=== PATIENT | male | born 1955 | race Caucasian/White ===

== ENCOUNTER 2024-02-28 15:53 | Emergency (ER) | payer MEDICARE, MEDICAID, SELFPAY ==
[2024-02-28] VITALS (10 sets, daily range): BP systolic 156–199; BP diastolic 96–123; PULSE 77–82; RESP 15–24; TEMP 36.6; O2SAT 98–100
--- NOTE | ~2024-02-28 | XR_ITS ---
XR chest 2V DATE: 02/28/2024 17:12 INDICATION: Chest pain, shortness of breath TECHNIQUE: AP and lateral views COMPARISON: 02/28/2024 CTA chest abdomen pelvis FINDINGS: Normal heart size. There is thoracic aortic aneurysm and tortuosity. No hilar or mediasti nal enlargement. There is moderate bilateral pulmonary hyperinflation suggesting COPD. No pulmonary infiltrate or consolidation, pulmonary vascular congestion or pleural effusion or pneumo thorax. There is probable bilateral rotator cuff atrophy. Degenerative spurring of the thoracic spine. IMPRESSION: Moderate bilateral hyperinflation; no active pulmonary disease Thoracic aortic aneurysm and tortuosity Reviewed, dictated and finalized at location B.
--- NOTE | ~2024-02-28 | CT_ITS ---
EXAMINATION: CT brain wo con DATE: 02/28/2024 17:03 INDICATION: Syncope with head injury TECHNIQUE: Computed tomography (CT) of the head was performed without intravenous contrast. Sagittal and coronal reconstructions were performed. The mA was adjusted according to patient size. Iterative reconstruction technique was employed. The dose-length product was 605.33 mGy-cm. COMPARISON: None FINDINGS: No fracture. Small old lacunar infarct at the head of the left caudate nucleus. No acute intracranial hemorrhage, acute infarction or abnormal extra axial fluid collection. There is mild scattered white matter hypoattenuation consistent with chronic small vessel ischemic disease. Symmetric prominence o f the sulci consistent with mild age-appropriate diffuse cerebral volume loss. Ventricles are normal and symmetric. No mass/mass effect. The orbits, paranasal sinuses and mastoid air cells are normal. IMPRESSION: 1. No fracture or acute intracranial process. 2. Small old lacunar infarct at the head of the left caudate nucleus. 3. Age-related changes including mild diffuse volume loss and mild scattered white matter hypoattenua tion consistent with chronic small vessel ischemic disease. Reviewed, dictated and finalized at location A. IMPRESSION: 1. No fracture or acute intracranial process. 2. Small old lacunar infarct at the head of the left caudate nucleus. 3. Age-related changes including mild diffuse volume loss and mild scattered wh ite matter hypoattenuation consistent with chronic small vessel ischemic diseas e.
--- NOTE | ~2024-02-28 | CT_ITS ---
EXAMINATION: CTA chest abdomen pelvis DATE: 02/28/2024 17:03 INDICATION: Thoracic aortic aneurysm. Chest pain, shortness of breath, syncope and dizziness. TECHNIQUE: Computed tomographic angiography (CTA) of the chest, abdomen, and pelvis was performed wit hout and with 100 mL Omnipaque-350 intravenous contrast. Volume-rendered 3D-reconstructions of the ao rta and large arteries were constructed by the technologist on a separate workstation. Automated expo sure control and iterative reconstruction technique were employed. The dose-length product was mGy-cm . COMPARISON: None FINDINGS: Chest: Mild emphysema. There is mosaic attenuation in the dependent lower lobes consistent with mild atelect asis and some subsegmental air trapping related to small airway disease. Additional mild discoid atel ectasis at the right middle lobe. No pneumonia, pulmonary edema, pleural effusion or pneumothorax. He art size is normal. Small amount of atherosclerotic coronary artery calcification. There is a fusifor m aneurysm of the descending thoracic aorta which measures up to 6.0 x 6.0 cm in maximal transaxial d iameter at the distal aspect of the arch measured orthogonal to the axis of flow. The aorta tapers to 4.9 x 5.0 cm at the level of the alex and further to 3.7 x 3.6 cm just above the level of the thor acic hiatus. No aortic dissection. No pathologically enlarged thoracic lymphadenopathy. Mild to moder ate thoracic spondylosis with chronic appearing mild anterior wedging at T7. Abdomen and pelvis: Liver, gallbladder, spleen, and bilateral adrenal glands are normal. Scattered dystrophic calcificati on is at the pancreas, likely sequela of chronic pancreatitis. Mild diffuse likely age-related renal cortical atrophy with more focal cortical scarring and suture line at the lower pole the right kidney likely sequela prior partial nephrectomy. Bilateral renal cysts the largest on the right measuring 2 .3 cm. Moderate amount of distal colonic stool. No dilated bowel to suggest obstruction. Normal appen heath. Bladder is normal. Prostatomegaly. Small fat-containing left inguinal hernia. No free intraperit kasper gas or fluid. No pathologically enlarged abdominal or pelvic lymphadenopathy. Fusiform infraren al abdominal aortic aneurysm measuring up to 4.0 cm in maximal diameter. Aortobiiliac endoluminal pato nting. Distal to the stents is aneurysmal dilation of the bilateral common iliac arteries which measu res up to 3.0 cm in maximal diameter on the left and 3.3 cm in maximal diameter on the right. There i s also dilation of the proximal most right internal iliac artery which measures up to 2.2 cm in maxim al diameter. There is complete occlusion of the proximal right superficial femoral artery. Mild to mo derate lumbar spondylosis. IMPRESSION: 1. Aneurysmal dilation of multiple vessels in the chest, abdomen and pelvis without dissection. This includes of the thoracic aorta measuring up to 6.0 cm, the infrarenal abdominal aorta measuring up to 4.0 cm, the bilateral common iliac arteries measuring 3.0 cm on the left and 3.3 cm on the right and of the right internal iliac artery measuring up to 2.2 cm. 2. Aortobiiliac stent. 3. Complete occlusion of the right superficial femoral artery. 4. Mild emphysema. 5. Prostatomegaly. Reviewed, dictated and finalized at location A. IMPRESSION: 1. Aneurysmal dilation of multiple vessels in the chest, abdomen and pelvis wit hout dissection. This includes of the thoracic aorta measuring up to 6.0 cm, th e infrarenal abdominal aorta measuring up to 4.0 cm, the bilateral common iliac arteries measuring 3.0 cm on the left and 3.3 cm on the right and of the right internal iliac artery measuring up to 2.2 cm. 2. Aortobiiliac stent. 3. Complete occlusion of the right superficial femoral arter
--- NOTE | 2024-02-28 15:55 | ECG_ITS ---
SEE SCANNED COPY FOR CONFIRMED REPORT MTDD
--- NOTE | 2024-02-28 16:00 | ED.GENADULT ---
HPI - General Adult General Chief complaint: Chest Pain <JOLLY Kahn Last Filed: 02/28/24 16:53> Stated complaint: CP, SOB, dizzy, light headed, fall <JOLLY Kahn Last Filed: 02/28/24 16:53> Time Seen by Provider: 02/28/24 16:00 <JOLLY Kahn Last Filed: 02/28/24 16:53> Focused HPI: Patient is a 68 y/o male, with PMH of Q fever, lung/kidney CA, CKD, AAA rupture with revision, who presents to the ED with c/o CP/SOB/dizziness. Patient reports shortness of breath has been worsening over the past few months, more pronounced over the past few days. worse with exertion. Patient reports he develops dizziness and midsternal chest pain any time he attempts to exert himself or walk more than 10 ft at a time. He has fallen 5 times in the last few days, has had 2 separate syncopal episodes. These both occurred after exerting himself. Patient denies any recent illness. Denies cough or cold symptoms, fevers. at bedside reports patient has known thoracic AAA measuring last at 5.2cm, also has known iliac aneursyms - Follows with Dr. Martell Dasilva @ [facility]. she states they have not performed a CTA in a while due to his kidney function. Patient also sees Nephrology, Urology, Infectious Disease at [facility]. GENERAL: Chronically ill-appearing, well-nourished, and in no acute distress. HEAD: Normocephalic, atraumatic. CHEST: Clear to auscultation. ?No respiratory distress. HEART: Regular rate and rhythm.? NEURO: ?Alert and oriented x3. Patient screened in triage and initial orders placed.? ?Additional care and disposition to be based upon?diagnostic testing and treatment. <JOLLY Kahn Last Filed: 02/28/24 16:53> Source: patient and family <JOLLY Kahn Filed: 02/28/24 16:53> Mode of arrival: ambulatory <JOLLY Kahn Filed: 02/28/24 16:53> Limitations: no limitations <Haydee Lane PA-C - Last Filed: 02/28/24 16:53> Related Data Allergies/adverse reactions: Allergies Allergy/AdvReac Type Severity Reaction Status Date / Time Sulfa (Sulfonamide Allergy Mild Nausea and Verified 02/28/24 16:48 Antibiotics) Vomiting <Haydee Lane PA-C - Last Filed: 02/28/24 16:53> Review of Systems Review of Systems: CONSTITUTIONAL: Denies fever, chills, or sweats. EYES: Denies visual changes, redness, or discharge. ENT: Denies rhinorrhea, congestion, sore throat, or otalgia. CARDIOVASCULAR: Chest pain Denies palpitations, or edema. RESPIRATORY: Dyspnea on exertion Denies cough GASTROINTESTINAL: Denies abdominal pain, nausea, vomiting, or diarrhea. GENITOURINARY: Denies dysuria or hematuria. SKIN: Denies rash or itching. MUSCULOSKELETAL: Denies back pain, joint pain, or myalgia. NEUROLOGIC: CP with exertion Denies headache, numbness, dizziness, or weakness. PSYCHIATRIC: Denies anxiety or depression. <Mario Henao MD - Last Filed: 02/28/24 18:56> PMFSH Past Medical History Medical History: Medical History (Updated 02/28/24 @ 20:37 by Korin Sims MD) Abdominal aortic aneurysm Chronic kidney disease COPD (chronic obstructive pulmonary disease) Kidney malignancy Lung cancer Thoracic aortic aneurysm <Haydee Lane PA-C - Last Filed: 02/28/24 16:53> Surgical History Surgical History: Surgical History (Updated 02/28/24 @ 18:51 by Mario Henao MD) History of abdominal aortic aneurysm repair History of partial nephrectomy <Haydee Lane PA-C - Last Filed: 02/28/24 16:53> Exam Narrative: GENERAL: Well-developed, well-nourished, and in no acute distress. HEAD: Normocephalic, atraumatic. EYES: PERRLA and EOMI. ENT: Nares clear, no rhinorrhea or epistaxis. Mucous membranes moist. Oropharynx without tonsillar hypertrophy exudate or other lesions. Bilateral TMs pearly leger nonbulging NECK: Supple. No adenopathy or masses. No carotid
[2024-02-28 16:27] LABS: Hematocrit 36.6 % (42.0-52.0); Hemoglobin 11.7 g/dL (14.0-18.0); Mean Corpuscular Hemoglobin 31.5 pg (26-34); Mean Corpuscular Volume 98.7 fl (80-100); Mean Platelet Volume 10.3 fl (7.4-10.4); Platelet Count Result 199 k/mm3 (150-375); Red Blood Count 3.71 M/mm3 (4.6-6.20); Red Cell Distribution Width 14.1 % (11.5-14.5); White Blood Count 8.7 K/mm3 (4.5-10.0)
[2024-02-28 16:37] LABS: Alanine Aminotransferase 24 U/L (6-50); Albumin Level 4.4 g/dL (3.5-5.1); Alkaline Phosphatase 130 U/L (38-126); Anion Gap 9 mmol/L (4-12); Aspartate Amino Transferase 24 U/L (17-59); Bilirubin,Total 0.5 mg/dL (0.2-1.3); Blood Urea Nitrogen 37 mg/dL (9-20); Calcium 9.7 mg/dL (8.4-10.2); Carbon Dioxide 19 mmol/L (22-30); Chloride 113 mmol/L (98-107); Estimated CRCL calculation 23 ml/min; Estimated Glomerular Filt Rate 21; Glucose 139 mg/dL (65-110); Lipase 270 U/L (23-300); Potassium 4.1 mmol/L (3.4-5.0); Sodium 141 mmol/L (137-145)
[2024-02-28] MEDS: SODIUM CHLORIDE 0.9% IV 1,000 ML 999 ML IV CONT (16:48)
[2024-02-28 16:49] LABS: Troponin I < 0.012 ng/mL (0.000-0.034)
[2024-02-28 16:50] LABS: INR 1.1; Partial Thromboplastin Time 29.5 Seconds (22.3-36.8); Prothrombin Time 15.1 Seconds (11.1-14.7)
--- NOTE | 2024-02-28 17:19 | ED.GENADULT ---
HPI - General Adult General Chief complaint: Chest Pain Stated complaint: CP, SOB, dizzy, light headed, fall Time Seen by Provider: 02/28/24 16:00 Source: patient and family Mode of arrival: ambulatory Limitations: no limitations History of Present Illness HPI narrative: 2-3 weeks ago, syncope, posistional Related Data Allergies Allergy/AdvReac Type Severity Reaction Status Date / Time Sulfa (Sulfonamide Allergy Mild Nausea and Verified 02/28/24 16:48 Antibiotics) Vomiting Course Vital Signs Vital signs: Vital Signs Temperature 97.9 F 02/28/24 16:05 Pulse Rate 79 02/28/24 16:05 Respiratory Rate 18 02/28/24 16:05 Blood Pressure 156/96 H 02/28/24 16:05 Pulse Oximetry 100 02/28/24 16:05 Oxygen Delivery Room Air 02/28/24 16:05 Temperature 97.9 F 02/28/24 16:05 Pulse Rate 77 02/28/24 16:50 Respiratory Rate 24 H 02/28/24 16:50 Blood Pressure 180/123 H 02/28/24 16:50 Pulse Oximetry 100 02/28/24 16:50 Oxygen Delivery Room Air 02/28/24 16:05 Medical Decision Making Vital Signs Vital Signs: Vital Signs Temperature 97.9 F 02/28/24 16:05 Pulse Rate 79 02/28/24 16:05 Respiratory Rate 18 02/28/24 16:05 Blood Pressure 156/96 H 02/28/24 16:05 Pulse Oximetry 100 02/28/24 16:05 Oxygen Delivery Room Air 02/28/24 16:05 Temperature 97.9 F 02/28/24 16:05 Pulse Rate 77 02/28/24 16:50 Respiratory Rate 24 H 02/28/24 16:50 Blood Pressure 180/123 H 02/28/24 16:50 Pulse Oximetry 100 02/28/24 16:50 Oxygen Delivery Room Air 02/28/24 16:05 Lab Data 02/28/24 16:13 02/28/24 16:13 Labs: Lab Results 02/28/24 Range/Units 16:13 WBC 8.7 (4.5-10.0) K/mm3 RBC 3.71 L (4.6-6.20) M/mm3 Hgb 11.7 L (14.0-18.0) g/dL Hct 36.6 L (42.0-52.0) % MCV 98.7 (80-100) fl MCH 31.5 (26-34) pg MCHC 32.0 (32-36) g/dl RDW 14.1 (11.5-14.5) % Plt Count 199 (150-375) k/mm3 MPV 10.3 (7.4-10.4) fl Immature Gran % (Auto) Not Reportable Neut % (Auto) Not Reportable Lymph % (Auto) Not Reportable [place] % (Auto) Not Reportable Eos % (Auto) Not Reportable Baso % (Auto) Not Reportable Lymph # (Auto) Not Reportable [place] # (Auto) Not Reportable Eos # (Auto) Not Reportable Baso # (Auto) Not Reportable Abs Immat Gran (auto) Not Reportable Absolute Neuts (auto) Not Reportable Absolute Nucleated RBC Not Reportable Nucleated RBC % Not Reportable PT 15.1 H (11.1-14.7) Seconds INR 1.1 APTT 29.5 (22.3-36.8) Seconds Sodium 141 (137-145) mmol/L Potassium 4.1 (3.4-5.0) mmol/L Chloride 113 H (98-107) mmol/L Carbon Dioxide 19 L (22-30) mmol/L Anion Gap 9 (4-12) mmol/L BUN 37 H (9-20) mg/dL Creatinine 3.00 H (0.7-1.3) mg/dL Estim Creat Clear Calc 23 ml/min Estimated GFR 21 L (59 - ) Glucose 139 H (65-110) mg/dL Calcium 9.7 (8.4-10.2) mg/dL Total Bilirubin 0.5 (0.2-1.3) mg/dL AST 24 (17-59) U/L ALT 24 (6-50) U/L Alkaline Phosphatase 130 H (38-126) U/L Troponin I < 0.012 (0.000-0.034) ng/mL Total Protein 7.0 (6.3-8.2) g/dL Albumin 4.4 (3.5-5.1) g/dL Lipase 270 (23-300) U/L Discharge Plan Discharge Follow-up/Referrals: PHYSICIAN NOT ON STAFF,NONSTAFF [Primary Care Provider] -
[2024-02-28 18:31] LABS: Appearance Urine Clear (Clear); Bacteria Urine None Seen /hpf; Bilirubin Urine Negative (Negative); Blood Urine Negative (Negative); Color Urine Yellow (Yellow); Glucose Urine UA Negative (Negative); Ketones Urine Negative (Negative); Leukocyte Esterase Ur Negative LEU/UL (Negative); Nitrate Urine Negative (Negative); Non Pathogenic Casts 0-2; Protein Urine 1+ mg/dL (Negative); RBC Urine 0-2 /hpf (0-2); Specific Grav Ur 1.025 (1.001-1.035); Squamous Epithelial Cell Urine None Seen /hpf (Few); Urobilinogen Urine 0.2 mg/dL (<2.0); WBC Urine 0-5 /hpf (0-3); pH Urine 5.5 (5.0-9.0)
[2024-02-28 18:33] LABS: Add Urine Microscopic? YES
--- NOTE | 2024-02-28 20:52 | PC.NURSE ---
This RN assumed care of pt at 1900.
[2024-02-28 21:12] LABS: Troponin I < 0.012 ng/mL (0.000-0.034)
== END 2024-02-28 21:20 | disposition short-term general hospital (02) ==
PROVIDERS: Emergency Medicine; Physician Assistant; Emergency Provider Emergency Medicine
DX: I71.20 Thoracic aortic aneurysm, without rupture, unspecified (principal); R55 Syncope and collapse; R06.02 Shortness of breath; I72.3 Aneurysm of iliac artery; N18.4 Chronic kidney disease, stage 4 (severe); Z90.5 Acquired absence of kidney; J43.9 Emphysema, unspecified; N40.0 Benign prostatic hyperplasia without lower urinary tract symptoms; I70.92 Chronic total occlusion of artery of the extremities; I71.43 Infrarenal abdominal aortic aneurysm, without rupture; I45.2 Bifascicular block
CPT/HCPCS: 36415; 70450; 71046; 71275; 74174; 80053; 81001; 83690; 84484; 85025; 85610; 85730; 93005; 96360; 99285; J7030; Q9967

== ENCOUNTER 2025-02-24 08:42 | Emergency (ER) | payer MEDICARE, MEDICAID, SELFPAY ==
--- NOTE | 2025-02-24 08:46 | ECG_ITS ---
Test Date: 2025-02-24 08:51:56 Measurements Intervals [place] Rate: 92 P: -10 MT: 169 QRS: -58 QRSD: 121 T: 58 QT: 351 QTc: 435 Interpretive Statements SINUS RHYTHM MARKED LEFT AXIS DEVIATION [QRS AXIS < -30] MODERATE INTRAVENTRICULAR CONDUCTION DELAY [110+ ms QRS DURATION] No previous ECG available for comparison Electronically Signed On 02-25-2025 10:00:31 CDT by Minnie Corral M.D.
[2025-02-24 08:47] VITALS: BP 136/87; RESP 20; O2SAT 95
--- OUTSIDE RECORDS SUMMARY | 2025-02-24 08:50 | XMS_ITS ---
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 Mr. Israel Vick is a 64-year-old with lung cancer. Patient has a history of a ruptured abdominal aortic aneurysm status post endovascular aneurysm repair in 2010. In January 2018 the patient graft was noted to have migrated and he underwent a repair at this time. Unfortunately the patient developed an infection and in May 2018 the patient underwent a removal of the infected endograft and inline aortic reconstruction from the infrarenal aorta to the bilateral common iliac arteries. He is currently on IV antibiotics. Patient was being followed for a lung nodule. On 02/24/2019 the patient underwent a chest CT without contrast which noted an enlarging right middle lobe lung nodule, now measuring 1.5 cm. This nodule tethers to the minor fissure. There are no other suspicious pulmonary nodules or masses. On 03/19/2019 the patient underwent a bronchoscopy. The right middle lobe lung nodule was biopsied and final pathology was consistent with squamous cell carcinoma. On 01/27/2019 the patient underwent pulmonary function testing which demonstrated a post bronchodilator FEV1 of 89% of predicted and a DLCO of 36% of predicted. Patient is scheduled for a PET scan prior to his appointment today. Patient is a current smoker with a 60 pack year smoking history. Patient presents today for further surgical evaluation. Problem Noted Date Diagnosed Date Acute cystitis without hematuria 01/31/2025 Assessment & Plan (02/01/2025 12:05 PM CDT): - UA with UTI - started 3d CTX 01/31, however culture came back with yeast. - Nephrology recommended treatment as can contribute to OCTAVIANO, started fluconazole 02/01 OCTAVIANO (acute kidney injury) 01/27/2025 Assessment & Plan (02/01/2025 8:03 AM CDT): OCTAVIANO on CKD 4. Hx of RCC and Right partial nephrectomy. Follows w nephrology. Outpatient Cr 4.51 on 01/11. -01/20: s/p Left renal artery stent placement for GARLAND -Cr 4.25 following OR, now uptrending. -S/p IVF, Cr continued to uptrend -01/29: Consult nephrology -01/30: Renal US doppler: Markedly limited visualization of both kidneys and vasculature in this setting of thoracic aorta endovascular repair and left renal artery placement. There is flow within both kidneys. -Strict I&O, monitor renal panel -Avoid nephrotoxins -Renally dose meds - Creatinine currently stable around 5.2. Recent Labs Lab Units 01/31/25 2230 01/30/25 2030 01/29/25 2233 CREATININE mg/dL 5.22* 5.18* 5.18* - No acute indication for HD currently, nephrology continues to follow. Pill esophagitis due to potassium chloride 01/27 Hyperkalemia 01/27/2025 Assessment & Plan (02/01/2025 8:06 AM CDT): Likely 2/2 OCTAVIANO. - continue lokelma for now, K 5.0 this AM - monitor BMP Thoracoabdominal aortic aneu rysm (TAAA) without rupture, unspecified part 01/20/2025 Thoracoabdominal aortic aneurysm (TAAA) without rupture 12/31/2024 Assessment & Plan (01/30/2025 10:25 AM CDT): Complicated aortic hx including remote endovascular repair which required explant and rifampin soaked repair in 2018 due to Q fever infection. Now returning for 6cm aneurysm of the descending thoracic aorta. - s/p OR / for TBE (TBE incorporating left sublavian) with TEVAR extension via L radial and R RUBBER ROLLER GRINDER access; Left renal artery stent. Intraoperative course was uncomplicated. -Pt had been in PACU d/t bed availability. On 01/21 evening began having worsening motor function RLE with unable to raise R leg against gravity, distal pulses were stable. Given 1 unit PRBC. Underwent rescue lumbar drain placement. Had significant improvement in RLE strength after drain placement. Transerred to SICU for q1H NC/NVC. -Lumbar drained clamped on 01/25 and removed 01/26 -01/26:TTF -RLE weakness improved -Keep systolic >140 for now. Avoid hypotension -PT/OT/OOB. PT/OT rec inpatient rehab. Patient/daughter declined inpatient rehab. CM working on arranging PT/OT. Renal insufficiency 12/03/2024 Another Fall 05/10/2024 Assessment & Plan (05/14/2024 12:35 PM CDT): Mechanical fall overnight 05/09-05/10. CTH unremarkable. Continue fall precautions. Manage orthostasis as elsewhere and resolved. Perinephric hematoma 05/08/2024 Assessment & Plan (05/14/2024 12:30 PM CDT): Prior history of RCCA s/p partial R-nephrectomy, orthostatic hypotension, therapeutic anticoagulation presented to OSH 04/29 after a fall, found with RP hematoma, AC held, s/p IR embolization at OSH, and transferred to [facility] for further evaluation. He was initially admitted to vascular surgery due to history of AAA, subsequently transferred medicine. Urology was consulted during admission. He underwent repeat CT imaging has showed evolving right subscapular hematoma and slight decrease in additional hematoma in right perinephric space. Per Urology, suspected traumatic in setting of fall and anticoagulation given that the original partial nephrectomy was R0 resection, renorrhaphy likely also to have healed by now and was closed using overlying capsule, and given consistent alternative explanation of hematoma in setting of trauma Plan repeat CT abdomen and pelvis with contrast in 2months with Urology for further evaluation to rule out renal mass. Hematoma complicated by compressive acute on chronic renal failure requiring HD, now held, as elsewhere. Monitored serial blood counts, stable Hb around 8. Cont inue to hold anticoagulation Plan OP urology and PCP follow up. Assessment & Plan (05/08/2024 7:45 AM CDT): Patient presented to OSH with severe groin, flank, and back pain. Further workup identified a large right renal subcapsular hematoma, with extension into the retroperitoneum and pelvis. Now s/p embolization on 04/30. To note s/p R partial nephrectomy 2/2 RCC -cont to hold eliquis for now -daily CBC, keep active type and screen -consult Urology Recurrent falls 05/07/2024 Assessment & Plan (05/14/2024 12:35 PM CDT): Per history and prior workup, appears from orthostatic vs vasovagal presyncope/syncope. Lower concern for cardiogenic at this time. Prior event monitor unremarkable 02/2024 as well. Repeat orthostatics with orthostasis on 05/12, adjusted antihypertensives, as elsewhere. On MECHELLE hose, abdominal binders, appropriate sodium intake, slow positional changes. Continue fall precautions. Would benefit from rehab at [place], PT rec IPR/OT rec SNF, pt accepted to [facility] at [place]. Insurance approved and plan nticipate transfer 05/14. Assessment & Plan (05/08/2024 7:46 AM CDT): Patient has experienced recurrent falls both outside and in the hospital, now endorsing intermittent hallucinations. - Xrays of RUE and RLE negative - Fall precautions, OOB with assist - Tele monitor - PT/OT. Delirium 05/07/2024 Assessment & Plan (05/14/2024 12:36 PM CDT): PT initially slightly altered, AOx2-3 with not perfect memory of preceding events. Nonfocal exam, with baseline reportedly AOX4. History of hospital acquired delirium. Likely delirium from medical issues. CT head at OSH without abnormality prior to transfer. HIV, TSH, RPR, B12 negative. Unlikely to be withdrawal. Low suspicion of metabolic encephalopathy from uremia. Received IV thiamine x3 days, seen by nephrology eval regarding dialysis and no role to continue. On delirium precautions, clinically improved and discontinued elopement/sitter 05/09 AM, resolved. Assessment & Plan (05/08/2024 7:38 AM CDT): Pt presents with delirium. Oriented to person and place. Reports intermittent hallucinations. Unclear baseline -Afebrile, WBC WNL -UA negative -cXR c/w atelectasis, no consolidation -Hx of alcohol abuse. Per pt, he has stopped drinking. Uses marijuana. Add folic acid, MVI. Give thiamine 100 mg IV qs x3 -UDS+ fentanyl which he was given in the hospital -Delirium precautions -Zypexa prn for now -reversible causes workup sent and negative -OSH Head CT neg Acute kidney injury superimposed on chronic kidn ey disease 05/07/2024 Assessment & Plan (05/14/2024 12:31 PM CDT): Pt with hx of CKD4 and R partial nephrectomy, baseline Cr 2.3-2.7. OCTAVIANO with Cr peaked at 5.8 OSH requiring HD. Nephrology was consulted during admission. On review of prior records, Last normal Cr back in 2018 with steady rise since. Right sided Tunneled line placed at OSH and was initiated on HD, received 2nd session at 05/06. Nephrology consulted, held further dialysis and continuing to monitor. Dialysis catheter remains in place. Cr slope improved, now angel to 4.65, 4.52, but continuing to make urine. Renal following for need to resume: no acidosis (+NAGMA), or volume overload. Mild hyperkalemia (5.3), adding daily lokelma dosing. Encourage PO. Oxygenation and volume status OK. Monitored strict I/O's, avoid nephrotoxic medications, renally dose medications. Plan DC to SNF now that OCTAVIANO stabilized off dialysis and no further need for transfusions. Renal team recommended keeping dialysis line in place at DC. Plan OP renal clinic follow up for catheter management and ocean transportation intermediary care. Discharge Planning I have spent 30 minutes on discharge planning activities. Time spent was on Coordination of care, Follow up , Counselling with patient/family, discharge exam, parent/patient education, PCP communication, and Other provider communication. Assessment & Plan (05/08/2024 7:34 AM CDT): Per chart review, baseline cr 2-2.5. Pt developed OCTAVIANO with cr increase to ~5.8 at OSH. Dialysis catheter placed and HD initiated on 05/04. Continues to make urine - Cr 3.39 on admission, continues to make urine - Renal consulted today for management-> no urgent needs for HD currently. Cont to follow labs - Monitor BMP and phos, I&Os Thoracic aortic aneurysm without rupture 024 Assessment & Plan (05/14/2024 12:34 PM CDT): Pt with hx of AAA rupture and EVAR, however was explanted in 2017 due to Q fever. Follows OP with vascular surgery. No current interventions indicated per vascular. Held eliquis for RP bleed, no plans to resume. Assessment & Plan (05/08/2024 7:40 AM CDT): Israel Vick is a 69 year old male with a PMHX significant fo HTN, COPD (on oxygen as needed), CKD3B, and a complex vascular history. He had an EVAR explant due to Q fever infection on 06/09/2018, and has been on suppressive antibiotics since, an angiogram in 2020 that was aborted due to tortuous iliacs, and a L SFA and popliteal artery angioplasty and stenting. Patient has been followed by Dr. Lainez for continued management of his desending thoracic aorta. - No current interventions indicated. - Eliquis on hold for now - BP control. above goal at this time. Add low dose amlodipine, add additional agents as needed Anemia 03/02/2024 Assessment & Plan (03/02/2024 3:20 PM CDT): Normocytic anemia, MCV in high 90's Baseline Hb: 11-12 Check iron profile, ferritin, vitamin b12 level History of cancer 2024 Assessment & Plan (2024 1:22 PM CDT): Hx RML SCC s/p definitive RT. Also hx RCC s/p R nephrectomy. PAD (peripheral artery disease) 2024 Assessment & Plan (01/29/2025 7:28 AM CDT): Hx of claudication and 08/08/2021 for Left SFA and popliteal artery stent angioplasty. Previously on Eliquis for SFA stent, but states he is no longer taking. - angiogram with evidence of left renal artery stenosis. - s/p OR for left renal artery stenting as above per AAA. - Continue aspirin, statin. Reduce rosuvastatin to 10mg for CrCl Assessment & Plan (05/08/2024 7:43 AM CDT): Hx PAD s/p L SFA and L pop angioplasty + stent. -ASA, statin -holding eliquis for recent bleed Assessment & Plan (05/14/2024 12:34 PM CDT): Hx PAD s/p L SFA and L pop angioplasty + stent. Previously on asa/statin and eliquis. Plan to continue statin but Indefinitely hold eliquis given on AC for PAD/prophylactic only without intention for full AC per vascular surgery. Resumed ASA 81/d on 05/07 and tolerating with stable repeat Hb. Assessment & Plan (2024 1:23 PM CDT): Hx PAD s/p L SFA and L pop angioplasty + stent. -cont Eliquis, ASA, statin Syncope 2024 Assessment & Plan (03/02/2024 9:02 AM CDT): Multiple recent syncopal episodes w/ LOC, assoc w/ SOB/CP/dizziness. BP up to 190s/120s, other VSS. Labs w/ hgb 11.5, trop neg x3, TSH wnl, RVP neg, UA non-infectious. CTA CAP w/ 6 cm thoracic aortic aneurysm, a 4 mm infrarenal abdominal aortic aneurysm, and aneurysms of the bilateral iliac arteries measuring 3 cm in left and 3.3 cm on right. Prior TTE 07/2023 w/ normal systolic function, G1DD, trace pericardial effusion. Carotid dopplers 08/2023 w/ R ICA <50% stenosis. -CT Head OHS: no IC pathology -Orthostatic vitals positive, will re-check -monitor on tele, mostly mostly sinus rhythm with some SC prolongation but does not meet the criteria for 1st degree AV block (also noted in EKG 2022) -consider event monitor on discharge -repeat TTE given patient endorses, TOBIN for long time (TTE 07/30/23 Normal LV&RV size and function, concentric LV hypertrophy) -PT recommendation Headaches, cluster 2024 Assessment & Plan (2024 1:28 PM CDT): Hx cluster headaches. Less severe recently. - cont home verapamil, nortriptyline Abdominal aortic aneurysm (A AA) without rupture, unspecified part 02/29/2024 Assessment & Plan (2024 1:26 PM CDT): Thoracic AAA now 6cm (from 5.7cm 07/2023). Also noted to have a 4 mm infrarenal abdominal aortic aneurysm, and aneurysms of the bilateral iliac arteries measuring 3 cm in left and 3.3 cm on right. 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 -cont suppressive amoxicillin, doxy Chronic antibiotic suppression 08/14/2018 Assessment & Plan (05/14/2024 12:33 PM CDT): Hx of Q fever with EVAR removal in 2018. Continue chronic amoxocillin and doxycycline, afebrile, no leukocytosis. F/u with ID clinic provider as OP as previously directed. 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 Will plan to monitor his creatinine closely and make dosing adjustments to antibiotics as needed. Orders placed for repeat labs to be drawn in June when he is on [facility]. Order also placed to repeat Q fever serology. 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 - continue amoxicillin and doxycyline. Assessment & Plan (10/11/2020 1:59 PM FIRESTOPPER INSTALLER): - Patient doing well on suppressive amoxicillin and doxycycline with no concern for recurrent infection. Recent imaging shows stable aortic arch aneurysm - Continue amoxicillin and doxycycline suppression due to retained vascular graft in the setting of graft infection along with positive Q fever serologies. Plan to continue indefinitely due to risk of recurrent infection - Discussed with patient the rational for treatment, culture results, risk of recurrent infection, signs/symptoms of recurrent infection, and to contact ID clinic with any questions or concerns Lung nodule 07/09/2018 Overview (07/09/2018): Per CTA 05/2018 - In the right middle lobe there is a lobulated 1.2 x 1.3 cm nodule with surrounding minimal spiculations and central cavitation almost certainly representing a primary bronchogenic carcinoma. I would recommend further evaluation with either tissue sampling or a PET scan At high risk for neurological deficit 06/10/2018 Assessment & Plan (06/11/2018 2:30 AM CDT): Post-vascular surgery. Aortic bi illiac bypass. This diagnosis requires critical care monitoring post-operatively. -Q1 neuro motor/neuro vascular checks with concern of infection and longer cross clamp time per vascular. -If change in neuro exam call vascular surgery Assessment & Plan (06/10/2018 2:10 PM CDT): Post-vascular surgery. Aortic bi illiac bypass. This diagnosis requires critical care monitoring post-operatively. -Q1 neuro motor/neuro vascular checks -If change in neuro exam call vascular surgery Assessment & Plan (06/10/2018 1:18 AM CDT): Post-vascular surgery. Aortic bi illiac bypass. This diagnosis requires critical care monitoring post-operatively. -Q1 neuro motor/neuro vascular checks -If change in neuro exam call vascular surgery Acute kidney injury 06/10/2018 Assessment & Plan (06/12/2018 11:46 AM CDT): AM labs with Cr continuing to rise, now 3.63. BUN 42 and CO2 28. Likely ATN. Urine output remains low but improved overall, now 25-35. Not responsive to fluid bolus or diuretics. -LR bolus 500 ml now -renally dose meds -MAP goal > 65 -BMP this pm -Consult nephrology -keep RIJ cordis for possible rewire to trialysis Assessment & Plan (06/12/2018 6:55 AM CDT): AM labs with Cr continuing to rise, now 3.62. Urine output remains low but improved overall, now 25-35. -add LR at 75 ml/hr -renally dose meds -MAP goal > 65 -Q12hr BMP -If electrolyte abnormalities, anuric, or Bicarb < 18 c/s renal for assistance -keep RIJ cordis for possible rewire to trialysis Assessment & Plan (06/11/2018 5:57 PM CDT): Worsening OCTAVIANO. Oliguric despite volume overnight. Likely ATN 2/2 open AAA vascular surgery, supertheraputic vanc level, and hypovolemia -no diuresis -500 LR now for oliguria -renally dose all drugs -MAP goal > 65 -Q12hr BMP -If electrolyte abnormalities, anuric, or Bicarb < 18 c/s renal for assistance -keep RIJ cordis for possible rewire to trialysis Assessment & Plan (06/11/2018 2:28 AM CDT): Cr up to 2.0 from baseline 1.16. Expected post aorta cross clamp for infected graft explant and repair. Given Lasix in the afternoon for oliguria without urine response. Remains oliguric through the evening. - Avoid hypotension and nephrotoxins - Renally adjust meds as appropriate - BMP Q12 per icu attending - 250ml LR now, f/u urine output. Assessment & Plan (06/10/2018 4:34 PM CDT): Cr up to 2.0 from baseline 1.16. Expected post aorta cross clamp for infected graft explant and repair. UOP diminished to 10 ml/hr. - Avoid hypotension and nephrotoxins - Renally adjust meds as appropriate - Consider Lasix challenge to increase UOP - BMP in am Acute blood loss anemia 06/09/2018 Assessment & Plan (05/08/2024 7:33 AM CDT): Hgb baseline ~11-13. Hgb low on admission at 7.9->7.7. no overt signs of bleeding on exam -daily CBC -keep active type and screen Assessment & Plan (05/14/2024 12:32 PM CDT): Pt with mutliple falls at home, presented to OSH with weakness and flank pain. CT showed RP bleeding from a suspected new renal mass, and he underwent IR embolization on 04/30. He has a hx of R nephrectomy from RCC. Since that time hgb has stabilized, required transfusion on 05/02. Continued to hold eliquis, asa Monitored serial blood counts, roughly stable at 8, but mild orthostasis noted 05/12, resolved with antihypertensive adjustments. Tolerated DVT ppx SQH, Low threshold to hold if worsening anemia. Repeat CTAP wo contrast 05/09 showed evolving right subcapsular hematoma and slight decrease in additional hematoma in right perinephric space. OSH iron panel reviewed, c/w SHIRLEY+AOCD (likely related to CRF). Follow up counts with PCP, renal clinic, urology. Repeat imaging as elsewhere. Assessment & Plan (06/12/2018 11:43 AM CDT): Hb 9.8 this am. No signs of active bleeding -Keep Hg >8 per vascular surgery -No indication for transfusion at this time Assessment & Plan (06/10/2018 2:17 PM CDT): 1500ml blood loss intra-op with 8 units PRBC transfused. Post-op H/H 9.30. Hb 10.9 this am. No signs of active bleeding -Keep hbg >8 per vascular surgery -No indication for transfusion at this time Assessment & Plan (06/10/2018 1:11 AM CDT): 1500ml blood loss intra-op with 8 units PRBC transfused. Post-op H/H 9.930. No signs of active bleeding -Keep hbg >8 per vascular surgery -AM CBC -No indication for transfusion at this time Acute pulmonary insufficiency 06/09/2018 Assessment & Plan (06/12/2018 11:43 AM CDT): CXR unchanged with bibasilar atelectasis and LLL effusion. Likely related to pain preventing optimal pulmonary hygiene. NC 4 lpm. -wean FiO2 for SpO2 > 92% -continue EZ pep to maximize pulmonary hygiene -encourage use of IS Assessment & Plan (06/12/2018 1:55 AM CDT): CXR unchanged with increased atelectasis and LLL effusion. Likely related to pain preventing optimal pulmonary hygiene. NC 4 lpm. -wean FiO2 for SpO2 > 92% -continue EZ pep to maximize pulmonary hygiene -encourage use of IS Assessment & Plan (06/11/2018 5:50 PM CDT): Likely 2/2 post op pain and hx of COPD. CXR with increased atelectasis and LLL effusion. Currently on NC with SpO2 92% -spiriva QD -wean FiO2 for SpO2 > 92% -add EZ pep to pulmonary hygiene -OOB to chair/amublate Assessment & Plan (06/10/2018 1:11 PM CDT): Expected post-surgery. Arrived to the ICU intubated and sedated. Reported history of COPD not on any inhalers. Extubated to NC O2 at 0200 POD 1. - Wean supplemental O2 to keep sat >92% - Aggressive pulmonary toileting with incentive spirometry q1h - OOBTC and ambulate Assessment & Plan (06/10/2018 1:13 AM CDT): Expected post-surgery. Arrived to the ICU intubated and sedated. Reported history of COPD not on any inhalers -Check post-op labs, if stable will consider wake and wean to PSV -Keep sats >92% -Per ICU attending will obtain ABG while on PSV Acute pain 06/09/2018 Assessment & Plan (06/12/2018 11:44 AM CDT): Continues to endorse abdominal incision pain with dilaudid ENGINE BUILDER 0.4mg Q10min. However, pt states tolerable. Pain service following. - Scheduled Tylenol -continue catering cook; if becomes somnolent will decrease dose. Assessment & Plan (06/12/2018 1:52 AM CDT): Continues to endorse 6/10 abdominal incision pain with dilaudid ENGINE BUILDER 0.4mg Q10min. However, pt states tolerable. Pain service following. Pt refuses epidural. Lidocaine gtt discontinue this am with supertheraputic level. -continue catering cook; if becomes somnolent will decrease dose. Assessment & Plan (06/11/2018 5:53 PM CDT): Continues to be an issue. Endorsing 6/10 abdominal incision pain with lidocaine gtt at 1.5mcg/kg/min and dilaudid ENGINE BUILDER 0.4mg Q10min. Pain service following. Pt refuses epidural. Lido level supertheraputic this AM with rising creat and oliguria. NPO with NGT to LIS -decrease lido gtt to 1mcg/kg/min -check lido level at 09:00 and if level increasing d/c lido gtt -f/u pain service reqs -if pt become somnolent, consider decreasing dilaudid dose to 0.25 Q10min lock out 2/2 age, increasing creat, and COPD hx Assessment & Plan (06/11/2018 2:29 AM CDT): Expected post-vascular surgery with open abdomen. On Dilaudid ENGINE BUILDER, dose increased prior day. Continued pain during the day, pain consulted and started on Lido gtt. -Lido level at 0000 -If lido level >7, hold infusion per pain -Continue ENGINE BUILDER Assessment & Plan (06/10/2018 1:12 PM CDT): Expected post-vascular surgery with open abdomen. On Dilaudid ENGINE BUILDER, Dose increased to 0.4mg q10 min last night. -Dilaudid ENGINE BUILDER - Consult pain service, regional block vs epidural vs lido infusion Assessment & Plan (06/10/2018 1:14 AM CDT): Expected post-vascular surgery with open abdomen. Currently sedated -Dilaudid PRN per vascular now -Once extubated will plan for dilaudid ENGINE BUILDER GERD (gastroesophageal reflux disease) 8 Assessment & Plan (06/10/2018 1:12 PM CDT): - Started on home PPI Hypertension 06/09/2018 Assessment & Plan (01/30/2025 10:31 AM CDT): Home meds: Amlodipine 5mg daily and Coreg 6.25mg BID -New RLE weakness post- op, c/f spinal cord ischemia. Underwent rescue lumbar drain placement -01/28: s/p IVF for episode of orthostasis w/ systolic to 90s upon standing. -Avoiding hypotension, keep systolic above 140 -Coreg resumed at 3.125mg BID with hold parameters -Continue Q4 VS Assessment & Plan (05/14/2024 12:33 PM CDT): No longer takes verapamil (was for headache he reports). Started and increased amlodipine 10mg daily, coreg 6.25mg BID with orthostasis. Dropped amlodipine to 5mg/d and repeat orthostatics 05/13 with resolution, discussed with IGNACIO Hartmann. F/u with PCP for OP management. Assessment & Plan (05/08/2024 7:39 AM CDT): No longer takes verapamil at home -Goal BP 110-150 -started amlodipine 5mg on 05/07, SBP remains elevated at 170s. Increase to 10mg. Assessment & Plan (2024 1:24 PM CDT): BPs up to 190s/120s. - cont losartan (formulary alternative for home telmisartan), nebivolol, verapamil - patient also prescribed lisinopril 5mg (unclear why on both RAQUEL and ARB), will hold for now Assessment & Plan (06/10/2018 1:38 PM CDT): Baseline HTN, becoming hypertensive late evening. -Nicardipine to for SBP goal 100-160 per surgery Assessment & Plan (06/10/2018 1:15 AM CDT): Baseline HTN, becoming hypertensive late evening. -Nicardipine to for SBP goal 100-160 per surgery -Pain control once extubated COPD (chronic obstructive pulmonary disease) Assessment & Plan (05/14/2024 12:35 PM CDT): Daily smoker, no O2 requirement. Cont home anoro ellipto Discussed cessation and agreeable. Added nicotine gum Assessment & Plan (05/08/2024 7:36 AM CDT): Hx COPD. Not in exacerbation. Resp status stable -Continue home anora and prn albuterol. Assessment & Plan (2024 1:25 PM CDT): Continues to smoke 1ppd. Satting well on RA. No wheezing on exam. -cont home anoro ellipta Assessment & Plan (06/10/2018 2:09 PM CDT): Reported history of COPD not on inhalers at home. No wheezes currently -Restarted on home inhalers Assessment & Plan (06/10/2018 1:16 AM CDT): Reported history of COPD not on inhalers at home. No wheezes currently -Consider inhalers once extubated if patient is wheezing or short of breath. 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 Last imaging shows enlargement of known thoracic aneurysm. He is following closely with vascular surgery and is being considered for surgical intervention. - He should continue on chronic amoxicillin 500 mg PO BID and doxycycline 100 mg PO BID for suppression due to vascular graft infection. Unclear what organism is causing his infection. He is being covered for Q fever (serologies weakly positive) along with other possible causative organisms with his current regimen of doxycycline and amoxicillin. Plan to continue indefinitely at this point. - Ok to proceed with vascular surgery from an ID perspective. We discussed the risk of another vascular graft infection but I believe the benefits of surgery outweigh the risks. Surgeon will use rifampin soaked graft and we will plan to keep him on suppressive antibiotics indefinitely at this point to help decrease risk of recurrent infection. He should continue both amoxicillin and doxycycline. Please consult ID inpatient if there is concern for acute vascular infection intraoperatively. If concern for infection please send both cultures and broad range PCR testing Assessment & Plan (06/01/2024 1:45 PM CDT): - Clinically doing well on exam today with no concerns for acute infection at this time. 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 He now has an enlarging thoracic aneurysm and is planning for vascular surgery in the near future. - Ok to proceed with vascular surgery. We discussed the risk of another vascular graft infection but I believe the benefits of surgery outweigh the risks. Surgeon will use rifampin soaked graft and we will plan to keep him on suppressive antibiotics indefinitely at this point to help decrease risk of recurrent infection. He should continue both amoxicillin and doxycycline. Please consult ID inpatient if there is concern for acute vascular infection intraoperatively - We will see him again after surgery Assessment & Plan (04/25/2021 3:22 PM CDT): - Doing well on oral antibiotic suppression with no concern for recurrent infection. - Continue amoxicillin and doxycycline for chronic suppression due to infected vascular graft in the setting of infection along with positive Q fever serology. Q fever serologies were borderline positive but given his significant exposures it was decided to treat ocean transportation intermediary. Plan to continue both amoxicillin and doxycycline indefinitely due to risk of recurrent infection - CBC, CMP, and Q fever labs ordered today - Discussed with patient the rational for treatment, culture results, risk of recurrent infection, signs/symptoms of recurrent infection, and to contact ID clinic with any questions or concerns Assessment & Plan (04/08/2020 1:53 PM CDT): - Patient doing well on suppressive antibiotics with no concern for recurrent infection. 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 He should continue Doxycycline and Augmentin for culture negative vascular graft infection. Doxycycline will also cover for Q fever given his positive serologies. He reports his primary care doctor is managing these prescriptions and sending refills. Will check CBC and CMP today due to fluctuating renal function and suggest dose adjustments based on creatinine clearance. Will also check Q fever serologies. He should remain on suppressive antibiotics lifelong given risk of recurrent infection if stopped due to presence of vascular graft. Discussed with patient and the rational for ocean transportation intermediary antibiotics, risk of recurrent infection, signs/symptoms of recurrent infection, and to contact ID clinic with any questions or concerns. Assessment & Plan (06/12/2018 11:41 AM CDT): S/P Open AAA graft repair with bld cx NGTD 06/06 and 06/10 tissue samples. Pt does have hx of animal exposure so histopathogens pending and ID following. -renally dose meds -consult nephrology -f/u cx -continue cefe, doxy,flagyl all IV (per vascular requesting continued IV dosing) -random vanco level this pm -D/c NGT -sips and chip OK -lead teacher to change wound vac this am Assessment & Plan (06/11/2018 5:54 PM CDT): S/P Open AAA graft repair with bld cx NGTD 06/06 and 06/10 tissue samples. Pt does have hx of animal exposure so histopathogens pending and ID following. NPO with NGT to LIS -adjust ABX for worsening OCTAVIANO -f/u renal reqs -f/u cx -continue cefe, doxy,flagyl all IV (per vascular requesting continued IV dosing) -Supertheraputic vanc level -> QAM vanc troughs and redose after < 20 -NPO with NGT to LIS ( do not clamp longer than 2hrs) -c/s lead teacher to change wound vac Assessment & Plan (06/10/2018 1:10 PM CDT): S/P Open AAA graft repair. Post-Op care to include: Stress ulcer prophylaxis: Home PPI started Nutrition plan: NPO Bowel regimen: colace, senna PT Prophylaxis: Vanc, cefe, flagyl, doxy per ID DVT prophylaxis: SCDs, hold SQH for now Physical therapy/Activity: OOBTC and ambulate with PT Assessment & Plan (06/10/2018 1:09 AM CDT): S/P Open AAA graft repair. Post-Op care to include: Stress ulcer prophylaxis: H2 priyanka while intubated Nutrition plan: NPO Bowel regimen: colace, senna Prophylaxis: Vanc, cefe, flagyl, doxy per ID DVT prophylaxis: SCDs, add SQH POD1 if no bleeding issues Physical therapy/Activity: OOBTC and ambulate with PT POD1 Assessment & Plan (06/14/2018 12:00 PM CDT): Appears to be subacute to chronic. 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 RPR was negative. Q fever serology was borderline positive (1:16). Brucella antibody was negative. Blood cultures are so far no growth to date. Tissue culture grew micrococcus (1 colony on 1 passive media), which likely represents colonization/contamination. 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 His course is complicated by OCTAVIANO while on vancomycin. -awaiting routine blood cultures, fungal blood cultures, and blood AFB cultures. -awaiting stool culture -continue daptomycin, ceftriaxone and Flagyl at current doses. Anticipated duration is 6 weeks. -obtain labs routinely; follow kidney function closely. Need to adjust daptomycin dose based on renal function. -obtain CPK weekly -sign-off note the follow AAA (abdominal aortic aneurysm) without rupture Acute postoperative pain S/P aortic aneurysm repair Generalized abdominal pain Preop pulmonary/respiratory exam Current Treatment and Therapy Plans No current plan information found. Other Current Plans Hydration Therapy Plan* Plan Start Date:04/01/2023 Plan Provider:Martell Dasilva MD Linked Problems Acute kidney injury Treatment Medications No medications scheduled. Hydration Therapy Plan* Plan Start Date:12/22/2024 Plan Provider:Rishi Lainez MD Linked Problems Renal insufficiency Treatment Medications No medications scheduled. Past Treatment and Therapy Plans No past plan information found. Radiation Treatments * Course C1_SBRT_R_[id number] 05/15/2019 - 05/20/2019 Treatment Period Energy Fraction Dose Fractions Total Dose Plans Planned RT LUNG 05/15/2019 - 05/20/2019 1,800 3 / 5,400 Reference Points Delivered PTV_RT_LUNG_DPV 05/15/2019 - 05/20/2019 5,400 Lifetime Dose Tracking * Chemical Lifetime Dose Automatic Entry Manual Entr y Fluoro Time 26.5 minutes 26.5 minutes 0 minutes Air kerma at the reference point (Ka,r) 348.06 mGy 2 04.06 mGy 144 mGy DLP 13,653 mGycm 13,653 mGycm 0 mGycm Treatment Summaries Malignant neoplasm of middle lobe of right lung (HCC)* Images from the original note were not included. [place] [id number] This Survivorship Care Plan is a cancer treatment summary and follow-up plan and is provided to youto keep with your health care records and to share with your primary care provider or any of your doctors and nurses. This summary is a brief record of major aspects of your cancer treatment not a detailed or comprehensive record of your care. You should review this with your cancer provider. Treatment Summary and Survivorship Care Plan for Non-Small Cell Lung Cancer General Information Patient name Israel Vick (home) Date of 1955 Health Care Providers (Including Names, Institutions) Provider Name: Contact Information: Primary Care Physician Avery Ramos MD [phone] Surgeon No care steam conditioner filling to display Radiation Oncologist Melia Amaya MD [phone] Medical Oncologist No care steam conditioner filling to display Other Providers Treatment Summary Cancer Diagnosis Information Diagnosis Malignant neoplasm of middle lobe of right lung (CMS/HCC) Diagnosis date 04/27/2019 Staging information Cancer Staging Malignant neoplasm of middle lobe of right lung (CMS/HCC) Staging form: Lung, AJCC 8th Edition - Clinical: Stage IA2 (cT1b, cN0, cM0) - Signed by Melia Amaya MD on 04/27/2019 Treatment Completed Surgery No Radiation Radiation Treatments Active Plans RT LUNG Most recent treatment: Dose planned: 1,800 cGy (fraction 3 on 05/20/2019) Total: Dose planned: 5,400 cGy Elapsed Course Treatment Days: 5 Reference Points PTV_RT_LUNG_DPV Most recent treatment: Dose given: 1,800 cGy (on 05/20/2019) Total: Dose given: 5,400 cGy Elapsed Course Treatment Days: 5 Historical No historical radiation treatments to show. Systemic Therapy (chemotherapy, hormonal therapy, other) [No treatment plan] Lifetime Dose Tracking Lifetime Dose Tracking No doses have been documented on this patient for the following tracked chemicals: doxorubicin, epirubicin, idarubicin, daunorubicin, mitoxantrone, bleomycin, mitomycin, cyclophosphamide, carmustine,ifosfamide, etoposide, doxorubicin HCl pegylated liposomal, etoposide phosphate, valrubicin, doxorub icin isotoxic equivalent Research Studies SATISFY-SOS Status On study Start Date 01/22/18 Persistent symptoms or side effects that have continued after finishing treatment: Other: : Treatment Ongoing: No, not at this time Follow-up Care Plan Your follow-up care plan is design to inform you and primary care providers regarding the recommended and required follow-up, cancer screening and routine health maintenance that is needed to maintain optimal health. Schedule of Clinical Visits Coordinating Provider When/How often Melia Amaya MD Every 3 months for first 2 years, then every 6 months for 3-5 years thenyearly. Cancer Surveillance or other Recommended Tests Coordinating Provider Test How Often Melia Amaya MD Chest Imaging Every 3 months for 2 years then every 6 months years 3-5, then yearly. All providers Monitor for half-way cardiac toxicity. Avery Ramos Monitor for ocean transportation intermediary toxicity Cardiac - congestive heart failure (CHF), coronary artery disease (CAD) Renal insufficiency- Creatinine Musculoskeletal - Chest wall pain Neurologic - neuropathy Hematologic - CBC Yearly Possible late- and long-term effects that someone with this type of cancer and treatment may experience: Constipation Hearing loss Kidney problems Peripheral neuropathy or numbness and tingling Pneumonitis or inflammation of the lung (6 weeks-6 months after treatment) * Pulmonary fibrosis or scarring (6 weeks-6 months after treatment) * Trouble with or painful swallowing * Chest wall toxicity between 9-12 months after radiation therapy * Please call your radiation oncologist if experiencing these late effects * Fatigue Many patients experience some level of fatigue. Some patients experience severe and ongoing fatigue. An active lifestyle with healthy sleep patterns can improve your energy levels. Talk to your provider about ongoing (more than 3 months) fatigue. Please continue to see your primary care provider for all general health care recommended for a person your age, including cancer screening tests. Any symptoms should be brought to the attention of your provider: Anything that represents a brand new symptom; Anything that represents a persistent symptom; Anything you are worried about that might be related to the cancer coming back. Cancer survivors may experience issues with the areas listed below. If you have any concerns in these or other areas, please speak with your doctors or nurses to find out how you can get help with them. Anxiety and depression Emotional and mental health Fatigue Fertility Financial advice or assistance Insurance Memory or concentration loss Parenting Physical functioning School/work Sexual functioning Stopping smoking Weight changes Other A number of lifestyle/behaviors can affect your ongoing health, including the risk for the cancer coming back or developing another cancer. Discuss these recommendations with your doctor or nurse: Eat a healthy diet: focus on more fruits, vegetables and whole grains. Maintain a healthy weight; avoid being overweight. Aim for a normal body mass index (BMI) of 18.5-24.9. Help learning to eat healthier, call the transition lead at: [facility] [facility] . Have an active lifestyle, strive for 30 minutes of moderate exercise 5 times a week and strength orresistance training at least twice a week. Use broad-spectrum (UVA+UVB) sunscreen with SPF 30 or greater, is water resistant, limit time spentin the sun (10 am-4pm), wear hat, wear UV protective clothing, wear sunglasses. Never use a tanningbed. Skin that was irradiated may be more sensitive over your lifetime. Do not smoke or chew tobacco; participate in a smoking cessation program. Limit alcohol intake, 1 drink per day for a woman and 2 drinks per day for a man. Resources you may be interested in: [facility] [place] [facility] [place] [facility] http://www.[facility]/ [facility] 1st floor of [facility] Advanced Medicine [phone]. Computer access, educational material, counseling services (FREE) Cancer Resources: www.cancer.net [place] Citizen Disabilities Act: The U.S. Department of Justice provides information about the Americans with Disabilities Act (ADA). Toll free number http://www.ada.gov/ Occupational Therapy at [facility]. Improve memory and thinking following chemotherapy. Improve your performance at home, work and in the community. or Toll free www.ot.[facility]/patients A service of [employer], a non-profit organization providing free, professional support - includingcounseling, support group, financial assistance, educational workshops and publications -to anyone coping with lung cancer. http://www.lungcancer.org/ We are a partnership of lung cancer survivors, advocates, researchers, healthcare professionals andspencer leaders. And we are united in the belief that every person with lung cancer deserves a cure. http://www.freetobreathe.org/ Lung Cancer Connection is committed to organizing and funding community outreach programs aimed at those affected by lung cancer in the [place] area. http://www.lungcancerconnectioninc.org Cancer and Careers empowers and educates people with cancer to thrive in their workplace by providing expert advice, interactive tools and educational events. http://www.cancerandcareers.org/en/jnpzlou-gsz-mbrm [employer] Cancer: https://survivorship.cancer.gov/ an online tool for cancer survivors andcaregivers created by the [place] [employer] and the National Cancer [place]. It provides: Information on dealing with side effects from cancer and treatment Caregivers with support and resources Practical advice about talking to friends and family about cancer Questions to ask their health care team Resolved Problems Problem Noted Date Diagnosed Date Resolved Date Stage 3b chronic kidney disease 2024 01/27/2025 Assessment & Plan (03/02/2024 9:00 AM CDT): Creatinine Trend Recent Labs Lab Units 03/02/24 0346 03/01/24 0538 02/28/24 2235 CREATININE mg/dL 2.61* 2.63* 2.75* Cr 2.75, around b/l. Has one kidney 2/2 prior R nephrectomy for RCC. -monitor I/Os, avoid nephrotoxins, trend BMP Preoperative cardiovascular examination 06/06/2018 06/09/2018 Assessment & Plan (06/06/2018 11:49 PM CDT): -This is a 63 year old gentleman with a history of EVAR and subsequent revision who is admitted with an infected graft, with plans for resection and replacement with a vascular allograft on Saturday -From a cardiovascular risk standpoint, the patient is able to achieve >4 METS and is most limited by his calf pain, not by angina, dyspnea, or other cardiac symptoms -His RCRI is 1 - with the point being for undergoing a high-risk surgery -Given his reasonable functional status, low RCRI score, and normal EKG, he is relatively low-risk for experiencing a major adverse cardiac event -An echocardiogram or ischemic evaluation is unnecessary from our perspective prior to proceeding to the OR -Would continue his metoprolol perioperatively for blood pressure control as well as aspirin and statin given his PAD
--- OUTSIDE RECORDS SUMMARY | 2025-02-24 08:50 | XMS_ITS | Encounter Summary ---
Author Organization [facility] Address [address] [place] [address] Phone Care Team Providers Care Powersaw Supervisor Name Role Phone Lance Govea MD Primary Care Provider [phone] Lita Pan NP Primary Care Provider [phone] Unknown, Notinfile Primary Care Provider Unavail able Avery Ramos MD Primary Care Provider [phone] Unknown, Notinfile Primary Care Provider Unavail able Unknown, Notinfile Primary Care Provider Unavail able Avery Ramos MD Primary Care Provider [phone] Lisandro Durham MD Unavailable [phone] Melia Amaya MD Unavailable [phone] Jigar Beasley MD Unavailable [phone] Mariama Freedman [facility] Unavailable [phone] Aileen Fisher MD Unavailable [phone] Miscellaneous, Not In File Unavailable [facility] Unavailable Encounter Details Date Type Department Care Team (Latest Contact Info) Description 01/13/2018 Orders Only [facility] CONVERSION Scanning, Provider Social History Tobacco Use Types Packs/Day Years Used Date Smoking Tobacco: Every Day Sex and Gender Information Value Date Recorded Sex Assigned at Not on file 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 Gender Identity Not on file Sexual Orientation Straight 12/29/2019 7: 32 PM CDT documented as of this encounter Plan of Treatment Scheduled Procedures Name Priority Associated Diagnoses Date/Ti me REPAIR THORACOABDOMINAL AORT IC ANEURYSM Thoracic aortic aneurysm without rupture, unspecified part BYPASS GRAFT - CAROTID SUBCLAVIAN Thoracic aortic aneurysm without rupture, unspecified part documented as of this encounter Procedures Procedure Name Priority Date/Time Associated Diagnosis Comments VASCULAR LABORATORY REPORT 01/13/2018 3:31 PM CDT documented in this encounter Results * VASCULAR LABORATORY REPORT (01/13/2018 3:31 PM CDT) Anatomical Region Laterality Modality Ultrasound us Provider Scanning CV VASCULAR PROCEDURES Final R esult documented in this encounter Visit Diagnoses Not on filedocumented in this encounter Care Teams Powersaw Supervisor Relationship Specialty Start Date End Date Lance Govea MD PCP - General 01/13/18 01/21/18 Lita Pan [employer] [address] [place] [id number] PCP - General 01/22/18 06/05/18 Unknown, Notinfile PCP - General 06/06/18 06/10/18 Avery Ramos MD [address] [place] [id number] PCP - General Family Practice 06/11/18 06/11/18 Unknown, Notinfile PCP - General 06/12/18 06/19/18 Unknown, Notinfile PCP - General 06/20/18 06/29/18 Avery Ramos MD [address] [place] [address] PCP - General Family Practice 06/30/18 Lisandro Durham MD [address] [place] [address] Referring Physician Pulmonary Disease 04/01/19 Melia Amaya MD [address] [place] [address] Radiation Oncologist Radiation Oncology 04/27/19 Jigar Beasley MD [address] [place] [address] Resident Anesthesiology 03/03/24 Mariama Freedman LCSW [address] [facility] Mailstop [phone] [place] [address] SHOP Outpatient Soaker Helper 03/05/24 04/01/24 Aileen Fisher MD [address] [facility] Mailstop [phone] [place] [address] Consulting Physician Nephrology 05/14/24 Miscellaneous, Not In File 05/14/24 Clinic, Urology [address] [place] [address] Urology 05/14/24 documented as of this encounter
--- OUTSIDE RECORDS SUMMARY | 2025-02-24 08:50 | XMS_ITS | Referral Summary ---
Author Organization [facility] Address [address] [place] [address] Care Team Providers Care Prize Coordinator Name Role Phone Avery Ramos MD Primary Care Provider [phone] Lisandro Durham MD Unavailable Melia Amaya MD Unavailable Jigar Beasley MD Unavailable [phone] Aileen Fisher MD Unavailable [phone] Miscellaneous, Not In File Unavailable [facility], Urology Unavailable Encounters Date Type Department Care Team Description 02/23/2025 Telephone [facility] Nephrology [address] [facility] 5th [place] [address] [place] [address] Teresa Flor 02/03/2025 Orders Only [facility] Surgery [address] [facility] Floor 1 [place] [address] Rishi Lainez MD Thoracoabdominal aortic aneurysm (TAAA) without rupture, unspecified part (Primary Dx); Aftercare following surgery of the circulatory system 02/03/2025 Orders Only [facility] Nephrology [address] [facility] 5th [place] [address] [place] [address] Pita Jackson MD Acute kidney injury (Primary Dx) 01/20/2025 6:39 AM CDT - 02/02/2025 5:50 PM CDT Hospital Encounter [address] [address] Rishi Lainez MD Thoracoabdominal aortic aneurysm (TAAA) without rupture, unspecified part (Primary Dx); Recurrent falls; Acute blood loss anemia; S/P aortic aneurysm repair; Q fever; Malignant neoplasm of middle lobe of right lung (HCC); Acute kidney injury superimposed on chronic kidney disease; Infection of aortic graft, subsequent encounter Discharge Disposition: Discharge to home, home health skilled care 01/29/2025 1:15 PM CDT Ancillary Procedure [facility] Vascular Lab IP [address] [facility] [address] [place] [address] 01/26/2025 Orders Only [facility] Vascular Surgery [address] [facility] [address] [place] [address] Rishi Lainez MD Aneurysm of descending thoracic aorta without rupture (Primary Dx); Aftercare following surgery of the circulatory system 01/22/2025 Orders Only [facility] 1 [place] [address] Evangelista Fajardo RT 01/21/2025 11:41 AM CDT Anesthesia Event [address] [address] Juana Jules MD 01/20/2025 8:30 AM CDT - 01/20/2025 1:55 PM CDT Surgery [facility] Operating Room 1 [place] [address] Rishi Lainez MD THORACIC ENDOVASCULAR REPAIR - TBE device incorporating the left subclavian artery 01/20/2025 8:36 AM CDT Anesthesia Event [facility] Operating Room 1 [place] [address] Ashleigh Beverly MD Deibel, Lori, NP 01/11/2025 8:30 AM CDT Pre-Admission Testing [facility] for Preoperative Assessment and Planning [facility] ([facility]) [address] [place] [address] Preoperative testing (Primary Dx); Bruising 12/30/2024 2:15 PM CDT Telemedicine [facility] Surgery [address] [facility] 2nd Floor [address] [place] [address] Rishi Lainez MD Aneurysm of descending thoracic aorta without rupture (Primary Dx) 12/22/2024 7:30 AM MISSILE INSPECTOR PREFLIGHT Infusion [facility] Special[facility]fusion [facility] [address] [place] [address] Advanced Medicine 7th [place] [address] Renal insufficiency (Primary Dx) 12/22/2024 9:50 AM MISSILE INSPECTOR PREFLIGHT - 12/22/2024 11:59 PM MISSILE INSPECTOR PREFLIGHT Hospital Encounter [facility] ([facility]) [address] [place] [address] Rishi Lainez MD Aneurysm of descending thoracic aorta without rupture; Encounter for pre-operative examination Discharge Disposition: Discharge to home or self care 12/18/2024 Telephone [facility] Surgery [address] [facility] Floor 1 [place] [address] Rishi Lainez MD 12/18/2024 Orders Only [facility] Outpatient Infusion Center [address] [place] [address] [address] [place] [address] Felipe Gray RN 12/07/2024 Telephone [facility] Surgery [address] [facility] Floor 1 [place] [address] Rishi Lainez MD 12/03/2024 Orders Only [facility] Vascular Surgery [address] [facility] Medical Office Building [address] [place] [address] Rishi Lainez MD Renal insufficiency (Primary Dx) 12/02/2024 Orders Only [facility] Surgery [address] [facility] Floor 1 [place] [address] Rishi Lainez MD Aneurysm of descending thoracic aorta without rupture (Primary Dx); Encounter for pre-operative examination 12/02/2024 10:30 AM MISSILE INSPECTOR PREFLIGHT Telemedicine [facility] Surgery [address] [place] [address] Rishi Lainez MD Aneurysm of descending thoracic aorta without rupture (Primary Dx) from Last 3 Months Allergies Active Allergy Reactions Criticality Noted Date Comments Sulfa (Sulfonamide Antibiotics) Nausea & Vomiting Low 06/06/2018 Reaction: Medications ANORO ELLIPTA 62.5-25 mcg/actuation blister with deviceIndications:B ronchospasm Prevention with COPD Inhale 1 puff daily after lunch 2018 Active aspirin 81 mg enteric coated tabletIndications:M yocardial Reinfarction Prevention,preventi on of thrombosis Take 1 tablet (81 mg total) by mouth every morning Active pantoprazole DR (PROTONIX) 40 mg EC tabletIndications:S tress Ulcer Prophylaxis,GERD Take 1 tablet (40 mg total) by mouth every morning 2020 Active amoxicillin (AMOXIL) 500 mg tablet/capsuleIndic ations:Chronic Suppression Take 1 tablet/capsule (500 mg total) by mouth 2 (two) times a day 1 tablet/capsul e 2020 Active Additional Information Patient taking differently:500 mg oral 2 times daily,Indications: Chronic Suppression, Chronic Q fever, Informant: Self, Reported on 01/20/2025 nortriptyline (PAMELOR) 50 mg capsuleIndications: Diabetic Peripheral Neuropathy Take 1 capsule (50 mg total) by mouth 2 (two) times a day 2022 Active rosuvastatin (CRESTOR) 20 mg tablet Take 1 tablet (20 mg total) by mouth daily 90 tablet 3 2022 Active Additional Information Patient taking differently:20 mg oralEvery morning, Indications: hyperlipidemia, Informant: Self, Reported on 01/20/2025 albuterol HFA (PROVENTIL HFA,VENTOLIN HFA,PROAIR HFA) 90 mcg/actuation inhaler INHALE 2 PUFFS EVERY 6 (SIX) HOURS NEEDED FOR WHEEZING 8.5 g 04/08 Active Additional Information Patient taking differently:2 puff inhalation Every 6 hours PRN, wheezing,Indications: Chronic Obstructive Pulmonary Disease, Informant: Self, Reported on 01/20/2025 ergocalciferol (VITAMIN D) 50,000 unit capsuleIndications: Vitamin D Deficiency Take 1 capsule (50,000 Units total) by mouth once a week for 8 doses 4 capsule 1 2023 Active Additional Information Patient taking differently:50,000 Units oral Weekly,Sundays, Indications: Vitamin D Deficiency, Informant: Self, Reported on 01/20/2025 doxycycline 100 mg tabletIndications:C hronic Suppression,Chronic Q fever Take 1 tablet/capsule (100 mg total) by mouth 2 (two) times a day 2023 Active vitamin E acetate (VITAMIN E ORAL)Indications:norris pplement Take 1 tablet by mouth daily as needed (supplement) Active acetaminophen (TYLENOL) 500 mg tabletIndications:H eadache Disorder,Pain Take 2 tablets (1,000 mg total) by mouth every 6 (six) hours as needed for pain or headaches Active oxygenIndications:c luster headaches Administer 2 L/min into each nostril as needed (cluster headaches) at 120,000 mL/hr Has not used for cluster headaches in over 1 year (2022) Active oxyCODONE (ROXICODONE) 15 mg immediate release tabletIndications:P ain Take 0.5 tablets (7.5 mg total) by mouth every 4 (four) hours as needed for pain for up to 16 doses 8 tablet 2024 Active carvediloL (COREG) 3.125 mg tablet Take 1 tablet (3.125 mg total) by mouth 2 (two) times a day with meals Please Hold this medication if your systolic blood pressure (the top number) is less than 160. 60 tablet 02/02 Active polyethylene glycol (MIRALAX) 17 gram packetIndications:c onstipation Take 1 packet (17 g total) by mouth daily 7 packet 2024 Active senna-docusate (PERICOLACE) 8.6-50 mg Take 2 tablets by mouth 2 (two) times a day 60 tablet 2024 Active sodium bicarbonate 650 mg tablet Take 2 tablets (1,300 mg total) by mouth 3 (three) times a day 180 tablet 02/02 Active tamsulosin (FLOMAX) 0.4 mg extended release capsule Take 1 capsule (0.4 mg total) by mouth daily with dinner 15 capsule 2024 Active bisacodyL (DULCOLAX) 10 mg suppositoryIndicati ons:constipation Insert 1 suppository (10 mg total) into the rectum daily as needed for constipation (first line) 7 suppository 2024 Active sevelamer (RENVELA) 800 mg tabletIndications:R enal Osteodystrophy with Hyperphosphatemia Take 1 tablet (800 mg total) by mouth 3 (three) times a day with meals for 15 days 45 tablet 2024 Active amLODIPine (NORVASC) 5 mg tabletIndications:h ypertension Take 1 tablet (5 mg total) by mouth daily 30 tablet 02/02 Discontinued( Stop Taking at Discharge) carvediloL (COREG) 6.25 mg tablet Take 1 tablet (6.25 mg total) by mouth 2 (two) times a day with meals 60 tablet 02/02 Discontinued( Stop Taking at Discharge) polyethylene glycol (MIRALAX) 17 gram/dose bulk powderIndications:c onstipation Take 17 g by mouth daily 510 g 02/02 Discontinued( Stop Taking at Discharge) senna-docusate (PERICOLACE) 8.6-50 mgIndications:const ipation Take 1 tablet by mouth 2 (two) times a day as needed for constipation (2nd line) 60 tablet 02/02 Discontinued( Stop Taking at Discharge) sodium bicarbonate 650 mg tablet Take 1 tablet (650 mg total) by mouth 2 (two) times a day 60 tablet 11 02/02 Discontinued( Stop Taking at Discharge) gabapentin (NEURONTIN) 100 mg capsuleIndications: Neuropathic Pain Take 1 capsule (100 mg total) by mouth 3 (three) times a day 02/02 Discontinued( Stop Taking at Discharge) oxyCODONE-acetamino phen (PERCOCET) 7.5-325 mg per tabletIndications:P ain Take 1 tablet by mouth every 4 (four) hours as needed for pain 02/02 Discontinued( Stop Taking at Discharge) diphenhydrAMINE 25 mg capsuleIndications: allergies Take 1 tablet/capsule (25 mg total) by mouth every 6 (six) hours as needed for itching or allergies 02/02 Discontinued( Stop Taking at Discharge) fluconazole (DIFLUCAN) 100 mg tabletIndications:U rinary Tract/Genitourinary Infection Take 1 tablet (100 mg total) by mouth daily for 12 doses 12 tablet 02/15 sevelamer (RENVELA) 800 mg tabletIndications:R enal Osteodystrophy with Hyperphosphatemia Take 1 tablet (800 mg total) by mouth 3 (three) times a day with meals 90 tablet 02/02 Discontinued Active Problems Patient Care Coordination No te Formatting of this note migh t be different from the original. Mr. Avery Vick is a 64-year-old with lung cancer. [...] the descending thoracic aorta. - s/p OR 01/20 for TBE (TBE incorporating left sublavian) with TEVAR extension via L radial and R POLICE [employer]ROL access; Left renal artery stent. Intraoperative course [...] IR embolization at [facility], and transferred to [facility] for further evaluation. He was initially admitted [...] 04/30. To note s/p R partial nephrectomy 2/ RCC -cont to hold eliquis for now [...] fall precautions. [place] benefit [place], PT rec IPR/OT rec SNF, pt accepted to [facility] [place]. Insurance approved and plan nticipate transfer 05/14. [...] clinic follow up for catheter management and manager intermediate care. Discharge Planning I have spent 30 [...] rupture and EVAR, however was explanted in 2018 due to Q fever. Follows OP with vascular surgery. No current interventions indicated per vascular. Held eliquis for RP bleed, no plans to resume. Assessment & Plan (05/08/2024 7:40 AM CDT): Avery Vick is a 69 year old male [...] tele, mostly mostly sinus rhythm with some MS prolongation but does not meet the criteria [...] in left and 3.3 cm on right. 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 Order also placed to repeat Q fever serology. 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 - continue amoxicillin and doxycyline. Assessment & Plan (10/11/2020 1:59 PM MISSILE INSPECTOR PREFLIGHT): - Patient doing well on suppressive amoxicillin [...] 8 units PRBC transfused. Post-op H/H 9.30. No signs of active bleeding -Keep hbg [...] to endorse abdominal incision pain with dilaudid MIDDLE CARD TENDER 0.4mg Q10min. However, pt states tolerable. Pain service following. - Scheduled Tylenol -continue straightedge man; if becomes somnolent will decrease dose. Assessment & Plan (06/12/2018 1:52 AM CDT): Continues to endorse 6/10 abdominal incision pain with dilaudid MIDDLE CARD TENDER 0.4mg Q10min. However, pt states tolerable. Pain service following. Pt refuses epidural. Lidocaine gtt discontinue this am with supertheraputic level. -continue straightedge man; if becomes somnolent will decrease dose. Assessment & Plan (06/11/2018 5:53 PM CDT): Continues to be an issue. Endorsing 6/10 abdominal incision pain with lidocaine gtt at 1.5mcg/kg/min and dilaudid MIDDLE CARD TENDER 0.4mg Q10min. Pain service following. Pt refuses [...] post-vascular surgery with open abdomen. On Dilaudid MIDDLE CARD TENDER, dose increased prior day. Continued pain during the day, pain consulted and started on Lido gtt. -Lido level at 0000 -If lido level >7, hold infusion per pain -Continue MIDDLE CARD TENDER Assessment & Plan (06/10/2018 1:12 PM CDT): Expected post-vascular surgery with open abdomen. On Dilaudid MIDDLE CARD TENDER, Dose increased to 0.4mg q10 min last night. -Dilaudid MIDDLE CARD TENDER - Consult pain service, regional block vs epidural vs lido infusion Assessment & Plan (06/10/2018 1:14 AM CDT): Expected post-vascular surgery with open abdomen. Currently sedated -Dilaudid PRN per vascular now -Once extubated will plan for dilaudid MIDDLE CARD TENDER GERD (gastroesophageal reflux disease) 8 Assessment & [...] (06/06/2018): Added automatically from request for surgery [id number] Assessment & Plan (10/05/2024 1:25 PM MISSILE INSPECTOR PREFLIGHT): - Clinically doing well on exam today [...] significant exposures it was decided to treat mcc. Plan to continue both amoxicillin and doxycycline [...] concerns Assessment & Plan (10/09/2019 3:05 PM MISSILE INSPECTOR PREFLIGHT): Doing well on exam today with no [...] Discussed with patient and the rational for mcc antibiotics, risk of recurrent infection, signs/symptoms of [...] pm -D/c NGT -sips and chip OK -clinical informatics educator to change wound vac this am Assessment [...] do not clamp longer than 2hrs) -c/s clinical informatics educator to change wound vac Assessment & Plan [...] repair Generalized abdominal pain Preop pulmonary/respiratory exam Resolved Problems Problem Noted Date Diagnosed Date [...] as aspirin and statin given his PAD Immunizations Immunization Administration Dates Next Due Moderna SARS-CoV-2 Monovalent Vaccination (12+ Y RS) 11/26/2020 Social History Tobacco Use Types Packs/Day Years Used Date Smoking Tobacco: Every Day Cigarettes 1 59.3 Started: 1967 Passive Smoke Exposure: Current Smokeless Tobacco: Never Tobacco Cessation:Ready to Q uit: Yes; Counseling Given: Yes Comments:Working on quitting before surgery (has quit on and off a few times) Alcohol Use Standard Drinks/Week Comments Not Currently 0 (1 standard drink = 0.6 oz pur e alcohol) 1-2 beers a month [facility] [employer] Answer Date Recorded In the past 12 months has [employer], gas, oil, or water mNectar threatened to shut off services in your home? No 01/22/2025 Social Connection and Isolat ion Panel [NHANES] Answer Date Recorded In a typical week, how many times do you talk on the phone with family, friends, or neighbors? More than three times a week 01/22/2025 How often do you get togethe r with friends or relatives? More than three times a week 01/22/2025 How often do you attend chur ch or yarsani services? 1 to 4 times per year 01/22/2025 Do you belong to any clubs o r organizations such as restorationist groups, unions, fraternal or athletic groups, or school groups? No 01/22/2025 How often do you attend meet ings of the clubs or organizations you belong to? Never 01/22/2025 Are you , , di vorced, , never , or living with a partner? Living with partner 01/22/2025 AUDIT-C Answer Date Recorded Q1: How often do you have a drink containing alc ohol? Monthly or less 01/20/2025 Q2: How many drinks containi ng alcohol do you have on a typical day when you are drinking? 1 or 2 01/20/2025 Q3: How often do you have si x or more drinks on one occasion? Never 01/20/2025 Overall Financial Resource Strain (CARDIA) Answe r Date Recorded How hard is it for you to pa y for the very basics like food, housing, medical care, and heating? Not hard at all 01/22/2025 PHQ-2 Answer Date Recorded PHQ-2 Total Score 0 01/22/2025 Hunger Vital Sign Answer Date Recorded Within the past 12 months, y ou worried that your food would run out before you got the money to buy more. Never true 01/23/20 25 Within the past 12 months, t he food you bought just didn't last and you didn't have money to get more. Never true 01/22/2025 PRAPARE - Transportation Answer Date Re corded In the past 12 months, has l ack of transportation kept you from medical appointments or from getting medications? No 01/2025 In the past 12 months, has l ack of transportation kept you from meetings, work, or from getting things needed for daily living? No 01/22/2025 Housing Stability Vital Sign Answer Jem e Recorded In the last 12 months, was t here a time when you were not able to pay the mortgage or rent on time? No 03/06/2024 In the last 12 months, how many places have you lived? 1 03/06/2024 In the last 12 months, was t here a time when you did not have a steady place to sleep or slept in a fdc (including now)? No 03/06/2024 Housing Stability Vital Sign Answer Jem e Recorded In the last 12 months, was t here a time when you were not able to pay the mortgage or rent on time? No 01/22/2025 In the past 12 months, how m any times have you moved where you were living? 0 01/22/2025 At any time in the past 12 m [facility], were you homeless or living in a fdc (including now)? No 01/22/2025 Personal Safety Answer Date Recorded Have you ever been in or are you currently in a harmful physical or emotional relationship or is someone making you feel afraid or unsafe? Denies 01/20/2025 Sex and Gender Information Value Date Recorded Sex Assigned at Not on file Legal Sex Male 8:41 AM MISSILE INSPECTOR PREFLIGHT Gender Identity Not on file Sexual Orientation Straight 12/29/2019 7: 32 PM CDT Last Filed Vital Signs Vital Sign Reading Time Taken Comments Blood Pressure 168/95 02/02/2025 2:41 PM CDT Pulse 77 02/02/2025 2:41 PM CDT Temperature 37.3 C (99.1 F) 02/02/2025 2:41 PM CDT Respiratory Rate 18 02/02/2025 2:41 PM CDT Oxygen Saturation 94% 02/02/2025 2:41 PM CDT Inhaled Oxygen Concentration - - Weight 82.2 kg (181 lb 3.5 oz) 01/20/2025 7:16 A M CDT Height 185.4 cm (6' 1 ) 01/22/2025 7:00 PM CDT Body Mass Index 23.91 01/20/2025 7:16 AM CDT Plan of Treatment Scheduled Procedures Name Priority Associated Diagnoses Date/Ti me REPAIR THORACOABDOMINAL AORT IC ANEURYSM Thoracic aortic aneurysm without rupture, unspecified part BYPASS GRAFT - CAROTID SUBCLAVIAN Thoracic aortic aneurysm without rupture, unspecified part Medical Devices Implanted Type Area Oven Heater Helper Device Identifier Shelf Expiration Date Model / Serial / Lot [employer] Stent Graft Aortic Covered Tag [id number] Eptfe Nitinol [id number] - [id number] - [id number] Implanted:Qty: 1 on 01/20/2025 by Rishi Lainez MD at [facility] Endoprosthesi s N/A: Descending Thoracic Aorta Wl [employer] [id number] 07/06/2027 [id number] / [id number] / Wl [employer] Stent Graft Thoracic Side Branch Tag [id number] Eptfe Nitinol [id number] - [id number] - [id number] Implanted:Qty: 1 on 01/20/2025 by Rishi Lainez MD at [facility] Endoprosthesi s N/A: Subclavian Artery Wl [employer] [id number] 07/23/2025 [id number] / [id number] / Vascutek Terumo [id number] Gelsoft Plus 22mm 11mm 45cm Bifurcated Main Leg Bore Graft - [id number] - [id number] Implanted:Qty: 1 on 06/09/2018 by Lance Govea MD at [facility] Graft N/A: Abdomen Vasc[employer]k [employer] [id number] 04/19/2022 [id number] / [id number] / [id number] [id number] Stent System Biomimics 3d Vascular [id number] - [id number] - [id number] Implanted:Qty: 1 on 08/08/2021 by Billy Elkins MD at [facility] Stent Left: Femoral dax [employer] 12/30/2022 [id number] / 00 / [id number] Description:SFA Non-clinical testing has demonstrated that the BioMimics 3D stent is MR Conditional in single and overlapped configurations. A patient with the BioMimics 3D stent can be scanned safely under the following conditions: Static magnetic field of 1.5 or 3 Brigette Spatial gradient field of 4,000 Gauss/cm (40 T/m) or less Maximum whole body averaged specific absorption rate (JESUS) of 2 W/kg (Normal Operating Mode) Optimus3 [id number] Stent System Biomimics 3d Vascular [id number] - [id number] Implanted:Qty: 1 on 08/08/2021 by Billy Elkins MD at [facility] Stent Left: Femoral [employer] 11/23/2022 [id number] / / [id number] Description:Non-clinical clint ting has demonstrated that the BioMimics 3D stent is MR Conditional in single and overlapped configurations. A patient with the BioMimics 3D stent can be scanned safely under the following conditions: Static magnetic field of 1.5 or 3 Brigette Spatial gradient field of 4,000 Gauss/cm (40 T/m) or less Maximum whole body averaged specific absorption rate (JESUS) of 2 W/kg (Normal Operating Mode) Wl [employer] Stent Graft Thoracic Conformable Tag [id number] - [id number] - [id number] Implanted:Qty: 1 on 01/20/2025 by Rishi Lainez MD at [facility] Stent N/A: Aorta Wl [employer] [id number] 02/14/2027 [id number] / [id number] / Wl [employer] Stent Graft Endoprosthesis Reduced Profile Straight Heparin Coated Viabahn [id number] - [id number] - [id number] Implanted:Qty: 1 on 01/20/2025 by Rishi Lainez MD at [facility] Stent Left: Renal Wl [employer] [id number] 06/15/2027 [id number] / [id number] / Marr Vascular System Closure Repair Femoral Artery Suture Mediated Perclose Prostyle 62404-78 - [id number] Implanted:Qty: 2 on 01/20/2025 by Rishi Lainez MD at [facility] Vascular Closure Device Right: Femoral [employer] [id number] 10/20/2026 [id number] / / [id number] Description:X2 used same lot number Aaa Graft Aorta Procedures Procedure Name Priority Date/Time Associated Diagnosis Comments EGFR Routine 02/01/2025 8:50 PM CDT DIFFERENTIAL AUTO Routine 02/01/2025 8:5 0 PM CDT PHOSPHORUS Routine 02/01/2025 8:50 PM CDT MAGNESIUM Routine 02/01/2025 8:50 PM CDT BASIC METABOLIC PANEL Routine 02/01/2025 8:50 PM CDT CBC WITH AUTO DIFFERENTIAL Routine 02/01/2025 8:50 PM CDT POTASSIUM, WHOLE BLOOD Routine 02/01/2025 8:50 PM CDT EGFR Routine 01/31/2025 10:30 PM CDT DIFFERENTIAL AUTO Routine 01/31/2025 10: 30 PM CDT PHOSPHORUS Routine 01/31/2025 10:30 PM CDT MAGNESIUM Routine 01/31/2025 10:30 PM CDT BASIC METABOLIC PANEL Routine 01/31/2025 10:30 PM CDT CBC WITH AUTO DIFFERENTIAL Routine 01/31/2025 10:30 PM CDT POTASSIUM, WHOLE BLOOD Routine 01/31/2025 10:30 PM CDT EGFR Routine 01/30/2025 8:30 PM CDT DIFFERENTIAL AUTO Routine 01/30/2025 8:3 0 PM CDT PHOSPHORUS Routine 01/30/2025 8:30 PM CDT MAGNESIUM Routine 01/30/2025 8:30 PM CDT BASIC METABOLIC PANEL Routine 01/30/2025 8:30 PM CDT CBC WITH AUTO DIFFERENTIAL Routine 01/30/2025 8:30 PM CDT POTASSIUM, WHOLE BLOOD Routine 01/30/2025 8:30 PM CDT URINALYSIS, MICROSCOPIC ONLY Routine 01/30/2025 12:11 PM CDT URINE CULTURE Routine 01/30/2025 12:11 PM CDT URINALYSIS AND REFLEX TO MICROSCOPIC AND CULTURE Routine 01/30/2025 12:11 PM CDT US RENAL LIMITED W COMPLETE RENAL DOPPLER (C) Today 01/30/2025 9:03 AM CDT EGFR Routine 01/29/2025 10:33 PM CDT DIFFERENTIAL AUTO Routine 01/29/2025 10: 33 PM CDT C4 COMPLEMENT Routine 01/29/2025 10:33 PM CDT C3 COMPLEMENT Routine 01/29/2025 10:33 PM CDT POTASSIUM, WHOLE BLOOD Routine 01/29/2025 10:33 PM CDT PHOSPHORUS Routine 01/29/2025 10:33 PM CDT MAGNESIUM Routine 01/29/2025 10:33 PM CDT BASIC METABOLIC PANEL Routine 01/29/2025 10:33 PM CDT CBC WITH AUTO DIFFERENTIAL Routine 01/29/2025 10:33 PM CDT US VEIN MAPPING FISTULA ACCESS, BILATERAL IP Routine 01/29/2025 3:07 PM CDT UREA NITROGEN, URINE, RANDOM Routine 01/29/2025 11:07 AM CDT CREATININE, URINE, RANDOM Routine 01/29/2025 11:07 AM CDT PROTEIN / CREATININE RATIO, URINE, RANDOM Routine 01/29/2025 11:07 AM CDT SODIUM, URINE, RANDOM Routine 01/29/2025 11:07 AM CDT POTASSIUM, WHOLE BLOOD Timed 01/29/2025 10:12 AM CDT US KIDNEY COMPLETE IP Routine 01/29/2025 9 :20 AM CDT EGFR Routine 01/28/2025 8:49 PM CDT DIFFERENTIAL AUTO Routine 01/28/2025 8:4 9 PM CDT POTASSIUM, WHOLE BLOOD Timed 01/28/2025 8:49 PM CDT PHOSPHORUS Routine 01/28/2025 8:49 PM CDT MAGNESIUM Routine 01/28/2025 8:49 PM CDT BASIC METABOLIC PANEL Routine 01/28/2025 8:49 PM CDT CBC WITH AUTO DIFFERENTIAL Routine 01/28/2025 8:49 PM CDT EGFR Timed 01/28/2025 2:54 PM CDT BASIC METABOLIC PANEL Timed 01/28/2025 2:54 PM CDT POTASSIUM, WHOLE BLOOD Timed 01/28/2025 5:09 AM CDT ECG 12-LEAD STAT 01/28/2025 12:21 AM CDT POTASSIUM, WHOLE BLOOD Timed 01/28/2025 12:08 AM CDT EGFR Routine 01/27/2025 10:32 PM CDT DIFFERENTIAL AUTO Routine 01/27/2025 10: 32 PM CDT PHOSPHORUS Routine 01/27/2025 10:32 PM CDT MAGNESIUM Routine 01/27/2025 10:32 PM CDT BASIC METABOLIC PANEL Routine 01/27/2025 10:32 PM CDT CBC WITH AUTO DIFFERENTIAL Routine 01/27/2025 10:32 PM CDT POTASSIUM, WHOLE BLOOD STAT 01/27/2025 5:35 AM CDT EGFR Routine 01/27/2025 3:57 AM CDT DIFFERENTIAL AUTO Routine 01/27/2025 3:5 7 AM CDT PHOSPHORUS Routine 01/27/2025 3:57 AM CDT MAGNESIUM Routine 01/27/2025 3:57 AM CDT BASIC METABOLIC PANEL Routine 01/27/2025 3:57 AM CDT CBC WITH AUTO DIFFERENTIAL Routine 01/27/2025 3:57 AM CDT CRITICAL CARE Routine 01/26/2025 8:20 AM CDT Thoracoabdominal aortic aneurysm (TAAA) without rupture, unspecified part Recurrent falls Acute blood loss anemia S/P aortic aneurysm repair Q fever Malignant neoplasm of middle lobe of right lung (HCC) Acute kidney injury superimposed on chronic kidney disease Infection of aortic graft, subsequent encounter CRITICAL CARE Routine 01/25/2025 11:22 PM CDT S/P aortic aneurysm repair Q fever Infection of aortic graft, subsequent encounter EGFR Routine 01/25/2025 8:49 PM CDT DIFFERENTIAL AUTO Routine 01/25/2025 8:4 9 PM CDT PHOSPHORUS Routine 01/25/2025 8:49 PM CDT MAGNESIUM Routine 01/25/2025 8:49 PM CDT BASIC METABOLIC PANEL Routine 01/25/2025 8:49 PM CDT CBC WITH AUTO DIFFERENTIAL Routine 01/25/2025 8:49 PM CDT CRITICAL CARE Routine 01/25/2025 11:10 AM CDT Thoracoabdominal aortic aneurysm (TAAA) without rupture, unspecified part Acute blood loss anemia S/P aortic aneurysm repair Q fever Malignant neoplasm of middle lobe of right lung (HCC) Infection of aortic graft, subsequent encounter CRITICAL CARE Routine 01/24/2025 11:04 PM CDT Thoracoabdominal aortic aneurysm (TAAA) without rupture, unspecified part S/P aortic aneurysm repair EGFR Routine 01/24/2025 8:44 PM CDT DIFFERENTIAL AUTO Routine 01/24/2025 8:4 4 PM CDT PHOSPHORUS Routine 01/24/2025 8:44 PM CDT MAGNESIUM Routine 01/24/2025 8:44 PM CDT BASIC METABOLIC PANEL Routine 01/24/2025 8:44 PM CDT CBC WITH AUTO DIFFERENTIAL Routine 01/24/2025 8:44 PM CDT CRITICAL CARE Routine 01/24/2025 12:35 PM CDT Thoracoabdominal aortic aneurysm (TAAA) without rupture, unspecified part Acute blood loss anemia S/P aortic aneurysm repair Q fever Malignant neoplasm of middle lobe of right lung (HCC) Acute kidney injury superimposed on chronic kidney disease EGFR Routine 01/23/2025 8:19 PM CDT DIFFERENTIAL AUTO Routine 01/23/2025 8:1 9 PM CDT PHOSPHORUS Routine 01/23/2025 8:19 PM CDT MAGNESIUM Routine 01/23/2025 8:19 PM CDT BASIC METABOLIC PANEL Routine 01/23/2025 8:19 PM CDT CBC WITH AUTO DIFFERENTIAL Routine 01/23/2025 8:19 PM CDT CRITICAL CARE Routine 01/23/2025 10:52 AM CDT Thoracoabdominal aortic aneurysm (TAAA) without rupture, unspecified part Acute blood loss anemia S/P aortic aneurysm repair Q fever Malignant neoplasm of middle lobe of right lung (HCC) Acute kidney injury superimposed on chronic kidney disease TRANSFUSE PLATELETS Timed 01/23/2025 5 :00 AM CDT PREPARE PLATELETS Timed 01/23/2025 3:5 6 AM CDT CBC WITHOUT DIFFERENTIAL Routine 01/23/2025 3:21 AM CDT TRANSFUSE RED BLOOD CELLS Timed 01/22/2025 11:40 PM CDT PREPARE RBC Timed 01/22/2025 11:20 PM CDT EGFR Routine 01/22/2025 8:17 PM CDT DIFFERENTIAL AUTO Routine 01/22/2025 8:1 7 PM CDT PHOSPHORUS Routine 01/22/2025 8:17 PM CDT MAGNESIUM Routine 01/22/2025 8:17 PM CDT BASIC METABOLIC PANEL Routine 01/22/2025 8:17 PM CDT CBC WITH AUTO DIFFERENTIAL Routine 01/22/2025 8:17 PM CDT CRITICAL CARE Routine 01/22/2025 11:41 AM CDT Thoracoabdominal aortic aneurysm (TAAA) without rupture, unspecified part POCT GLUCOSE DEVICE Routine 01/22/2025 1 1:21 AM CDT POCT GLUCOSE DEVICE Routine 01/22/2025 7 :12 AM CDT POCT GLUCOSE DEVICE Routine 01/22/2025 3 :33 AM CDT IR LUMBAR PUNCTURE, DIAGNOSTIC INCL FLUORO GUIDANCE ED Urgent/IP Urgent 01/22/2025 2:[address] LUMBAR SPINE WO CONTRAST ED Urgent/IP Urgent 01/22/2025 12:29 AM CDT POCT GLUCOSE DEVICE Routine 01/21/2025 1 1:24 PM CDT EGFR Routine 01/21/2025 9:51 PM CDT DIFFERENTIAL AUTO Routine 01/21/2025 9:5 1 PM CDT BASIC METABOLIC PANEL Routine 01/21/2025 9:51 PM CDT CBC WITH AUTO DIFFERENTIAL Routine 01/21/2025 9:51 PM CDT MAGNESIUM Routine 01/21/2025 9:51 PM CDT PHOSPHORUS Routine 01/21/2025 9:51 PM CDT CRITICAL CARE Routine 01/21/2025 9:15 PM CDT Thoracoabdominal aortic aneurysm (TAAA) without rupture, unspecified part POCT GLUCOSE DEVICE Routine 01/21/2025 7 :[address] HEAD WO CONTRAST ED Urgent/IP Urgent 01/21/2025 5:46 PM CDT CRITICAL CARE Routine 01/21/2025 5:41 PM CDT Thoracoabdominal aortic aneurysm (TAAA) without rupture, unspecified part POCT GLUCOSE DEVICE Routine 01/21/2025 3 :20 PM CDT MS ARTL CATHJ/CANNULJ MNTR/TRANSFUSION SPX PRQ Routine 01/21/2025 1:10 PM CDT Thoracoabdominal aortic aneurysm (TAAA) without rupture, unspecified part POCT GLUCOSE DEVICE Routine 01/21/2025 1 2:49 PM CDT MS AN PROCEDURE PLACEHOLDER Routine 01/21/2025 11:42 AM CDT TRANSFUSE RED BLOOD CELLS Timed 01/21/2025 10:24 AM CDT APTT STAT 01/21/2025 8:42 AM CDT PROTIME-INR STAT 01/21/2025 8:42 AM CDT PREPARE RBC STAT 01/21/2025 7:43 AM CDT EGFR Routine 01/21/2025 4:59 AM CDT BASIC METABOLIC PANEL Routine 01/21/2025 4:59 AM CDT CBC WITHOUT DIFFERENTIAL Routine 01/21/2025 4:59 AM CDT CV HYBRID ROOM (DEFAULT ORDERABLE) Routine 01/20/2025 12:56 PM CDT Thoracoabdominal aortic aneurysm (TAAA) without rupture, unspecified part POC BLOOD GAS AND CHEMISTRIES, ARTERIAL Routine 01/20/2025 12:36 PM CDT POCT ACTIVATED CLOTTING TIME, LOW RANGE Routine 01/20/2025 12:25 PM CDT POCT ACTIVATED CLOTTING TIME, LOW RANGE Routine 01/20/2025 12:09 PM CDT POCT ACTIVATED CLOTTING TIME, LOW RANGE Routine 01/20/2025 11:42 AM CDT POCT ACTIVATED CLOTTING TIME, LOW RANGE Routine 01/20/2025 11:19 AM CDT POCT ACTIVATED CLOTTING TIME, LOW RANGE Routine 01/20/2025 10:55 AM CDT POCT ACTIVATED CLOTTING TIME, LOW RANGE Routine 01/20/2025 10:32 AM CDT MS AN PROCEDURE PLACEHOLDER Routine 01/20/2025 10:05 AM CDT MS AN PROCEDURE PLACEHOLDER Routine 01/20/2025 10:04 AM CDT MS AN PROCEDURE PLACEHOLDER Routine 01/20/2025 10:03 AM CDT MS AN PROCEDURE PLACEHOLDER Routine 01/20/2025 10:02 AM CDT MS AN ELECTIVE ENDOTRACHEAL AIRWAY Routine 01/20/2025 10:02 AM CDT POCT ACTIVATED CLOTTING TIME, LOW RANGE Routine 01/20/2025 9:43 AM CDT PLACEMENT STENT - RENAL ARTERY - HYBRID ROOM 01/20/2025 8:40 AM CDT Thoracoabdominal aortic aneurysm (TAAA) without rupture, unspecified part Case Notes [id number]-time length changed per fabrizio -jw3/- Emily called placed case in the depot for edits via phone call (EF) PREPARE RBC Timed 01/20/2025 6:59 AM CDT EGFR Routine 01/11/2025 10:04 AM CDT Preoperative testing DIFFERENTIAL AUTO Routine 01/11/2025 10: 04 AM CDT Preoperative testing URINALYSIS, MICROSCOPIC ONLY Routine 01/11/2025 10:04 AM CDT Preoperative testing CPAP APTT ALGORITHM Routine 01/11/2025 1 0:04 AM CDT Preoperative testing PROTIME-INR Routine 01/11/2025 10:04 AM CDT Preoperative testing Bruising TYPE AND SCREEN 14 DAY Routine 01/11/2025 10:04 AM CDT Preoperative testing CBC WITH AUTO DIFFERENTIAL Routine 01/11/2025 10:04 AM CDT Preoperative testing BASIC METABOLIC PANEL Routine 01/11/2025 10:04 AM CDT Preoperative testing URINALYSIS AND REFLEX TO MICROSCOPIC AND CULTURE Routine 01/11/2025 10:04 AM CDT Preoperative testing CTA CHEST ABDOMEN PELVIS Schedule Routine, Read Routine (OP Routine) 12/22/2024 10:37 AM MISSILE INSPECTOR PREFLIGHT Aneurysm of descending thoracic aorta without rupture Encounter for pre-operative examination POCT CREATININE - DEVICE Routine 12/22/2024 10:07 AM MISSILE INSPECTOR PREFLIGHT from Last 3 Months Results * Potassium, whole blood (02/01/2025 8:50 PM CDT) Potassium, bld 4.6 3.3 - 4.9 mmol/L Blood 02/01/2025 8:50 PM CDT 02/01/2025 9:00 PM CDT Chevy Bell NP LAB BLOOD ORDERABLES Final Result [facility] Department [place] [address] * (ABNORMAL) eGFR (02/01/2025 8:50 PM CDT) eGFR 11(L) >=60 mL/min/1. 73 m2 Comment: Interpretive Data Reference Interval Normal >/= 90 mL/min/1.73m2 Mildly decreased* 60 - 89 mL/min/1.73m2 Mildly to moderately decreased 45 - 59 mL/min/1.73m2 Moderately to severely decreased 30 - 44 mL/min/1.73m2 Severely decreased 15 - 29 mL/min/1.73m2 Kidney Failure < 15 mL/min/1.73m2 *Relative to young adult level Estimated glomerular filtration rate is determined by the 2020 CKD-EPI equation recommended by the National Kid[employer] (A Unifying Approach to GFR Estimation: Recommendations of the NKF-ASK Task Force on Reassessing the Inclusion of Race in Diagnosing Kidney Disease, JASN 2020). The CKD-EPI equation should not be used for patients with unstable renal function and has not been validated in children and those over 70. Current interpretive data was last reviewed 2021. Blood 02/01/2025 8:50 PM CDT 02/01/2025 9:07 PM CDT us Rishi Lainez MD LAB BLOOD ORDERABLES Fin al Result [facility] Department [place] [address] * (ABNORMAL) Differential, auto (02/01/2025 8:50 PM CDT) Neutrophil abs 7.56(H) 1.50 - 6.50 K/cumm Imm gran abs 0.12(H) 0.00 - 0.10 K/cumm [facility] Lymphocyte abs 0.91 0.80 - 3.30 K/cumm [facility] Monocyte abs 0.86(H) 0.20 - 0.80 K/cumm [facility] Eosinophil abs 0.54(H) 0.00 - 0.50 K/cumm [facility] Basophil abs 0.10 0.00 - 0.10 K/cumm [facility] Neutrophil pct 74.9 % [facility] Comment: Interpretive Data Percent cell count reference ranges are not reported, since discordance with absolute values may lead to misinterpretation of CBC data. Current Interpretive Data was last revised on 2018. Imm gran pct 1.2 % [facility] Comment: Interpretive Data Percent cell count reference ranges are not reported, since discordance with absolute values may lead to misinterpretation of CBC data. Current Interpretive Data was last revised on 2018. Lymphocyte pct 9.0 % [facility] Comment: Interpretive Data Percent cell count reference ranges are not reported, since discordance with absolute values may lead to misinterpretation of CBC data. Current Interpretive Data was last revised on 2018. Monocyte pct 8.5 % [facility] Comment: Interpretive Data Percent cell count reference ranges are not reported, since discordance with absolute values may lead to misinterpretation of CBC data. Current Interpretive Data was last revised on 2018. Eosinophil pct 5.4 % [facility] Comment: Interpretive Data Percent cell count reference ranges are not reported, since discordance with absolute values may lead to misinterpretation of CBC data. Current Interpretive Data was last revised on 2018. Basophil pct 1.0 % [facility] Comment: Interpretive Data Percent cell count reference ranges are not reported, since discordance with absolute values may lead to misinterpretation of CBC data. Current Interpretive Data was last revised on 2018. Blood 02/01/2025 8:50 PM CDT 02/01/2025 9:07 PM CDT us Rishi Lainez MD LAB BLOOD ORDERABLES Fin al Result [facility] Department [place] [address] * (ABNORMAL) CBC with auto differential (02/01/2025 8:50 PM CDT) WBC 10.09(H) 3.80 - 9.90 K/cumm Hgb 9.2(L) 13.0 - 17.5 g/dL [facility] Hct 28.4(L) 38.9 - 50.3 % [facility] Plt 281 150 - 400 K/cumm [facility] MPV 9.6 9.1 - 12.3 fL [facility] RBC 2.93(L) 4.30 - 5.80 M/cumm [facility] MCV 96.9(H) 81.3 - 96.4 fL [facility] MCH 31.4 27.1 - 33.3 pg [facility] MCHC 32.4 32.3 - 35.7 g/dL [facility] RDW CV 15.1(H) 11.1 - 14.9 % [facility] RDW SD 54.0(H) 35.7 - 48.1 fL [facility] NRBC abs 0.00 0.00 - 0.01 K/cumm [facility] Blood 02/01/2025 8:50 PM CDT 02/01/2025 9:07 PM CDT Rishi Lainez MD LAB BLOOD ORDERABLES Fin al Result Performing Organization Address [facility] Co de Phone Number [facility] [place] [address] * (ABNORMAL) Phosphorus (02/01/2025 8:50 PM CDT) [facility] Phosphorus, pl 5.4(H) 2.3 - 4.5 mg/dL Blood 02/01/2025 8:50 PM CDT 02/01/2025 9:07 PM CDT Rishi Lainez MD LAB BLOOD ORDERABLES Fin al Result Performing Organization Address [facility] de Phone Number [facility] [place] [address] * Magnesium (02/01/2025 8:50 PM CDT) [facility] Magnesium 2.4 1.4 - 2.5 mg/dL Blood 02/01/2025 8:50 PM CDT 02/01/2025 9:07 PM CDT Rishi Lainez MD LAB BLOOD ORDERABLES Fin al Result Performing Organization Address [facility] [place] [address] * (ABNORMAL) Basic metabolic panel (02/01/2025 8:50 PM CDT) [facility] Sodium 135 135 - 145 mmol/L Potassium, pl 4.6 3.3 - 4.9 mmol/L [facility] Chloride 102 97 - 110 mmol/L [facility] CO2 19(L) 22 - 32 mmol/L [facility] Anion gap 14 2 - 15 mmol/L [facility] BUN 57(H) 6 - 25 mg/dL [facility] Creatinine 5.27(H) 0.80 - 1.30 mg/dL [facility] Glucose 129 70 - 199 mg/dL [facility] Comment: Interpretive Data Fasting glucose >/= 126 mg/dl is diagnostic for diabetes. Fasting is defined as no caloric intake for at least 8 hours. Fasting glucose between 100 mg/dl to 125 mg/dl is diagnostic of prediabetes. In a patient with classic symptoms of hyperglycemia or hyperglycemic crisis, a random glucose >/= 200 mg/dl is diagnostic for diabetes. In the absence of unequivocal hyperglycemia, results should be confirmed by repeat testing. The classification and Diagnosis of Diabetes Diabetes Care 2021; 46: S19-S40. Current interpretive data was last revised 2022. Calcium 8.7 8.5 - 10.3 mg/dL [facility] Blood 02/01/2025 8:50 PM CDT 02/01/2025 9:07 PM CDT Rishi Lainez MD LAB BLOOD ORDERABLES Fin al Result [facility] Department [place] [address] * Potassium, whole blood (01/31/2025 10:30 PM CDT) Pathologist [facility] Potassium, bld 4.9 3.3 - 4.9 mmol/L Blood 01/31/2025 10:3 0 PM CDT 01/31/2025 10:46 PM CDT us Chevy Bell NP LAB BLOOD ORDERABLES Final Result [facility] Department [place] [address] * (ABNORMAL) eGFR (01/31/2025 10:30 PM CDT) Pathologist [facility] eGFR 11(L) >=60 mL/min/1. 73 m2 Comment: Interpretive Data Reference Interval Normal >/= 90 mL/min/1.73m2 Mildly decreased* 60 - 89 mL/min/1.73m2 Mildly to moderately decreased 45 - 59 mL/min/1.73m2 Moderately to severely decreased 30 - 44 mL/min/1.73m2 Severely decreased 15 - 29 mL/min/1.73m2 Kidney Failure < 15 mL/min/1.73m2 *Relative to young adult level Estimated glomerular filtration rate is determined by the 2020 CKD-EPI equation recommended by the National Kidney Foundation (A Unifying Approach to GFR Estimation: Recommendations of the NKF-ASK Task Force on Reassessing the Inclusion of Race in Diagnosing Kidney Disease, JASN 2020). The CKD-EPI equation should not be used for patients with unstable renal function and has not been validated in children and those over 70. Current interpretive data was last reviewed 2021. Blood 01/31/2025 10:3 0 PM CDT 01/31/2025 10:49 PM CDT Rishi Lainez MD LAB BLOOD ORDERABLES Fin al Result [facility] Department [place] [address] * (ABNORMAL) Differential, auto (01/31/2025 10:30 PM CDT) Neutrophil abs 6.10 1.50 - 6.50 K/cumm Imm gran abs 0.14(H) 0.00 - 0.10 K/cumm [facility] Lymphocyte abs 1.22 0.80 - 3.30 K/cumm [facility] Monocyte abs 0.83(H) 0.20 - 0.80 K/cumm [facility] Eosinophil abs 0.64(H) 0.00 - 0.50 K/cumm [facility] Basophil abs 0.11(H) 0.00 - 0.10 K/cumm [facility] Neutrophil pct 67.5 % [facility] Comment: Interpretive Data Percent cell count reference ranges are not reported, since discordance with absolute values may lead to misinterpretation of CBC data. Current Interpretive Data was last revised on 2018. Imm gran pct 1.5 % [facility] Comment: Interpretive Data Percent cell count reference ranges are not reported, since discordance with absolute values may lead to misinterpretation of CBC data. Current Interpretive Data was last revised on 2018. Lymphocyte pct 13.5 % [facility] Comment: Interpretive Data Percent cell count reference ranges are not reported, since discordance with absolute values may lead to misinterpretation of CBC data. Current Interpretive Data was last revised on 2018. Monocyte pct 9.2 % [facility] Comment: Interpretive Data Percent cell count reference ranges are not reported, since discordance with absolute values may lead to misinterpretation of CBC data. Current Interpretive Data was last revised on 2018. Eosinophil pct 7.1 % [facility] Comment: Interpretive Data Percent cell count reference ranges are not reported, since discordance with absolute values may lead to misinterpretation of CBC data. Current Interpretive Data was last revised on 2018. Basophil pct 1.2 % [facility] Comment: Interpretive Data Percent cell count reference ranges are not reported, since discordance with absolute values may lead to misinterpretation of CBC data. Current Interpretive Data was last revised on 2018. Blood 01/31/2025 10:3 0 PM CDT 01/31/2025 10:49 PM CDT us Rishi Lainez MD LAB BLOOD ORDERABLES Fin al Result [facility] Department [place] [address] * (ABNORMAL) CBC with auto differential (01/31/2025 10:30 PM CDT) WBC 9.04 3.80 - 9.90 K/cumm Hgb 9.4(L) 13.0 - 17.5 g/dL [facility] Hct 29.0(L) 38.9 - 50.3 % [facility] Plt 277 150 - 400 K/cumm [facility] MPV 9.9 9.1 - 12.3 fL [facility] RBC 2.98(L) 4.30 - 5.80 M/cumm [facility] MCV 97.3(H) 81.3 - 96.4 fL [facility] MCH 31.5 27.1 - 33.3 pg [facility] MCHC 32.4 32.3 - 35.7 g/dL [facility] RDW CV 15.1(H) 11.1 - 14.9 % [facility] RDW SD 55.0(H) 35.7 - 48.1 fL [facility] NRBC abs 0.00 0.00 - 0.01 K/cumm [facility] Blood 01/31/2025 10:3 0 PM CDT 01/31/2025 10:49 PM CDT Rishi Lainez MD LAB BLOOD ORDERABLES Fin al Result Performing Organization Address [facility] de Phone Number [facility] Department [place] [address] * (ABNORMAL) Phosphorus (01/31/2025 10:30 PM CDT) Phosphorus, pl 5.8(H) 2.3 - 4.5 mg/dL Blood 01/31/2025 10:3 0 PM CDT 01/31/2025 10:49 PM CDT Rishi Lainez MD LAB BLOOD ORDERABLES Fin al Result [facility] [place] [employer] [place] [address] * (ABNORMAL) Magnesium (01/31/2025 10:30 PM CDT) Magnesium 2.6(H) 1.4 - 2.5 mg/dL Blood 01/31/2025 10:3 0 PM CDT 01/31/2025 10:49 PM CDT Rishi Lainez MD LAB BLOOD ORDERABLES Fin al Result [facility] Department [place] [address] * (ABNORMAL) Basic metabolic panel (01/31/2025 10:30 PM CDT) Sodium 141 135 - 145 mmol/L Potassium, pl 5.0(H) 3.3 - 4.9 mmol/L [facility] Chloride 108 97 - 110 mmol/L [facility] CO2 18(L) 22 - 32 mmol/L [facility] Anion gap 15 2 - 15 mmol/L [facility] BUN 57(H) 6 - 25 mg/dL [facility] Creatinine 5.22(H) 0.80 - 1.30 mg/dL [facility] Glucose 114 70 - 199 mg/dL [facility] Comment: Interpretive Data Fasting glucose >/= 126 mg/dl is diagnostic for diabetes. Fasting is defined as no caloric intake for at least 8 hours. Fasting glucose between 100 mg/dl to 125 mg/dl is diagnostic of prediabetes. In a patient with classic symptoms of hyperglycemia or hyperglycemic crisis, a random glucose >/= 200 mg/dl is diagnostic for diabetes. In the absence of unequivocal hyperglycemia, results should be confirmed by repeat testing. The classification and Diagnosis of Diabetes Diabetes Care 202; 46: S19-S40. Current interpretive data was last revised 2022. Calcium 9.1 8.5 - 10.3 mg/dL [facility] Blood 01/31/2025 10:3 0 PM CDT 01/31/2025 10:49 PM CDT Rishi Lainez MD LAB BLOOD ORDERABLES Fin al Result Performing Organization Address [facility] Co de Phone Number [facility] Department [place] [address] * Potassium, whole blood (01/30/2025 8:30 PM CDT) Potassium, bld 4.6 3.3 - 4.9 mmol/L Blood 01/30/2025 8:30 PM CDT 01/30/2025 8:53 PM CDT us Chevy Bell NP LAB BLOOD ORDERABLES Final Result Performing Organization Address [facility] Co de Phone Number [facility] [place] [address] * (ABNORMAL) eGFR (01/30/2025 8:30 PM CDT) eGFR 11(L) >=60 mL/min/1. 73 m2 Comment: Interpretive Data Reference Interval Normal >/= 90 mL/min/1.73m2 Mildly decreased* 60 - 89 mL/min/1.73m2 Mildly to moderately decreased 45 - 59 mL/min/1.73m2 Moderately to severely decreased 30 - 44 mL/min/1.73m2 Severely decreased 15 - 29 mL/min/1.73m2 Kidney Failure < 15 mL/min/1.73m2 *Relative to young adult level Estimated glomerular filtration rate is determined by the 2020 CKD-EPI equation recommended by the National Kidney Foundation (A Unifying Approach to GFR Estimation: Recommendations of the NKF-ASK Task Force on Reassessing the Inclusion of Race in Diagnosing Kidney Disease, JASN 2020). The CKD-EPI equation should not be used for patients with unstable renal function and has not been validated in children and those over 70. Current interpretive data was last reviewed 2021. Blood 01/30/2025 8:30 PM CDT 01/30/2025 8:58 PM CDT us Rishi Lainez MD LAB BLOOD ORDERABLES Fin al Result Performing Organization Address City/[facility]/ZIP Co de Phone Number [facility] Department [place] [address] * (ABNORMAL) Differential, auto (01/30/2025 8:30 PM CDT) Neutrophil abs 5.94 1.50 - 6.50 K/cumm Imm gran abs 0.09 0.00 - 0.10 K/cumm [facility] Lymphocyte abs 0.85 0.80 - 3.30 K/cumm [facility] Monocyte abs 0.92(H) 0.20 - 0.80 K/cumm [facility] Eosinophil abs 0.59(H) 0.00 - 0.50 K/cumm [facility] Basophil abs 0.10 0.00 - 0.10 K/cumm [facility] Neutrophil pct 70.0 % [facility] Comment: Interpretive Data Percent cell count reference ranges are not reported, since discordance with absolute values may lead to misinterpretation of CBC data. Current Interpretive Data was last revised on 2018. Imm gran pct 1.1 % [facility] Comment: Interpretive Data Percent cell count reference ranges are not reported, since discordance with absolute values may lead to misinterpretation of CBC data. Current Interpretive Data was last revised on 2018. Lymphocyte pct 10.0 % [facility] Comment: Interpretive Data Percent cell count reference ranges are not reported, since discordance with absolute values may lead to misinterpretation of CBC data. Current Interpretive Data was last revised on 2018. Monocyte pct 10.8 % [facility] Comment: Interpretive Data Percent cell count reference ranges are not reported, since discordance with absolute values may lead to misinterpretation of CBC data. Current Interpretive Data was last revised on 2018. Eosinophil pct 6.9 % [facility] Comment: Interpretive Data Percent cell count reference ranges are not reported, since discordance with absolute values may lead to misinterpretation of CBC data. Current Interpretive Data was last revised on 2018. Basophil pct 1.2 % [facility] Comment: Interpretive Data Percent cell count reference ranges are not reported, since discordance with absolute values may lead to misinterpretation of CBC data. Current Interpretive Data was last revised on 2018. Blood 01/30/2025 8:30 PM CDT 01/30/2025 8:58 PM CDT Rishi Lainez MD LAB BLOOD ORDERABLES Fin al Result [facility] Department [place] [address] * (ABNORMAL) CBC with auto differential (01/30/2025 8:30 PM CDT) Pathologist [facility] WBC 8.49 3.80 - 9.90 K/cumm Hgb 9.2(L) 13.0 - 17.5 g/dL [facility] Hct 28.5(L) 38.9 - 50.3 % [facility] Plt 220 150 - 400 K/cumm [facility] MPV 9.8 9.1 - 12.3 fL [facility] RBC 2.89(L) 4.30 - 5.80 M/cumm [facility] MCV 98.6(H) 81.3 - 96.4 fL [facility] MCH 31.8 27.1 - 33.3 pg [facility] MCHC 32.3 32.3 - 35.7 g/dL [facility] RDW CV 14.9 11.1 - 14.9 % [facility] RDW SD 54.5(H) 35.7 - 48.1 fL [facility] NRBC abs 0.00 0.00 - 0.01 K/cumm [facility] Blood 01/30/2025 8:30 PM CDT 01/30/2025 8:58 PM CDT Rishi Lainez MD LAB BLOOD ORDERABLES Fin al Result Performing Organization Address [facility]/ZIP Co de Phone Number [facility] Department [place] [address] * (ABNORMAL) Phosphorus (01/30/2025 8:30 PM CDT) Pathologist [facility] Phosphorus, pl 5.6(H) 2.3 - 4.5 mg/dL Blood 01/30/2025 8:30 PM CDT 01/30/2025 8:58 PM CDT Rishi Lainez MD LAB BLOOD ORDERABLES Fin al Result Performing Organization Address City/[facility]/ZIP Co de Phone Number [facility] Department [place] [address] * Magnesium (01/30/2025 8:30 PM CDT) Pathologist [facility] Magnesium 2.5 1.4 - 2.5 mg/dL Blood 01/30/2025 8:30 PM CDT 01/30/2025 8:58 PM CDT Rishi Lainez MD LAB BLOOD ORDERABLES Fin al Result Performing Organization Address [facility] de Phone Number [facility] Department [place] [address] * (ABNORMAL) Basic metabolic panel (01/30/2025 8:30 PM CDT) [facility] Sodium 142 135 - 145 mmol/L Potassium, pl 4.9 3.3 - 4.9 mmol/L [facility] Chloride 111(H) 97 - 110 mmol/L [facility] CO2 19(L) 22 - 32 mmol/L [facility] Anion gap 12 2 - 15 mmol/L [facility] BUN 62(H) 6 - 25 mg/dL [facility] Creatinine 5.18(H) 0.80 - 1.30 mg/dL [facility] Glucose 132 70 - 199 mg/dL [facility] Comment: Interpretive Data Fasting glucose >/= 126 mg/dl is diagnostic for diabetes. Fasting is defined as no caloric intake for at least 8 hours. Fasting glucose between 100 mg/dl to 125 mg/dl is diagnostic of prediabetes. In a patient with classic symptoms of hyperglycemia or hyperglycemic crisis, a random glucose >/= 200 mg/dl is diagnostic for diabetes. In the absence of unequivocal hyperglycemia, results should be confirmed by repeat testing. The classification and Diagnosis of Diabetes Diabetes Care 2021; 46: S19-S40. Current interpretive data was last revised 2022. Calcium 8.6 8.5 - 10.3 mg/dL [facility] Blood 01/30/2025 8:30 PM CDT 01/30/2025 8:58 PM CDT Rishi Lainez MD LAB BLOOD ORDERABLES Fin al Result Performing Organization Address [facility] Co de Phone Number [facility] Department [place] [address] * (ABNORMAL) Urinalysis reflex to microscopic and culture Urine (01/30/2025 12:11 PM CDT) Color, ur Straw Yellow Clarity, ur Clear Clear [facility] Specific gravity, ur 1.015 1.003 - 1.030 [facility] pH, urine 6.5 [facility] Comment: Interpretive Data U rine pH is affected by diet, medications, systemic acid-base disturbances, and renal tubular function. pH may affect urinary stone formation. For example, urine pH below 6.0 may help reduce the tendency for calcium phosphate stones and pH greater than 6.0 may reduce the tendency for uric acid stone formation. Source: [facility] Current Interpretive Data was last revised on 2017 Protein, ur ql 2+(A) Negative [facility] Glucose, ur ql 1+(A) Negative [facility] Ketones, ur Negative Negative [facility] Bilirubin, ur Negative Negative [facility] Blood, ur 1+(A) Negative [facility] Urobilinogen, ur <2.0 <2.0 mg/dL [facility] Nitrite, ur Negative Negative [facility] Leukocyte esterase, ur 2+(A) Negative [facility] UA reflex comment Reflex to microscopic UA will be performed. [facility] Urine 01/30/2025 12:1 1 PM CDT 01/30/2025 1:18 PM CDT Rishi Lainez MD LAB MICROBIOLOGY - GENER AL ORDERABLES Final Result Performing Organization Address [facility] Co de Phone Number [facility] Department [place] [address] * (ABNORMAL) Urinalysis, microscopic only (01/30/2025 12:11 PM CDT) WBC, ur >50(A) 0 - 5 /HPF RBC, ur 0-2 0 - 2 /HPF [facility] Bacteria, ur Trace(A) [facility] Yeast, ur 4+(A) [facility] Mucous, ur Present(A) [facility] Hyaline casts, ur 1-5 0 - 10 /LPF [facility] Culture Reflex Comment Reflex to urine culture will be performed. [facility] Urine 01/30/2025 12:1 1 PM CDT 01/30/2025 1:18 PM CDT Rishi Lainez MD LAB URINE ORDERABLES Fin al Result Performing Organization Address [facility] Co de Phone Number [facility] Department [place] [address] * (ABNORMAL) Urine culture Urine (01/30/2025 12:11 PM CDT) Report Final Report: Greater than or equal to 100,000 colonies/mL of Vishal glabrata (.) Organism VISHAL GLABRATA [facility] Urine 01/30/2025 12:1 1 PM CDT 01/30/2025 2:37 PM CDT Narrative [facility] - 02/01/2025 6:15 AM CDT Urine culture reflexed based upon urinalysis results. Testing performed by [facility] Microbiology Laboratory ([phone]) Rishi Lainez MD LAB MICROBIOLOGY - GENER AL ORDERABLES Final Result Performing Organization Address [facility]/ZIP Co de Phone Number [facility] [place] [employer] [place] [address] * US Renal Limited W Complete Renal Doppler (C) (01/30/2025 9:03 AM CDT) Anatomical Region Laterality Modality Kidney N/A Ultrasound 01/30/2025 9:27 AM CDT Impressions 01/30/2025 12:45 PM CDT ic Markedly limited visualization of both kidneys and renal vasculature in setting of recent postoperative state from thoracic aorta endovascular repair and left renal artery stent placement. There is flow within both kidneys. Consider CT angiography for better evaluation of left renal artery stent patency. Dictated by: Emilie Kowalski M.D. The radiology attending physician has personally reviewed this study, and had reviewed and/or edited this written report and agrees with it. Electronically signed by: Bernice Garcia M.D. Narrative 01/30/2025 12:45 PM CDT EXAMINATION: 1. COMPLETE RENAL SONOGRAM 2. RENAL DOPPLER ([place]) HISTORY: History of renal artery stenosis and status post endovascular repair and stent placement. COMPARISON: CT 12/22/2024. FINDINGS: COMPLETE RENAL SONOGRAM: Kidneys: The left kidneys is normal in size and measures 11.0 cm in length. The right kidney is decreased in size and measures 8.2 cm in length. There is no hydronephrosis in either kidney. There is a small left renal cyst. Bladder: Not visualized. RENAL DOPPLER: Color Doppler and spectral analysis were used to evaluate the renal vasculature. Markedly limited exam with poor visualization of both kidneys and their vasculature in setting of postoperative state from thoracic aortic endovascular repair and left renal artery stent placement. There is flow within both kidneys but visualization of the renal artery origins and measurement of peak artery velocity of this region was severely limited. Procedure Note Bernice Garcia MD - 01/30/2025 EXAMINATION: 1. COMPLETE RENAL SONOGRAM 2. RENAL DOPPLER ([place]) HISTORY: History of renal artery stenosis and status post endovascular repair and stent placement. COMPARISON: CT 12/22/2024. FINDINGS: COMPLETE RENAL SONOGRAM: Kidneys: The left kidneys is normal in size and measures 11.0 cm in length. The right kidney is decreased in size and measures 8.2 cm in length. There is no hydronephrosis in either kidney. There is a small left renal cyst. Bladder: Not visualized. RENAL DOPPLER: Color Doppler and spectral analysis were used to evaluate the renal vasculature. Markedly limited exam with poor visualization of both kidneys and their vasculature in setting of postoperative state from thoracic aortic endovascular repair and left renal artery stent placement. There is flow within both kidneys but visualization of the renal artery origins and measurement of peak artery velocity of this region was severely limited. IMPRESSION: ic Markedly limited visualization of both kidneys and renal vasculature in setting of recent postoperative state from thoracic aorta endovascular repair and left renal artery stent placement. There is flow within both kidneys. Consider CT angiography for better evaluation of left renal artery stent patency. Dictated by: Emilie Kowalski M.D. The radiology attending physician has personally reviewed this study, and had reviewed and/or edited this written report and agrees with it. Electronically signed by: Bernice Garcia M.D. Rishi Lainez MD [facility] PROCEDURES Final Result * (ABNORMAL) Potassium, whole blood (01/29/2025 10:33 PM CDT) Pathologist [facility] Potassium, bld 5.0(H) 3.3 - 4.9 mmol/L Blood 01/29/2025 10:3 3 PM CDT 01/29/2025 10:46 PM CDT Chevy Bell NP LAB BLOOD ORDERABLES Final Result [facility] Department [place] [address] * (ABNORMAL) eGFR (01/29/2025 10:33 PM CDT) Pathologist [facility] eGFR 11(L) >=60 mL/min/1. 73 m2 Comment: Interpretive Data Reference Interval Normal >/= 90 mL/min/1.73m2 Mildly decreased* 60 - 89 mL/min/1.73m2 Mildly to moderately decreased 45 - 59 mL/min/1.73m2 Moderately to severely decreased 30 - 44 mL/min/1.73m2 Severely decreased 15 - 29 mL/min/1.73m2 Kidney Failure < 15 mL/min/1.73m2 *Relative to young adult level Estimated glomerular filtration rate is determined by the 2020 CKD-EPI equation recommended by the National Kid[employer] (A Unifying Approach to GFR Estimation: Recommendations of the NKF-ASK Task Force on Reassessing the Inclusion of Race in Diagnosing Kidney Disease, JASN 2020). The CKD-EPI equation should not be used for patients with unstable renal function and has not been validated in children and those over 70. Current interpretive data was last reviewed 2021. Blood 01/29/2025 10:3 3 PM CDT 01/29/2025 10:48 PM CDT us Rishi Lainez MD LAB BLOOD ORDERABLES Fin al Result [facility] Department [place] [address] * (ABNORMAL) Differential, auto (01/29/2025 10:33 PM CDT) Neutrophil abs 6.06 1.50 - 6.50 K/cumm Imm gran abs 0.12(H) 0.00 - 0.10 K/cumm [facility] Lymphocyte abs 1.15 0.80 - 3.30 K/cumm [facility] Monocyte abs 0.97(H) 0.20 - 0.80 K/cumm [facility] Eosinophil abs 0.67(H) 0.00 - 0.50 K/cumm [facility] Basophil abs 0.12(H) 0.00 - 0.10 K/cumm [facility] Neutrophil pct 66.6 % [facility] Comment: Interpretive Data Percent cell count reference ranges are not reported, since discordance with absolute values may lead to misinterpretation of CBC data. Current Interpretive Data was last revised on 2018. Imm gran pct 1.3 % [facility] Comment: Interpretive Data Percent cell count reference ranges are not reported, since discordance with absolute values may lead to misinterpretation of CBC data. Current Interpretive Data was last revised on 2018. Lymphocyte pct 12.7 % [facility] Comment: Interpretive Data Percent cell count reference ranges are not reported, since discordance with absolute values may lead to misinterpretation of CBC data. Current Interpretive Data was last revised on 2018. Monocyte pct 10.7 % [facility] Comment: Interpretive Data Percent cell count reference ranges are not reported, since discordance with absolute values may lead to misinterpretation of CBC data. Current Interpretive Data was last revised on 2018. Eosinophil pct 7.4 % [facility] Comment: Interpretive Data Percent cell count reference ranges are not reported, since discordance with absolute values may lead to misinterpretation of CBC data. Current Interpretive Data was last revised on 2018. Basophil pct 1.3 % [facility] Comment: Interpretive Data Percent cell count reference ranges are not reported, since discordance with absolute values may lead to misinterpretation of CBC data. Current Interpretive Data was last revised on 2018. Blood 01/29/2025 10:3 3 PM CDT 01/29/2025 10:48 PM CDT Rishi Lainez MD LAB BLOOD ORDERABLES Fin al Result [facility] Department [place] [address] * C4 complement (01/29/2025 10:33 PM CDT) [facility] Complement C4 29.7 10.0 - 40.0 mg/dL Blood 01/29/2025 10:3 3 PM CDT 01/29/2025 10:48 PM CDT Chevy Bell NP LAB BLOOD ORDERABLES Final Result [facility] Department [place] [address] * (ABNORMAL) CBC with auto differential (01/29/2025 10:33 PM CDT) Pathologist [facility] WBC 9.09 3.80 - 9.90 K/cumm Hgb 9.7(L) 13.0 - 17.5 g/dL [facility] Hct 29.9(L) 38.9 - 50.3 % [facility] Plt 229 150 - 400 K/cumm [facility] MPV 10.0 9.1 - 12.3 fL [facility] RBC 3.10(L) 4.30 - 5.80 M/cumm [facility] MCV 96.5(H) 81.3 - 96.4 fL [facility] MCH 31.3 27.1 - 33.3 pg [facility] MCHC 32.4 32.3 - 35.7 g/dL [facility] RDW CV 15.1(H) 11.1 - 14.9 % [facility] RDW SD 52.6(H) 35.7 - 48.1 fL [facility] NRBC abs 0.00 0.00 - 0.01 K/cumm [facility] Blood 01/29/2025 10:3 3 PM CDT 01/29/2025 10:48 PM CDT Rishi Lainez MD LAB BLOOD ORDERABLES Fin al Result Performing Organization Address City/[facility]/ZIP Co de Phone Number [facility] Department [place] [address] * C3 complement (01/29/2025 10:33 PM CDT) [facility] Complement C3 168.0 90.0 - 180.0 mg/dL Blood 01/29/2025 10:3 3 PM CDT 01/29/2025 10:48 PM CDT Chevy Bell NP LAB BLOOD ORDERABLES Final Result [facility] Department [place] [address] * (ABNORMAL) Phosphorus (01/29/2025 10:33 PM CDT) Phosphorus, pl 5.5(H) 2.3 - 4.5 mg/dL Blood 01/29/2025 10:3 3 PM CDT 01/29/2025 10:48 PM CDT Rishi Lainez MD LAB BLOOD ORDERABLES Fin al Result [facility] [place] [address] * (ABNORMAL) Magnesium (01/29/2025 10:33 PM CDT) Pathologist [facility] Magnesium 2.6(H) 1.4 - 2.5 mg/dL Blood 01/29/2025 10:3 3 PM CDT 01/29/2025 10:48 PM CDT Rishi Lainez MD LAB BLOOD ORDERABLES Fin al Result Performing Organization Address [facility] de Phone Number [facility] Department [place] [address] * (ABNORMAL) Basic metabolic panel (01/29/2025 10:33 PM CDT) Pathologist [facility] Sodium 138 135 - 145 mmol/L Potassium, pl 5.2(H) 3.3 - 4.9 mmol/L [facility] Chloride 106 97 - 110 mmol/L [facility] CO2 19(L) 22 - 32 mmol/L [facility] Anion gap 13 2 - 15 mmol/L [facility] BUN 68(H) 6 - 25 mg/dL [facility] Creatinine 5.18(H) 0.80 - 1.30 mg/dL [facility] Glucose 107 70 - 199 mg/dL [facility] Comment: Interpretive Data Fasting glucose >/= 126 mg/dl is diagnostic for diabetes. Fasting is defined as no caloric intake for at least 8 hours. Fasting glucose between 100 mg/dl to 125 mg/dl is diagnostic of prediabetes. In a patient with classic symptoms of hyperglycemia or hyperglycemic crisis, a random glucose >/= 200 mg/dl is diagnostic for diabetes. In the absence of unequivocal hyperglycemia, results should be confirmed by repeat testing. The classification and Diagnosis of Diabetes Diabetes Care 202; 46: S19-S40. Current interpretive data was last revised 2022. Calcium 8.8 8.5 - 10.3 mg/dL [facility] Blood 01/29/2025 10:3 3 PM CDT 01/29/2025 10:48 PM CDT us Rishi Lainez MD LAB BLOOD ORDERABLES Fin al Result [facility] [place] [address] * US Vein Mapping Fistula Access, Bilateral (01/29/2025 3:07 PM CDT) Anatomical Region Laterality Modality Vascular Bilateral Ultrasound 01/29/2025 2:17 PM CDT Narrative 01/30/2025 10:37 AM CDT [facility] - Department of Vascular Surgery, Vascular Laboratory [address] [place] [id number] Upper Extremity Vein Mapping Report Patient Name: AVERY VICK WILLIAM : 1955 (69y 10m) Study Date: 01/29/2025 2:17:51 PM Gender: M [employer] Steward: LORELEI Location: [id number] [facility] Provider: CHEVY BELL Quality: Adequate Order Provider: CHEVY BELL PROCEDURES: Mapping Report: Bilateral Upper Extremity Vein Mapping. INDICATIONS: OCTAVIANO. MEASUREMENTS: Right Value Units Left Value Units Rt Axillary Vein Diameter 0.66 cm Lt Axillary Vein Diameter 0.81 cm Rt Prox Brachial Vein D. 1 0.29 cm Lt Prox Brachial Vein D. 1 0.59 cm Rt Prox Brachial Vein D. 2 0.43 cm Lt Prox Brachial Vein D. 2 0.26 cm Rt Mid Brachial Vein D. 1 0.31 cm Lt Mid Brachial Vein D. 1 0.24 cm Rt Mid Brachial Vein D. 2 0.10 cm Lt Mid Brachial Vein D. 2 0.58 cm Rt Dist Brachial Vein D. 1 0.27 cm Lt Dist Brachial Vein D. 1 0.31 cm Rt Dist Brachial Vein D. 2 0.17 cm Lt Dist Brachial Vein D. 2 0.57 cm Rt Cephalic Vein Zone 1 0.27 cm Lt Cephalic Vein Zone 1 0.20 cm Rt Cephalic Vein Zone 2 0.36 cm Lt Cephalic Vein Zone 2 0.18 cm Rt Cephalic Vein Zone 3 0.28 cm Lt Cephalic Vein Zone 3 0.20 cm Rt Cephalic Vein Zone 4 0.35 cm Lt Cephalic Vein Zone 4 0.11 cm Rt Cephalic Vein Zone 5 0.20 cm Lt Cephalic Vein Zone 5 0.11 cm Rt Cephalic Vein Zone 6 0.15 cm Lt Cephalic Vein Zone 6 0.14 cm Rt Cephalic Vein Zone 7 0.15 cm Lt Cephalic Vein Zone 7 0.12 cm Rt Basilic Vein Zone 2 0.18 cm Lt Basilic Vein Zone 2 0.28 cm Rt Basilic Vein Zone 3 0.15 cm Lt Basilic Vein Zone 3 0.20 cm Rt Basilic Vein Zone 4 0.10 cm Lt Basilic Vein Zone 4 0.18 cm Rt Basilic Vein Zone 5 0.10 cm Lt Basilic Vein Zone 5 0.10 cm Rt Basilic Vein Zone 6 0.11 cm Lt Basilic Vein Zone 6 0.13 cm Rt Basilic Vein Zone 7 0.18 cm Lt Basilic Vein Zone 7 0.16 cm RT Brachial Artery Diameter 0.58 cm LT Brachial Artery Diameter 0.50 cm RT Brachial Artery PSV 98.00 CM/S LT Brachial Artery PSV 113.00 CM/S RT Ulnar Artery D. Prox 0.19 cm LT Ulnar Artery D. Prox 0.43 cm RT Ulnar Vein D. 1 Prox 0.17 cm LT Ulnar Vein D. 1 Prox 0.42 cm RT Ulnar Vein D. 2 Prox 0.21 cm LT Ulnar Vein D. 2 Prox 0.38 cm RT Ulnar Artery PSV 47.00 CM/S LT Ulnar Artery PSV 88.60 CM/S RT Ulnar Artery D. Dist 0.19 cm LT Ulnar Artery D. Dist 0.21 cm RT Ulnar Vein D. 1 Dist 0.15 cm LT Ulnar Vein D. 1 Dist 0.16 cm RT Ulnar Vein D. Dist 0.12 cm LT Ulnar Vein D. 2 Dist 0.11 cm RT Radial Artery D. Prox 0.28 cm LT Radial Artery D. Prox 0.31 cm RT Radial Vein D. 1 Prox 0.19 cm LT Radial Vein D. 1 Prox 0.33 cm RT Radial Vein D. 2 Prox 0.22 cm LT Radial Vein D. 2 Prox 0.20 cm RT Radial Artery PSV 42.30 CM/S LT Radial Artery PSV 74.50 CM/S RT Radial Artery D. Dist 0.17 cm LT Radial Artery D. Dist 0.32 cm RT Radial Vein D.1 Dist 0.16 cm LT Radial Vein D. 1 Dist 0.17 cm RT Radial Vein D. 2 Dist 0.15 cm LT Radial Vein D. 2 Dist 0.22 cm Right Value Units Left Value Units FINDINGS: Performing [employer] Steward: Agnieszka Rivera RVT. Bilateral: Venous Doppler signals in the bilateral upper extremities are within normal limits for spontaneity and phasicity; normal response to compression maneuvers. Duplex imaging of bilateral cephalic and basilic veins reveals the cross-sectional measurements noted above. No evidence of superficial vein thrombus. Bilateral brachial vessel bifurcation is JUST above an antecubital space- at the - arm. Provider Notification: Results called on the above date to Chevy Rodriguez NP at 3:07 pm. CONCLUSIONS: 1. 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 2. Venous Doppler signals in the bilateral upper extremities are within normal limits for spontaneity and phasicity; normal response to compression maneuvers. Duplex imaging of bilateral cephalic and basilic veins reveals the cross-sectional measurements noted above. No evidence of superficial vein thrombus. Bilateral brachial vessel bifurcation is JUST above an antecubital space- at the - arm. HISTORY: HTN, AAA, COPD, PAD. PREVIOUS STUDIES: No previous studies for comparison. DISCLAIMER: Zone 1 = proximal arm; Zone 2 = mid arm; Zone 3 = distal arm; Zone 4 = ante- cubital; Zone 5 = proximal forearm; Zone 6 = mid forearm; Zone 7 = distal forearm. All measurements are obtained with a tourniquet placed on the upper arm unless it is contraindicated and noted in the report. The study images and the final report will be retained in the patient chart by the Vascular Laboratory for the legally required time period. This chart constitutes the legal record of any testing performed. ATTESTATION: I have reviewed and interpreted the pertinent images and measurements of this study. I attest to the conclusions in the final report that is provided above. Electronically Signed By: Josias Salas MD FACS 01/30/2025 10:14:12 AM CDT Procedure Note Josias Salas MD - 01/30/2025 [facility] - Department of Vascular Surgery,Vascular Laboratory [address] [place] [address] Upper Extremity Vein Mapping Report Patient Name: AVERY VICK WILLIAM : 1955 (69y 10m) Study Date: 01/29/2025 2:17:51 PM Gender: M Racetrack Steward: LORELEI Location: [id number] Ref Provider: CHEVY BELL Quality: Adequate Order Provider: CHEVY BELL PROCEDURES: Mapping Report: Bilateral Upper Extremity Vein Mapping. INDICATIONS: OCTAVIANO. MEASUREMENTS: Right Value Units Left Value Units Rt Axillary Vein Diameter 0.66 cm Lt Axillary Vein Diameter 0.81 cm Rt Prox Brachial Vein D. 1 0.29 cm Lt Prox Brachial Vein D. 1 0.59 cm Rt Prox Brachial Vein D. 2 0.43 cm Lt Prox Brachial Vein D. 2 0.26 cm Rt Mid Brachial Vein D. 1 0.31 cm Lt Mid Brachial Vein D. 1 0.24 cm Rt Mid Brachial Vein D. 2 0.10 cm Lt Mid Brachial Vein D. 2 0.58 cm Rt Dist Brachial Vein D. 1 0.27 cm Lt Dist Brachial Vein D. 1 0.31 cm Rt Dist Brachial Vein D. 2 0.17 cm Lt Dist Brachial Vein D. 2 0.57 cm Rt Cephalic Vein Zone 1 0.27 cm Lt Cephalic Vein Zone 1 0.20 cm Rt Cephalic Vein Zone 2 0.36 cm Lt Cephalic Vein Zone 2 0.18 cm Rt Cephalic Vein Zone 3 0.28 cm Lt Cephalic Vein Zone 3 0.20 cm Rt Cephalic Vein Zone 4 0.35 cm Lt Cephalic Vein Zone 4 0.11 cm Rt Cephalic Vein Zone 5 0.20 cm Lt Cephalic Vein Zone 5 0.11 cm Rt Cephalic Vein Zone 6 0.15 cm Lt Cephalic Vein Zone 6 0.14 cm Rt Cephalic Vein Zone 7 0.15 cm Lt Cephalic Vein Zone 7 0.12 cm Rt Basilic Vein Zone 2 0.18 cm Lt Basilic Vein Zone 2 0.28 cm Rt Basilic Vein Zone 3 0.15 cm Lt Basilic Vein Zone 3 0.20 cm Rt Basilic Vein Zone 4 0.10 cm Lt Basilic Vein Zone 4 0.18 cm Rt Basilic Vein Zone 5 0.10 cm Lt Basilic Vein Zone 5 0.10 cm Rt Basilic Vein Zone 6 0.11 cm Lt Basilic Vein Zone 6 0.13 cm Rt Basilic Vein Zone 7 0.18 cm Lt Basilic Vein Zone 7 0.16 cm RT Brachial Artery Diameter 0.58 cm LT Brachial Artery Diameter 0.50 cm RT Brachial Artery PSV 98.00 CM/S LT Brachial Artery PSV 113.00 CM/S RT Ulnar Artery D. Prox 0.19 cm LT Ulnar Artery D. Prox 0.43 cm RT Ulnar Vein D. 1 Prox 0.17 cm LT Ulnar Vein D. 1 Prox 0.42 cm RT Ulnar Vein D. 2 Prox 0.21 cm LT Ulnar Vein D. 2 Prox 0.38 cm RT Ulnar Artery PSV 47.00 CM/S LT Ulnar Artery PSV 88.60 CM/S RT Ulnar Artery D. Dist 0.19 cm LT Ulnar Artery D. Dist 0.21 cm RT Ulnar Vein D. 1 Dist 0.15 cm LT Ulnar Vein D. 1 Dist 0.16 cm RT Ulnar Vein D. Dist 0.12 cm LT Ulnar Vein D. 2 Dist 0.11 cm RT Radial Artery D. Prox 0.28 cm LT Radial Artery D. Prox 0.31 cm RT Radial Vein D. 1 Prox 0.19 cm LT Radial Vein D. 1 Prox 0.33 cm RT Radial Vein D. 2 Prox 0.22 cm LT Radial Vein D. 2 Prox 0.20 cm RT Radial Artery PSV 42.30 CM/S LT Radial Artery PSV 74.50 CM/S RT Radial Artery D. Dist 0.17 cm LT Radial Artery D. Dist 0.32 cm RT Radial Vein D.1 Dist 0.16 cm LT Radial Vein D. 1 Dist 0.17 cm RT Radial Vein D. 2 Dist 0.15 cm LT Radial Vein D. 2 Dist 0.22 cm Right Value Units Left Value Units FINDINGS: Performing Racetrack Steward: Agnieszka Rivera RVT. Bilateral: Venous Doppler signals in the bilateral upper extremities arewithin normal limits for spontaneity and phasicity; normal response to compressionmaneuvers. Duplex imaging of bilateral cephalic and basilic veins reveals thecross-sectional measurements noted above. No evidence of superficial vein thrombus. Bilateral brachialvessel bifurcation is JUST above an antecubital space- at the - arm. Provider Notification: Results called on the above date to Chevy Rodriguez NPenio 3:07 pm. CONCLUSIONS: 1. incidentally noted: the right radial artery appears to be occluded fromthe mid-distal segment. 2. Venous Doppler signals in the bilateral upper extremities are withinnormal limits for spontaneity and phasicity; normal response to compression maneuvers.Duplex imaging of bilateral cephalic and basilic veins reveals the cross-sectionalmeasurements noted above. No evidence of superficial vein thrombus. Bilateral brachial vesselbifurcation is JUST above an antecubital space- at the - arm. HISTORY: HTN, AAA, COPD, PAD. PREVIOUS STUDIES: No previous studies for comparison. DISCLAIMER: Zone 1 = proximal arm; Zone 2 = mid arm; Zone 3 = distal arm; Zone 4 =ante- cubital; Zone 5 = proximal forearm; Zone 6 = mid forearm; Zone 7 = distal forearm. All measurements are obtained with a tourniquet placed on the upper armunless it is contraindicated and noted in the report. The study images and the final report will be retained in the patientchart by the Vascular Laboratory for the legally required time period. This chartconstitutes the legal record of any testing performed. ATTESTATION: I have reviewed and interpreted the pertinent images and measurements ofthis study. I attest to the conclusions in the final report that is provided above. Electronically Signed By: Josias Salas MD [facility] 01/30/2025 10:14:12 AM CDT Chevy Bell NP IMG US PROCEDURES Final Res ult * Urea nitrogen, urine, random (01/29/2025 11:07 AM CDT) Urea nitrogen, ur 369 mg/dL Comment: Interpretive Data No reference range established. Current interpretive data was last revised 2019. Urine 01/29/2025 11:0 7 AM CDT 01/29/2025 11:19 AM CDT Chevy Bell NP LAB URINE ORDERABLES Final Result [facility] Department of Laboratories [place], [place] [id number] * (ABNORMAL) Protein / creatinine ratio, urine, random (01/29/2025 11:07 AM CDT) Protein, ur, quant 57.4 mg/dL Comment: Interpretive Data No reference range established. Current interpretive data was last revised 2019. Creatinine Ur 44.2 mg/dL [facility] Comment: Interpretive Data No reference range established. Current interpretive data was last revised 2019. Protein/creatinin e ratio 1,298.6(H ) 0.0 - 180.0 mg/g CR [facility] Urine 01/29/2025 11:0 7 AM CDT 01/29/2025 11:19 AM CDT Chevy Bell NP LAB URINE ORDERABLES Final Result Performing Organization Address [facility] de Phone Number [facility] Department [place] [address] * Sodium, urine, random (01/29/2025 11:07 AM CDT) Sodium, ur 86 mmol/L Comment: Interpretive Data No reference range established. Current interpretive data was last revised 2019. Urine 01/29/2025 11:0 7 AM CDT 01/29/2025 11:19 AM CDT Chevy Bell NP LAB URINE ORDERABLES Final Result Performing Organization Address City/[facility] Co de Phone Number [facility] [place] [address] * Creatinine, urine, random (01/29/2025 11:07 AM CDT) Creatinine Ur 44.2 mg/dL Comment: Interpretive Data No reference range established. Current interpretive data was last revised 2019. Urine 01/29/2025 11:0 7 AM CDT 01/29/2025 11:19 AM CDT Chevy Bell NP LAB URINE ORDERABLES Final Result Performing Organization Address City/[facility]/ZIP Co de Phone Number [facility] Department [place] [address] * (ABNORMAL) Potassium, whole blood (01/29/2025 10:12 AM CDT) Potassium, bld 5.1(H) 3.3 - 4.9 mmol/L Blood 01/29/2025 10:1 2 AM CDT 01/29/2025 10:22 AM CDT Rishi Lainez MD LAB BLOOD ORDERABLES Fin al Result Performing Organization Address [facility] Co de Phone Number [facility] [place] [address] * US Kidney Complete (01/29/2025 9:20 AM CDT) Anatomical Region Laterality Modality Kidney N/A Ultrasound 01/29/2025 9:33 AM CDT Impressions 01/29/2025 12:26 PM CDT Stable changes of right partial nephrectomy. No hydronephrosis. Dictated by: Maximilian Santo MD The radiology attending physician has personally reviewed this study, and had reviewed and/or edited this written report and agrees with it. Electronically signed by: Gabrielle Milian M.D. Narrative 01/29/2025 12:26 PM CDT EXAMINATION: COMPLETE RENAL SONOGRAM HISTORY: 69-year-old with abdominal aortic stent graft extension, OCTAVIANO on CKD. Right partial nephrectomy for renal cell carcinoma in 2019. COMPARISON: CT from 12/22/2024 FINDINGS: Kidneys: The echogenicity of both kidneys is normal. There are changes of right partial nephrectomy. The remainder of the right kidney is decreased in size measuring 8.4 cm, unchanged. The left kidney is normal in size. The left kidney measures 10.6 cm. There is unchanged mild left pelvic caliectasis from prior CT. There is no hydronephrosis in either kidney. No renal calculi visualized. Multiple simple cysts are seen within both kidneys Bladder: The urinary bladder is normal. Prevoid Bladder volume is 271 mL. Post void volume is 113 mL. Both ureteral jets are visualized. Procedure Note Gabrielle Milian MD - 01/29/2025 EXAMINATION: COMPLETE RENAL SONOGRAM HISTORY: 69-year-old with abdominal aortic stent graft extension, OCTAVIANO on CKD. Right partial nephrectomy for renal cell carcinoma in 2019. COMPARISON: CT from 12/22/2024 FINDINGS: Kidneys: The echogenicity of both kidneys is normal. There are changes of right partial nephrectomy. The remainder of the right kidney is decreased in size measuring 8.4 cm, unchanged. The left kidney is normal in size. The left kidney measures 10.6 cm. There is unchanged mild left pelvic caliectasis from prior CT. There is no hydronephrosis in either kidney. No renal calculi visualized. Multiple simple cysts are seen within both kidneys Bladder: The urinary bladder is normal. Prevoid Bladder volume is 271 mL. Post void volume is 113 mL. Both ureteral jets are visualized. IMPRESSION: Stable changes of right partial nephrectomy. No hydronephrosis. Dictated by: Maximilian Santo MD The radiology attending physician has personally reviewed this study, and had reviewed and/or edited this written report and agrees with it. Electronically signed by: Gabrielle Milian M.D. us Chevy Bell VASCULAR ULTRASOUND TECHNICIAN IMG US PROCEDURES Final Res ult * (ABNORMAL) Potassium, whole blood (01/28/2025 8:49 PM CDT) Potassium, bld 5.1(H) 3.3 - 4.9 mmol/L Blood 01/28/2025 8:49 PM CDT 01/28/2025 8:59 PM CDT Rishi Lainez MD LAB BLOOD ORDERABLES Fin al Result [facility] Department [place] [address] * (ABNORMAL) eGFR (01/28/2025 8:49 PM CDT) Pathologist [facility] eGFR 12(L) >=60 mL/min/1. 73 m2 Comment: Interpretive Data Reference Interval Normal >/= 90 mL/min/1.73m2 Mildly decreased* 60 - 89 mL/min/1.73m2 Mildly to moderately decreased 45 - 59 mL/min/1.73m2 Moderately to severely decreased 30 - 44 mL/min/1.73m2 Severely decreased 15 - 29 mL/min/1.73m2 Kidney Failure < 15 mL/min/1.73m2 *Relative to young adult level Estimated glomerular filtration rate is determined by the 2020 CKD-EPI equation recommended by the National Kidney Foundation (A Unifying Approach to GFR Estimation: Recommendations of the NKF-ASK Task Force on Reassessing the Inclusion of Race in Diagnosing Kidney Disease, JASN 2020). The CKD-EPI equation should not be used for patients with unstable renal function and has not been validated in children and those over 70. Current interpretive data was last reviewed 2021. Blood 01/28/2025 8:49 PM CDT 01/28/2025 9:05 PM CDT us Rishi Lainez MD LAB BLOOD ORDERABLES Fin al Result Performing Organization Address [facility] Co de Phone Number [facility] Department [place] [address] * (ABNORMAL) Differential, auto (01/28/2025 8:49 PM CDT) Pathologist [facility] Neutrophil abs 6.76(H) 1.50 - 6.50 K/cumm Imm gran abs 0.10 0.00 - 0.10 K/cumm [facility] Lymphocyte abs 1.15 0.80 - 3.30 K/cumm [facility] Monocyte abs 1.02(H) 0.20 - 0.80 K/cumm [facility] Eosinophil abs 0.62(H) 0.00 - 0.50 K/cumm [facility] Basophil abs 0.09 0.00 - 0.10 K/cumm [facility] Neutrophil pct 69.4 % [facility] Comment: Interpretive Data Percent cell count reference ranges are not reported, since discordance with absolute values may lead to misinterpretation of CBC data. Current Interpretive Data was last revised on 2018. Imm gran pct 1.0 % [facility] Comment: Interpretive Data Percent cell count reference ranges are not reported, since discordance with absolute values may lead to misinterpretation of CBC data. Current Interpretive Data was last revised on 2018. Lymphocyte pct 11.8 % [facility] Comment: Interpretive Data Percent cell count reference ranges are not reported, since discordance with absolute values may lead to misinterpretation of CBC data. Current Interpretive Data was last revised on 2018. Monocyte pct 10.5 % [facility] Comment: Interpretive Data Percent cell count reference ranges are not reported, since discordance with absolute values may lead to misinterpretation of CBC data. Current Interpretive Data was last revised on 2018. Eosinophil pct 6.4 % [facility] Comment: Interpretive Data Percent cell count reference ranges are not reported, since discordance with absolute values may lead to misinterpretation of CBC data. Current Interpretive Data was last revised on 2018. Basophil pct 0.9 % [facility] Comment: Interpretive Data Percent cell count reference ranges are not reported, since discordance with absolute values may lead to misinterpretation of CBC data. Current Interpretive Data was last revised on 2018. Blood 01/28/2025 8:49 PM CDT 01/28/2025 9:05 PM CDT us Rishi Lainez MD LAB BLOOD ORDERABLES Fin al Result [facility] Department [place] [address] * (ABNORMAL) CBC with auto differential (01/28/2025 8:49 PM CDT) WBC 9.74 3.80 - 9.90 K/cumm Hgb 9.3(L) 13.0 - 17.5 g/dL [facility] Hct 28.4(L) 38.9 - 50.3 % [facility] Plt 181 150 - 400 K/cumm [facility] MPV 10.1 9.1 - 12.3 fL [facility] RBC 2.96(L) 4.30 - 5.80 M/cumm [facility] MCV 95.9 81.3 - 96.4 fL [facility] MCH 31.4 27.1 - 33.3 pg [facility] MCHC 32.7 32.3 - 35.7 g/dL [facility] RDW CV 15.2(H) 11.1 - 14.9 % [facility] RDW SD 53.8(H) 35.7 - 48.1 fL [facility] NRBC abs 0.00 0.00 - 0.01 K/cumm [facility] Blood 01/28/2025 8:49 PM CDT 01/28/2025 9:05 PM CDT Rishi Lainez MD LAB BLOOD ORDERABLES Fin al Result [facility] Department of [employer] [place] [address] * (ABNORMAL) Phosphorus (01/28/2025 8:49 PM CDT) [facility] Phosphorus, pl 5.2(H) 2.3 - 4.5 mg/dL Blood 01/28/2025 8:49 PM CDT 01/28/2025 9:05 PM CDT Rishi Lainez MD LAB BLOOD ORDERABLES Fin al Result [facility] [place] [address] * (ABNORMAL) Magnesium (01/28/2025 8:49 PM CDT) Magnesium 2.7(H) 1.4 - 2.5 mg/dL Blood 01/28/2025 8:49 PM CDT 01/28/2025 9:05 PM CDT Rishi Lainez MD LAB BLOOD ORDERABLES Fin al Result Performing Organization Address City/[facility]/ZIP Co de Phone Number [facility] Department [place] [address] * (ABNORMAL) Basic metabolic panel (01/28/2025 8:49 PM CDT) Pathologist [facility] Sodium 139 135 - 145 mmol/L Potassium, pl 5.4(H) 3.3 - 4.9 mmol/L [facility] Chloride 108 97 - 110 mmol/L [facility] CO2 18(L) 22 - 32 mmol/L [facility] Anion gap 13 2 - 15 mmol/L [facility] BUN 69(H) 6 - 25 mg/dL [facility] Creatinine 4.94(H) 0.80 - 1.30 mg/dL [facility] Glucose 103 70 - 199 mg/dL [facility] Comment: Interpretive Data Fasting glucose >/= 126 mg/dl is diagnostic for diabetes. Fasting is defined as no caloric intake for at least 8 hours. Fasting glucose between 100 mg/dl to 125 mg/dl is diagnostic of prediabetes. In a patient with classic symptoms of hyperglycemia or hyperglycemic crisis, a random glucose >/= 200 mg/dl is diagnostic for diabetes. In the absence of unequivocal hyperglycemia, results should be confirmed by repeat testing. The classification and Diagnosis of Diabetes Diabetes Care 202; 46: S19-S40. Current interpretive data was last revised 2022. Calcium 8.7 8.5 - 10.3 mg/dL [facility] Blood 01/28/2025 8:49 PM CDT 01/28/2025 9:05 PM CDT Rishi Lainez MD LAB BLOOD ORDERABLES Fin al Result Performing Organization Address [facility]/ZIP Co de Phone Number [facility] Department [place] [address] * (ABNORMAL) eGFR (01/28/2025 2:54 PM CDT) Pathologist [facility] eGFR 12(L) >=60 mL/min/1. 73 m2 Comment: Interpretive Data Reference Interval Normal >/= 90 mL/min/1.73m2 Mildly decreased* 60 - 89 mL/min/1.73m2 Mildly to moderately decreased 45 - 59 mL/min/1.73m2 Moderately to severely decreased 30 - 44 mL/min/1.73m2 Severely decreased 15 - 29 mL/min/1.73m2 Kidney Failure < 15 mL/min/1.73m2 *Relative to young adult level Estimated glomerular filtration rate is determined by the 2020 CKD-EPI equation recommended by the National Kidney Foundation (A Unifying Approach to GFR Estimation: Recommendations of the NKF-ASK Task Force on Reassessing the Inclusion of Race in Diagnosing Kidney Disease, JASN 2020). The CKD-EPI equation should not be used for patients with unstable renal function and has not been validated in children and those over 70. Current interpretive data was last reviewed 2021. Blood 01/28/2025 2:54 PM CDT 01/28/2025 3:13 PM CDT Chevy Bell NP LAB BLOOD ORDERABLES Final Result Performing Organization Address [facility] Co de Phone Number [facility] Department [place] [address] * (ABNORMAL) Basic metabolic panel (01/28/2025 2:54 PM CDT) Pathologist [facility] Sodium 138 135 - 145 mmol/L Potassium, pl 5.3(H) 3.3 - 4.9 mmol/L [facility] Chloride 105 97 - 110 mmol/L [facility] CO2 19(L) 22 - 32 mmol/L [facility] Anion gap 14 2 - 15 mmol/L [facility] BUN 67(H) 6 - 25 mg/dL [facility] Creatinine 4.91(H) 0.80 - 1.30 mg/dL [facility] Glucose 105 70 - 199 mg/dL [facility] Comment: Interpretive Data Fasting glucose >/= 126 mg/dl is diagnostic for diabetes. Fasting is defined as no caloric intake for at least 8 hours. Fasting glucose between 100 mg/dl to 125 mg/dl is diagnostic of prediabetes. In a patient with classic symptoms of hyperglycemia or hyperglycemic crisis, a random glucose >/= 200 mg/dl is diagnostic for diabetes. In the absence of unequivocal hyperglycemia, results should be confirmed by repeat testing. The classification and Diagnosis of Diabetes Diabetes Care 2021; 46: S19-S40. Current interpretive data was last revised 2022. Calcium 8.8 8.5 - 10.3 mg/dL [facility] Blood 01/28/2025 2:54 PM CDT 01/28/2025 3:13 PM CDT us Chevy Bell NP LAB BLOOD ORDERABLES Final Result Performing Organization Address City/[facility]/ZIP Co de Phone Number [facility] Department [place] [address] * (ABNORMAL) Potassium, whole blood (01/28/2025 5:09 AM CDT) [facility] Potassium, bld 5.1(H) 3.3 - 4.9 mmol/L Blood 01/28/2025 5:09 AM CDT 01/28/2025 5:19 AM CDT us Rishi Lainez MD LAB BLOOD ORDERABLES Fin al Result [facility] Department [place] [address] * ECG 12 lead (01/28/2025 12:21 AM CDT) Pathologist [facility] Ventricular Rate EKG/Min 74 BPM [facility] Atrial Rate 74 BPM [facility] MS-Interval (MSEC) 192 ms [facility] QRS-Interval (MSEC) 106 ms [facility] QT-Interval (MSEC) 378 ms [facility] QTc 419 ms [facility] P [place] 42 degrees [facility] R [place] -53 degrees [facility] T [place] 50 degrees [facility] Diagnosis Normal sinus rhythm Left anterior fascicular block Abnormal ECG When compared with ECG of 01-JUN-2024 10:25, No significant change was found Confirmed by Vinny Jolly MD ([id number]) on 01/29/2025 8:41:01 AM [facility] 01/28/2025 12:2 1 AM CDT 01/29/2025 8:41 AM CDT Rishi Lainez MD ECG ORDERABLES Final Re sult Performing Organization Address City/[facility]/ZIP Co de Phone Number [facility] * (ABNORMAL) Potassium, whole blood (01/28/2025 12:08 AM CDT) Pathologist [facility] Potassium, bld 5.2(H) 3.3 - 4.9 mmol/L Blood 01/28/2025 12:0 8 AM CDT 01/28/2025 12:22 AM CDT Rishi Lainez MD LAB BLOOD ORDERABLES Fin al Result [facility] Department [place] [address] * (ABNORMAL) eGFR (01/27/2025 10:32 PM CDT) eGFR 12(L) >=60 mL/min/1. 73 m2 Comment: Interpretive Data Reference Interval Normal >/= 90 mL/min/1.73m2 Mildly decreased* 60 - 89 mL/min/1.73m2 Mildly to moderately decreased 45 - 59 mL/min/1.73m2 Moderately to severely decreased 30 - 44 mL/min/1.73m2 Severely decreased 15 - 29 mL/min/1.73m2 Kidney Failure < 15 mL/min/1.73m2 *Relative to young adult level Estimated glomerular filtration rate is determined by the 2020 CKD-EPI equation recommended by the National Kidney Foundation (A Unifying Approach to GFR Estimation: Recommendations of the NKF-ASK Task Force on Reassessing the Inclusion of Race in Diagnosing Kidney Disease, JASN 2020). The CKD-EPI equation should not be used for patients with unstable renal function and has not been validated in children and those over 70. Current interpretive data was last reviewed 2021. Blood 01/27/2025 10:3 2 PM CDT 01/27/2025 10:53 PM CDT us Rishi Lainez MD LAB BLOOD ORDERABLES Fin al Result [facility] Department [place] [address] * (ABNORMAL) Differential, auto (01/27/2025 10:32 PM CDT) Neutrophil abs 6.24 1.50 - 6.50 K/cumm Imm gran abs 0.06 0.00 - 0.10 K/cumm [facility] Lymphocyte abs 1.13 0.80 - 3.30 K/cumm [facility] Monocyte abs 1.04(H) 0.20 - 0.80 K/cumm [facility] Eosinophil abs 0.52(H) 0.00 - 0.50 K/cumm [facility] Basophil abs 0.07 0.00 - 0.10 K/cumm [facility] Neutrophil pct 68.8 % [facility] Comment: Interpretive Data Percent cell count reference ranges are not reported, since discordance with absolute values may lead to misinterpretation of CBC data. Current Interpretive Data was last revised on 2018. Imm gran pct 0.7 % [facility] Comment: Interpretive Data Percent cell count reference ranges are not reported, since discordance with absolute values may lead to misinterpretation of CBC data. Current Interpretive Data was last revised on 2018. Lymphocyte pct 12.5 % [facility] Comment: Interpretive Data Percent cell count reference ranges are not reported, since discordance with absolute values may lead to misinterpretation of CBC data. Current Interpretive Data was last revised on 2018. Monocyte pct 11.5 % [facility] Comment: Interpretive Data Percent cell count reference ranges are not reported, since discordance with absolute values may lead to misinterpretation of CBC data. Current Interpretive Data was last revised on 2018. Eosinophil pct 5.7 % [facility] Comment: Interpretive Data Percent cell count reference ranges are not reported, since discordance with absolute values may lead to misinterpretation of CBC data. Current Interpretive Data was last revised on 2018. Basophil pct 0.8 % [facility] Comment: Interpretive Data Percent cell count reference ranges are not reported, since discordance with absolute values may lead to misinterpretation of CBC data. Current Interpretive Data was last revised on 2018. Blood 01/27/2025 10:3 2 PM CDT 01/27/2025 10:55 PM CDT Rishi Lainez MD LAB BLOOD ORDERABLES Fin al Result [facility] [facility] Department [place] [address] * (ABNORMAL) CBC with auto differential (01/27/2025 10:32 PM CDT) WBC 9.06 3.80 - 9.90 K/cumm Hgb 9.3(L) 13.0 - 17.5 g/dL [facility] Hct 29.5(L) 38.9 - 50.3 % [facility] Plt 165 150 - 400 K/cumm [facility] MPV 10.5 9.1 - 12.3 fL [facility] RBC 3.13(L) 4.30 - 5.80 M/cumm [facility] MCV 94.2 81.3 - 96.4 fL [facility] MCH 29.7 27.1 - 33.3 pg [facility] MCHC 31.5(L) 32.3 - 35.7 g/dL [facility] RDW CV 15.2(H) 11.1 - 14.9 % [facility] RDW SD 52.9(H) 35.7 - 48.1 fL [facility] NRBC abs 0.00 0.00 - 0.01 K/cumm [facility] Blood 01/27/2025 10:3 2 PM CDT 01/27/2025 10:55 PM CDT Rishi Lainez MD LAB BLOOD ORDERABLES Fin al Result Performing Organization Address City/[facility] Co de Phone Number [facility] [place] [address] * (ABNORMAL) Phosphorus (01/27/2025 10:32 PM CDT) Phosphorus, pl 5.6(H) 2.3 - 4.5 mg/dL Blood 01/27/2025 10:3 2 PM CDT 01/27/2025 10:53 PM CDT Rishi Lainez MD LAB BLOOD ORDERABLES Fin al Result Performing Organization Address [facility] de Phone Number [facility] Department [place] [address] * (ABNORMAL) Magnesium (01/27/2025 10:32 PM CDT) Magnesium 2.6(H) 1.4 - 2.5 mg/dL Blood 01/27/2025 10:3 2 PM CDT 01/27/2025 10:53 PM CDT Rishi Lainez MD LAB BLOOD ORDERABLES Fin al Result Performing Organization Address [facility] de Phone Number [facility] [place] [address] * (ABNORMAL) Basic metabolic panel (01/27/2025 10:32 PM CDT) Sodium 134(L) 135 - 145 mmol/L Potassium, pl 5.5(H) 3.3 - 4.9 mmol/L [facility] Chloride 105 97 - 110 mmol/L [facility] CO2 18(L) 22 - 32 mmol/L [facility] Anion gap 11 2 - 15 mmol/L [facility] BUN 65(H) 6 - 25 mg/dL [facility] Creatinine 4.85(H) 0.80 - 1.30 mg/dL [facility] Glucose 95 70 - 199 mg/dL [facility] Comment: Interpretive Data Fasting glucose >/= 126 mg/dl is diagnostic for diabetes. Fasting is defined as no caloric intake for at least 8 hours. Fasting glucose between 100 mg/dl to 125 mg/dl is diagnostic of prediabetes. In a patient with classic symptoms of hyperglycemia or hyperglycemic crisis, a random glucose >/= 200 mg/dl is diagnostic for diabetes. In the absence of unequivocal hyperglycemia, results should be confirmed by repeat testing. The classification and Diagnosis of Diabetes Diabetes Care 202; 46: S19-S40. Current interpretive data was last revised 2022. Calcium 8.9 8.5 - 10.3 mg/dL [facility] Blood 01/27/2025 10:3 2 PM CDT 01/27/2025 10:53 PM CDT us Rishi Lainez MD LAB BLOOD ORDERABLES Fin al Result Performing Organization Address City/[facility]/ZIP Co de Phone Number [facility] Department [place] [address] * (ABNORMAL) Potassium, whole blood (01/27/2025 5:35 AM CDT) Potassium, bld 5.2(H) 3.3 - 4.9 mmol/L Blood 01/27/2025 5:35 AM CDT 01/27/2025 5:44 AM CDT Rishi Lainez MD LAB BLOOD ORDERABLES Fin al Result [facility] [place] [address] * (ABNORMAL) eGFR (01/27/2025 3:57 AM CDT) Pathologist [facility] eGFR 13(L) >=60 mL/min/1. 73 m2 Comment: Interpretive Data Reference Interval Normal >/= 90 mL/min/1.73m2 Mildly decreased* 60 - 89 mL/min/1.73m2 Mildly to moderately decreased 45 - 59 mL/min/1.73m2 Moderately to severely decreased 30 - 44 mL/min/1.73m2 Severely decreased 15 - 29 mL/min/1.73m2 Kidney Failure < 15 mL/min/1.73m2 *Relative to young adult level Estimated glomerular filtration rate is determined by the 2020 CKD-EPI equation recommended by the National Kidney [employer] (A Unifying Approach to GFR Estimation: Recommendations of the NKF-ASK Task Force on Reassessing the Inclusion of Race in Diagnosing Kidney Disease, JASN 2020). The CKD-EPI equation should not be used for patients with unstable renal function and has not been validated in children and those over 70. Current interpretive data was last reviewed 2021. Blood 01/27/2025 3:57 AM CDT 01/27/2025 5:19 AM CDT us Rishi Lainez MD LAB BLOOD ORDERABLES Fin al Result Performing Organization Address [facility] Co de Phone Number [facility] Department [place] [address] * (ABNORMAL) Differential, auto (01/27/2025 3:57 AM CDT) Neutrophil abs 7.22(H) 1.50 - 6.50 K/cumm Imm gran abs 0.08 0.00 - 0.10 K/cumm [facility] Lymphocyte abs 0.91 0.80 - 3.30 K/cumm [facility] Monocyte abs 1.09(H) 0.20 - 0.80 K/cumm [facility] Eosinophil abs 0.63(H) 0.00 - 0.50 K/cumm [facility] Basophil abs 0.08 0.00 - 0.10 K/cumm [facility] Neutrophil pct 72.1 % [facility] Comment: Interpretive Data Percent cell count reference ranges are not reported, since discordance with absolute values may lead to misinterpretation of CBC data. Current Interpretive Data was last revised on 2018. Imm gran pct 0.8 % [facility] Comment: Interpretive Data Percent cell count reference ranges are not reported, since discordance with absolute values may lead to misinterpretation of CBC data. Current Interpretive Data was last revised on 2018. Lymphocyte pct 9.1 % [facility] Comment: Interpretive Data Percent cell count reference ranges are not reported, since discordance with absolute values may lead to misinterpretation of CBC data. Current Interpretive Data was last revised on 2018. Monocyte pct 10.9 % [facility] Comment: Interpretive Data Percent cell count reference ranges are not reported, since discordance with absolute values may lead to misinterpretation of CBC data. Current Interpretive Data was last revised on 2018. Eosinophil pct 6.3 % [facility] Comment: Interpretive Data Percent cell count reference ranges are not reported, since discordance with absolute values may lead to misinterpretation of CBC data. Current Interpretive Data was last revised on 2018. Basophil pct 0.8 % [facility] Comment: Interpretive Data Percent cell count reference ranges are not reported, since discordance with absolute values may lead to misinterpretation of CBC data. Current Interpretive Data was last revised on 2018. Blood 01/27/2025 3:57 AM CDT 01/27/2025 4:46 AM CDT us Rishi Lainez MD LAB BLOOD ORDERABLES Fin al Result [facility] [place] [address] * (ABNORMAL) CBC with auto differential (01/27/2025 3:57 AM CDT) WBC 10.01(H) 3.80 - 9.90 K/cumm Hgb 9.8(L) 13.0 - 17.5 g/dL [facility] Hct 29.3(L) 38.9 - 50.3 % [facility] Plt 144(L) 150 - 400 K/cumm [facility] MPV 10.8 9.1 - 12.3 fL [facility] RBC 3.09(L) 4.30 - 5.80 M/cumm [facility] MCV 94.8 81.3 - 96.4 fL [facility] MCH 31.7 27.1 - 33.3 pg [facility] MCHC 33.4 32.3 - 35.7 g/dL [facility] RDW CV 15.3(H) 11.1 - 14.9 % [facility] RDW SD 53.5(H) 35.7 - 48.1 fL [facility] NRBC abs 0.00 0.00 - 0.01 K/cumm [facility] Blood 01/27/2025 3:57 AM CDT 01/27/2025 4:46 AM CDT Rishi Lainez MD LAB BLOOD ORDERABLES Fin al Result [facility] Department of [employer] [place] [address] * (ABNORMAL) Phosphorus (01/27/2025 3:57 AM CDT) [facility] Phosphorus, pl 4.8(H) 2.3 - 4.5 mg/dL Blood 01/27/2025 3:57 AM CDT 01/27/2025 5:19 AM CDT Rishi Lainez MD LAB BLOOD ORDERABLES Fin al Result Performing Organization Address City/[facility]/ZIP Co de Phone Number [facility] [place] [address] * Magnesium (01/27/2025 3:57 AM CDT) Magnesium 2.5 1.4 - 2.5 mg/dL Blood 01/27/2025 3:57 AM CDT 01/27/2025 5:19 AM CDT Rishi Lainez MD LAB BLOOD ORDERABLES Fin al Result Performing Organization Address City/[facility]/ZIP Co de Phone Number [facility] Department [place] [address] * (ABNORMAL) Basic metabolic panel (01/27/2025 3:57 AM CDT) Pathologist [facility] Sodium 136 135 - 145 mmol/L Potassium, pl 5.4(H) 3.3 - 4.9 mmol/L [facility] Chloride 106 97 - 110 mmol/L [facility] CO2 18(L) 22 - 32 mmol/L [facility] Anion gap 12 2 - 15 mmol/L [facility] BUN 63(H) 6 - 25 mg/dL [facility] Creatinine 4.57(H) 0.80 - 1.30 mg/dL [facility] Glucose 102 70 - 199 mg/dL [facility] Comment: Interpretive Data Fasting glucose >/= 126 mg/dl is diagnostic for diabetes. Fasting is defined as no caloric intake for at least 8 hours. Fasting glucose between 100 mg/dl to 125 mg/dl is diagnostic of prediabetes. In a patient with classic symptoms of hyperglycemia or hyperglycemic crisis, a random glucose >/= 200 mg/dl is diagnostic for diabetes. In the absence of unequivocal hyperglycemia, results should be confirmed by repeat testing. The classification and Diagnosis of Diabetes Diabetes Care 202; 46: S19-S40. Current interpretive data was last revised 2022. Calcium 9.2 8.5 - 10.3 mg/dL [facility] Blood 01/27/2025 3:57 AM CDT 01/27/2025 5:19 AM CDT Rishi Lainez MD LAB BLOOD ORDERABLES Fin al Result Performing Organization Address [facility]/ZIP Co de Phone Number [facility] Department [place] [address] * Critical Care (01/26/2025 8:20 AM CDT) Narrative Chevy Blas MD - 01/26/2025 8:20 AM CDT Chevy Blas MD 01/26/2025 9:45 AM Critical Care Performed by: Chevy Blas MD Authorized by: Chevy Blas MD CRITICAL CARE: Team: SICU RED Shift: AM Level of Billing: Critical Care My time spent with this patient was 60 minutes: Critical Provider Statement: I have seen and examined the patient on this day of service. I have reviewed and confirmed the history, physical exam, laboratory and radiologic data as documented in the signed ICU note. I have reviewed and discussed my treatment plan with the ICU team and other medical/contaminated land consultant staff, making frequent assessments and decisions regarding this patient's complex medical care. Critical Care time was exclusive of time spent performing separately billed procedures, treating other patients, and teaching. This time was in addition to and separate from critical care provided by other practitioners in my group on this day of service. Critical Care was necessary to treat or prevent imminent or life-threatening deterioration of the following conditions: Acute pain/acute postoperative pain RLE exam improved Lumbar drain present - clamped Discuss with vascular. Acute blood loss anemia and Thrombocytopenia This time was spent by me doing the following: Serial laboratory checks, Serial bedside patient exams and Obtaining peripheral venous access or blood draws Acute pain control and Lumbar drain management Active and frequent reassessment of respiratory status and oxygen requirements and Incentive spirometry, pulmonary toilet Active and frequent monitoring of intake/output and volumen status and Glycemic control I spent time reviewing and interpreting data from bedside monitors, laboratory results, and imaging, I spent time discussing the management of this critically ill patient with consultants and the medical staff and I spent time documenting in the medical record us Chevy Blas MD IN CLINIC/BEDSIDE ORDERABLE S Final Result * Critical Care (01/25/2025 11:22 PM CDT) Narrative Shari Santiago MD - 01/25/2025 11:22 PM CDT Shari Santiago MD 01/25/2025 11:23 PM Critical Care Performed by: Shari Santiago MD Authorized by: Shari Santiago MD CRITICAL CARE: Team: SICU RED Shift: PM Level of Billing: Critical Care My time spent with this patient was 30 minutes: Critical Provider Statement: I have seen and examined the patient on this day of service. I have reviewed and confirmed the history, physical exam, laboratory and radiologic data as documented in the signed ICU note. I have reviewed and discussed my treatment plan with the ICU team and other medical/contaminated land consultant staff, making frequent assessments and decisions regarding this patient's complex medical care. Critical Care time was exclusive of time spent performing separately billed procedures, treating other patients, and teaching. This time was in addition to and separate from critical care provided by other practitioners in my group on this day of service. Critical Care was necessary to treat or prevent imminent or life-threatening deterioration of the following conditions: Acute pain/acute postoperative pain Aortic dissection/aneurysm This time was spent by me doing the following: Serial bedside patient exams Acute pain control, Frequent neurologic exams and Lumbar drain management Active and frequent reassessment of respiratory status and oxygen requirements I spent time reviewing and interpreting data from bedside monitors, laboratory results, and imaging, I spent time discussing the management of this critically ill patient with consultants and the medical staff and I spent time documenting in the medical record Shari Santiago MD IN CLINIC/BEDSIDE ORDER CHELSI Final Result * (ABNORMAL) eGFR (01/25/2025 8:49 PM CDT) eGFR 14(L) >=60 mL/min/1. 73 m2 Comment: Interpretive Data Reference Interval Normal >/= 90 mL/min/1.73m2 Mildly decreased* 60 - 89 mL/min/1.73m2 Mildly to moderately decreased 45 - 59 mL/min/1.73m2 Moderately to severely decreased 30 - 44 mL/min/1.73m2 Severely decreased 15 - 29 mL/min/1.73m2 Kidney Failure < 15 mL/min/1.73m2 *Relative to young adult level Estimated glomerular filtration rate is determined by the 2020 CKD-EPI equation recommended by the National Kidney Foundation (A Unifying Approach to GFR Estimation: Recommendations of the NKF-ASK Task Force on Reassessing the Inclusion of Race in Diagnosing Kidney Disease, JASN 2020). The CKD-EPI equation should not be used for patients with unstable renal function and has not been validated in children and those over 70. Current interpretive data was last reviewed 2021. Blood 01/25/2025 8:49 PM CDT 01/25/2025 9:05 PM CDT us Rishi Lainez MD LAB BLOOD ORDERABLES Fin al Result [facility] Department [place] [address] * (ABNORMAL) Differential, auto (01/25/2025 8:49 PM CDT) Neutrophil abs 6.62(H) 1.50 - 6.50 K/cumm Imm gran abs 0.06 0.00 - 0.10 K/cumm [facility] Lymphocyte abs 0.81 0.80 - 3.30 K/cumm [facility] Monocyte abs 0.99(H) 0.20 - 0.80 K/cumm [facility] Eosinophil abs 0.48 0.00 - 0.50 K/cumm [facility] Basophil abs 0.07 0.00 - 0.10 K/cumm [facility] Neutrophil pct 73.2 % [facility] Comment: Interpretive Data Percent cell count reference ranges are not reported, since discordance with absolute values may lead to misinterpretation of CBC data. Current Interpretive Data was last revised on 2018. Imm gran pct 0.7 % [facility] Comment: Interpretive Data Percent cell count reference ranges are not reported, since discordance with absolute values may lead to misinterpretation of CBC data. Current Interpretive Data was last revised on 2018. Lymphocyte pct 9.0 % [facility] Comment: Interpretive Data Percent cell count reference ranges are not reported, since discordance with absolute values may lead to misinterpretation of CBC data. Current Interpretive Data was last revised on 2018. Monocyte pct 11.0 % [facility] Comment: Interpretive Data Percent cell count reference ranges are not reported, since discordance with absolute values may lead to misinterpretation of CBC data. Current Interpretive Data was last revised on 2018. Eosinophil pct 5.3 % [facility] Comment: Interpretive Data Percent cell count reference ranges are not reported, since discordance with absolute values may lead to misinterpretation of CBC data. Current Interpretive Data was last revised on 2018. Basophil pct 0.8 % [facility] Comment: Interpretive Data Percent cell count reference ranges are not reported, since discordance with absolute values may lead to misinterpretation of CBC data. Current Interpretive Data was last revised on 2018. Blood 01/25/2025 8:49 PM CDT 01/25/2025 9:05 PM CDT us Rishi Lainez MD LAB BLOOD ORDERABLES Fin al Result [facility] Department [place] [address] * (ABNORMAL) CBC with auto differential (01/25/2025 8:49 PM CDT) WBC 9.03 3.80 - 9.90 K/cumm Hgb 9.4(L) 13.0 - 17.5 g/dL [facility] Hct 27.8(L) 38.9 - 50.3 % [facility] Plt 125(L) 150 - 400 K/cumm [facility] MPV 10.9 9.1 - 12.3 fL [facility] RBC 2.98(L) 4.30 - 5.80 M/cumm [facility] MCV 93.3 81.3 - 96.4 fL [facility] MCH 31.5 27.1 - 33.3 pg [facility] MCHC 33.8 32.3 - 35.7 g/dL [facility] RDW CV 15.6(H) 11.1 - 14.9 % [facility] RDW SD 54.1(H) 35.7 - 48.1 fL [facility] NRBC abs 0.00 0.00 - 0.01 K/cumm [facility] Blood 01/25/2025 8:49 PM CDT 01/25/2025 9:05 PM CDT Rishi Lainez MD LAB BLOOD ORDERABLES Fin al Result Performing Organization Address [facility] de Phone Number [facility] [place] [address] * Phosphorus (01/25/2025 8:49 PM CDT) [facility] Phosphorus, pl 4.5 2.3 - 4.5 mg/dL Blood 01/25/2025 8:49 PM CDT 01/25/2025 9:05 PM CDT Rishi Lainez MD LAB BLOOD ORDERABLES Fin al Result Performing Organization Address [facility] de Phone Number [facility] Department [place] [address] * (ABNORMAL) Magnesium (01/25/2025 8:49 PM CDT) [facility] Magnesium 2.6(H) 1.4 - 2.5 mg/dL Blood 01/25/2025 8:49 PM CDT 01/25/2025 9:05 PM CDT Rishi Lainez MD LAB BLOOD ORDERABLES Fin al Result Performing Organization Address [facility] de Phone Number [facility] [employer] [place] [address] * (ABNORMAL) Basic metabolic panel (01/25/2025 8:49 PM CDT) [facility] Sodium 135 135 - 145 mmol/L Potassium, pl 4.8 3.3 - 4.9 mmol/L [facility] Chloride 108 97 - 110 mmol/L [facility] CO2 16(L) 22 - 32 mmol/L [facility] Anion gap 11 2 - 15 mmol/L [facility] BUN 60(H) 6 - 25 mg/dL [facility] Creatinine 4.22(H) 0.80 - 1.30 mg/dL [facility] Glucose 130 70 - 199 mg/dL [facility] Comment: Interpretive Data Fasting glucose >/= 126 mg/dl is diagnostic for diabetes. Fasting is defined as no caloric intake for at least 8 hours. Fasting glucose between 100 mg/dl to 125 mg/dl is diagnostic of prediabetes. In a patient with classic symptoms of hyperglycemia or hyperglycemic crisis, a random glucose >/= 200 mg/dl is diagnostic for diabetes. In the absence of unequivocal hyperglycemia, results should be confirmed by repeat testing. The classification and Diagnosis of Diabetes Diabetes Care 202; 46: S19-S40. Current interpretive data was last revised 2022. Calcium 8.7 8.5 - 10.3 mg/dL [facility] Blood 01/25/2025 8:49 PM CDT 01/25/2025 9:05 PM CDT us Rishi Lainez MD LAB BLOOD ORDERABLES Fin al Result [facility] Department [place] [address] * Critical Care (01/25/2025 11:10 AM CDT) Narrative Chevy Blas MD - 01/25/2025 11:10 AM CDT Chevy Blas MD 01/25/2025 11:16 AM Critical Care Performed by: Chevy Blas MD Authorized by: Chevy Blas MD CRITICAL CARE: Team: SICU RED Shift: AM Level of Billing: Critical Care My time spent with this patient was 60 minutes: Critical Provider Statement: I have seen and examined the patient on this day of service. I have reviewed and confirmed the history, physical exam, laboratory and radiologic data as documented in the signed ICU note. I have reviewed and discussed my treatment plan with the ICU team and other medical/contaminated land consultant staff, making frequent assessments and decisions regarding this patient's complex medical care. Critical Care time was exclusive of time spent performing separately billed procedures, treating other patients, and teaching. This time was in addition to and separate from critical care provided by other practitioners in my group on this day of service. Critical Care was necessary to treat or prevent imminent or life-threatening deterioration of the following conditions: Acute pain/acute postoperative pain Infected aortic graft explanted / replaced Q Fever - on doxycycline Lumbar drain in place - clamp today per vascular Q 1 hour neuro checks CKD Acute electrolyte derangement and Hypo- or Hyperglycemia Acute blood loss anemia Leukocytosis This time was spent by me doing the following: Serial laboratory checks, Serial bedside patient exams and Obtaining peripheral venous access or blood draws Acute pain control Active and frequent reassessment of respiratory status and oxygen requirements and Frequent bronchodilator treatments Active and frequent monitoring of intake/output and volumen status and Glycemic control Empiric broad coverage antibiotics I spent time reviewing and interpreting data from bedside monitors, laboratory results, and imaging, I spent time discussing the management of this critically ill patient with consultants and the medical staff and I spent time documenting in the medical record us Chevy Blas MD IN CLINIC/BEDSIDE ORDERABLE S Final Result * Critical Care (01/24/2025 11:04 PM CDT) Narrative Shari Santiago MD - 01/24/2025 11:04 PM CDT Shari Santiago MD 01/25/2025 12:58 AM Critical Care Performed by: Shari Santiago MD Authorized by: Shari Santiago MD CRITICAL CARE: Team: SICU RED Shift: PM Level of Billing: Critical Care My time spent with this patient was 30 minutes: Critical Provider Statement: I have seen and examined the patient on this day of service. I have reviewed and confirmed the history, physical exam, laboratory and radiologic data as documented in the signed ICU note. I have reviewed and discussed my treatment plan with the ICU team and other medical/contaminated land consultant staff, making frequent assessments and decisions regarding this patient's complex medical care. Critical Care time was exclusive of time spent performing separately billed procedures, treating other patients, and teaching. This time was in addition to and separate from critical care provided by other practitioners in my group on this day of service. Critical Care was necessary to treat or prevent imminent or life-threatening deterioration of the following conditions: Acute pain/acute postoperative pain Acute respiratory insufficiency This time was spent by me doing the following: Serial bedside patient exams Acute pain control Serial neurovascular exams Lumbar drain I spent time reviewing and interpreting data from bedside monitors, laboratory results, and imaging, I spent time discussing the management of this critically ill patient with consultants and the medical staff and I spent time documenting in the medical record us Shari Santiago MD IN CLINIC/BEDSIDE ORDER CHELSI Final Result * (ABNORMAL) eGFR (01/24/2025 8:44 PM CDT) eGFR 14(L) >=60 mL/min/1. 73 m2 Comment: Interpretive Data Reference Interval Normal >/= 90 mL/min/1.73m2 Mildly decreased* 60 - 89 mL/min/1.73m2 Mildly to moderately decreased 45 - 59 mL/min/1.73m2 Moderately to severely decreased 30 - 44 mL/min/1.73m2 Severely decreased 15 - 29 mL/min/1.73m2 Kidney Failure < 15 mL/min/1.73m2 *Relative to young adult level Estimated glomerular filtration rate is determined by the 2020 CKD-EPI equation recommended by the National Kidney [employer] (A Unifying Approach to GFR Estimation: Recommendations of the NKF-ASK Task Force on Reassessing the Inclusion of Race in Diagnosing Kidney Disease, JASN 2020). The CKD-EPI equation should not be used for patients with unstable renal function and has not been validated in children and those over 70. Current interpretive data was last reviewed 2021. Blood 01/24/2025 8:44 PM CDT 01/24/2025 8:59 PM CDT us Rishi Lainez MD LAB BLOOD ORDERABLES Fin al Result [facility] Department of Laboratories [place], [place] [id number] * (ABNORMAL) Differential, auto (01/24/2025 8:44 PM CDT) Neutrophil abs 6.43 1.50 - 6.50 K/cumm Imm gran abs 0.03 0.00 - 0.10 K/cumm [facility] Lymphocyte abs 0.76(L) 0.80 - 3.30 K/cumm [facility] Monocyte abs 1.08(H) 0.20 - 0.80 K/cumm [facility] Eosinophil abs 0.43 0.00 - 0.50 K/cumm [facility] Basophil abs 0.07 0.00 - 0.10 K/cumm [facility] Neutrophil pct 73.1 % [facility] Comment: Interpretive Data Percent cell count reference ranges are not reported, since discordance with absolute values may lead to misinterpretation of CBC data. Current Interpretive Data was last revised on 2018. Imm gran pct 0.3 % [facility] Comment: Interpretive Data Percent cell count reference ranges are not reported, since discordance with absolute values may lead to misinterpretation of CBC data. Current Interpretive Data was last revised on 2018. Lymphocyte pct 8.6 % [facility] Comment: Interpretive Data Percent cell count reference ranges are not reported, since discordance with absolute values may lead to misinterpretation of CBC data. Current Interpretive Data was last revised on 2018. Monocyte pct 12.3 % [facility] Comment: Interpretive Data Percent cell count reference ranges are not reported, since discordance with absolute values may lead to misinterpretation of CBC data. Current Interpretive Data was last revised on 2018. Eosinophil pct 4.9 % [facility] Comment: Interpretive Data Percent cell count reference ranges are not reported, since discordance with absolute values may lead to misinterpretation of CBC data. Current Interpretive Data was last revised on 2018. Basophil pct 0.8 % [facility] Comment: Interpretive Data Percent cell count reference ranges are not reported, since discordance with absolute values may lead to misinterpretation of CBC data. Current Interpretive Data was last revised on 2018. Blood 01/24/2025 8:44 PM CDT 01/24/2025 8:59 PM CDT us Rishi Lainez MD LAB BLOOD ORDERABLES Fin al Result [facility] Department [place] [address] * (ABNORMAL) CBC with auto differential (01/24/2025 8:44 PM CDT) [facility] WBC 8.80 3.80 - 9.90 K/cumm Hgb 9.6(L) 13.0 - 17.5 g/dL [facility] Hct 28.9(L) 38.9 - 50.3 % [facility] Plt 102(L) 150 - 400 K/cumm [facility] MPV 10.7 9.1 - 12.3 fL [facility] RBC 3.06(L) 4.30 - 5.80 M/cumm [facility] MCV 94.4 81.3 - 96.4 fL [facility] MCH 31.4 27.1 - 33.3 pg [facility] MCHC 33.2 32.3 - 35.7 g/dL [facility] RDW CV 15.9(H) 11.1 - 14.9 % [facility] RDW SD 55.6(H) 35.7 - 48.1 fL [facility] NRBC abs 0.00 0.00 - 0.01 K/cumm [facility] Blood 01/24/2025 8:44 PM CDT 01/24/2025 8:59 PM CDT us Rishi Lainez MD LAB BLOOD ORDERABLES Fin al Result [facility] Department [place] [address] * Phosphorus (01/24/2025 8:44 PM CDT) [facility] Phosphorus, pl 3.8 2.3 - 4.5 mg/dL Blood 01/24/2025 8:44 PM CDT 01/24/2025 8:59 PM CDT Rishi Lainez MD LAB BLOOD ORDERABLES Fin al Result Performing Organization Address City/[facility]/ZIP Co de Phone Number [facility] Department [place] [address] * Magnesium (01/24/2025 8:44 PM CDT) Pathologist [facility] Magnesium 1.9 1.4 - 2.5 mg/dL Blood 01/24/2025 8:44 PM CDT 01/24/2025 8:59 PM CDT Rishi Lainez MD LAB BLOOD ORDERABLES Fin al Result Performing Organization Address [facility] Co de Phone Number [facility] Department [place] [address] * (ABNORMAL) Basic metabolic panel (01/24/2025 8:44 PM CDT) Pathologist [facility] Sodium 138 135 - 145 mmol/L Potassium, pl 4.9 3.3 - 4.9 mmol/L [facility] Chloride 109 97 - 110 mmol/L [facility] CO2 18(L) 22 - 32 mmol/L [facility] Anion gap 11 2 - 15 mmol/L [facility] BUN 47(H) 6 - 25 mg/dL [facility] Creatinine 4.38(H) 0.80 - 1.30 mg/dL [facility] Glucose 123 70 - 199 mg/dL [facility] Comment: Interpretive Data Fasting glucose >/= 126 mg/dl is diagnostic for diabetes. Fasting is defined as no caloric intake for at least 8 hours. Fasting glucose between 100 mg/dl to 125 mg/dl is diagnostic of prediabetes. In a patient with classic symptoms of hyperglycemia or hyperglycemic crisis, a random glucose >/= 200 mg/dl is diagnostic for diabetes. In the absence of unequivocal hyperglycemia, results should be confirmed by repeat testing. The classification and Diagnosis of Diabetes Diabetes Care 2021; 46: S19-S40. Current interpretive data was last revised 2022. Calcium 8.7 8.5 - 10.3 mg/dL [facility] Blood 01/24/2025 8:44 PM CDT 01/24/2025 8:59 PM CDT us Rishi Lainez MD LAB BLOOD ORDERABLES Fin al Result [facility] Department [place] [address] * Critical Care (01/24/2025 12:35 PM CDT) Narrative Chevy Blas MD - 01/24/2025 12:35 PM CDT Chevy Blas MD 01/24/2025 12:36 PM Critical Care Performed by: Chevy Blas MD Authorized by: Chevy Blas MD CRITICAL CARE: Team: SICU RED Shift: AM Level of Billing: Critical Care My time spent with this patient was 35 minutes: Critical Provider Statement: I have seen and examined the patient on this day of service. I have reviewed and confirmed the history, physical exam, laboratory and radiologic data as documented in the signed ICU note. I have reviewed and discussed my treatment plan with the ICU team and other medical/contaminated land consultant staff, making frequent assessments and decisions regarding this patient's complex medical care. Critical Care time was exclusive of time spent performing separately billed procedures, treating other patients, and teaching. This time was in addition to and separate from critical care provided by other practitioners in my group on this day of service. Critical Care was necessary to treat or prevent imminent or life-threatening deterioration of the following conditions: Acute pain/acute postoperative pain Aortic dissection/aneurysm Per vascular surgery requires Q 1 hour NV checks. This time was spent by me doing the following: Serial laboratory checks, Serial bedside patient exams and Obtaining peripheral venous access or blood draws Acute pain control Active and frequent reassessment of respiratory status and oxygen requirements and Incentive spirometry, pulmonary toilet Active and frequent monitoring of intake/output and volumen status and Glycemic control I spent time reviewing and interpreting data from bedside monitors, laboratory results, and imaging, I spent time discussing the management of this critically ill patient with consultants and the medical staff and I spent time documenting in the medical record us Chevy Blas MD IN CLINIC/BEDSIDE ORDERABLE S Final Result * (ABNORMAL) eGFR (01/23/2025 8:19 PM CDT) Pathologist [facility] eGFR 14(L) >=60 mL/min/1. 73 m2 Comment: Interpretive Data Reference Interval Normal >/= 90 mL/min/1.73m2 Mildly decreased* 60 - 89 mL/min/1.73m2 Mildly to moderately decreased 45 - 59 mL/min/1.73m2 Moderately to severely decreased 30 - 44 mL/min/1.73m2 Severely decreased 15 - 29 mL/min/1.73m2 Kidney Failure < 15 mL/min/1.73m2 *Relative to young adult level Estimated glomerular filtration rate is determined by the 2020 CKD-EPI equation recommended by the National Kidney Foundation (A Unifying Approach to GFR Estimation: Recommendations of the NKF-ASK Task Force on Reassessing the Inclusion of Race in Diagnosing Kidney Disease, JASN 2020). The CKD-EPI equation should not be used for patients with unstable renal function and has not been validated in children and those over 70. Current interpretive data was last reviewed 2021. Blood 01/23/2025 8:19 PM CDT 01/23/2025 8:32 PM CDT us Rishi Lainez MD LAB BLOOD ORDERABLES [facility] al Result [facility] Department [place] [address] * (ABNORMAL) Differential, auto (01/23/2025 8:19 PM CDT) Pathologist [facility] Neutrophil abs 7.12(H) 1.50 - 6.50 K/cumm Imm gran abs 0.06 0.00 - 0.10 K/cumm [facility] Lymphocyte abs 0.63(L) 0.80 - 3.30 K/cumm [facility] Monocyte abs 1.00(H) 0.20 - 0.80 K/cumm [facility] Eosinophil abs 0.38 0.00 - 0.50 K/cumm [facility] Basophil abs 0.07 0.00 - 0.10 K/cumm [facility] Neutrophil pct 76.9 % [facility] Comment: Interpretive Data Percent cell count reference ranges are not reported, since discordance with absolute values may lead to misinterpretation of CBC data. Current Interpretive Data was last revised on 2018. Imm gran pct 0.6 % [facility] Comment: Interpretive Data Percent cell count reference ranges are not reported, since discordance with absolute values may lead to misinterpretation of CBC data. Current Interpretive Data was last revised on 2018. Lymphocyte pct 6.8 % [facility] Comment: Interpretive Data Percent cell count reference ranges are not reported, since discordance with absolute values may lead to misinterpretation of CBC data. Current Interpretive Data was last revised on 2018. Monocyte pct 10.8 % [facility] Comment: Interpretive Data Percent cell count reference ranges are not reported, since discordance with absolute values may lead to misinterpretation of CBC data. Current Interpretive Data was last revised on 2018. Eosinophil pct 4.1 % [facility] Comment: Interpretive Data Percent cell count reference ranges are not reported, since discordance with absolute values may lead to misinterpretation of CBC data. Current Interpretive Data was last revised on 2018. Basophil pct 0.8 % [facility] Comment: Interpretive Data Percent cell count reference ranges are not reported, since discordance with absolute values may lead to misinterpretation of CBC data. Current Interpretive Data was last revised on 2018. Blood 01/23/2025 8:19 PM CDT 01/23/2025 8:31 PM CDT us Rishi Lainez MD LAB BLOOD ORDERABLES Fin al Result [facility] Department [place] [address] * (ABNORMAL) CBC with auto differential (01/23/2025 8:19 PM CDT) WBC 9.26 3.80 - 9.90 K/cumm Hgb 9.8(L) 13.0 - 17.5 g/dL [facility] Hct 29.2(L) 38.9 - 50.3 % [facility] Plt 85(L) 150 - 400 K/cumm [facility] MPV 10.6 9.1 - 12.3 fL [facility] RBC 3.12(L) 4.30 - 5.80 M/cumm [facility] MCV 93.6 81.3 - 96.4 fL [facility] MCH 31.4 27.1 - 33.3 pg [facility] MCHC 33.6 32.3 - 35.7 g/dL [facility] RDW CV 16.2(H) 11.1 - 14.9 % [facility] RDW SD 55.9(H) 35.7 - 48.1 fL [facility] NRBC abs 0.00 0.00 - 0.01 K/cumm [facility] Blood 01/23/2025 8:19 PM CDT 01/23/2025 8:31 PM CDT Rishi Lainez MD LAB BLOOD ORDERABLES Fin al Result [facility] Department of [employer] [place] [address] * Phosphorus (01/23/2025 8:19 PM CDT) Phosphorus, pl 4.0 2.3 - 4.5 mg/dL Blood 01/23/2025 8:19 PM CDT 01/23/2025 8:32 PM CDT Rishi Lainez MD LAB BLOOD ORDERABLES Fin al Result [facility] [place] [employer] [place] [address] * Magnesium (01/23/2025 8:19 PM CDT) Magnesium 2.0 1.4 - 2.5 mg/dL Blood 01/23/2025 8:19 PM CDT 01/23/2025 8:32 PM CDT Rishi Lainez MD LAB BLOOD ORDERABLES Fin al Result Performing Organization Address City/[facility]/ZIP Co de Phone Number [facility] Department [place] [address] * (ABNORMAL) Basic metabolic panel (01/23/2025 8:19 PM CDT) [facility] Sodium 141 135 - 145 mmol/L Potassium, pl 4.1 3.3 - 4.9 mmol/L [facility] Chloride 113(H) 97 - 110 mmol/L [facility] CO2 19(L) 22 - 32 mmol/L [facility] Anion gap 9 2 - 15 mmol/L [facility] BUN 49(H) 6 - 25 mg/dL [facility] Creatinine 4.26(H) 0.80 - 1.30 mg/dL [facility] Glucose 121 70 - 199 mg/dL [facility] Comment: Interpretive Data Fasting glucose >/= 126 mg/dl is diagnostic for diabetes. Fasting is defined as no caloric intake for at least 8 hours. Fasting glucose between 100 mg/dl to 125 mg/dl is diagnostic of prediabetes. In a patient with classic symptoms of hyperglycemia or hyperglycemic crisis, a random glucose >/= 200 mg/dl is diagnostic for diabetes. In the absence of unequivocal hyperglycemia, results should be confirmed by repeat testing. The classification and Diagnosis of Diabetes Diabetes Care 2021; 46: S19-S40. Current interpretive data was last revised 2022. Calcium 8.6 8.5 - 10.3 mg/dL [facility] Blood 01/23/2025 8:19 PM CDT 01/23/2025 8:32 PM CDT Rishi Lainez MD LAB BLOOD ORDERABLES Fin al Result Performing Organization Address [facility]/ZIP Co de Phone Number [facility] Department [place] [address] * Critical Care (01/23/2025 10:52 AM CDT) Narrative Chevy Blas MD - 01/23/2025 10:52 AM CDT Chevy Blas MD 01/23/2025 11:44 AM Critical Care Performed by: Chevy Blas MD Authorized by: Chevy Blas MD CRITICAL CARE: Team: SICU RED Shift: AM Level of Billing: Critical Care My time spent with this patient was 60 minutes: Critical Provider Statement: I have seen and examined the patient on this day of service. I have reviewed and confirmed the history, physical exam, laboratory and radiologic data as documented in the signed ICU note. I have reviewed and discussed my treatment plan with the ICU team and other medical/contaminated land consultant staff, making frequent assessments and decisions regarding this patient's complex medical care. Critical Care time was exclusive of time spent performing separately billed procedures, treating other patients, and teaching. This time was in addition to and separate from critical care provided by other practitioners in my group on this day of service. Critical Care was necessary to treat or prevent imminent or life-threatening deterioration of the following conditions: Decreased RLE strength - improved with lumbar drain. Increased drainage overnight, vascular requesting 6cc/hr Acute kidney injury, Acute electrolyte derangement and Hypo- or Hyperglycemia Acute blood loss anemia and Thrombocytopenia This time was spent by me doing the following: Serial laboratory checks, Serial bedside patient exams and Obtaining peripheral venous access or blood draws Acute pain control Active and frequent reassessment of respiratory status and oxygen requirements and Incentive spirometry, pulmonary toilet Active and frequent monitoring of intake/output and volumen status and Glycemic control I spent time reviewing and interpreting data from bedside monitors, laboratory results, and imaging, I spent time discussing the management of this critically ill patient with consultants and the medical staff and I spent time documenting in the medical record us Chevy Blas MD IN CLINIC/BEDSIDE ORDERABLE S Final Result * Transfuse platelets (01/23/2025 6:08 AM CDT) Blood us Rishi Lainez MD BLOOD TRANSFUSION ORDERA BLES Final Result [facility] Department [place] [address] * Prepare platelets: 1 Units (01/23/2025 3:56 AM CDT) [facility] Product code [id number] Unit Number [id number] [facility] Product Blood Type OPOS [facility] Dispense Status PRESUMED TRANSFUSED [facility] Blood Venous blood specimen / Unknown 01/23/2025 3:56 AM CDT 01/23/2025 3:59 AM CDT Narrative [facility] - 01/23/2025 8:00 PM CDT Other indication->post-epidural goal >100 Are special requirements needed? (all products are leukoreduced)->No Date required:-[id number] PLT # of Units:-1-Units Reasons:-Other (Specify)} Rishi Lainez MD BLOOD BANK PRODUCT ORDER CHELSI Final Result [facility] Department [place] [address] * (ABNORMAL) CBC without differential (01/23/2025 3:21 AM CDT) [facility] WBC 9.90 3.80 - 9.90 K/cumm Hgb 10.1(L) 13.0 - 17.5 g/dL [facility] Hct 29.8(L) 38.9 - 50.3 % [facility] Plt 78(L) 150 - 400 K/cumm [facility] MPV 10.9 9.1 - 12.3 fL [facility] RBC 3.17(L) 4.30 - 5.80 M/cumm [facility] MCV 94.0 81.3 - 96.4 fL [facility] MCH 31.9 27.1 - 33.3 pg [facility] MCHC 33.9 32.3 - 35.7 g/dL [facility] RDW CV 16.4(H) 11.1 - 14.9 % [facility] RDW SD 56.4(H) 35.7 - 48.1 fL [facility] NRBC abs 0.00 0.00 - 0.01 K/cumm [facility] Blood 01/23/2025 3:21 AM CDT 01/23/2025 3:38 AM CDT Rishi Lainez MD LAB BLOOD ORDERABLES Fin al Result Performing Organization Address [facility] Co de Phone Number [facility] [employer] [place] [address] * Transfuse RBC (01/23/2025 12:38 AM CDT) Blood Rishi Lainez MD BLOOD TRANSFUSION ORDERA BLES Final Result Performing Organization Address [facility] [place] [address] * Prepare RBC: 1 Units (01/22/2025 11:20 PM CDT) Product code [id number] Unit Number [id number] [facility] Product Blood Type OPOS [facility] Dispense Status PRESUMED TRANSFUSED [facility] Blood 01/22/2025 11:2 0 PM CDT 01/22/2025 11:20 PM CDT Narrative [facility] - 01/23/2025 4:01 PM CDT Other indication->Post-surgical Hgb Goal <10 Are special requirements needed? (All products are leukoreduced and CMV- safe)- >No Date required:-[id number] LRRBC # of [id number] Reasons:-Other (specify)} Rishi Lainez MD BLOOD BANK PRODUCT ORDER CHELSI Final Result Performing Organization Address [facility] Co de Phone Number [facility] [employer] [place] [address] * (ABNORMAL) eGFR (01/22/2025 8:17 PM CDT) [facility] eGFR 13(L) >=60 mL/min/1. 73 m2 Comment: Interpretive Data Reference Interval Normal >/= 90 mL/min/1.73m2 Mildly decreased* 60 - 89 mL/min/1.73m2 Mildly to moderately decreased 45 - 59 mL/min/1.73m2 Moderately to severely decreased 30 - 44 mL/min/1.73m2 Severely decreased 15 - 29 mL/min/1.73m2 Kidney Failure < 15 mL/min/1.73m2 *Relative to young adult level Estimated glomerular filtration rate is determined by the 2020 CKD-EPI equation recommended by the National Kidney Foundation (A Unifying Approach to GFR Estimation: Recommendations of the NKF-ASK Task Force on Reassessing the Inclusion of Race in Diagnosing Kidney Disease, JASN 2020). The CKD-EPI equation should not be used for patients with unstable renal function and has not been validated in children and those over 70. Current interpretive data was last reviewed 2021. Blood 01/22/2025 8:17 PM CDT 01/22/2025 8:40 PM CDT us Rishi Lainez MD LAB BLOOD ORDERABLES Fin al Result [facility] Department [place] [address] * (ABNORMAL) Differential, auto (01/22/2025 8:17 PM CDT) [facility] Neutrophil abs 8.92(H) 1.50 - 6.50 K/cumm Imm gran abs 0.05 0.00 - 0.10 K/cumm [facility] Lymphocyte abs 0.69(L) 0.80 - 3.30 K/cumm [facility] Monocyte abs 1.08(H) 0.20 - 0.80 K/cumm [facility] Eosinophil abs 0.30 0.00 - 0.50 K/cumm [facility] Basophil abs 0.08 0.00 - 0.10 K/cumm [facility] Neutrophil pct 80.3 % [facility] Comment: Interpretive Data Percent cell count reference ranges are not reported, since discordance with absolute values may lead to misinterpretation of CBC data. Current Interpretive Data was last revised on 2018. Imm gran pct 0.4 % [facility] Comment: Interpretive Data Percent cell count reference ranges are not reported, since discordance with absolute values may lead to misinterpretation of CBC data. Current Interpretive Data was last revised on 2018. Lymphocyte pct 6.2 % [facility] Comment: Interpretive Data Percent cell count reference ranges are not reported, since discordance with absolute values may lead to misinterpretation of CBC data. Current Interpretive Data was last revised on 2018. Monocyte pct 9.7 % [facility] Comment: Interpretive Data Percent cell count reference ranges are not reported, since discordance with absolute values may lead to misinterpretation of CBC data. Current Interpretive Data was last revised on 2018. Eosinophil pct 2.7 % [facility] Comment: Interpretive Data Percent cell count reference ranges are not reported, since discordance with absolute values may lead to misinterpretation of CBC data. Current Interpretive Data was last revised on 2018. Basophil pct 0.7 % [facility] Comment: Interpretive Data Percent cell count reference ranges are not reported, since discordance with absolute values may lead to misinterpretation of CBC data. Current Interpretive Data was last revised on 2018. Blood 01/22/2025 8:17 PM CDT 01/22/2025 8:40 PM CDT us Rishi Lainez MD LAB BLOOD ORDERABLES Fin al Result [facility] Department of Laboratories [place], [place] [id number] * (ABNORMAL) CBC with auto differential (01/22/2025 8:17 PM CDT) WBC 11.12(H) 3.80 - 9.90 K/cumm Hgb 9.4(L) 13.0 - 17.5 g/dL [facility] Hct 28.7(L) 38.9 - 50.3 % [facility] Plt 85(L) 150 - 400 K/cumm [facility] MPV 10.6 9.1 - 12.3 fL [facility] RBC 2.95(L) 4.30 - 5.80 M/cumm [facility] MCV 97.3(H) 81.3 - 96.4 fL [facility] MCH 31.9 27.1 - 33.3 pg [facility] MCHC 32.8 32.3 - 35.7 g/dL [facility] RDW CV 15.5(H) 11.1 - 14.9 % [facility] RDW SD 55.7(H) 35.7 - 48.1 fL [facility] NRBC abs 0.00 0.00 - 0.01 K/cumm [facility] Blood 01/22/2025 8:17 PM CDT 01/22/2025 8:40 PM CDT Rishi Lainez MD LAB BLOOD ORDERABLES Fin al Result [facility] Department of [place] [address] * Phosphorus (01/22/2025 8:17 PM CDT) [facility] Phosphorus, pl 3.2 2.3 - 4.5 mg/dL Blood 01/22/2025 8:17 PM CDT 01/22/2025 8:40 PM CDT Rishi Lainez MD LAB BLOOD ORDERABLES Fin al Result [facility] [place] [employer] [place] [address] * Magnesium (01/22/2025 8:17 PM CDT) [facility] Magnesium 2.1 1.4 - 2.5 mg/dL Blood 01/22/2025 8:17 PM CDT 01/22/2025 8:40 PM CDT Rishi Lainez MD LAB BLOOD ORDERABLES Fin al Result Performing Organization Address City/[facility]/ZIP Co de Phone Number [facility] Department [place] [address] * (ABNORMAL) Basic metabolic panel (01/22/2025 8:17 PM CDT) Sodium 140 135 - 145 mmol/L Potassium, pl 4.5 3.3 - 4.9 mmol/L [facility] Chloride 112(H) 97 - 110 mmol/L [facility] CO2 18(L) 22 - 32 mmol/L [facility] Anion gap 10 2 - 15 mmol/L [facility] BUN 49(H) 6 - 25 mg/dL [facility] Creatinine 4.45(H) 0.80 - 1.30 mg/dL [facility] Glucose 141 70 - 199 mg/dL [facility] Comment: Interpretive Data Fasting glucose >/= 126 mg/dl is diagnostic for diabetes. Fasting is defined as no caloric intake for at least 8 hours. Fasting glucose between 100 mg/dl to 125 mg/dl is diagnostic of prediabetes. In a patient with classic symptoms of hyperglycemia or hyperglycemic crisis, a random glucose >/= 200 mg/dl is diagnostic for diabetes. In the absence of unequivocal hyperglycemia, results should be confirmed by repeat testing. The classification and Diagnosis of Diabetes Diabetes Care 2021; 46: S19-S40. Current interpretive data was last revised 2022. Calcium 8.7 8.5 - 10.3 mg/dL [facility] Blood 01/22/2025 8:17 PM CDT 01/22/2025 8:40 PM CDT Rishi Lainez MD LAB BLOOD ORDERABLES Fin al Result Performing Organization Address [facility]/ZIP Co de Phone Number [facility] Department [place] [address] * Critical Care (01/22/2025 11:41 AM CDT) Narrative Aaron Lin MD - 01/22/2025 11:41 AM CDT Aaron Lin MD 01/22/2025 5:20 PM Critical Care Performed by: Aaron Lin MD Authorized by: Aaron Lin MD CRITICAL CARE: Team: SICU RED Shift: AM Level of Billing: Critical Care My time spent with this patient was 45 minutes: Critical Provider Statement: I have seen and examined the patient on this day of service. I have reviewed and confirmed the history, physical exam, laboratory and radiologic data as documented in the signed ICU note. I have reviewed and discussed my treatment plan with the ICU team and other medical/contaminated land consultant staff, making frequent assessments and decisions regarding this patient's complex medical care. Critical Care time was exclusive of time spent performing separately billed procedures, treating other patients, and teaching. This time was in addition to and separate from critical care provided by other practitioners in my group on this day of service. Critical Care was necessary to treat or prevent imminent or life-threatening deterioration of the following conditions: Acute pain/acute postoperative pain Aortic dissection/aneurysm Thrombocytopenia This time was spent by me doing the following: Acute pain control and Lumbar drain management Serial neurovascular exams Active and frequent reassessment of respiratory status and oxygen requirements and Incentive spirometry, pulmonary toilet Active and frequent monitoring of intake/output and volumen status I spent time reviewing and interpreting data from bedside monitors, laboratory results, and imaging, I spent time discussing the management of this critically ill patient with consultants and the medical staff and I spent time documenting in the medical record us Aaron Lin MD IN CLINIC/BEDSIDE ORDER CHELSI Final Result * POCT glucose (01/22/2025 11:21 AM CDT) Glucose, POC 180 70 - 199 mg/dL Blood 01/22/2025 11:2 1 AM CDT 01/22/2025 11:21 AM CDT us Rishi Lainez MD LAB POCT ORDERABLES - DE VICE Final Result [facility] [place] [address] * POCT glucose (01/22/2025 7:12 AM CDT) Glucose, POC 116 70 - 199 mg/dL Blood 01/22/2025 7:12 AM CDT 01/22/2025 7:12 AM CDT Rishi Lainez MD LAB POCT ORDERABLES - DE VICE Final Result Performing Organization Address [facility] [place] [address] * POCT glucose (01/22/2025 3:33 AM CDT) Glucose, POC 110 70 - 199 mg/dL Blood 01/22/2025 3:33 AM CDT 01/22/2025 3:33 AM CDT Rishi Lainez MD LAB POCT ORDERABLES - DE VICE Final Result Performing Organization Address [facility] [place] [address] * IR Lumbar Puncture, Diagnostic incl Fluoro Guidance (01/22/2025 2:40 AM CDT) Anatomical Region Laterality Modality Spine N/A Radio Fluoroscop y 01/22/2025 3:56 AM CDT Impressions 01/22/2025 8:54 AM CDT Successful diagnostic lumbar drain placement under fluoroscopic guidance. Dictated by: Frank Whyte M.D. The radiology attending physician has personally reviewed this study, and had reviewed and/or edited this written report and agrees with it. Electronically signed by: Riaz Fenton M.D. Narrative 01/22/2025 8:54 AM CDT EXAMINATION: Diagnostic fluoroscopically guided lumbar puncture HISTORY: 69 years-old Male with concern for spinal cord ischemia. Lumbar drain placed earlier same day without CSF return. TECHNIQUE: The risks and benefits of the lumbar puncture including, but not limited to infection, bleeding, spinal headache, cerebrospinal fluid (CSF) leak requiring blood patch procedure, and irritation or damage to nerves causing pain or permanent injury were discussed with the patient. The patient was given the opportunity to ask questions. The patient acknowledged understanding, gave verbal and written consent, and wished to proceed. A time-out was performed prior to the procedure. Attending physician: Dr. Riaz Fenton M.D. was present for the entire procedure. The L3-L4 level was localized with fluoroscopy. The ribs were counted and this level confirmed. The skin overlying this level was sterilely prepped, draped, and infiltrated with 1% lidocaine for local anesthesia. Under intermittent fluoroscopic guidance, a 14 gauge Touhy spinal needle was inserted into the thecal sac at unsuccessfully at L3-4 and then successfully at L4-5 level. At this point, neurosurgery took over the case and inserted a lumbar drain catheter into the thecal sac through the needle. The patient was then transferred to the ICU for further observation. Procedure Note Riaz Fenton III, MD PhD - 01/22/2025 EXAMINATION: Diagnostic fluoroscopically guided lumbar puncture HISTORY: 69 years-old Male with concern for spinal cord ischemia. Lumbar drain placed earlier same day without CSF return. TECHNIQUE: The risks and benefits of the lumbar puncture including, but not limited to infection, bleeding, spinal headache, cerebrospinal fluid (CSF) leak requiring blood patch procedure, and irritation or damage to nerves causing pain or permanent injury were discussed with the patient. The patient was given the opportunity to ask questions. The patient acknowledged understanding, gave verbal and written consent, and wished to proceed. A time-out was performed prior to the procedure. Attending physician: Dr. Riaz Fenton M.D. was present for the entire procedure. The L3-L4 level was localized with fluoroscopy. The ribs were counted and this level confirmed. The skin overlying this level was sterilely prepped, draped, and infiltrated with 1% lidocaine for local anesthesia. Under intermittent fluoroscopic guidance, a 14 gauge Touhy spinal needle was inserted into the thecal sac at unsuccessfully at L3-4 and then successfully at L4-5 level. At this point, neurosurgery took over the case and inserted a lumbar drain catheter into the thecal sac through the needle. The patient was then transferred to the ICU for further observation. IMPRESSION: Successful diagnostic lumbar drain placement under fluoroscopic guidance. Dictated by: Frank Whyte M.D. The radiology attending physician has personally reviewed this study, and had reviewed and/or edited this written report and agrees with it. Electronically signed by: Riaz Fenton M.D. Rishi Lainez MD IMG FLUOROSCOPY PROCEDUR ES Final Result * CT Lumbar Spine WO Contrast (01/22/2025 12:29 AM CDT) Anatomical Region Laterality Modality Spine N/A Computed Tomogra phy 01/22/2025 2:15 AM CDT Impressions 01/22/2025 4:51 PM CDT Interval placement of lumbar drain with tip terminating at the L2-L3 level. Dictated by: Iraj Jimenez MD The radiology attending physician has personally reviewed this study, and had reviewed and/or edited this written report and agrees with it. Electronically signed by: Avery Vick M.D. Narrative 01/22/2025 4:51 PM CDT EXAMINATION: CT of the lumbar spine without contrast HISTORY: Lumbar drain placement. TECHNIQUE: CT of the lumbar spine was performed according to the standard protocol without intravenous contrast. COMPARISON: CT chest abdomen pelvis dated 12/22/2024. FINDINGS: A lumbar drain is in place entering the spinal canal at the level of L3-L4 with tip terminating near the level of L2-L3. There is expected gas within the spinal canal. The alignment of the lumbar spine is normal. There is no acute fracture. The vertebral bodies are normal in height without compression fractures. There is multilevel lumbar spondylosis without high-grade spinal canal stenosis. Facet joint arthropathy. 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 There is also ectasia of the bilateral iliac arteries. Pancreatic calcifications. Embolization coils noted in the right kidney. Partial right nephrectomy. Stent in the left renal artery. Procedure Note Avery Vick MD - 01/22/2025 EXAMINATION: CT of the lumbar spine without contrast HISTORY: Lumbar drain placement. TECHNIQUE: CT of the lumbar spine was performed according to the standard protocol without intravenous contrast. COMPARISON: CT chest abdomen pelvis dated 12/22/2024. FINDINGS: A lumbar drain is in place entering the spinal canal at the level of L3-L4 with tip terminating near the level of L2-L3. There is expected gas within the spinal canal. The alignment of the lumbar spine is normal. There is no acute fracture. The vertebral bodies are normal in height without compression fractures. There is multilevel lumbar spondylosis without high-grade spinal canal stenosis. Facet joint arthropathy. 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 There is also ectasia of the bilateral iliac arteries. Pancreatic calcifications. Embolization coils noted in the right kidney. Partial right nephrectomy. Stent in the left renal artery. IMPRESSION: Interval placement of lumbar drain with tip terminating at the L2-L3 level. Dictated by: Iraj Jimenez MD The radiology attending physician has personally reviewed this study, and had reviewed and/or edited this written report and agrees with it. Electronically signed by: Avery Vick M.D. Rishi Lainez MD IMG CT PROCEDURES Final Result * POCT glucose (01/21/2025 11:24 PM CDT) [facility] Glucose, POC 139 70 - 199 mg/dL Blood 01/21/2025 11:2 4 PM CDT 01/21/2025 11:24 PM CDT Rishi Lainez MD LAB POCT ORDERABLES - DE VICE Final Result [facility] Department [place] [address] * (ABNORMAL) eGFR (01/21/2025 9:51 PM CDT) [facility] eGFR 14(L) >=60 mL/min/1. 73 m2 Comment: Interpretive Data Reference Interval Normal >/= 90 mL/min/1.73m2 Mildly decreased* 60 - 89 mL/min/1.73m2 Mildly to moderately decreased 45 - 59 mL/min/1.73m2 Moderately to severely decreased 30 - 44 mL/min/1.73m2 Severely decreased 15 - 29 mL/min/1.73m2 Kidney Failure < 15 mL/min/1.73m2 *Relative to young adult level Estimated glomerular filtration rate is determined by the 2020 CKD-EPI equation recommended by the National Kid[employer] (A Unifying Approach to GFR Estimation: Recommendations of the NKF-ASK Task Force on Reassessing the Inclusion of Race in Diagnosing Kidney Disease, JASN 2020). The CKD-EPI equation should not be used for patients with unstable renal function and has not been validated in children and those over 70. Current interpretive data was last reviewed 2021. Blood 01/21/2025 9:51 PM CDT 01/21/2025 10:08 PM CDT Rishi Lainez MD LAB BLOOD ORDERABLES Fin al Result [facility] Department [place] [address] * (ABNORMAL) Differential, auto (01/21/2025 9:51 PM CDT) Neutrophil abs 9.20(H) 1.50 - 6.50 K/cumm Imm gran abs 0.05 0.00 - 0.10 K/cumm [facility] Lymphocyte abs 0.89 0.80 - 3.30 K/cumm [facility] Monocyte abs 1.07(H) 0.20 - 0.80 K/cumm [facility] Eosinophil abs 0.04 0.00 - 0.50 K/cumm [facility] Basophil abs 0.05 0.00 - 0.10 K/cumm [facility] Neutrophil pct 81.4 % [facility] Comment: Interpretive Data Percent cell count reference ranges are not reported, since discordance with absolute values may lead to misinterpretation of CBC data. Current Interpretive Data was last revised on 2018. Imm gran pct 0.4 % [facility] Comment: Interpretive Data Percent cell count reference ranges are not reported, since discordance with absolute values may lead to misinterpretation of CBC data. Current Interpretive Data was last revised on 2018. Lymphocyte pct 7.9 % [facility] Comment: Interpretive Data Percent cell count reference ranges are not reported, since discordance with absolute values may lead to misinterpretation of CBC data. Current Interpretive Data was last revised on 2018. Monocyte pct 9.5 % [facility] Comment: Interpretive Data Percent cell count reference ranges are not reported, since discordance with absolute values may lead to misinterpretation of CBC data. Current Interpretive Data was last revised on 2018. Eosinophil pct 0.4 % [facility] Comment: Interpretive Data Percent cell count reference ranges are not reported, since discordance with absolute values may lead to misinterpretation of CBC data. Current Interpretive Data was last revised on 2018. Basophil pct 0.4 % [facility] Comment: Interpretive Data Percent cell count reference ranges are not reported, since discordance with absolute values may lead to misinterpretation of CBC data. Current Interpretive Data was last revised on 2018. Blood 01/21/2025 9:51 PM CDT 01/21/2025 10:09 PM CDT us Rishi Lainez MD LAB BLOOD ORDERABLES Fin al Result [facility] Department [place] [address] * (ABNORMAL) CBC with auto differential (01/21/2025 9:51 PM CDT) WBC 11.30(H) 3.80 - 9.90 K/cumm Hgb 9.7(L) 13.0 - 17.5 g/dL [facility] Hct 29.2(L) 38.9 - 50.3 % [facility] Plt 101(L) 150 - 400 K/cumm [facility] MPV 10.5 9.1 - 12.3 fL [facility] RBC 3.04(L) 4.30 - 5.80 M/cumm [facility] MCV 96.1 81.3 - 96.4 fL [facility] MCH 31.9 27.1 - 33.3 pg [facility] MCHC 33.2 32.3 - 35.7 g/dL [facility] RDW CV 15.3(H) 11.1 - 14.9 % [facility] RDW SD 54.1(H) 35.7 - 48.1 fL [facility] NRBC abs 0.00 0.00 - 0.01 K/cumm [facility] Blood 01/21/2025 9:51 PM CDT 01/21/2025 10:09 PM CDT Rishi Lainez MD LAB BLOOD ORDERABLES Fin al Result Performing Organization Address [facility] de Phone Number [facility] Department [place] [employer] [place] [address] * Phosphorus (01/21/2025 9:51 PM CDT) Phosphorus, pl 2.8 2.3 - 4.5 mg/dL Blood 01/21/2025 9:51 PM CDT 01/21/2025 10:08 PM CDT Rishi Lainez MD LAB BLOOD ORDERABLES Fin al Result Performing Organization Address [facility] de Phone Number [facility] Department [place] [address] * Magnesium (01/21/2025 9:51 PM CDT) Magnesium 2.1 1.4 - 2.5 mg/dL Blood 01/21/2025 9:51 PM CDT 01/21/2025 10:08 PM CDT Rishi Lainez MD LAB BLOOD ORDERABLES Fin al Result Performing Organization Address [facility] de Phone Number [facility] Department [place] [address] * (ABNORMAL) Basic metabolic panel (01/21/2025 9:51 PM CDT) Sodium 140 135 - 145 mmol/L Potassium, pl 4.4 3.3 - 4.9 mmol/L [facility] Chloride 113(H) 97 - 110 mmol/L [facility] CO2 17(L) 22 - 32 mmol/L [facility] Anion gap 10 2 - 15 mmol/L [facility] BUN 49(H) 6 - 25 mg/dL [facility] Creatinine 4.29(H) 0.80 - 1.30 mg/dL [facility] Glucose 112 70 - 199 mg/dL [facility] Comment: Interpretive Data Fasting glucose >/= 126 mg/dl is diagnostic for diabetes. Fasting is defined as no caloric intake for at least 8 hours. Fasting glucose between 100 mg/dl to 125 mg/dl is diagnostic of prediabetes. In a patient with classic symptoms of hyperglycemia or hyperglycemic crisis, a random glucose >/= 200 mg/dl is diagnostic for diabetes. In the absence of unequivocal hyperglycemia, results should be confirmed by repeat testing. The classification and Diagnosis of Diabetes Diabetes Care 2021; 46: S19-S40. Current interpretive data was last revised 2022. Calcium 8.8 8.5 - 10.3 mg/dL [facility] Blood 01/21/2025 9:51 PM CDT 01/21/2025 10:08 PM CDT us Rishi Lainez MD LAB BLOOD ORDERABLES Fin al Result [facility] Department [place] [address] * Critical Care (01/21/2025 9:15 PM CDT) Narrative Zander Morales MD - 01/21/2025 9:15 PM CDT Zander Morales MD 01/22/2025 5:28 AM Critical Care Performed by: Zander Morales MD Authorized by: Zander Morales MD CRITICAL CARE: Team: SICU RED Shift: PM Level of Billing: Critical Care My time spent with this patient was 30 minutes: Critical Provider Statement: I have seen and examined the patient on this day of service. I have reviewed and confirmed the history, physical exam, laboratory and radiologic data as documented in the signed ICU note. I have reviewed and discussed my treatment plan with the ICU team and other medical/contaminated land consultant staff, making frequent assessments and decisions regarding this patient's complex medical care. Critical Care time was exclusive of time spent performing separately billed procedures, treating other patients, and teaching. This time was in addition to and separate from critical care provided by other practitioners in my group on this day of service. Critical Care was necessary to treat or prevent imminent or life-threatening deterioration of the following conditions: us Zander Morales MD IN CLINIC/BEDSIDE ORDE RABKENAN Final Result * POCT glucose (01/21/2025 7:04 PM CDT) Glucose, POC 174 70 - 199 mg/dL Blood 01/21/2025 7:04 PM CDT 01/21/2025 7:04 PM CDT us Rishi Lainez MD LAB POCT ORDERABLES - DE VICE Final Result [facility] Department [place] [address] * CT Head WO Contrast (01/21/2025 5:46 PM CDT) Anatomical Region Laterality Modality Head and Neck N/A Computed Tomogra phy 01/21/2025 6:22 PM CDT Impressions 01/21/2025 7:12 PM CDT 1. No acute intracranial hemorrhage. 2. 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 The results were discussed with Rishi Lainez MD by Dr. Iraj Jimenez on 01/21/2025 at 6:20 PM. Dictated by: Iraj Jimenez MD The radiology attending physician has personally reviewed this study, and had reviewed and/or edited this written report and agrees with it. Electronically signed by: Johnny Hurley MD Narrative 01/21/2025 7:12 PM CDT EXAMINATION: CT head without contrast HISTORY: Lumbar drain with blood. TECHNIQUE: CT of the head was performed with images acquired from skull base to vertex without intravenous contrast. COMPARISON: CT dated 05/10/2024. FINDINGS: There is cerebral volume loss with associated ex vacuo dilatation of the ventricles. There are scattered areas of periventricular and deep white matter hypodensity, nonspecific but likely on the basis of microvascular ischemia. Intracranial atherosclerosis. 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 There is a new area of hypoattenuation in the left cerebellum (series 2, image 15). There is no acute intracranial hemorrhage. No mass effect or midline shift is present. The visualized portions of the orbits are normal. The visualized portions of the mastoids are normal. There are secretions noted in the right frontal sinus. Right maxillary mucus retention cyst. No fractures are identified. Procedure Note Johnny Hurley MD - 01/21/2025 EXAMINATION: CT head without contrast HISTORY: Lumbar drain with blood. TECHNIQUE: CT of the head was performed with images acquired from skull base to vertex without intravenous contrast. COMPARISON: CT dated 05/10/2024. FINDINGS: There is cerebral volume loss with associated ex vacuo dilatation of the ventricles. There are scattered areas of periventricular and deep white matter hypodensity, nonspecific but likely on the basis of microvascular ischemia. Intracranial atherosclerosis. 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 There is a new area of hypoattenuation in the left cerebellum (series 2, image 15). There is no acute intracranial hemorrhage. No mass effect or midline shift is present. The visualized portions of the orbits are normal. The visualized portions of the mastoids are normal. There are secretions noted in the right frontal sinus. Right maxillary mucus retention cyst. No fractures are identified. IMPRESSION: 1. No acute intracranial hemorrhage. 2. 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 The results were discussed with Rishi Lainez MD by Dr. Iraj Jimenez on 01/21/2025 at 6:20 PM. Dictated by: Iraj Jimenez MD The radiology attending physician has personally reviewed this study, and had reviewed and/or edited this written report and agrees with it. Electronically signed by: Johnny Hurley MD us Rishi Lainez MD IMG CT PROCEDURES Final Result * Critical Care (01/21/2025 5:41 PM CDT) Narrative Aaron Lin MD - 01/21/2025 5:41 PM CDT Aaron Lin MD 01/21/2025 5:43 PM Critical Care Performed by: Aaron Lin MD Authorized by: Aaron Lin MD CRITICAL CARE: Team: SICU RED Shift: AM Level of Billing: Critical Care My time spent with this patient was 70 minutes: Critical Provider Statement: I have seen and examined the patient on this day of service. I have reviewed and confirmed the history, physical exam, laboratory and radiologic data as documented in the signed ICU note. I have reviewed and discussed my treatment plan with the ICU team and other medical/contaminated land consultant staff, making frequent assessments and decisions regarding this patient's complex medical care. Critical Care time was exclusive of time spent performing separately billed procedures, treating other patients, and teaching. This time was in addition to and separate from critical care provided by other practitioners in my group on this day of service. Critical Care was necessary to treat or prevent imminent or life-threatening deterioration of the following conditions: Acute pain/acute postoperative pain Aortic dissection/aneurysm Acute blood loss anemia Spinal cord injury/spine fracture This time was spent by me doing the following: Acute pain control and Lumbar drain management Serial neurovascular exams Active and frequent reassessment of respiratory status and oxygen requirements and Incentive spirometry, pulmonary toilet Active and frequent monitoring of intake/output and volumen status I spent time reviewing and interpreting data from bedside monitors, laboratory results, and imaging, I spent time discussing the management of this critically ill patient with consultants and the medical staff and I spent time documenting in the medical record us Aaron Lin MD IN CLINIC/BEDSIDE ORDER CHELSI Final Result * POCT glucose (01/21/2025 3:20 PM CDT) Glucose, POC 127 70 - 199 mg/dL Blood 01/21/2025 3:20 PM CDT 01/21/2025 3:20 PM CDT Rishi Lainez MD LAB POCT ORDERABLES - DE VICE Final Result Performing Organization Address [facility] Phone Number [facility] Department [place] [address] * Transfuse RBC (01/21/2025 2:25 PM CDT) Blood Rishi Lainez MD BLOOD TRANSFUSION ORDERA BLES Final Result Performing Organization Address [facility] Co wa Phone Number [facility] Department [place] [address] * MS ARTL CATHJ/CANNULJ MNTR/TRANSFUSION SPX PRQ (01/21/2025 1:10 PM CDT) Narrative Aaron Lin MD - 01/21/2025 1:10 PM CDT Aaron Lin MD 01/21/2025 1:32 PM Arterial Line Insertion Date/Time: 01/21/2025 1:10 PM Performed by: Josias Baez MD Authorized by: Josias Baez MD [place] Protocol: RN Notified of Procedure: yes Informed consent: Risks, benefits, alternatives discussed Patient's stated name/ matches armband: Yes Allergies confirmed: yes Supplies, devices and special equipment are available: yes Indications: hemodynamic monitoring Location: Left radial Anesthesia: Local infiltration Local anesthetic: Lidocaine 1% Patient skin preparation: chlorhexidine Ultrasound guidance: Real-time needle guidance Patient preparation: Gloves, gown, handwashing, partial body drape and mask Catheter gauge: 20 Catheter length (cm): 10 Single percutaneous needle puncture: Yes Seldinger technique used: Yes Number of attempts: 1 Placement confirmed with arterial waveform: Yes Post-procedure: Line sutured and dressing applied Complications: no complications noted during insertion Post Procedure Debrief: All guidewires, needles, sponges or other items are accounted for: yes us Josias Baez MD IV THERAPY ORDERAB LES Final Result * POCT glucose (01/21/2025 12:49 PM CDT) Glucose, POC 112 70 - 199 mg/dL Blood 01/21/2025 12:4 9 PM CDT 01/21/2025 12:49 PM CDT us Rishi Lainez MD LAB POCT ORDERABLES - DE VICE Final Result [facility] Department [place] [address] * MS AN PROCEDURE PLACEHOLDER (01/21/2025 11:42 AM CDT) Narrative Juana Jules MD - 01/21/2025 11:42 AM CDT Juana Jules MD 01/21/2025 12:38 PM Spinal Drain Patient Location: PACU Reason for procedure: epidural CSF Staff: Supervising provider: Juana Jules MD Placed by: Fellow: Dar Castro MD Procedure prep: Preprocedure checklist: patient identified, procedure contraindications assessed, site marked, procedure consent, surgical consent, IV checked, risks, benefits and alternatives discussed, monitors and equipment checked and timeout performed Patient position: sitting Procedure performed while patient: awake Monitoring: ECG, oximetry and blood pressure Prep solution: chlorhexidine/alcohol PPE: provider hat/mask, sterile gloves and sterile drape Skin infiltrated with lidocaine 1%: yes Spinal drain: Approach: midline Introducer used: yes Location: L3-4 Procedure details: good CSF flow from introducer needle, catheter threaded easily and good CSF return from placed catheter Catheter length at skin: 20 cm Number of attempts: greater than 3 attempts Spinal drain equipment: Spinal drain catheter: 20 G fenestrated spinal drain catheter Other equipment used: catheter introducer wire Assessment: Events: patient tolerated procedure well with no complications Additional comments: Rescue lumbar drain requested by vascular surgery. After ascertaining that coagulation profile was fine and no recent anticoagulation or antiplatelet given lumbar drain was successfully placed at L3-L4 position after multiple attempts. At the start patient did not have antigravity movement in the hip flexors at the end was able to lift his right leg towards his torso with a power of 4-/5. Juana Jules MD ANESTHESIA ORDERABLES Ed ited Result - Final * aPTT (01/21/2025 8:42 AM CDT) aPTT 29 28 - 38 sec Comment: Interpretive Data Heparin therapeutic range: 66.0 - 100.0 seconds. Range based on correlation with therapeutic heparin activity range of 0.3 - 0.7 Units/mL. Current interpretive data was last revised on 2023. Blood 01/21/2025 8:42 AM CDT 01/21/2025 8:49 AM CDT Rishi Lainez MD LAB BLOOD ORDERABLES Fin al Result Performing Organization Address [facility] de Phone Number [facility] Department [place] [address] * Protime-INR (01/21/2025 8:42 AM CDT) PT 12.7 9.7 - 13.0 sec INR 1.17 0.90 - 1.20 [facility] Comment: Interpretive data Oral anticoagulant therapeutic ranges: Venous thromboembolism prophylaxis or treatment: 2.0-3.0 CARDIOLOGY Standard range: 2.0-3.0 High-intensity range: 2.5-3.5 Refer to indication-specific guidelines for appropriate target ranges for prosthetic heart valve replacement. Current interpretive data was last revised on 2019. Blood 01/21/2025 8:42 AM CDT 01/21/2025 8:49 AM CDT Rishi Lainez MD LAB BLOOD ORDERABLES Fin al Result Performing Organization Address City/[facility]/ZIP Co de Phone Number [facility] Department [place] [address] * Prepare RBC: 1 Units (01/21/2025 7:43 AM CDT) Product code [id number] Unit Number [id number] [facility] Product Blood Type OPOS [facility] Dispense Status PRESUMED TRANSFUSED [facility] Blood 01/21/2025 7:43 AM CDT 01/21/2025 7:43 AM CDT Narrative [facility] - 01/22/2025 12:55 AM CDT Other indication->spinal cord ischemia Are special requirements needed? (All products are leukoreduced and CMV- safe)- >No Date required:-[id number] LRRBC # of [id number] Reasons:-Other (specify)} Rishi Lainez MD BLOOD BANK PRODUCT ORDER CHELSI Final Result Performing Organization Address [facility] de Phone Number [facility] Department [place] [address] * (ABNORMAL) eGFR (01/21/2025 4:59 AM CDT) Pathologist [facility] eGFR 14(L) >=60 mL/min/1. 73 m2 Comment: Interpretive Data Reference Interval Normal >/= 90 mL/min/1.73m2 Mildly decreased* 60 - 89 mL/min/1.73m2 Mildly to moderately decreased 45 - 59 mL/min/1.73m2 Moderately to severely decreased 30 - 44 mL/min/1.73m2 Severely decreased 15 - 29 mL/min/1.73m2 Kidney Failure < 15 mL/min/1.73m2 *Relative to young adult level Estimated glomerular filtration rate is determined by the 2020 CKD-EPI equation recommended by the National Kidney Foundation (A Unifying Approach to GFR Estimation: Recommendations of the NKF-ASK Task Force on Reassessing the Inclusion of Race in Diagnosing Kidney Disease, JASN 2020). The CKD-EPI equation should not be used for patients with unstable renal function and has not been validated in children and those over 70. Current interpretive data was last reviewed 2021. Blood 01/21/2025 4:59 AM CDT 01/21/2025 5:25 AM CDT Rishi Lainez MD LAB BLOOD ORDERABLES Fin al Result Performing Organization Address [facility] Co de Phone Number [facility] Department of [employer] [place] [address] * (ABNORMAL) CBC without differential (01/21/2025 4:59 AM CDT) Pathologist [facility] WBC 13.69(H) 3.80 - 9.90 K/cumm Hgb 9.2(L) 13.0 - 17.5 g/dL [facility] Hct 28.5(L) 38.9 - 50.3 % [facility] Plt 127(L) 150 - 400 K/cumm [facility] MPV 10.1 9.1 - 12.3 fL [facility] RBC 2.86(L) 4.30 - 5.80 M/cumm [facility] MCV 99.7(H) 81.3 - 96.4 fL [facility] MCH 32.2 27.1 - 33.3 pg [facility] MCHC 32.3 32.3 - 35.7 g/dL [facility] RDW CV 13.9 11.1 - 14.9 % [facility] RDW SD 50.6(H) 35.7 - 48.1 fL [facility] NRBC abs 0.00 0.00 - 0.01 K/cumm [facility] Blood 01/21/2025 4:59 AM CDT 01/21/2025 5:24 AM CDT Rishi Lainez MD LAB BLOOD ORDERABLES Fin al Result Performing Organization Address [facility] Co de Phone Number [facility] [place] [employer] [place] [address] * (ABNORMAL) Basic metabolic panel (01/21/2025 4:59 AM CDT) Sodium 142 135 - 145 mmol/L Potassium, pl 4.9 3.3 - 4.9 mmol/L [facility] Chloride 112(H) 97 - 110 mmol/L [facility] CO2 17(L) 22 - 32 mmol/L [facility] Anion gap 13 2 - 15 mmol/L [facility] BUN 49(H) 6 - 25 mg/dL [facility] Creatinine 4.25(H) 0.80 - 1.30 mg/dL [facility] Glucose 116 70 - 199 mg/dL [facility] Comment: Interpretive Data Fasting glucose >/= 126 mg/dl is diagnostic for diabetes. Fasting is defined as no caloric intake for at least 8 hours. Fasting glucose between 100 mg/dl to 125 mg/dl is diagnostic of prediabetes. In a patient with classic symptoms of hyperglycemia or hyperglycemic crisis, a random glucose >/= 200 mg/dl is diagnostic for diabetes. In the absence of unequivocal hyperglycemia, results should be confirmed by repeat testing. The classification and Diagnosis of Diabetes Diabetes Care 2021; 46: S19-S40. Current interpretive data was last revised 2022. Calcium 8.7 8.5 - 10.3 mg/dL [facility] Blood 01/21/2025 4:59 AM CDT 01/21/2025 5:25 AM CDT Rishi Lainez MD LAB BLOOD ORDERABLES Fin al Result [facility] Department [place] [address] * THORACIC ENDOVASCULAR REPAIR - AORTIC (01/20/2025 12:56 PM CDT) Anatomical Region Laterality Modality X-Ray Angiograph y Narrative 01/21/2025 11:25 AM CDT Please see OpNote for result. Rishi Lainez MD SURGICAL CASE ORDERS Fin al Result * (ABNORMAL) POC Blood Gas and Chemistries, Arterial - (01/20/2025 12:36 PM CDT) pH, Art POC 7.14(C) 7.35 - 7.45 pCO2, Art POC 51(H) 35 - 45 mmHg [facility] pO2, Art POC 147(H) 83 - [address] [facility] Na, POC 139 135 - 145 mmol/L [facility] K POC 5.2(H) 3.3 - 4.9 mmol/L [facility] Comment: Interpretive Data Not all point of care methods assess for hemolysis. Confirm with instrument and retest K+ if not consistent with clinical signs and symptoms. Current Interpretive Data was last revised on 2024. Cl, POC 116(H) 97 - 110 mmol/L [facility] Ionized Ca, POC 5.20(H) 4.50 - 5.10 mg/dL [facility] Glucose, POC 104 70 - 199 mg/dL [facility] Lactate, POC 1.2 0.7 - 2.0 mmol/L [facility] SO2 (andrés) arterial 100(H) 90 - 95 % [facility] Base excess, POC -11.3 mmol/L [facility] HCO3, Art POC 16(L) 20 - 30 mmol/L [facility] Hct, POC 29.0(L) 41.4 - 51.6 % [facility] Total Hb, POC 9.8(L) 13.8 - 17.2 g/dL [facility] Blood 01/20/2025 12:3 6 PM CDT 01/20/2025 12:36 PM CDT us Rishi Lainez MD LAB POCT ORDERABLES - DE VICE Final Result [facility] Department [place] [address] * POCT Activated clotting time, low range (01/20/2025 12:25 PM CDT) ACT 141 123 - 168 sec POC Performer [id number] [facility] POC Device Number [id number] [facility] Blood 01/20/2025 12:2 5 PM CDT 01/20/2025 12:25 PM CDT us Rishi Lainez MD LAB POCT ORDERABLES - DE VICE Final Result Performing Organization Address [facility] Phone Number [facility] [place] [employer] [place] [address] * (ABNORMAL) POCT Activated clotting time, low range (01/20/2025 12:09 PM CDT) ACT 279(H) 123 - 168 sec POC Performer [id number] [facility] POC Device Number [id number] [facility] Blood 01/20/2025 12:0 9 PM CDT 01/20/2025 12:09 PM CDT us Rishi Lainez MD LAB POCT ORDERABLES - DE VICE Final Result Performing Organization Address [facility] Phone Number [facility] [place] [employer] [place] [address] * (ABNORMAL) POCT Activated clotting time, low range (01/20/2025 11:42 AM CDT) ACT 331(H) 123 - 168 sec POC Performer [id number] [facility] POC Device Number [id number] [facility] Blood 01/20/2025 11:4 2 AM CDT 01/20/2025 11:42 AM CDT us Rishi Lainez MD LAB POCT ORDERABLES - DE VICE Final Result Performing Organization Address [facility] [place] [address] * (ABNORMAL) POCT Activated clotting time, low range (01/20/2025 11:19 AM CDT) ACT 248(H) 123 - 168 sec POC Performer [id number] [facility] POC Device Number [id number] [facility] Blood 01/20/2025 11:1 9 AM CDT 01/20/2025 11:19 AM CDT us Rishi Lainez MD LAB POCT ORDERABLES - DE VICE Final Result Performing Organization Address City/[facility]/ZIP Co de Phone Number [facility] [place] [address] * (ABNORMAL) POCT Activated clotting time, low range (01/20/2025 10:55 AM CDT) ACT 292(H) 123 - 168 sec POC Performer [id number] [facility] POC Device Number [id number] [facility] Blood 01/20/2025 10:5 5 AM CDT 01/20/2025 10:55 AM CDT us Rishi Lainez MD LAB POCT ORDERABLES - DE VICE Final Result Performing Organization Address [facility]/[place] [address] * (ABNORMAL) POCT Activated clotting time, low range (01/20/2025 10:32 AM CDT) ACT 281(H) 123 - 168 sec POC Performer [id number] [facility] POC Device Number [id number] [facility] Blood 01/20/2025 10:3 2 AM CDT 01/20/2025 10:32 AM CDT us Rishi Lainez MD LAB POCT ORDERABLES - DE VICE Final Result Performing Organization Address City/[facility]/ZIP Co de Phone Number [facility] [place] [address] * MS AN PROCEDURE PLACEHOLDER (01/20/2025 10:05 AM CDT) Narrative Odalis Waterman - 01/20/2025 10:05 AM CDT Guevara Odalis 01/20/2025 10:05 AM Peripheral IV Catheter Patient location: OR Staff: Supervising provider: Ashleigh Beverly MD Placed by: Other staff: Odalis Waterman Preprocedure prep: Prep solution: chlorhexadine PPE: gloves and provider hat/mask PIV line: Laterality: right Site: forearm Catheter size: 16 g Technique: direct visualization and palpatation Procedure details: good blood return and occlusive dressing applied Number of attempts: 1 Assessment: Events: patient tolerated procedure well with no complications Ashleigh Beverly MD ANESTHESIA ORDERABLES Final Resu lt * MS AN PROCEDURE PLACEHOLDER (01/20/2025 10:04 AM CDT) Kennedy Salojohn Odalis - 01/20/2025 10:04 AM CDT Odalis Waterman 01/20/2025 10:05 AM Peripheral IV Catheter Patient location: OR Staff: Supervising provider: Ashleigh Beverly MD Placed by: SWITCHGEAR REPAIRER: Juan Shipman CRNA Preprocedure prep: Prep solution: chlorhexadine PPE: gloves and provider hat/mask PIV line: Laterality: right Site: forearm Catheter size: 16 g Technique: direct visualization and palpatation Procedure details: good blood return and occlusive dressing applied Number of attempts: 1 Assessment: Events: patient tolerated procedure well with no complications Ashleigh Beverly MD ANESTHESIA ORDERABLES Final Resu lt * MS AN PROCEDURE PLACEHOLDER (01/20/2025 10:03 AM CDT) Kennedy Guevara Odalis - 01/20/2025 10:03 AM CDT Odalis Waterman 01/20/2025 10:04 AM Arterial Line Patient location: OR Indication: continuous blood pressure monitoring and blood sampling needed Ultrasound assisted: yes Staff: Supervising provider: Ashleigh Beverly MD Placed by: SWITCHGEAR REPAIRER: Juan Shipman CRNA Procedure prep: Prep solution: chlorhexadine/alcohol Prep: provider hat/mask and sterile gloves Skin infiltrated with lidocaine 1%: yes Arterial line: Catheter size: 20 gauge Catheter length: 1 and 3/4 inch Catheter type: wire-guided catheter Seldinger technique: yes Laterality: right Site: radial artery Line secured: Tegaderm and tape Results: good waveform and good blood return Number of attempts: 2 Assessment: Events: patient tolerated procedure well with no complications Ashleigh Beverly MD ANESTHESIA ORDERABLES Final Resu lt * MS AN ELECTIVE ENDOTRACHEAL AIRWAY, MS AN PROCEDURE PLACEHOLDER (01/20/2025 10:02 AM CDT) Narrative Guevara Odalis - 01/20/2025 10:02 AM CDT SalojohnOdalis 01/20/2025 10:03 AM Airway Patient location: OR Urgency: elective Date/time: 01/20/2025 8:57 AM Indications for airway management: anesthesia Difficult airway: no Staff: Supervising provider: Ashleigh Beverly MD Placed by: Other staff: Odalis Waterman Emergent airway documentation: Risks and benefits discussed: yes Consent obtained: yes Consent given by: patient Airway prep: Preoxygenated: yes Patient position: sniffing Mask difficulty assessment: 3 - difficult mask (inadequate, unstable or two providers) Spontaneous ventilation during airway: absent Sedation level during airway: GA Final airway details: Final airway type: endotracheal airway Tube type: ETT ETT size: 8.0 mm Cuffed: yes Technique used for successful ETT placement: video laryngoscopy Devices/Methods used in placement: stylet Insertion site: oral Video blade type: Ruiz Blade size: 4 Cormack-Lehane (video): grade I - full view of glottis Cuff volume: 10 mL Cuff inflated with: air ETT to gums: 24 cm Placement verified by: auscultation and CO2 detection Airway secured with: silk tape Number of attempts: 1 Ashleigh Beverly MD ANESTHESIA ORDERABLES Final Resu lt * POCT Activated clotting time, low range (01/20/2025 9:43 AM CDT) ACT 137 123 - 168 sec POC Performer [id number] [facility] POC Device Number [id number] [facility] Blood 01/20/2025 9:43 AM CDT 01/20/2025 9:43 AM CDT Rishi Lainez MD LAB POCT ORDERABLES - DE VICE [facility] [place] [address] * Prepare RBC: 2 Units (01/20/2025 6:59 AM CDT) Product code [id number] [facility] Unit Number [id number] 0-I [facility] Product Blood Type OPOS [facility] Dispense Status RETURNED [facility] Product code [id number] Unit Number [id number] 2-D [facility] Product Blood Type OPOS [facility] Dispense Status RETURNED [facility] Blood 01/20/2025 6:59 AM CDT 01/20/2025 6:58 AM CDT Narrative [facility] - 01/20/2025 1:52 PM CDT Specify Procedure:->thoracic ensovascular repair Are special requirements needed? (All products are leukoreduced and CMV- safe)- >No Date required:-[id number] LRRBC # of [id number] Reasons:-Hold for procedure (specify procedure)} us Yolanda Hays NP BLOOD BANK PRODUCT ORDERABLES Fi nal Result Performing Organization Address [facility] Co de Phone Number [facility] Department [place] [address] * TYPE AND SCREEN 14 DAY (01/11/2025 10:04 AM CDT) ABO Rh O Positive Aminata, indirect Negative [facility] Blood 01/11/2025 10:0 4 AM CDT 01/11/2025 10:47 AM CDT Narrative [facility] - 01/11/2025 12:05 PM CDT Is this test being ordered in advance for a procedure?->Yes Expected date of procedure:->01/20/25 Has the patient been transfused in the past 3 months?->No Yoalnda Hays NP LAB BLOOD BANK TEST ORDERABLES F inal Result Performing Organization Address City/[facility]/ZIP Co de Phone Number [facility] Department [place] [address] * (ABNORMAL) eGFR (01/11/2025 10:04 AM CDT) Pathologist [facility] eGFR 13(L) >=60 mL/min/1. 73 m2 Comment: Interpretive Data Reference Interval Normal >/= 90 mL/min/1.73m2 Mildly decreased* 60 - 89 mL/min/1.73m2 Mildly to moderately decreased 45 - 59 mL/min/1.73m2 Moderately to severely decreased 30 - 44 mL/min/1.73m2 Severely decreased 15 - 29 mL/min/1.73m2 Kidney Failure < 15 mL/min/1.73m2 *Relative to young adult level Estimated glomerular filtration rate is determined by the 2020 CKD-EPI equation recommended by the National Kidney Foundation (A Unifying Approach to GFR Estimation: Recommendations of the NKF-ASK Task Force on Reassessing the Inclusion of Race in Diagnosing Kidney Disease, JASN 2020). The CKD-EPI equation should not be used for patients with unstable renal function and has not been validated in children and those over 70. Current interpretive data was last reviewed 2021. Blood 01/11/2025 10:0 4 AM CDT 01/11/2025 10:28 AM CDT us Yolanda Hays NP LAB BLOOD ORDERABLES Final Resul t [facility] Department [place] [address] * Differential, auto (01/11/2025 10:04 AM CDT) Pathologist [facility] Neutrophil abs 5.1 1.5 - 6.5 K/cumm Imm gran abs 0.0 0.0 - 0.1 K/cumm [facility] Lymphocyte abs 1.2 0.8 - 3.3 K/cumm [facility] Monocyte abs 0.6 0.2 - 0.8 K/cumm [facility] Eosinophil abs 0.4 0.0 - 0.5 K/cumm [facility] Basophil abs 0.1 0.0 - 0.1 K/cumm [facility] Neutrophil pct 68.7 % [facility] Comment: Interpretive Data Percent cell count reference ranges are not reported, since discordance with absolute values may lead to misinterpretation of CBC data. Current Interpretive Data was last revised on 2018. Imm gran pct 0.5 % [facility] Comment: Interpretive Data Percent cell count reference ranges are not reported, since discordance with absolute values may lead to misinterpretation of CBC data. Current Interpretive Data was last revised on 2018. Lymphocyte pct 16.0 % [facility] Comment: Interpretive Data Percent cell count reference ranges are not reported, since discordance with absolute values may lead to misinterpretation of CBC data. Current Interpretive Data was last revised on 2018. Monocyte pct 7.8 % [facility] Comment: Interpretive Data Percent cell count reference ranges are not reported, since discordance with absolute values may lead to misinterpretation of CBC data. Current Interpretive Data was last revised on 2018. Eosinophil pct 5.8 % [facility] Comment: Interpretive Data Percent cell count reference ranges are not reported, since discordance with absolute values may lead to misinterpretation of CBC data. Current Interpretive Data was last revised on 2018. Basophil pct 1.2 % [facility] Comment: Interpretive Data Percent cell count reference ranges are not reported, since discordance with absolute values may lead to misinterpretation of CBC data. Current Interpretive Data was last revised on 2018. Blood 01/11/2025 10:0 4 AM CDT 01/11/2025 10:28 AM CDT us Yolanda Hays NP LAB BLOOD ORDERABLES Final Resul t [facility] [place] [address] * CPAP aPTT algorithm (01/11/2025 10:04 AM CDT) aPTT 32 28 - 38 sec Comment: Interpretive Data Heparin therapeutic range: 66.0 - 100.0 seconds. Range based on correlation with therapeutic heparin activity range of 0.3 - 0.7 Units/mL. Current interpretive data was last revised on 2023. Blood 01/11/2025 10:0 4 AM CDT 01/11/2025 10:04 AM CDT us Yolanda Hays NP LAB BLOOD ORDERABLES Final Resul t Performing Organization Address City/[facility] Co de Phone Number [facility] Department [place] [address] * (ABNORMAL) Urinalysis reflex to microscopic and culture Urine, clean voided (01/11/2025 10:04 AM CDT) Color, ur Straw Yellow Clarity, ur Clear Clear [facility] Specific gravity, ur 1.013 1.003 - 1.030 [facility] pH, urine 6.5 [facility] Comment: Interpretive Data U rine pH is affected by diet, medications, systemic acid-base disturbances, and renal tubular function. pH may affect urinary stone formation. For example, urine pH below 6.0 may help reduce the tendency for calcium phosphate stones and pH greater than 6.0 may reduce the tendency for uric acid stone formation. Source: [facility] Current Interpretive Data was last revised on 2017 Protein, ur ql 1+(A) Negative [facility] Glucose, ur ql 3+(A) Negative [facility] Ketones, ur Negative Negative [facility] Bilirubin, ur Negative Negative [facility] Blood, ur 1+(A) Negative [facility] Urobilinogen, ur <2.0 <2.0 mg/dL [facility] Nitrite, ur Negative Negative [facility] Leukocyte esterase, ur Negative Negative [facility] UA reflex comment Reflex to microscopic UA will be performed. [facility] Urine, clean voided 01/11/2025 10:04 AM CDT 01/11/2025 10:20 AM CDT Yolanda Hays NP LAB MICROBIOLOGY - GENERAL ORDER CHELSI Final Result Performing Organization Address [facility] de Phone Number [facility] Department [place] [address] * (ABNORMAL) CBC with auto differential (01/11/2025 10:04 AM CDT) Pathologist [facility] WBC 7.5 3.8 - 9.9 K/cumm Hgb 10.5(L) 13.0 - 17.5 g/dL [facility] Hct 32.2(L) 38.9 - 50.3 % [facility] Plt 184 150 - 400 K/cumm [facility] MPV 10.1 9.1 - 12.3 fL [facility] RBC 3.23(L) 4.30 - 5.80 M/cumm [facility] MCV 99.7(H) 81.3 - 96.4 fL [facility] MCH 32.5 27.1 - 33.3 pg [facility] MCHC 32.6 32.3 - 35.7 g/dL [facility] RDW CV 13.5 11.1 - 14.9 % [facility] RDW SD 49.7(H) 35.7 - 48.1 fL [facility] NRBC abs 0.00 0.00 - 0.01 K/cumm [facility] Blood 01/11/2025 10:0 4 AM CDT 01/11/2025 10:28 AM CDT Yolanda Hays NP LAB BLOOD ORDERABLES Final Resul t Performing Organization Address [facility] Co de Phone Number [facility] Department [place] [address] * (ABNORMAL) Urinalysis, microscopic only (01/11/2025 10:04 AM CDT) Pathologist [facility] WBC, ur 0-5 0 - 5 /HPF RBC, ur 0-2 0 - 2 /HPF [facility] Mucous, ur Present(A) [facility] Culture Reflex Comment Reflex conditions for urine culture (WBC >10) not met. [facility] Urine, clean voided 01/11/2025 10:04 AM CDT 01/11/2025 10:20 AM CDT Yolanda Hays NP LAB URINE ORDERABLES Final Resul t Performing Organization Address [facility] de Phone Number [facility] Department [place] [address] * Protime-INR (01/11/2025 10:04 AM CDT) Pathologist [facility] PT 12.0 9.7 - 13.0 sec INR 1.11 0.90 - 1.20 [facility] Comment: Interpretive data Oral anticoagulant therapeutic ranges: Venous thromboembolism prophylaxis or treatment: 2.0-3.0 CARDIOLOGY Standard range: 2.0-3.0 High-intensity range: 2.5-3.5 Refer to indication-specific guidelines for appropriate target ranges for prosthetic heart valve replacement. Current interpretive data was last revised on 2019. Blood 01/11/2025 10:0 4 AM CDT 01/11/2025 10:04 AM CDT Yolanda Hays NP LAB BLOOD ORDERABLES Final Resul t Performing Organization Address [facility] de Phone Number [facility] [place] [address] * (ABNORMAL) Basic metabolic panel (01/11/2025 10:04 AM CDT) Pathologist [facility] Sodium 144 135 - 145 mmol/L Potassium, pl 4.5 3.3 - 4.9 mmol/L [facility] Chloride 111(H) 97 - 110 mmol/L [facility] CO2 21(L) 22 - 32 mmol/L [facility] Anion gap 12 2 - 15 mmol/L [facility] BUN 34(H) 6 - 25 mg/dL [facility] Creatinine 4.51(H) 0.80 - 1.30 mg/dL [facility] Glucose 111 70 - 199 mg/dL [facility] Comment: Interpretive Data Fasting glucose >/= 126 mg/dl is diagnostic for diabetes. Fasting is defined as no caloric intake for at least 8 hours. Fasting glucose between 100 mg/dl to 125 mg/dl is diagnostic of prediabetes. In a patient with classic symptoms of hyperglycemia or hyperglycemic crisis, a random glucose >/= 200 mg/dl is diagnostic for diabetes. In the absence of unequivocal hyperglycemia, results should be confirmed by repeat testing. The classification and Diagnosis of Diabetes Diabetes Care 202; 46: S19-S40. Current interpretive data was last revised 2022. Calcium 8.9 8.5 - 10.3 mg/dL [facility] Blood 01/11/2025 10:0 4 AM CDT 01/11/2025 10:28 AM CDT us Yolanda Hays NP LAB BLOOD ORDERABLES Final Resul t [facility] Department [place] [address] * CTA Chest Abdomen Pelvis (12/22/2024 10:37 AM MISSILE INSPECTOR PREFLIGHT) Anatomical Region Laterality Modality Body N/A Computed Tomogra phy 12/22/2024 1:33 PM MISSILE INSPECTOR PREFLIGHT Impressions 12/22/2024 3:53 PM MISSILE INSPECTOR PREFLIGHT 1. 62 mm x 68 mm thoracic aortic aneurysm extending from the proximal descending thoracic aorta to diaphragmatic hiatus. 2. 36 mm x 39 mm infrarenal abdominal aortic aneurysm status post open repair. Dictated by: Martell Russell MD, PHD The radiology attending physician has personally reviewed this study, and had reviewed and/or edited this written report and agrees with it. Electronically signed by: Gabrielle Milian M.D. Narrative 12/22/2024 3:53 PM MISSILE INSPECTOR PREFLIGHT EXAMINATION: CT ANGIOGRAPHY OF THE CHEST, ABDOMEN AND PELVIS WITH AND WITHOUT CONTRAST HISTORY: Aortic aneurysm with infected vascular stent grafts status post explantation with open repair, presurgical planning for thoracic aneurysm repair TECHNIQUE: CT angiography of the chest, abdomen and pelvis was performed prior to and following uneventful intravenous administration of 75 ml Optiray-350 using the pre-endoluminal stent graft protocol. Vascular 3D images were generated on a dedicated workstation and also reviewed. COMPARISON: CT chest abdomen pelvis 09/15/2024 FINDINGS: VASCULAR FINDINGS: THORACIC AORTA: There is a thoracoabdominal aortic aneurysm. There are no signs of aneurysm instability. The unrepaired portion extends from the proximal descending thoracic aorta at the proximal abdominal aorta Aortic diameter at the left carotid artery origin: 32 mm Aortic diameter at the left subclavian artery origin: 34 mm Distance between the left carotid and subclavian arteries: 4 mm Aortic diameter 2 cm proximal to aneurysm: 27 mm AP by 37 mm fator-av-utdf Aortic diameter 1 cm proximal to aneurysm: 36 mm AP by 35 mm kstbx-pw-eoae Aortic diameter immediately proximal to aneurysm: 38 mm AP by 33 2 mm sxnsy-ay-hega Maximum outer aneurysm diameter: 62 mm AP by 68 mm xvqsn-on-elcy Aortic diameter immediately distal to aneurysm: 38 mm AP by 39 mm dbvfu-ni-zaqo Aortic diameter 1 cm distal to aneurysm: 40 mm AP by 44 mm lctlj-uk-caam Aortic diameter 2cm distal to aneurysm: 44 mm AP by 41 mm bvafx-na-ujsp Right common iliac artery diameter: 28 mm AP by 32 mm fmrck-ds-aqqj Left common iliac artery diameter: 33 mm AP by 35 mm lcvfl-iw-imcw Right external iliac artery diameter: 8 mm AP by 12 mm kzzrc-by-lgdy Left external iliac artery diameter: 5 mm AP by 14 mm hvzgf-nd-yenn Right femoral artery diameter: 7 mm AP by 13 mm cpnpt-ec-ddik Left femoral artery diameter: 7 mm AP by 17 mm zzvhv-pb-xgcc Proximal neck - distance from top of aneurysm to left subclavian or left carotid: 46 mm Length of aneurysmal segment: 84 mm Distal neck - length from bottom of aneurysm to celiac axis: 252 mm ABDOMINAL AORTA: There is an an infrarenal abdominal aortic aneurysm status post open repair with graft extending through the common iliac arteries bilaterally. There is a common origin of the celiac and superior mesenteric arteries. No significant stenosis. AVNI: No significant stenosis Renal arteries: No significant stenosis in the right renal artery. There is severe stenosis at the origin of the left renal artery. Aneurysmal dilation of both iliac arteries as noted above. There is occlusion of the left internal iliac artery. Retroaortic left renal vein noted. The maximum diameter of the aneurysm is 36 mm AP x 39 mm hsomf-ln-sdba. This is stable since the prior exam. NON-VASCULAR FINDINGS: Chest: Apical predominant emphysema. Unchanged groundglass opacity along the right minor fissure. No new pulmonary nodule, pleural effusion, or pneumothorax. Normal heart size with no pericardial effusion. Mild atherosclerotic disease in the coronary arteries. No thoracic lymphadenopathy. Abdomen/Pelvis: No focal liver lesion. Gallbladder is normal. No biliary duct dilation. There are calcifications throughout the pancreatic head and uncinate process related to chronic pancreatitis with mild atrophy in the body and tail. Spleen and adrenal glands are normal. Postsurgical changes of partial right nephrectomy with embolization coils in the kidney. Left kidney is normal. No hydronephrosis. Urinary bladder is normal. Bilaterally enlarged prostate gland. Stool throughout the entirety of the colon. The appendix is normal. Small bowel and stomach are normal. There is unchanged stranding/fibrosis surrounding the aortic graft. No abdominal free air or free fluid. No suspicious osseous lesion or acute fracture. Procedure Note Gabrielle Milian MD - 12/22/2024 EXAMINATION: CT ANGIOGRAPHY OF THE CHEST, ABDOMEN AND PELVIS WITH AND WITHOUT CONTRAST HISTORY: Aortic aneurysm with infected vascular stent grafts status post explantation with open repair, presurgical planning for thoracic aneurysm repair TECHNIQUE: CT angiography of the chest, abdomen and pelvis was performed prior to and following uneventful intravenous administration of 75 ml Optiray-350 using the pre-endoluminal stent graft protocol. Vascular 3D images were generated on a dedicated workstation and also reviewed. COMPARISON: CT chest abdomen pelvis 09/15/2024 FINDINGS: VASCULAR FINDINGS: THORACIC AORTA: There is a thoracoabdominal aortic aneurysm. There are no signs of aneurysm instability. The unrepaired portion extends from the proximal descending thoracic aorta at the proximal abdominal aorta Aortic diameter at the left carotid artery origin: 32 mm Aortic diameter at the left subclavian artery origin: 34 mm Distance between the left carotid and subclavian arteries: 4 mm Aortic diameter 2 cm proximal to aneurysm: 27 mm AP by 37 mm japlr-rw-rdsc Aortic diameter 1 cm proximal to aneurysm: 36 mm AP by 35 mm gzkuz-gu-sibs Aortic diameter immediately proximal to aneurysm: 38 mm AP by 33 2 mm rwqpt-ix-bsyk Maximum outer aneurysm diameter: 62 mm AP by 68 mm azxmd-iv-sibi Aortic diameter immediately distal to aneurysm: 38 mm AP by 39 mm xxuzm-ro-qmlg Aortic diameter 1 cm distal to aneurysm: 40 mm AP by 44 mm egwka-ve-zgss Aortic diameter 2cm distal to aneurysm: 44 mm AP by 41 mm tezni-bu-bskz Right common iliac artery diameter: 28 mm AP by 32 mm rruuw-qs-erkp Left common iliac artery diameter: 33 mm AP by 35 mm kwkta-iv-nsoj Right external iliac artery diameter: 8 mm AP by 12 mm kbaka-ts-wxkm Left external iliac artery diameter: 5 mm AP by 14 mm tplgc-la-hnof Right femoral artery diameter: 7 mm AP by 13 mm ahgfu-tz-dkjj Left femoral artery diameter: 7 mm AP by 17 mm nbmgs-pw-roow Proximal neck - distance from top of aneurysm to left subclavian or left carotid: 46 mm Length of aneurysmal segment: 84 mm Distal neck - length from bottom of aneurysm to celiac axis: 252 mm ABDOMINAL AORTA: There is an an infrarenal abdominal aortic aneurysm status post open repair with graft extending through the common iliac arteries bilaterally. There is a common origin of the celiac and superior mesenteric arteries. No significant stenosis. AVNI: No significant stenosis Renal arteries: No significant stenosis in the right renal artery. There is severe stenosis at the origin of the left renal artery. Aneurysmal dilation of both iliac arteries as noted above. There is occlusion of the left internal iliac artery. Retroaortic left renal vein noted. The maximum diameter of the aneurysm is 36 mm AP x 39 mm nbswx-hi-rbuo. This is stable since the prior exam. NON-VASCULAR FINDINGS: Chest: Apical predominant emphysema. Unchanged groundglass opacity along the right minor fissure. No new pulmonary nodule, pleural effusion, or pneumothorax. Normal heart size with no pericardial effusion. Mild atherosclerotic disease in the coronary arteries. No thoracic lymphadenopathy. Abdomen/Pelvis: No focal liver lesion. Gallbladder is normal. No biliary duct dilation. There are calcifications throughout the pancreatic head and uncinate process related to chronic pancreatitis with mild atrophy in the body and tail. Spleen and adrenal glands are normal. Postsurgical changes of partial right nephrectomy with embolization coils in the kidney. Left kidney is normal. No hydronephrosis. Urinary bladder is normal. Bilaterally enlarged prostate gland. Stool throughout the entirety of the colon. The appendix is normal. Small bowel and stomach are normal. There is unchanged stranding/fibrosis surrounding the aortic graft. No abdominal free air or free fluid. No suspicious osseous lesion or acute fracture. IMPRESSION: 1. 62 mm x 68 mm thoracic aortic aneurysm extending from the proximal descending thoracic aorta to diaphragmatic hiatus. 2. 36 mm x 39 mm infrarenal abdominal aortic aneurysm status post open repair. Dictated by: Martell Russell MD, PHD The radiology attending physician has personally reviewed this study, and had reviewed and/or edited this written report and agrees with it. Electronically signed by: Gabrielle Milian M.D. us Rishi Lainez MD IMG CT PROCEDURES Final Result * (ABNORMAL) POCT creatinine (12/22/2024 10:07 AM MISSILE INSPECTOR PREFLIGHT) Creatinine POC 4.8(H) 0.8 - 1.3 mg/dL Blood 12/22/2024 10:0 7 AM MISSILE INSPECTOR PREFLIGHT 12/22/2024 10:07 AM MISSILE INSPECTOR PREFLIGHT Rishi Lainez MD LAB POCT ORDERABLES - DE VICE Final Result [facility] Department [place] [address] from Last 3 Months Insurance MEDICARE [facility] Address: [address] [address] [place] [address] IDID MEDICARE IDPA [employer] [facility] [place] MANAGED MEDICAID GENERIC RISK OTHER MEDICARE [facility] Address: [address] [address] [place] [address] [employer] Advance Directives For more information, please contact: [phone] Documents on File Type Date Recorded Patient Gi Technician Expl anation ADVANCE DIRECTIVE 02/06/2025 3:23 AM POWER OF OPERATIONAL ASSISTANT-MEDICAL ADVANCE DIRECTIVE 01/25/2025 11:56 AM POWER OF OPERATIONAL ASSISTANT-MEDICAL ADVANCE DIRECTIVE 02/04/2018 12:00 AM * Full Code (Latest Code Status on File) Date Activated Date Inactivated Comments 01/20/2025 7:59 PM 02/02/2025 10:52 PM * Full Code Date Activated Date Inactivated Comments 06/01/2024 1:30 PM 06/02/2024 5:05 AM * Full Code Date Activated Date Inactivated Comments 05/07/2024 2:20 AM 05/14/2024 6:16 PM * Full Code Date Activated Date Inactivated Comments 2024 9:22 AM 03/04/2024 7:48 PM * Full Code Date Activated Date Inactivated Comments 08/08/2021 9:00 PM 08/09/2021 2:16 PM Healthcare Agents on File Name Relationship Healthcare Agent Relationship Communication Hyacinth Lund Daughter Health Care Agent Agnieszka Oliva Significant Other First Alternat e Health Care Agent Care Teams Prize Coordinator Relationship Specialty Start Date End Date Avery Ramos MD [address] [place] [id number] PCP - General Family Practice 06/30/18 Lisandro Durham MD [address] [place] [address] Referring Physician Pulmonary Disease 04/01/19 Melia Amaya MD [address] [place] [address] Radiation Oncologist Radiation Oncology 04/27/19 Jigar Beasley MD [address] [place] [address] Resident Anesthesiology 03/03/24 Aileen Fisher MD [address] [place] [address] Consulting Physician Nephrology 05/14/24 Miscellaneous, Not In File 05/14/24 Clinic, Urology [address] [place] [address] Urology 05/14/24
--- OUTSIDE RECORDS SUMMARY | 2025-02-24 08:51 | XMS_ITS ---
Author Organization [facility] Address [address] [place] [address] Phone Care Team Providers Care Bereavement Program Coordinator Name Role Phone Avery Ramos MD Primary Care Provider [phone] Active Problems Problem Noted Date Diagnosed Date Acute blood loss anemia 05/01/2024 Protein-calorie malnutrition, moderate Thoracic aortic aneurysm without rupture 024 Renal mass, right 04/30/2024 Retroperitoneal hematoma 04/29/2024 Renal cell carcinoma 04/29/2024 Stage 4 chronic kidney disease 04/29/2024 Vascular graft infection 04/29/2024 PAD (peripheral artery disease) 04/29/2024 Panlobular emphysema 04/29/2024 HLD (hyperlipidemia) 04/29/2024 HTN (hypertension), benign 04/29/2024 Q fever 04/29/2024 Aneurysm of ascending aorta without rupture 04/20 Current Treatment and Therapy Plans No current plan information found. Past Treatment and Therapy Plans No past plan information found. Lifetime Dose Tracking * Chemical Lifetime Dose Automatic Entry Manual Entr y Effective Dose 17.97 mSv 17.97 mSv 0 mSv Total DLP 2,551.98 DLP 2,551.98 DLP 0 DLP CTDIvol Max 56.9 mGy 56.9 mGy 0 mGy
--- OUTSIDE RECORDS SUMMARY | 2025-02-24 08:51 | XMS_ITS | Clinical Summary ---
Author Organization [facility] Address [address] [place] [address] Phone Care Team Providers Care Director Pharmacy Services Name Role Phone Avery Ramos MD Primary Care Provider [phone] Allergies Active Allergy Reactions Criticality Noted Date Comments Sulfa (Sulfonamide Antibiotics) Nausea and Vomiting Low 04/29/2024 Medications acetaminophen (TYLENOL) 500 mg tablet Take 500 mg by mouth every 6 hours as needed for Pain. Active umeclidinium-quyen anteroL (Anoro Ellipta) 62.5-25 mcg/actuation Disk with Device Take 1 Puff by inhalation daily. Active apixaban (Eliquis) 5 mg tablet Take 5 mg by mouth 2 times daily. Active aspirin (ECOTRIN EC) 81 mg Tablet, Delayed Release (E.C.) Take 81 mg by mouth daily. Active buPROPion HCL (WELLBUTRIN SR) 150 mg Sustained Release 12 hour tablet Take 150 mg by mouth 2 times daily. Active doxycycline hyclate (VIBRAMYCIN) 100 mg capsule Take 100 mg by mouth 2 times daily. Active ferrous fumarate (FERRETTS) 325 mg (106 mg iron) Tablet Take 325 mg by mouth daily. Active nortriptyline (PAMELOR) 50 mg capsule Take 50 mg by mouth daily at bedtime. Active ondansetron (ZOFRAN) 4 mg Tablet Take 4 mg by mouth every 8 hours as needed for Nausea/Emesis. Active rosuvastatin (CRESTOR) 20 mg tablet Take 20 mg by mouth daily. Active verapamiL (CALAN SR) 180 mg Sustained Release tablet Take 180 mg by mouth daily. Active ZOLMitriptan (ZOMIG) 5 mg Tablet, Rapid Dissolve Place 5 mg inside cheek every 2 hours as needed for Migraine. may repeat in 2 hours; max dose 10mg in 24 hours Active sodium bicarbonate 650 mg tablet Take 2 Tablets (1,300 mg) by mouth 3 times daily. Active Active Problems Problem Noted Date Diagnosed Date [...] Aneurysm of ascending aorta without rupture 04/20 Encounters Date Type Department Care Team Description 02/09/2025 External Device Data [facility] ABSTRACTION Provider, Abstract 01/26/2025 External Device Data [facility] ABSTRACTION Provider, Abstract 01/06/2025 External Device Data [facility] ABSTRACTION Provider, Abstract 12/26/2024 External Device Data [facility] ABSTRACTION Provider, Abstract 12/25/2024 External Device Data [facility] ABSTRACTION Provider, Abstract 12/08/2024 External Device Data [facility] ABSTRACTION Provider, Abstract from Last 3 Months Social History Tobacco Use Types Packs/Day Years Used Date Smoking Tobacco: Never Smokeless Tobacco: Never Tobacco Cessation:Counseling Given: Not Answered Alcohol Use Standard Drinks/Week Comments Never 0 (1 standard drink = 0.6 oz pur e alcohol) Feeling Safe Answer Date Recorded Are you in a relationship wi th someone who hurts you emotionally and/or physically? No 04/29/2024 Food Insecurity Answer Date Recorded Social/Environmental Concerns No concerns Transportation Needs Answer Date Record ed Social/Environmental Concerns No concerns Housing Stability Answer Date Recorded Social/Environmental Concerns No concerns Utility Needs Answer Date Recorded Social/Environmental Concerns No concerns Sex and Gender Information Value Date Recorded Sex Assigned at Not on file Legal Sex Male 3:27 PM CDT Gender Identity Not on file Sexual Orientation Not on file Last Filed Vital Signs Vital Sign Reading Time Taken Comments Blood Pressure 187/87 05/06/2024 4:32 PM CDT Pulse 97 05/06/2024 4:32 PM CDT Temperature 37.1 C (98.8 F) 05/06/2024 4:32 PM CDT Respiratory Rate 21 05/06/2024 11:48 AM CDT Oxygen Saturation 100% 05/06/2024 4:32 PM CDT Inhaled Oxygen Concentration - - Weight 76.3 kg (168 lb 4.8 oz) 05/01/2024 5:00 A M CDT Height 185.4 cm (6' 1 ) 04/30/2024 7:50 PM CDT Body Mass Index 22.2 04/30/2024 7:50 PM CDT Plan of Treatment Health Maintenance Due Date Last Done Comments DTAP/TDAP/TD VACCINES (1 - Tdap) 1972 PNEUMOCOCCAL VACCINE 50+ YEARS (1 of 2 - PCV) 03/01/19 72 COLORECTAL SCREENING 1998 Colorectal Cancer Screening 1998 FIT-DNA Q 3 years 1998 FIT/FOBT Q 1 year 1998 Flex Sig/CT Colonography Q 5 years 1998 ZOSTER VACCINE (1 of 2) 2003 RSV VACCINE (60+ or ) (1 - Risk 60-74 years 1-dose series) 2013 INFLUENZA VACCINE (#1) 2024 COVID-19 Vaccine (2 - season) 06/21/202403/2021 Medical Devices Implanted Type Area Development Planner Device Identifier Shelf Expiration Date Model / Serial / Lot Coil Emb Pod Packing 5cm [id number]/30/20 24 Implanted:Qty: 1 on 04/30/2024 by Jhoan Silver MD [employer] 10/27/2031 [id number] / / [id number] Insurance MEDICARE PART A AND B [place]ICAID [place] Advance Directives For more information, please contact: [phone] Documents on File Type Date Recorded 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
--- OUTSIDE RECORDS SUMMARY | 2025-02-24 08:51 | XMS_ITS | Encounter Summary ---
Author Organization [facility] Address [address] [place] [address] Care Team Providers Care Digital Retoucher Name Role Phone Avery Ramos MD Primary Care Provider Encounter Details Date Type Department Care Team (Late st Contact Info) Description 03/11/2024 Therapy Plan [facility] [address] [facility] [place], [place] [id number] Avery Ramos MD [address] [place] [id number] Social History Tobacco Use Types Packs/Day Years Used Date Smoking Tobacco: Never Assessed Sex and Gender Information Value Date Recorded Sex Assigned at Not on file Legal Sex Male 2:41 PM CDT Gender Identity Not on file Sexual Orientation Not on file documented as of this encounter Plan of Treatment Not on file documented as of this encounter Visit Diagnoses Diagnosis Anemia due to chronic kidney disease- Primary documented in this encounter Care Teams Digital Retoucher Relationship Specialty Start Date End Date Avery Ramos MD [address] [place] [id number] PCP - General FAMILY PRACTICE 02/25/23 documented as of this encounter
--- OUTSIDE RECORDS SUMMARY | 2025-02-24 08:51 | XMS_ITS | Clinical Summary ---
Author Organization [facility] Address [address] [place] [address] Care Team Providers Care Baker Second Name Role Phone Avery Ramos MD Primary Care Provider Allergies Active Allergy Reactions Criticality Noted Date Comments Sulfa Antibiotics Nausea and Vomiting 4 Medications umeclidinium-vilant lisa (ANORO ELLIPTA) 62.5-25 MCG/INH inhaler Inhale 1 puff into the lungs. 8 Active ANORO ELLIPTA 62.5-25 MCG/INH inhalerIndications: COPD (chronic obstructive pulmonary disease) ([facility]) INHALE 1 PUFF BY MOUTH DAILY 60 each 9 Active apixaban (ELIQUIS) 5 MG tablet Take 1 tablet (5 mg total) by mouth 2 (two) times daily. 4 Active aspirin EC (ECOTRIN) 81 MG tablet Take 1 tablet (81 mg total) by mouth daily. Active buPROPion SR (WELLBUTRIN SR) 150 MG 12 hr tablet Take 1 tablet (150 mg total) by mouth 2 (two) times daily. 4 Active nortriptyline (PAMELOR) 50 MG capsule Take 1 capsule (50 mg total) by mouth 2 (two) times daily. 3 Active ondansetron (ZOFRAN-ODT) 4 MG disintegrating tablet Take 1 tablet (4 mg total) by mouth. 4 Active pantoprazole EC (PROTONIX) 40 MG tablet Take 1 tablet (40 mg total) by mouth daily. 4 Active verapamil (CALAN SR) 180 MG ER tablet Take 1 tablet (180 mg total) by mouth daily. 3 Active ZOLMitriptan 5 MG Tab Take 5 mg by mouth 2 (two) times daily as needed (q12 hours as needed for migrane). 3 Active ferrous sulfate EC 325 (65 Fe) MG tablet Take 1 tablet by mouth daily. Active doxycycline hyclate (VIBRAMYCIN) 100 MG capsule Take 1 capsule (100 mg total) by mouth 2 (two) times daily. Active acetaminophen (TYLENOL) 500 MG tablet Take 2 tablets (1,000 mg total) by mouth every 6 (six) hours as needed for Pain. Active Active Problems Problem Noted Date Diagnosed Date Iron deficiency anemia 03/11/2024 Anemia due to chronic kidney disease 03/11/2024 Encounters Date Type Department Care Team Description 02/19/2025 3:35 PM CDT - 02/19/2025 11:59 PM CDT Hospital Encounter [facility] [address] [address] Avery Ramos MD Discharge Disposition: Home or Self Care (Routine Discharge) 02/19/2025 Orders Only [facility] [address] [place] [address] Avery Ramos MD 02/19/2025 Travel from Last 3 Months Social History Tobacco Use Types Packs/Day Years Used Date Smoking Tobacco: Every Day Cigarettes Smokeless Tobacco: Never Tobacco Cessation:Ready to Q uit: Not Asked; Counseling Given: Not Answered Sex and Gender Information Value Date Recorded Sex Assigned at Not on file Legal Sex Male 2:41 PM CDT Gender Identity Not on file Sexual Orientation Not on file Last Filed Vital Signs Vital Sign Reading Time Taken Comments Blood Pressure 117/73 04/29/2024 4:30 PM CDT Pulse 95 04/29/2024 4:30 PM CDT Temperature 36.7 C (98 F) 04/29/2024 11:13 AM CDT Respiratory Rate 23 04/29/2024 4:30 PM CDT Oxygen Saturation 87% 04/29/2024 4:30 PM CDT Inhaled Oxygen Concentration - - Weight 79.6 kg (175 lb 7.8 oz) 04/29/2024 11:13 AM CDT Height 172.7 cm (5' 8 ) 04/29/2024 11:13 AM CDT Body Mass Index 26.68 04/29/2024 11:13 AM CDT Plan of Treatment Health Maintenance Due Date Last Done Comments Colorectal Cancer Screening Colonoscopy (10 Years) 1953 DTaP, Tdap and Td Vaccines (1 - Tdap) 1972 Pneumococcal Vaccine: 50+ Years (1 of 2 - PCV) 1972 Zoster Vaccines (1 of 2) 2003 RSV Immunization or 60+ Years (1 - Risk 60-74 years 1-dose series) 2013 Annual Medicare Wellness Visit 2018 COVID-19 Vaccine ( season) 2024 08/05/2022, 07/25/2021, 12/24/2020, Additional history exists Hepatitis C Completed 05/05/2024, 05/05/2024 AAA SCREENING Completed 01/30/2025, 01/19, 12/22/2024, Additional history exists Meningococcal B Vaccine Aged Out No l onger eligible based on patient's age to complete this topic Meningococcal Vaccine Aged Out No keyana lisbeth eligible based on patient's age to complete this topic RSV Immunizations Under 20 Months Aged Out No longer eligible based on patient's age to complete this topic Procedures Procedure Name Priority Date/Time Associated Diagnosis Comments BASIC METABOLIC PANEL Routine 02/19/2025 4:10 PM CDT Chronic kidney disease (CKD) stage G3b/A1, moderately decreased glomerular filtration rate (GFR) between 30-44 mL/min/1.73 square meter and albuminuria creatinine ratio less than 30* ([facility]) CT CHEST+ABD+PEL WO CON STAT 04/29/2024 11:40 AM CDT from Last 3 Months or Most Recently Relevant to Health Maintenance Results * (ABNORMAL) BASIC METABOLIC PANEL (02/19/2025 4:10 PM CDT) GLUCOSE 129(H) 70 - 99 MG/DL 02/19/2025 5:09 PM CDT [facility] BUN 70(H) 7 - 18 MG/DL 02/19/2025 5:09 PM CDT [facility] CREATININE S/P/B 5.91(HH) 0.50 - 1.20 MG/DL 02/19/2025 5:09 PM CDT [facility] Comment: CRITICAL VALUE CALLED RESULT READ BACK AND VERIFIED TRIED CALLING DR MADERA OFFICE @ [phone] A FEW TIMES NO ANSWER, NO OTHER NUMBER FOUND TO CALL SODIUM S/P/B 136 136 - 145 MMOL/L 02/19/2025 5:09 PM CDT [facility] POTASSIUM S/P/B 5.7(H) 3.5 - 5.1 MMOL/L 02/19/2025 5:09 PM CDT [facility] CHLORIDE S/P/B 103 100 - 108 MMOL/L 02/19/2025 5:09 PM CDT [facility] CO2 19.8(L) 21.0 - 32.0 MMOL/L 02/19/2025 5:09 PM CDT [facility] CALCIUM S/P/B 9.3 8.5 - 10.1 MG/DL 02/19/2025 5:09 PM CDT [facility] ANION GAP 13.2 5.0 - 15.0 MMOL/L 02/19/2025 5:09 PM CDT [facility] BUN CREATININE RATIO 11.8 6 - 26 02/19/2025 5:09 PM T [facility] GFR ESTIMATE 10(L) >90 ML/MIN/1. 73 M2 02/19/2025 5:09 PM CDT [facility] Comment: NOTE: eGFR is not calculated for patients <18 years of age. This is an estimated GFR calculation using the new CKD EPI creatinine equation without race and so does not require a correction factor for race. This estimated GFR should not be used for calculating drug doses. 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
--- OUTSIDE RECORDS SUMMARY | 2025-02-24 08:51 | XMS_ITS | Encounter Summary ---
Author Organization [facility] Address [address] [place] [address] Care Team Providers Care Reed Dipper Name Role Phone Avery Ramos MD Primary Care Provider [phone] Reason for Visit * Reason Onset Date Comments Possible kidney mass, hemato ma - vs worsening RCC, he has k 04/30/2024 SPOKE WITH AYAKA / DR. TANK JONES EXCHANGE For aneurysm, retroperitoneal hematoma SPOKE WITH AYAKA / DR. ASHLY CHANG Possibly needs contrast has CKDIV 04/30/2024 SPOKE WITH ANDREW / DR. IJEOMA CHANG Encounter Details Date Type Department Care Team (Late st Contact Info) Description 04/30/2024 Telephone [facility] Admitting [address] [place] [address] Allie Mehta MD [address] [facility] [address] [place] [address] Possible kidney mass, hematoma - vs worsening RCC, he has k (SPOKE WITH AYAKA / DR. LOMAS EXCHANGE); For aneurysm, retroperitoneal hematoma (SPOKE WITH AYAKA / DR. LIMON EXCHANGE); Possibly needs contrast has CKDIV (SPOKE WITH ANDREW / DR. IJEOMA CHANG) Social History Tobacco Use Types Packs/Day Years Used Date Smoking Tobacco: Never Smokeless Tobacco: Never Alcohol Use Standard Drinks/Week Comments Never 0 [...] documented as of this encounter Visit Diagnoses Not on filedocumented in this encounter Care Teams Reed Dipper Relationship Specialty Start Date End Date Avery Ramos MD [address] [place] [address] PCP - General Family Practice 04/29/24 documented as of this encounter
--- OUTSIDE RECORDS SUMMARY | 2025-02-24 08:51 | XMS_ITS | Encounter Summary ---
Author Organization [facility] Address [address] [place] [address] Care Team Providers Care Aircraft Armament Mechanic Name Role Phone Avery Ramos MD Primary Care Provider [phone] Lisandro Durham MD Unavailable [phone] Melia Amaya MD Unavailable [phone] Jigar Beasley MD Unavailable [phone] Aileen Fisher MD Unavailable [phone] Miscellaneous, Not In File Unavailable [facility], Urology Unavailable Encounter Details Date Type Department Care Team (Late st Contact Info) Description 05/20/2024 Telephone [facility] Radiology [address] [place] [address] Juli Chris RN Social History Tobacco Use Types Packs/Day Years Used Date Smoking Tobacco: Every Day Cigarettes 0.1 56.7 Started: 1966; Last attempted to quit: 06/17/2021 Passive Smoke Exposure: Current Smokeless Tobacco: Never Comments:pt states quit toda y 07/24/2021 Alcohol Use Standard Drinks/Week Comments Not Currently 0 (1 standard drink = 0.6 oz pur e alcohol) 1-2 beers a month [facility] Utilities Answer Date Recorded In the past 12 months has th e electric, gas, oil, or water company threatened to shut off services in your home? No 05/08/2024 Social Connection and Isolat ion Panel [NHANES] Answer Date Recorded In a typical week, how many times do you talk on the phone with family, friends, or neighbors? More than three times a week 05/08/2024 How often do you get togethe r with friends or relatives? Once a week 05/08/2024 How often do you attend chur ch or latter-day services? Never 05/08/2024 Do you belong to any clubs o r organizations such as yazidi groups, unions, fraternal or athletic groups, or school groups? No 05/08/2024 How often do you attend meet ings of the clubs or organizations you belong to? Never 05/08/2024 Are you , , di vorced, , never , or living with a partner? Living with partner 05/08/2024 AUDIT-C Answer Date Recorded Q1: How often do you have a drink containing alc ohol? Monthly or less 08/08/2021 Q2: How many drinks containi ng alcohol do you have on a typical day when you are drinking? 1 or 2 08/08/2021 Q3: How often do you have si x or more drinks on one occasion? Never 08/08/2021 Overall Financial Resource Strain (CARDIA) Answe r Date Recorded How hard is it for you to pa y for the very basics like food, housing, medical care, and heating? Not hard at all 05/08/2024 PHQ-2 Answer Date Recorded PHQ-2 Total Score (If total score is 3 or more points, staff should administer the PHQ-9) 1 05/08/2024 Hunger Vital Sign Answer Date Recorded Within the past 12 months, y ou worried that your food would run out before you got the money to buy more. Never true 05/08/20 24 Within the past 12 months, t he food you bought just didn't last and you didn't have money to get more. Never true 05/08/2024 PRAPARE - Transportation Answer Date Re corded In the past 12 months, has l ack of transportation kept you from medical appointments or from getting medications? No 04/20 In the past 12 months, has l ack of transportation kept you from meetings, work, or from getting things needed for daily living? No 05/08/2024 Housing Stability Vital Sign Answer Jem e [...] place to sleep or slept in a retirement (including now)? No 03/06/2024 Housing Stability Vital Sign Answer Jem e Recorded In the last 12 months, was t here a time when you were not able to pay the mortgage or rent on time? No 05/08/2024 In the past 12 months, how m any times have you moved where you were living? 0 05/08/2024 At any time in the past 12 m [facility], were you homeless or living in a retirement (including now)? No 05/08/2024 Personal Safety Answer Date Recorded Have you ever been in or are you currently in a harmful physical or emotional relationship or is someone making you feel afraid or unsafe? 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 Gender Identity Not on file Sexual Orientation Straight 12/29/2019 7: 32 PM CDT documented as of this encounter Plan of Treatment Scheduled Procedures Name Priority Associated Diagnoses Date/Ti me REPAIR THORACOABDOMINAL AORT IC ANEURYSM Thoracic aortic aneurysm without rupture, unspecified part BYPASS GRAFT - CAROTID SUBCLAVIAN Thoracic aortic aneurysm without rupture, unspecified part documented as of this encounter Visit Diagnoses Not on filedocumented in this encounter Care Teams Aircraft Armament Mechanic Relationship Specialty Start Date End Date Avery Ramos MD [address] [place] [address] PCP - General Family Practice 06/30/18 Lisandro Durham MD [address] [facility] [address] [place] [address] Referring Physician Pulmonary Disease 04/01/19 Melia Amaya MD [address] [place] [address] Radiation Oncologist Radiation Oncology 04/27/19 Jigar Beasley MD [address] [place] [address] Resident Anesthesiology 03/03/24 Aileen Fisher MD [address] [place], [place] [id number] Consulting Physician Nephrology 05/14/24 Miscellaneous, Not In File 05/14/24 Clinic, Urology [address] [place] [address] Urology 05/14/24 documented as of this encounter
--- OUTSIDE RECORDS SUMMARY | 2025-02-24 08:51 | XMS_ITS | Encounter Summary ---
Author Organization [facility] Address [address] [facility] [address] [place] [address] Phone Care Team Providers Care Towel Folder Name Role Phone Avery Ramos MD Primary Care Provider [phone] Lisandro Durham MD Unavailable [phone] Melia Amaya MD Unavailable [phone] Jigar Beasley MD Unavailable [phone] Aileen Fisher MD Unavailable [phone] Miscellaneous, Not In File Unavailable [facility], Urology Unavailable Encounter Details Date Type Department Care Team (Latest Contact Info) Description 05/21/2024 Orders Only [facility] Scanning, Provider Social History Tobacco Use Types Packs/Day Years Used Date Smoking Tobacco: Every Day Cigarettes 0.1 56.7 Started: 1966; Last attempted to quit: 06/17/2021 Passive Smoke Exposure: Current Smokeless Tobacco: Never Comments:pt states quit toda y 07/24/2021 Alcohol Use Standard Drinks/Week Comments Not Currently 0 (1 standard drink = 0.6 oz pur e alcohol) 1-2 beers a month [facility] Utilities Answer Date Recorded In the past 12 months has th e electric, gas, oil, or water [employer] threatened to shut off services in your [...] often do you attend chur ch or yazdanism services? Never 05/08/2024 Do you belong to any clubs o r organizations such as scientologist groups, unions, fraternal or athletic groups, or [...] place to sleep or slept in a group home (including now)? No 03/06/2024 Housing Stability Vital Sign Answer Jem e Recorded In the last 12 months, was t here a time when you were not able to pay the mortgage or rent on time? No 05/08/2024 In the past 12 months, how m any times have you moved where you were living? 0 05/08/2024 At any time in the past 12 m [facility], were you homeless or living in a group home (including now)? No 05/08/2024 Personal Safety Answer Date Recorded Have you ever been in or are you currently in a harmful physical or emotional relationship or is someone making you feel afraid or unsafe? 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 Gender Identity Not on file Sexual Orientation [...] Procedure Name Priority Date/Time Associated Diagnosis Comments SCAN - LABS 05/21/2024 documented in this encounter Results * SCAN - LABS (05/21/2024) us Provider Scanning Final Result documented in this encounter Visit Diagnoses Not on filedocumented in this encounter Care Teams Towel Folder Relationship Specialty Start Date End Date Avery Ramos MD [address] [place] [address] PCP - General Family Practice 06/30/18 Lisandro Durham MD [address] [place] [address] Referring Physician Pulmonary Disease 04/01/19 Melia Amaya MD [address] [place] [address] Radiation Oncologist Radiation Oncology 04/27/19 Jigar Beasley MD [address] [place] [address] Resident Anesthesiology 03/03/24 Aileen Fisher MD [address] [place] [address] Consulting Physician Nephrology 05/14/24 Miscellaneous, Not In File 05/14/24 Clinic, Urology [address] [place] [address] Urology 05/14/24 documented as of this encounter
--- OUTSIDE RECORDS SUMMARY | 2025-02-24 08:51 | XMS_ITS | Clinical Summary ---
Author Organization [facility] Address [facility] [place] [address] Care Team Providers Care Cycle Repairer Name Role Phone Avery Ramos MD Primary Care Provider [phone] Lisandro Durham MD Unavailable [phone] Melia Amaya MD Unavailable [phone] Jigar Beasley MD Unavailable [phone] Aileen Fisher MD Unavailable [phone] Miscellaneous, Not In File Unavailable Unava [facility] Clinic, Urology Unavailable Allergies Active Allergy Reactions Criticality Noted Date [...] stable around 5.2. Recent Labs Lab Units 01/31/25222901/30/25202901/29/252232 CREATININE mg/dL 5.22* 5.18* 5.18* - No [...] the descending thoracic aorta. - s/p OR /2 for TBE (TBE incorporating left sublavian) with TEVAR extension via L radial and R HEALTH EDUCATOR access; Left renal artery stent. Intraoperative course [...] IR embolization at OSH, and transferred to [facility] for further evaluation. He was initially admitted [...] fall precautions. [place] benefit from [place], PT rec IPR/OT rec SNF, pt accepted to [facility] [place]. Insurance approved and plan nticipate transfer 05/14. [...] delirium precautions, clinically improved and discontinued elopement/sitter 7 AM, resolved. Assessment & Plan (05/08/2024 7:38 [...] clinic follow up for catheter management and senior care care. 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 Order also placed to repeat Q fever serology. 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 - continue amoxicillin and doxycyline. Assessment & Plan (10/11/2020 1:59 PM FILTER PLANT SUPERVISOR): - Patient doing well on suppressive amoxicillin [...] with 8 units PRBC transfused. Post-op H/H 9.9/30. Hb 10.9 this am. No signs of active bleeding -Keep hbg >8 per vascular surgery -No indication for transfusion at this time Assessment & Plan (06/10/2018 1:11 AM CDT): 1500ml blood loss intra-op with 8 units PRBC transfused. Post-op H/H 9.9/30. No signs of active bleeding -Keep hbg [...] to endorse abdominal incision pain with dilaudid ENDOSCOPY REGISTERED NURSE 0.4mg Q10min. However, pt states tolerable. Pain service following. - Scheduled Tylenol -continue bioanalyst; if becomes somnolent will decrease dose. Assessment & Plan (06/12/2018 1:52 AM CDT): Continues to endorse 6/10 abdominal incision pain with dilaudid ENDOSCOPY REGISTERED NURSE 0.4mg Q10min. However, pt states tolerable. Pain service following. Pt refuses epidural. Lidocaine gtt discontinue this am with supertheraputic level. -continue bioanalyst; if becomes somnolent will decrease dose. Assessment & Plan (06/11/2018 5:53 PM CDT): Continues to be an issue. Endorsing 6/10 abdominal incision pain with lidocaine gtt at 1.5mcg/kg/min and dilaudid ENDOSCOPY REGISTERED NURSE 0.4mg Q10min. Pain service following. Pt refuses [...] post-vascular surgery with open abdomen. On Dilaudid ENDOSCOPY REGISTERED NURSE, dose increased prior day. Continued pain during the day, pain consulted and started on Lido gtt. -Lido level at 0000 -If lido level >7, hold infusion per pain -Continue ENDOSCOPY REGISTERED NURSE Assessment & Plan (06/10/2018 1:12 PM CDT): Expected post-vascular surgery with open abdomen. On Dilaudid ENDOSCOPY REGISTERED NURSE, Dose increased to 0.4mg q10 min last night. -Dilaudid ENDOSCOPY REGISTERED NURSE - Consult pain service, regional block vs epidural vs lido infusion Assessment & Plan (06/10/2018 1:14 AM CDT): Expected post-vascular surgery with open abdomen. 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 antibiotics, risk of recurrent infection, signs/symptoms of [...] pm -D/c NGT -sips and chip OK -purchase request editor to change wound vac this am Assessment [...] do not clamp longer than 2hrs) -c/s purchase request editor to change wound vac Assessment & Plan [...] as aspirin and statin given his PAD Encounters Date Type Department Care Team Description 02/23/2025 Telephone [facility] Nephrology [address] [facility] [address] 5th [place] [address] [place] [address] Teresa Flor 02/03/2025 Orders Only [facility] Surgery [address] [facility] Floor 1 [place] [address] Rishi Lainez MD Thoracoabdominal aortic aneurysm (TAAA) without rupture, unspecified part (Primary Dx); Aftercare following surgery of the circulatory system 02/03/2025 Orders Only [facility] Nephrology [address] [facility] [address] 5[address] [place] [address] [place] [address] Pita Jackson MD Acute kidney injury (Primary Dx) 01/29/2025 1:15 PM CDT Ancillary Procedure [facility] Vascular Lab IP [address] [facility] [address] [place] [address] 01/26/2025 Orders Only [facility] Vascular Surgery [address] [facility] [address] [place] [address] Rishi Lainez MD Aneurysm of descending thoracic aorta without rupture (Primary Dx); Aftercare following surgery of the circulatory system 01/22/2025 Orders Only [facility] Neuro Interventional Radiology [address] [place] [address] Evangelista Fajardo RT 01/21/2025 11:41 AM CDT Anesthesia Event [address] [address] Juana Jules MD 01/20/2025 8:36 AM CDT Anesthesia Event [facility] Operating Room 1 [place] [address] Ashleigh Beverly MD Deibel, Lori, NP 01/20/2025 8:30 AM CDT - 01/20/2025 1:55 PM CDT Surgery [facility] Operating Room 1 [place] [address] Rishi Lainez MD THORACIC ENDOVASCULAR REPAIR - TBE device incorporating the left subclavian artery 01/20/2025 6:39 AM CDT - 02/02/2025 5:50 PM CDT Hospital [address] [address] Rishi Lainez MD Thoracoabdominal aortic aneurysm (TAAA) without rupture, unspecified part (Primary Dx); Recurrent falls; Acute blood loss anemia; S/P aortic aneurysm repair; Q fever; Malignant neoplasm of middle lobe of right lung (HCC); Acute kidney injury superimposed on chronic kidney disease; Infection of aortic graft, subsequent encounter Discharge Disposition: Discharge to home, home health skilled care 01/11/2025 8:30 AM CDT Pre-Admission Testing [facility] Center for Preoperative Assessment and Planning [facility] [address] [place] [address] Preoperative testing (Primary Dx); Bruising 12/30/2024 2:15 PM CDT Telemedicine [facility] Surgery [address] [facility] 2nd [address] [place] [address] Rishi Lainez MD Aneurysm of descending thoracic aorta without rupture (Primary Dx) 12/22/2024 9:50 AM FILTER PLANT SUPERVISOR - 12/22/2024 11:59 PM FILTER PLANT SUPERVISOR Hospital Encounter [facility] Radiology [facility] ([facility]) [address] [place] [address] Rishi Lainez MD Aneurysm of descending thoracic aorta without rupture; Encounter for pre-operative examination Discharge Disposition: Discharge to home or self care 12/22/2024 7:30 AM FILTER PLANT SUPERVISOR Infusion [facility] Specialty Infusion Center [address] [facility] Advanced [facility] 7th [place] [address] Renal insufficiency (Primary Dx) 12/18/2024 Telephone [facility] Surgery [address] [facility] Floor 1 [place] [address] Rishi Lainez MD 12/18/2024 Orders Only [facility] Outpatient Infusion Center [address] [place] [address] Felipe Gray RN 12/07/2024 Telephone [facility] Surgery [address] [facility] Floor 1 [place] [address] Rishi Lainez MD 12/03/2024 Orders Only [facility] Vascular Surgery [address] [facility] [address] [place] [phone] Rishi Lainez MD Renal insufficiency (Primary Dx) 12/02/2024 10:30 AM FILTER PLANT SUPERVISOR Telemedicine [facility] Surgery [address] [facility] 2nd Floor [address] [place] [address] Rishi Lainez MD Aneurysm of descending thoracic aorta without rupture (Primary Dx) 12/02/2024 Orders Only [facility] Surgery [address] [facility] Floor 1 [place] [address] Rishi Lainez MD Aneurysm of descending thoracic aorta without rupture (Primary Dx); Encounter for pre-operative examination from Last 3 Months Immunizations Immunization Administration Dates Next Due Moderna SARS-CoV-2 Monovalent Vaccination (12+ Y RS) 11/26/2020 Surgical History Surgery Date Site/Laterality Comments REPLACEMENT TOTAL KNEE Right ENDOSCOPIC AORTIC REPAIR 10/21/2010 - 10/20/2011 CENTRAL LINE PLACEMENT > 5 YEARS 06/17/2018 N/A ABDOMINAL SURGERY JOINT REPLACEMENT SKIN BIOPSY VASCULAR SURGERY US GUIDED BIOPSY RENAL 04/01/2020 N/A PARTIAL KNEE ARTHROPLASTY 10/21/1991 - 10/20/1992 Right KNEE ARTHROSCOPY 10/21/1993 - 10/20/1994 Left HERNIA REPAIR 10/21/2004 - 10/20/2005 SUBMANDIBULAR GLAND EXCISION 10/21/2005 - 10/20/2006 Rig ht ABDOMINAL AORTIC ANEURYSM REPAIR 01/15/2011 ABDOMINAL AORTIC ANEURYSM RE PAIR W/ ENDOLUMINAL GRAFT 01/29/2018 EXPLORATORY LAPAROTOMY 05/21/2018 - 06/20/2018 REMOVE TUNNELED LINE 06/01/2024 Left LUMBAR PUNCTURE WO INJECTION , DIAGNOSTIC 01/22/2025 N/A Medical History Medical History Date Comments AAA (abdominal aortic aneurysm) without rupture COPD (chronic obstructive pulmonary disease) (HC C) Hypertension Arthritis History of transfusion Emphysema lung (HCC) Depression Malignant neoplasm of middle lobe of right lung (HCC) 04/27/2019 History of radiation therapy 10/2018 Clear cell adenocarcinoma of kidney (HCC) GERD (gastroesophageal reflux disease) Memory loss SCC (squamous cell carcinoma of lung) (HCC) Family History Medical History Relation Name Comments Pancreatic cancer Father Family his tory of pancreatic cancer - (Added by TW Conv) Stroke Mother Family history of cerebrovascular accident (CVA) - (Added by TW Conv) Anesthesia problems Neg Hx Relation Name Status Comments Father Mother Social History Tobacco Use Types Packs/Day Years [...] pur e alcohol) 1-2 beers a month [facility] Utilities Answer Date Recorded In the past 12 months has [email or web address], [employer], oil, or water [employer] threatened to shut off services in your [...] week 01/22/2025 How often do you attend [facility] or mosque services? 1 to 4 times per year 01/22/2025 Do you belong to any clubs o r organizations such as lutheran groups, unions, fraternal or athletic groups, or [...] place to sleep or slept in a halfway (including now)? No 03/06/2024 Housing Stability Vital Sign Answer Jem e Recorded In the last 12 months, was t here a time when you were not able to pay the mortgage or rent on time? No 01/22/2025 In the past 12 months, how m any times have you moved where you were living? 0 01/22/2025 At any time in the past 12 m [place], were you homeless or living in a halfway (including now)? No 01/22/2025 Personal Safety Answer Date Recorded Have you ever been in or are you currently in a harmful physical or emotional relationship or is someone making you feel afraid or unsafe? Denies 01/20/2025 Sex and Gender Information Value Date Recorded Sex Assigned at Not on file Legal Sex Male 8:41 AM FILTER PLANT SUPERVISOR Gender Identity Not on file Sexual Orientation Straight 12/29/2019 7: 32 PM CDT Obstetrics History Last Filed Vital Signs Vital Sign Reading [...] Thoracic aortic aneurysm without rupture, unspecified part Health Maintenance Due Date Last Done Comments Colon Cancer Screening-Colonoscopy 1955 Hepatitis C Screening 1955 DTaP/Tdap/Td Vaccine (1 - Tdap) 1964 Hepatitis B Screening 1971 Pneumococcal vaccine 65+ (1 of 2 - PCV) 1972 Zoster Vaccine (1 of 2) 2003 Well Visit 65+ 2018 Covid-19 Vaccine (4 - 2023-2 5 season) 2024 01/19/2021, 12/24/2020, 11/26/2020 Influenza Vaccine (Season Ended) 2025 Depression Screening 12/31/2025 12/31/2024, 05/06/20 24 Fall Risk Assessment 02/02/2026 02/02/2025 Abdominal Aortic Aneurysm (A AA) Screen Completed 12/31/2024, 12/22/2024, 09/15/2024, Additional history exists Medical Devices Implanted Type Area Sight Mounter Device Identifier Shelf Expiration Date Model / Serial / Lot [employer] Stent Graft Aortic Covered Tag [id number] Eptfe Nitinol [id number] - [id number] - [id number] Implanted:Qty: 1 on 01/20/2025 by Rishi Lainez MD at [facility] Endoprosthesi s N/A: Descending Thoracic Aorta [employer] [id number] 07/06/2027 [id number] / [id number] / [employer] Stent Graft Thoracic Side Branch Tag [id number] Eptfe Nitinol [id number] - [id number] - [id number] Implanted:Qty: 1 on 01/20/2025 by Rishi Lainez MD at [facility] Endoprosthesi s N/A: Subclavian Artery [employer] [id number] 07/23/2025 [id number] 06A / [id number] / Vascutek Terumo [id number] Gelsoft Plus 22mm 11mm 45cm Bifurcated Main Leg Bore Graft - [id number] - [id number] Implanted:Qty: 1 on 06/09/2018 by Lance Govea MD at [facility] Graft N/A: Abdomen Vasc[employer] Terumo [id number] 04/19/2022 [id number] / [id number] / [id number] Aplica 483636-14 Stent System Biomimics 3d Vascular [id number] - [id number] - [id number] Implanted:Qty: 1 on 08/08/2021 by Billy Elkins MD at [facility] Stent Left: Femoral [employer] 12/30/2022 [id number] 10 / 00 / [id number] Description:SFA Non-clinical testing has demonstrated that [...] (JESUS) of 2 W/kg (Normal Operating Mode) Aplica 068909-31 Stent System Biomimics 3d Vascular [id number] - [id number] Implanted:Qty: 1 on 08/08/2021 by Billy Elkins MD at [facility] Stent Left: Femoral [employer] 11/23/2022 [id number] 12 / / [id number] Description:Non-clinical cilnt ting has demonstrated that the BioMimics 3D [...] of 2 W/kg (Normal Operating Mode) [employer] Stent Graft Thoracic Conformable Tag [id number] cm [id number] - [id number] - [id number] Implanted:Qty: 1 on 01/20/2025 by Rishi Lainez MD at [facility] Stent N/A: Aorta [employer] [id number] 02/14/2027 [id number] 15 / [id number] / [employer] Stent Graft Endoprosthesis Reduced Profile Straight Heparin Coated Viabahn [id number] m [id number] - [id number] - [id number] Implanted:Qty: 1 on 01/20/2025 by Rishi Lainez MD at [facility] Stent Left: Renal [employer] [id number] 06/15/2027 [id number] 02A / [id number] / Marr Vascular System Closure Repair Femoral Artery Suture Mediated Perclose Prostyle 09657-44 - [id number] Implanted:Qty: 2 on 01/20/2025 by Rishi Lainez MD at [facility] Vascular Closure Device Right: Femoral [employer] [id number] 10/20/2026 60954-1 3 / / [id number] Description:X2 used same lot number Aaa Graft [...] CDT US KIDNEY COMPLETE IP Routine 01/29/2025 9: 20 AM CDT EGFR Routine 01/28/2025 8:49 PM [...] 9:51 PM CDT DIFFERENTIAL AUTO Routine 01/21/2025 9: 51 PM CDT BASIC METABOLIC PANEL Routine 01/21/2025 [...] DEVICE Routine 01/21/2025 3 :20 PM CDT SC ARTL CATHJ/CANNULJ MNTR/TRANSFUSION SPX PRQ Routine 01/21/2025 1:10 PM CDT Thoracoabdominal aortic aneurysm (TAAA) without rupture, unspecified part POCT GLUCOSE DEVICE Routine 01/21/2025 1 2:49 PM CDT SC AN PROCEDURE PLACEHOLDER Routine 01/21/2025 11:42 AM [...] LOW RANGE Routine 01/20/2025 10:32 AM CDT SC AN PROCEDURE PLACEHOLDER Routine 01/20/2025 10:05 AM CDT SC AN PROCEDURE PLACEHOLDER Routine 01/20/2025 10:04 AM CDT SC AN PROCEDURE PLACEHOLDER Routine 01/20/2025 10:03 AM CDT SC AN PROCEDURE PLACEHOLDER Routine 01/20/2025 10:02 AM CDT SC AN ELECTIVE ENDOTRACHEAL AIRWAY Routine 01/20/2025 10:02 AM CDT POCT ACTIVATED CLOTTING TIME, LOW RANGE Routine 01/20/2025 9:43 AM CDT PLACEMENT STENT - RENAL ARTERY - HYBRID ROOM 01/20/2025 8:40 AM CDT Thoracoabdominal aortic aneurysm (TAAA) without rupture, unspecified part Case Notes 3-28@856-time length changed per fabrizio -jw3/26- Emily called placed case in the depot [...] Read Routine (OP Routine) 12/22/2024 10:37 AM FILTER PLANT SUPERVISOR Aneurysm of descending thoracic aorta without rupture Encounter for pre-operative examination POCT CREATININE - DEVICE Routine 12/22/2024 10:07 AM FILTER PLANT SUPERVISOR from Last 3 Months Results * Potassium, whole blood (02/01/2025 8:50 PM CDT) Potassium, bld 4.6 3.3 - 4.9 mmol/L Blood 02/01/2025 8:50 PM CDT 02/01/2025 9:00 PM CDT us Chevy Bell NP LAB BLOOD ORDERABLES Final Result [facility] [address] [facility] Department of Laboratories [place], [place] [id number] * (ABNORMAL) eGFR (02/01/2025 8:50 PM CDT) [...] MD LAB BLOOD ORDERABLES Fin al Result [facility] [address] [facility] [place] [address] * (ABNORMAL) Differential, auto (02/01/2025 8:50 PM CDT) Neutrophil abs 7.56(H) 1.50 - 6.50 K/cumm Imm gran abs 0.12(H) 0.00 - 0.10 K/cumm [facility] Lymphocyte abs 0.91 0.80 - 3.30 K/cumm [facility] Monocyte abs 0.86(H) 0.20 - 0.80 K/cumm [facility] Eosinophil abs 0.54(H) 0.00 - 0.50 K/cumm [facility] Basophil abs 0.10 0.00 - 0.10 K/cumm [facility] Neutrophil pct 74.9 % [facility] Comment: Interpretive Data Percent cell count reference ranges are not reported, since discordance with absolute values may lead to misinterpretation of CBC data. Current Interpretive Data was last revised on 2018. Imm gran pct 1.2 % [facility] Comment: Interpretive Data Percent cell count reference ranges are not reported, since discordance with absolute values may lead to misinterpretation of CBC data. Current Interpretive Data was last revised on 2018. Lymphocyte pct 9.0 % [facility] Comment: Interpretive Data Percent cell count reference ranges are not reported, since discordance with absolute values may lead to misinterpretation of CBC data. Current Interpretive Data was last revised on 2018. Monocyte pct 8.5 % [facility] Comment: Interpretive Data Percent cell count reference ranges are not reported, since discordance with absolute values may lead to misinterpretation of CBC data. Current Interpretive Data was last revised on 2018. Eosinophil pct 5.4 % [facility] Comment: Interpretive Data Percent cell count reference ranges are not reported, since discordance with absolute values may lead to misinterpretation of CBC data. Current Interpretive Data was last revised on 2018. Basophil pct 1.0 % [facility] Comment: Interpretive Data Percent cell count reference ranges are not reported, since discordance with absolute values may lead to misinterpretation of CBC data. Current Interpretive Data was last revised on 2018. Blood 02/01/2025 8:50 PM CDT 02/01/2025 9:07 PM CDT us Rishi Lainez MD LAB BLOOD ORDERABLES Fin al Result [facility] [address] [facility] [place] [address] * (ABNORMAL) CBC with auto differential (02/01/2025 8:50 PM CDT) WBC 10.09(H) 3.80 - 9.90 K/cumm Hgb 9.2(L) 13.0 - 17.5 g/dL [facility] Hct 28.4(L) 38.9 - 50.3 % [facility] Plt 281 150 - 400 K/cumm [facility] MPV 9.6 9.1 - 12.3 fL [facility] RBC 2.93(L) 4.30 - 5.80 M/cumm [facility] MCV 96.9(H) 81.3 - 96.4 fL [facility] MCH 31.4 27.1 - 33.3 pg [facility] MCHC 32.4 32.3 - 35.7 g/dL [facility] RDW CV 15.1(H) 11.1 - 14.9 % [facility] RDW SD 54.0(H) 35.7 - 48.1 fL [facility] NRBC abs 0.00 0.00 - 0.01 K/cumm [facility] Blood 02/01/2025 8:50 PM CDT 02/01/2025 9:07 PM CDT Rishi Lainez MD LAB BLOOD ORDERABLES Fin al Result Performing Organization Address [facility] Co de Phone Number [facility] [place] [address] * (ABNORMAL) Phosphorus (02/01/2025 8:50 PM CDT) Pathologist [facility] Phosphorus, pl 5.4(H) 2.3 - 4.5 mg/dL Blood 02/01/2025 8:50 PM CDT 02/01/2025 9:07 PM CDT Rishi Lainez MD LAB BLOOD ORDERABLES Fin al Result Performing Organization Address [facility] de Phone Number [facility] [place] [address] * Magnesium (02/01/2025 8:50 PM CDT) [facility] Magnesium 2.4 1.4 - 2.5 mg/dL Blood 02/01/2025 8:50 PM CDT 02/01/2025 9:07 PM CDT Rishi Lainez MD LAB BLOOD ORDERABLES Fin al Result Performing Organization Address [facility] [place] [address] * (ABNORMAL) Basic metabolic panel (02/01/2025 8:50 PM CDT) Pathologist [facility] Sodium 135 135 - 145 mmol/L Potassium, pl 4.6 3.3 - 4.9 mmol/L [facility] Chloride 102 97 - 110 mmol/L [facility] CO2 19(L) 22 - 32 mmol/L [facility] Anion gap 14 2 - 15 mmol/L [facility] BUN 57(H) 6 - 25 mg/dL [facility] Creatinine 5.27(H) 0.80 - 1.30 mg/dL [facility] Glucose 129 70 - 199 mg/dL [facility] Comment: Interpretive Data Fasting glucose >/= [...] 2022. Calcium 8.7 8.5 - 10.3 mg/dL [facility] Blood 02/01/2025 8:50 PM CDT 02/01/2025 9:07 PM CDT Rishi Lainez MD LAB BLOOD ORDERABLES Fin al Result [facility] [place] [address] * Potassium, whole blood (01/31/2025 10:30 PM CDT) [facility] Potassium, bld 4.9 3.3 - 4.9 mmol/L Blood 01/31/2025 10:3 0 PM CDT 01/31/2025 10:46 PM CDT Chevy Bell NP LAB BLOOD ORDERABLES Final Result [facility] Department [place] [address] * (ABNORMAL) eGFR (01/31/2025 10:30 PM CDT) [facility] eGFR 11(L) >=60 mL/min/1. 73 m2 Comment: [...] us Rishi Lainez MD LAB BLOOD ORDERABLES [facility] al Result [facility] [address] [facility] [place] [address] * (ABNORMAL) Differential, auto (01/31/2025 10:30 PM CDT) [facility] Neutrophil abs 6.10 1.50 - 6.50 K/cumm Imm gran abs 0.14(H) 0.00 - 0.10 K/cumm [facility] Lymphocyte abs 1.22 0.80 - 3.30 K/cumm [facility] Monocyte abs 0.83(H) 0.20 - 0.80 K/cumm [facility] Eosinophil abs 0.64(H) 0.00 - 0.50 K/cumm [facility] Basophil abs 0.11(H) 0.00 - 0.10 K/cumm [facility] Neutrophil pct 67.5 % [facility] Comment: Interpretive Data Percent cell count reference ranges are not reported, since discordance with absolute values may lead to misinterpretation of CBC data. Current Interpretive Data was last revised on 2018. Imm gran pct 1.5 % [facility] Comment: Interpretive Data Percent cell count reference ranges are not reported, since discordance with absolute values may lead to misinterpretation of CBC data. Current Interpretive Data was last revised on 2018. Lymphocyte pct 13.5 % [facility] Comment: Interpretive Data Percent cell count reference ranges are not reported, since discordance with absolute values may lead to misinterpretation of CBC data. Current Interpretive Data was last revised on 2018. Monocyte pct 9.2 % [facility] Comment: Interpretive Data Percent cell count reference ranges are not reported, since discordance with absolute values may lead to misinterpretation of CBC data. Current Interpretive Data was last revised on 2018. Eosinophil pct 7.1 % [facility] Comment: Interpretive Data Percent cell count reference ranges are not reported, since discordance with absolute values may lead to misinterpretation of CBC data. Current Interpretive Data was last revised on 2018. Basophil pct 1.2 % [facility] Comment: Interpretive Data Percent cell count reference ranges are not reported, since discordance with absolute values may lead to misinterpretation of CBC data. Current Interpretive Data was last revised on 2018. Blood 01/31/2025 10:3 0 PM CDT 01/31/2025 10:49 PM CDT us Rishi Lainez MD LAB BLOOD ORDERABLES Fin al Result [facility] [place] [address] * (ABNORMAL) CBC with auto differential (01/31/2025 10:30 PM CDT) WBC 9.04 3.80 - 9.90 K/cumm Hgb 9.4(L) 13.0 - 17.5 g/dL [facility] Hct 29.0(L) 38.9 - 50.3 % [facility] Plt 277 150 - 400 K/cumm [facility] MPV 9.9 9.1 - 12.3 fL [facility] RBC 2.98(L) 4.30 - 5.80 M/cumm [facility] MCV 97.3(H) 81.3 - 96.4 fL [facility] MCH 31.5 27.1 - 33.3 pg [facility] MCHC 32.4 32.3 - 35.7 g/dL [facility] RDW CV 15.1(H) 11.1 - 14.9 % [facility] RDW SD 55.0(H) 35.7 - 48.1 fL [facility] NRBC abs 0.00 0.00 - 0.01 K/cumm [facility] Blood 01/31/2025 10:3 0 PM CDT 01/31/2025 10:49 PM CDT Rishi Lainez MD LAB BLOOD ORDERABLES Fin al Result Performing Organization Address City/[facility]/ZIP Co de Phone Number [facility] [place] [address] * (ABNORMAL) Phosphorus (01/31/2025 10:30 PM CDT) Pathologist [facility] Phosphorus, pl 5.8(H) 2.3 - 4.5 mg/dL Blood 01/31/2025 10:3 0 PM CDT 01/31/2025 10:49 PM CDT Rishi Lainez MD LAB BLOOD ORDERABLES Fin al Result [facility] [place] [address] * (ABNORMAL) Magnesium (01/31/2025 10:30 PM CDT) Magnesium 2.6(H) 1.4 - 2.5 mg/dL Blood 01/31/2025 10:3 0 PM CDT 01/31/2025 10:49 PM CDT Rishi Lainez MD LAB BLOOD ORDERABLES Fin al Result Performing Organization Address City/[facility]/ZIP Co de Phone Number [facility] [place] [address] * (ABNORMAL) Basic metabolic panel (01/31/2025 10:30 PM CDT) [facility] Sodium 141 135 - 145 mmol/L Potassium, pl 5.0(H) 3.3 - 4.9 mmol/L [facility] Chloride 108 97 - 110 mmol/L [facility] CO2 18(L) 22 - 32 mmol/L [facility] Anion gap 15 2 - 15 mmol/L [facility] BUN 57(H) 6 - 25 mg/dL [facility] Creatinine 5.22(H) 0.80 - 1.30 mg/dL [facility] Glucose 114 70 - 199 mg/dL [facility] Comment: Interpretive Data Fasting glucose >/= [...] 2022. Calcium 9.1 8.5 - 10.3 mg/dL [facility] Blood 01/31/2025 10:3 0 PM CDT 01/31/2025 10:49 PM CDT Rishi Lainez MD LAB BLOOD ORDERABLES Fin al Result Performing Organization Address [facility]/ZIP Co de Phone Number [facility] [place] [address] * Potassium, whole blood (01/30/2025 8:30 PM CDT) Potassium, bld 4.6 3.3 - 4.9 mmol/L Blood 01/30/2025 8:30 PM CDT 01/30/2025 8:53 PM CDT us Chevy Bell NP LAB BLOOD ORDERABLES Final Result Performing Organization Address [facility]/ZIP Co de Phone Number [facility] [place] [address] * (ABNORMAL) eGFR (01/30/2025 8:30 PM CDT) [...] ORDERABLES Fin al Result Performing Organization Address City/[facility]/ZIP Co de Phone Number [facility] [place] [address] * (ABNORMAL) Differential, auto (01/30/2025 8:30 PM CDT) Neutrophil abs 5.94 1.50 - 6.50 K/cumm Imm gran abs 0.09 0.00 - 0.10 K/cumm [facility] Lymphocyte abs 0.85 0.80 - 3.30 K/cumm [facility] Monocyte abs 0.92(H) 0.20 - 0.80 K/cumm [facility] Eosinophil abs 0.59(H) 0.00 - 0.50 K/cumm [facility] Basophil abs 0.10 0.00 - 0.10 K/cumm [facility] Neutrophil pct 70.0 % [facility] Comment: Interpretive Data Percent cell count reference ranges are not reported, since discordance with absolute values may lead to misinterpretation of CBC data. Current Interpretive Data was last revised on 2018. Imm gran pct 1.1 % [facility] Comment: Interpretive Data Percent cell count reference ranges are not reported, since discordance with absolute values may lead to misinterpretation of CBC data. Current Interpretive Data was last revised on 2018. Lymphocyte pct 10.0 % [facility] Comment: Interpretive Data Percent cell count reference ranges are not reported, since discordance with absolute values may lead to misinterpretation of CBC data. Current Interpretive Data was last revised on 2018. Monocyte pct 10.8 % [facility] Comment: Interpretive Data Percent cell count reference ranges are not reported, since discordance with absolute values may lead to misinterpretation of CBC data. Current Interpretive Data was last revised on 2018. Eosinophil pct 6.9 % [facility] Comment: Interpretive Data Percent cell count reference ranges are not reported, since discordance with absolute values may lead to misinterpretation of CBC data. Current Interpretive Data was last revised on 2018. Basophil pct 1.2 % [facility] Comment: Interpretive Data Percent cell count reference ranges are not reported, since discordance with absolute values may lead to misinterpretation of CBC data. Current Interpretive Data was last revised on 2018. Blood 01/30/2025 8:30 PM CDT 01/30/2025 8:58 PM CDT Rishi Lainez MD LAB BLOOD ORDERABLES Fin al Result Performing Organization Address [facility] de Phone Number [facility] Department [place] [address] * (ABNORMAL) CBC with auto differential (01/30/2025 8:30 PM CDT) Pathologist [facility] WBC 8.49 3.80 - 9.90 K/cumm Hgb 9.2(L) 13.0 - 17.5 g/dL [facility] Hct 28.5(L) 38.9 - 50.3 % [facility] Plt 220 150 - 400 K/cumm [facility] MPV 9.8 9.1 - 12.3 fL [facility] RBC 2.89(L) 4.30 - 5.80 M/cumm [facility] MCV 98.6(H) 81.3 - 96.4 fL [facility] MCH 31.8 27.1 - 33.3 pg [facility] MCHC 32.3 32.3 - 35.7 g/dL [facility] RDW CV 14.9 11.1 - 14.9 % [facility] RDW SD 54.5(H) 35.7 - 48.1 fL [facility] NRBC abs 0.00 0.00 - 0.01 K/cumm [facility] Blood 01/30/2025 8:30 PM CDT 01/30/2025 8:58 PM CDT Rishi Lainez MD LAB BLOOD ORDERABLES Fin al Result Performing Organization Address [facility]/ZIP Co de Phone Number [facility] [place], [place] [id number] * (ABNORMAL) Phosphorus (01/30/2025 8:30 PM CDT) Phosphorus, pl 5.6(H) 2.3 - 4.5 mg/dL Blood 01/30/2025 8:30 PM CDT 01/30/2025 8:58 PM CDT Rishi Lainez MD LAB BLOOD ORDERABLES Fin al Result Performing Organization Address City/[facility] Co de Phone Number [facility] [place] [address] * Magnesium (01/30/2025 8:30 PM CDT) [facility] Magnesium 2.5 1.4 - 2.5 mg/dL Blood 01/30/2025 8:30 PM CDT 01/30/2025 8:58 PM CDT Rishi Lainez MD LAB BLOOD ORDERABLES Fin al Result Performing Organization Address [facility] de Phone Number [facility] Department [place] [address] * (ABNORMAL) Basic metabolic panel (01/30/2025 8:30 PM CDT) [facility] Sodium 142 135 - 145 mmol/L Potassium, pl 4.9 3.3 - 4.9 mmol/L [facility] Chloride 111(H) 97 - 110 mmol/L [facility] CO2 19(L) 22 - 32 mmol/L [facility] Anion gap 12 2 - 15 mmol/L [facility] BUN 62(H) 6 - 25 mg/dL [facility] Creatinine 5.18(H) 0.80 - 1.30 mg/dL [facility] Glucose 132 70 - 199 mg/dL [facility] Comment: Interpretive Data Fasting glucose >/= [...] 2022. Calcium 8.6 8.5 - 10.3 mg/dL [facility] Blood 01/30/2025 8:30 PM CDT 01/30/2025 8:58 PM CDT Rishi Lainez MD LAB BLOOD ORDERABLES Fin al Result Performing Organization Address City/[facility]/ZIP Co de Phone Number [facility] [place] [address] * (ABNORMAL) Urinalysis reflex to microscopic and culture Urine (01/30/2025 12:11 PM CDT) Color, ur Straw Yellow Clarity, ur Clear Clear [facility] Specific gravity, ur 1.015 1.003 - 1.[address] [facility] pH, urine 6.5 [facility] Comment: Interpretive Data U rine pH is affected by diet, medications, systemic acid-base disturbances, and renal tubular function. pH may affect urinary stone formation. For example, urine pH below 6.0 may help reduce the tendency for calcium phosphate stones and pH greater than 6.0 may reduce the tendency for uric acid stone formation. Source: [facility] Current Interpretive Data was last revised on 2017 Protein, ur ql 2+(A) Negative [facility] Glucose, ur ql 1+(A) Negative [facility] Ketones, ur Negative Negative [facility] Bilirubin, ur Negative Negative [facility] Blood, ur 1+(A) Negative [facility] Urobilinogen, ur <2.0 <2.0 mg/dL [facility] Nitrite, ur Negative Negative [facility] Leukocyte esterase, ur 2+(A) Negative [facility] UA reflex comment Reflex to microscopic UA will be performed. [facility] Urine 01/30/2025 12:1 1 PM CDT 01/30/2025 1:18 PM CDT Rishi Lainez MD LAB MICROBIOLOGY - GENER AL ORDERABLES Final Result Performing Organization Address [facility] Co de Phone Number [facility] [place] [address] * (ABNORMAL) Urinalysis, microscopic only (01/30/2025 12:11 PM CDT) WBC, ur >50(A) 0 - 5 /HPF RBC, ur 0-2 0 - 2 /HPF [facility] Bacteria, ur Trace(A) [facility] Yeast, ur 4+(A) [facility] Mucous, ur Present(A) [facility] Hyaline casts, ur 1-5 0 - 10 /LPF [facility] Culture Reflex Comment Reflex to urine culture will be performed. [facility] Urine 01/30/2025 12:1 1 PM CDT 01/30/2025 1:18 PM CDT Rishi Lainez MD LAB URINE ORDERABLES Fin al Result Performing Organization Address [facility] Co de Phone Number [facility] [place] [address] * (ABNORMAL) Urine culture Urine (01/30/2025 12:11 PM CDT) Report Final Report: Greater than or equal to 100,000 colonies/mL of Vishal glabrata (.) Organism VISHAL GLABRATA [facility] Urine 01/30/2025 12:1 1 PM CDT 01/30/2025 2:37 PM CDT Narrative [facility] - 02/01/2025 6:15 AM CDT Urine culture reflexed based upon urinalysis results. Testing performed by [facility] ([phone]) Rishi Lainez MD LAB MICROBIOLOGY - GENER AL ORDERABLES Final Result Performing Organization Address City/[facility]/ZIP Co de Phone Number [facility] [place] [address] * US Renal Limited W Complete Renal [...] it. Electronically signed by: Bernice Garcia M.D. us Rishi Lainez MD IMG US PROCEDURES Final Result * (ABNORMAL) Potassium, whole blood (01/29/2025 10:33 PM CDT) [facility] Potassium, bld 5.0(H) 3.3 - 4.9 mmol/L Blood 01/29/2025 10:3 3 PM CDT 01/29/2025 10:46 PM CDT us Chevy Bell NP LAB BLOOD ORDERABLES Final Result [facility] [place] [address] * (ABNORMAL) eGFR (01/29/2025 10:33 PM CDT) [facility] eGFR 11(L) >=60 mL/min/1. 73 m2 Comment: [...] MD LAB BLOOD ORDERABLES Fin al Result [facility] [place] [address] * (ABNORMAL) Differential, auto (01/29/2025 10:33 PM CDT) Neutrophil abs 6.06 1.50 - 6.50 K/cumm Imm gran abs 0.12(H) 0.00 - 0.10 K/cumm [facility] Lymphocyte abs 1.15 0.80 - 3.30 K/cumm [facility] Monocyte abs 0.97(H) 0.20 - 0.80 K/cumm [facility] Eosinophil abs 0.67(H) 0.00 - 0.50 K/cumm [facility] Basophil abs 0.12(H) 0.00 - 0.10 K/cumm [facility] Neutrophil pct 66.6 % [facility] Comment: Interpretive Data Percent cell count reference ranges are not reported, since discordance with absolute values may lead to misinterpretation of CBC data. Current Interpretive Data was last revised on 2018. Imm gran pct 1.3 % [facility] Comment: Interpretive Data Percent cell count reference ranges are not reported, since discordance with absolute values may lead to misinterpretation of CBC data. Current Interpretive Data was last revised on 2018. Lymphocyte pct 12.7 % [facility] Comment: Interpretive Data Percent cell count reference ranges are not reported, since discordance with absolute values may lead to misinterpretation of CBC data. Current Interpretive Data was last revised on 2018. Monocyte pct 10.7 % [facility] Comment: Interpretive Data Percent cell count reference ranges are not reported, since discordance with absolute values may lead to misinterpretation of CBC data. Current Interpretive Data was last revised on 2018. Eosinophil pct 7.4 % [facility] Comment: Interpretive Data Percent cell count reference ranges are not reported, since discordance with absolute values may lead to misinterpretation of CBC data. Current Interpretive Data was last revised on 2018. Basophil pct 1.3 % [facility] Comment: Interpretive Data Percent cell count reference ranges are not reported, since discordance with absolute values may lead to misinterpretation of CBC data. Current Interpretive Data was last revised on 2018. Blood 01/29/2025 10:3 3 PM CDT 01/29/2025 10:48 PM CDT Rishi Lainez MD LAB BLOOD ORDERABLES Fin al Result Performing Organization Address City/[facility]/ZIP Co de Phone Number [facility] [address] * C4 complement (01/29/2025 10:33 PM CDT) Complement C4 29.7 10.0 - 40.0 mg/dL Blood 01/29/2025 10:3 3 PM CDT 01/29/2025 10:48 PM CDT Chevy Bell NP LAB BLOOD ORDERABLES Final Result [facility] [place] [address] * (ABNORMAL) CBC with auto differential (01/29/2025 10:33 PM CDT) WBC 9.09 3.80 - 9.90 K/cumm Hgb 9.7(L) 13.0 - 17.5 g/dL [facility] Hct 29.9(L) 38.9 - 50.3 % [facility] Plt 229 150 - 400 K/cumm [facility] MPV 10.0 9.1 - 12.3 fL [facility] RBC 3.10(L) 4.30 - 5.80 M/cumm [facility] MCV 96.5(H) 81.3 - 96.4 fL [facility] MCH 31.3 27.1 - 33.3 pg [facility] MCHC 32.4 32.3 - 35.7 g/dL [facility] RDW CV 15.1(H) 11.1 - 14.9 % [facility] RDW SD 52.6(H) 35.7 - 48.1 fL [facility] NRBC abs 0.00 0.00 - 0.01 K/cumm [facility] Blood 01/29/2025 10:3 3 PM CDT 01/29/2025 10:48 PM CDT Rishi Lainez MD LAB BLOOD ORDERABLES Fin al Result Performing Organization Address City/[facility] Co de Phone Number [facility] [place] [address] * C3 complement (01/29/2025 10:33 PM CDT) [facility] Complement C3 168.0 90.0 - 180.0 mg/dL Blood 01/29/2025 10:3 3 PM CDT 01/29/2025 10:48 PM CDT Chevy Bell NP LAB BLOOD ORDERABLES Final Result [facility] [place] [address] * (ABNORMAL) Phosphorus (01/29/2025 10:33 PM CDT) Phosphorus, pl 5.5(H) 2.3 - 4.5 mg/dL Blood 01/29/2025 10:3 3 PM CDT 01/29/2025 10:48 PM CDT Rihsi Lainez MD LAB BLOOD ORDERABLES Fin al Result Performing Organization Address City/[facility]/ZIP Co de Phone Number [facility] [place] [address] * (ABNORMAL) Magnesium (01/29/2025 10:33 PM CDT) [facility] Magnesium 2.6(H) 1.4 - 2.5 mg/dL Blood 01/29/2025 10:3 3 PM CDT 01/29/2025 10:48 PM CDT Rishi Lainez MD LAB BLOOD ORDERABLES Fin al Result Performing Organization Address [facility] de Phone Number [facility] [place] [address] * (ABNORMAL) Basic metabolic panel (01/29/2025 10:33 PM CDT) Pathologist [facility] Sodium 138 135 - 145 mmol/L Potassium, pl 5.2(H) 3.3 - 4.9 mmol/L [facility] Chloride 106 97 - 110 mmol/L [facility] CO2 19(L) 22 - 32 mmol/L [facility] Anion gap 13 2 - 15 mmol/L [facility] BUN 68(H) 6 - 25 mg/dL [facility] Creatinine 5.18(H) 0.80 - 1.30 mg/dL [facility] Glucose 107 70 - 199 mg/dL [facility] Comment: Interpretive Data Fasting glucose >/= [...] Calcium 8.8 8.5 - 10.3 mg/dL [facility] Blood 01/29/2025 10:3 3 PM CDT 01/29/2025 10:48 PM CDT us Rishi Lainez MD LAB BLOOD ORDERABLES Fin al Result [facility] [place] [address] * US Vein Mapping Fistula Access, Bilateral (01/29/2025 3:07 PM CDT) Anatomical Region Laterality Modality Vascular Bilateral Ultrasound 01/29/2025 2:17 PM CDT Narrative 01/30/2025 10:37 AM CDT [facility] - Department of Vascular Surgery, Vascular Laboratory [address] [place] [id number] Upper Extremity Vein Mapping Report Patient Name: AVERY VICK WILLIAM : 1955 (69y 10m) Study Date: 01/29/2025 2:17:51 PM Gender: M Card Processing Clerk: LORELEI Location: [id number] Ref Provider: CHEVY BELL Quality: Adequate Order [...] Value Units Left Value Units FINDINGS: Performing Card Processing Clerk: Agnieszka Rivera RVT. Bilateral: Venous Doppler signals [...] Procedure Note Josias Salas MD - 01/30/2025 [facility] - Department of Vascular Surgery,Vascular Laboratory [address] [place] [address] Upper Extremity Vein Mapping Report Patient Name: AVERY VICK WILLIAM : 1955 (69y 10m) Study Date: 01/29/2025 2:17:51 PM Gender: M Card Processing Clerk: LORELEI Location: [id number] Ref Provider: CHEVY BELL Quality: Adequate Order [...] Value Units Left Value Units FINDINGS: Performing Card Processing Clerk: Agnieszka Rivera RVT. Bilateral: Venous Doppler signals [...] called on the above date to Chevy Livingston 3:07 pm. CONCLUSIONS: 1. incidentally noted: the [...] above. Electronically Signed By: Josias Salas MD [facility] 01/30/2025 10:14:12 AM CDT Chevy Blel NP IMG US PROCEDURES Final Res ult * Urea nitrogen, urine, random (01/29/2025 11:07 AM CDT) Urea nitrogen, ur 369 mg/dL Comment: Interpretive Data No reference range established. Current interpretive data was last revised 2019. Urine 01/29/2025 11:0 7 AM CDT 01/29/2025 11:19 AM CDT Chevy Bell NP LAB URINE ORDERABLES Final Result [facility] [place] [address] * (ABNORMAL) Protein / creatinine ratio, urine, random (01/29/2025 11:07 AM CDT) Protein, ur, quant 57.4 mg/dL Comment: Interpretive Data No reference range established. Current interpretive data was last revised 2019. Creatinine Ur 44.2 mg/dL [facility] Comment: Interpretive Data No reference range established. Current interpretive data was last revised 2019. Protein/creatinin e ratio 1,298.6(H ) 0.0 - 180.0 mg/g CR [facility] Urine 01/29/2025 11:0 7 AM CDT 01/29/2025 11:19 AM CDT Chevy Bell NP LAB URINE ORDERABLES Final Result Performing Organization Address City/[facility]/ZIP Co de Phone Number [facility] [place] [address] * Sodium, urine, random (01/29/2025 11:07 AM CDT) Sodium, ur 86 mmol/L Comment: Interpretive Data No reference range established. Current interpretive data was last revised 2019. Urine 01/29/2025 11:0 7 AM CDT 01/29/2025 11:19 AM CDT Chevy Bell NP LAB URINE ORDERABLES Final Result Performing Organization Address City/State/[facility] Co de Phone Number [facility] [place] [address] * Creatinine, urine, random (01/29/2025 11:07 AM CDT) Creatinine Ur 44.2 mg/dL Comment: Interpretive Data No reference range established. Current interpretive data was last revised 2019. Urine 01/29/2025 11:0 7 AM CDT 01/29/2025 11:19 AM CDT Chevy Bell NP LAB URINE ORDERABLES Final Result Performing Organization Address [facility] Co de Phone Number [facility] [place] [address] * (ABNORMAL) Potassium, whole blood (01/29/2025 10:12 AM CDT) Potassium, bld 5.1(H) 3.3 - 4.9 mmol/L Blood 01/29/2025 10:1 2 AM CDT 01/29/2025 10:22 AM CDT Rishi Lainez MD LAB BLOOD ORDERABLES Fin al Result Performing Organization Address [facility] de Phone Number [facility] [facility] [place] [address] * US Kidney Complete (01/29/2025 9:20 AM [...] by: Gabrielle Milian M.D. us Chevy Bell NP IMG US PROCEDURES Final Res ult * (ABNORMAL) Potassium, whole blood (01/28/2025 8:49 PM CDT) Potassium, bld 5.1(H) 3.3 - 4.9 mmol/L Blood 01/28/2025 8:49 PM CDT 01/28/2025 8:59 PM CDT Rishi Lainez MD LAB BLOOD ORDERABLES Fin al Result Performing Organization Address City/[facility] de Phone Number LUCILA SORENSEN [facility] [place] [address] * (ABNORMAL) eGFR (01/28/2025 8:49 PM CDT) eGFR 12(L) >=60 mL/min/1. 73 [...] ORDERABLES Fin al Result Performing Organization Address City/[facility]/ZIP Co de Phone Number LUCILA SORENSEN [facility] [place] [address] * (ABNORMAL) Differential, auto (01/28/2025 8:49 PM CDT) Neutrophil abs 6.76(H) 1.50 - 6.50 K/cumm Imm gran abs 0.10 0.00 - 0.10 K/cumm [facility] Lymphocyte abs 1.15 0.80 - 3.30 K/cumm [facility] Monocyte abs 1.02(H) 0.20 - 0.80 K/cumm [facility] Eosinophil abs 0.62(H) 0.00 - 0.50 K/cumm [facility] Basophil abs 0.09 0.00 - 0.10 K/cumm [facility] Neutrophil pct 69.4 % [facility] Comment: Interpretive Data Percent cell count reference ranges are not reported, since discordance with absolute values may lead to misinterpretation of CBC data. Current Interpretive Data was last revised on 2018. Imm gran pct 1.0 % [facility] Comment: Interpretive Data Percent cell count reference ranges are not reported, since discordance with absolute values may lead to misinterpretation of CBC data. Current Interpretive Data was last revised on 2018. Lymphocyte pct 11.8 % [facility] Comment: Interpretive Data Percent cell count reference ranges are not reported, since discordance with absolute values may lead to misinterpretation of CBC data. Current Interpretive Data was last revised on 2018. Monocyte pct 10.5 % [facility] Comment: Interpretive Data Percent cell count reference ranges are not reported, since discordance with absolute values may lead to misinterpretation of CBC data. Current Interpretive Data was last revised on 2018. Eosinophil pct 6.4 % [facility] Comment: Interpretive Data Percent cell count reference ranges are not reported, since discordance with absolute values may lead to misinterpretation of CBC data. Current Interpretive Data was last revised on 2018. Basophil pct 0.9 % [facility] Comment: Interpretive Data Percent cell count reference ranges are not reported, since discordance with absolute values may lead to misinterpretation of CBC data. Current Interpretive Data was last revised on 2018. Blood 01/28/2025 8:49 PM CDT 01/28/2025 9:05 PM CDT us Rishi Lainez MD LAB BLOOD ORDERABLES Fin al Result [facility] [place] [address] * (ABNORMAL) CBC with auto differential (01/28/2025 8:49 PM CDT) [facility] WBC 9.74 3.80 - 9.90 K/cumm Hgb 9.3(L) 13.0 - 17.5 g/dL [facility] Hct 28.4(L) 38.9 - 50.3 % [facility] Plt 181 150 - 400 K/cumm [facility] MPV 10.1 9.1 - 12.3 fL [facility] RBC 2.96(L) 4.30 - 5.80 M/cumm [facility] MCV 95.9 81.3 - 96.4 fL [facility] MCH 31.4 27.1 - 33.3 pg [facility] MCHC 32.7 32.3 - 35.7 g/dL [facility] RDW CV 15.2(H) 11.1 - 14.9 % [facility] RDW SD 53.8(H) 35.7 - 48.1 fL [facility] NRBC abs 0.00 0.00 - 0.01 K/cumm [facility] Blood 01/28/2025 8:49 PM CDT 01/28/2025 9:05 PM CDT Rishi Lainez MD LAB BLOOD ORDERABLES Fin al Result Performing Organization Address [facility] de Phone Number [facility] [place] [address] * (ABNORMAL) Phosphorus (01/28/2025 8:49 PM CDT) [facility] Phosphorus, pl 5.2(H) 2.3 - 4.5 mg/dL Blood 01/28/2025 8:49 PM CDT 01/28/2025 9:05 PM CDT Rishi Lainez MD LAB BLOOD ORDERABLES Fin al Result Performing Organization Address City/[facility] Co de Phone Number [facility] [place] [address] * (ABNORMAL) Magnesium (01/28/2025 8:49 PM CDT) Magnesium 2.7(H) 1.4 - 2.5 mg/dL Blood 01/28/2025 8:49 PM CDT 01/28/2025 9:05 PM CDT Rishi Lainez MD LAB BLOOD ORDERABLES Fin al Result [facility] [place] [address] * (ABNORMAL) Basic metabolic panel (01/28/2025 8:49 PM CDT) Pathologist [facility] Sodium 139 135 - 145 mmol/L Potassium, pl 5.4(H) 3.3 - 4.9 mmol/L [facility] Chloride 108 97 - 110 mmol/L [facility] CO2 18(L) 22 - 32 mmol/L [facility] Anion gap 13 2 - 15 mmol/L [facility] BUN 69(H) 6 - 25 mg/dL [facility] Creatinine 4.94(H) 0.80 - 1.30 mg/dL [facility] Glucose 103 70 - 199 mg/dL [facility] Comment: Interpretive Data Fasting glucose >/= [...] 2022. Calcium 8.7 8.5 - 10.3 mg/dL [facility] Blood 01/28/2025 8:49 PM CDT 01/28/2025 9:05 PM CDT us Rishi Lainez MD LAB BLOOD ORDERABLES Fin al Result Performing Organization Address City/[facility] Co de Phone Number [facility] [place] [address] * (ABNORMAL) eGFR (01/28/2025 2:54 PM CDT) eGFR 12(L) >=60 mL/min/1. 73 [...] BLOOD ORDERABLES Final Result Performing Organization Address City/[facility]/ZIP Co de Phone Number [facility] [place] [address] * (ABNORMAL) Basic metabolic panel (01/28/2025 2:54 PM CDT) Sodium 138 135 - 145 mmol/L Potassium, pl 5.3(H) 3.3 - 4.9 mmol/L [facility] Chloride 105 97 - 110 mmol/L [facility] CO2 19(L) 22 - 32 mmol/L [facility] Anion gap 14 2 - 15 mmol/L [facility] BUN 67(H) 6 - 25 mg/dL [facility] Creatinine 4.91(H) 0.80 - 1.30 mg/dL [facility] Glucose 105 70 - 199 mg/dL [facility] Comment: Interpretive Data Fasting glucose >/= [...] 2022. Calcium 8.8 8.5 - 10.3 mg/dL [facility] Blood 01/28/2025 2:54 PM CDT 01/28/2025 3:13 PM CDT us Chevy Bell NP LAB BLOOD ORDERABLES Final Result [facility] [place] [address] * (ABNORMAL) Potassium, whole blood (01/28/2025 5:09 AM CDT) Pathologist [facility] Potassium, bld 5.1(H) 3.3 - 4.9 mmol/L Blood 01/28/2025 5:09 AM CDT 01/28/2025 5:19 AM CDT us Rishi Lainez MD LAB BLOOD ORDERABLES Fin al Result [facility] [place] [address] * ECG 12 lead (01/28/2025 12:21 AM CDT) [facility] Ventricular Rate EKG/Min 74 BPM [facility] Atrial Rate 74 BPM [facility] SC-Interval (MSEC) 192 ms [facility] QRS-Interval (MSEC) 106 ms [facility] QT-Interval (MSEC) 378 ms [facility] QTc 419 ms [facility] P Simla 42 degrees [facility] R Simla -53 degrees [facility] T Simla 50 degrees [facility] Diagnosis Normal sinus rhythm Left anterior fascicular block Abnormal ECG When compared with ECG of 01-JUN-2024 10:25, No significant change was found Confirmed by Vinny Jolly MD ([id number]) on 01/29/2025 8:41:01 AM [facility] 01/28/2025 12:2 1 AM CDT 01/29/2025 8:41 AM CDT Rishi Lainez MD ECG ORDERABLES Final Re sult Performing Organization Address City/[facility]/ZIP Co de Phone Number [facility] * (ABNORMAL) Potassium, whole blood (01/28/2025 12:08 AM CDT) [facility] Potassium, bld 5.2(H) 3.3 - 4.9 mmol/L Blood 01/28/2025 12:0 8 AM CDT 01/28/2025 12:22 AM CDT Rishi Lainez MD LAB BLOOD ORDERABLES Fin al Result [facility] Department [place] [address] * (ABNORMAL) eGFR (01/27/2025 10:32 PM CDT) [facility] eGFR 12(L) >=60 mL/min/1. 73 m2 Comment: [...] MD LAB BLOOD ORDERABLES Fin al Result [facility] [place] [address] * (ABNORMAL) Differential, auto (01/27/2025 10:32 PM CDT) Pathologist [facility] Neutrophil abs 6.24 1.50 - 6.50 K/cumm Imm gran abs 0.06 0.00 - 0.10 K/cumm [facility] Lymphocyte abs 1.13 0.80 - 3.30 K/cumm [facility] Monocyte abs 1.04(H) 0.20 - 0.80 K/cumm [facility] Eosinophil abs 0.52(H) 0.00 - 0.50 K/cumm [facility] Basophil abs 0.07 0.00 - 0.10 K/cumm [facility] Neutrophil pct 68.8 % [facility] Comment: Interpretive Data Percent cell count reference ranges are not reported, since discordance with absolute values may lead to misinterpretation of CBC data. Current Interpretive Data was last revised on 2018. Imm gran pct 0.7 % [facility] Comment: Interpretive Data Percent cell count reference ranges are not reported, since discordance with absolute values may lead to misinterpretation of CBC data. Current Interpretive Data was last revised on 2018. Lymphocyte pct 12.5 % [facility] Comment: Interpretive Data Percent cell count reference ranges are not reported, since discordance with absolute values may lead to misinterpretation of CBC data. Current Interpretive Data was last revised on 2018. Monocyte pct 11.5 % [facility] Comment: Interpretive Data Percent cell count reference ranges are not reported, since discordance with absolute values may lead to misinterpretation of CBC data. Current Interpretive Data was last revised on 2018. Eosinophil pct 5.7 % [facility] Comment: Interpretive Data Percent cell count reference ranges are not reported, since discordance with absolute values may lead to misinterpretation of CBC data. Current Interpretive Data was last revised on 2018. Basophil pct 0.8 % [facility] Comment: Interpretive Data Percent cell count reference ranges are not reported, since discordance with absolute values may lead to misinterpretation of CBC data. Current Interpretive Data was last revised on 2018. Blood 01/27/2025 10:3 2 PM CDT 01/27/2025 10:55 PM CDT us Rishi Lainez MD LAB BLOOD ORDERABLES Fin al Result [facility] [place] [address] * (ABNORMAL) CBC with auto differential (01/27/2025 10:32 PM CDT) WBC 9.06 3.80 - 9.90 K/cumm Hgb 9.3(L) 13.0 - 17.5 g/dL [facility] Hct 29.5(L) 38.9 - 50.3 % [facility] Plt 165 150 - 400 K/cumm [facility] MPV 10.5 9.1 - 12.3 fL [facility] RBC 3.13(L) 4.30 - 5.80 M/cumm [facility] MCV 94.2 81.3 - 96.4 fL [facility] MCH 29.7 27.1 - 33.3 pg [facility] MCHC 31.5(L) 32.3 - 35.7 g/dL [facility] RDW CV 15.2(H) 11.1 - 14.9 % [facility] RDW SD 52.9(H) 35.7 - 48.1 fL [facility] NRBC abs 0.00 0.00 - 0.01 K/cumm [facility] Blood 01/27/2025 10:3 2 PM CDT 01/27/2025 10:55 PM CDT Rishi Lainez MD LAB BLOOD ORDERABLES Fin al Result Performing Organization Address City/[facility] Co de Phone Number [facility] [place] [address] * (ABNORMAL) Phosphorus (01/27/2025 10:32 PM CDT) Phosphorus, pl 5.6(H) 2.3 - 4.5 mg/dL Blood 01/27/2025 10:3 2 PM CDT 01/27/2025 10:53 PM CDT Result [facility] Rishi Lainez MD LAB BLOOD ORDERABLES Fin al Result Performing Organization Address [facility] Co de Phone Number [facility] [place] [address] * (ABNORMAL) Magnesium (01/27/2025 10:32 PM CDT) Magnesium 2.6(H) 1.4 - 2.5 mg/dL Blood 01/27/2025 10:3 2 PM CDT 01/27/2025 10:53 PM CDT Rishi Lainez MD LAB BLOOD ORDERABLES Fin al Result Performing Organization Address City/[facility] Co de Phone Number [facility] [place] [address] * (ABNORMAL) Basic metabolic panel (01/27/2025 10:32 PM CDT) Pathologist [facility] Sodium 134(L) 135 - 145 mmol/L Potassium, pl 5.5(H) 3.3 - 4.9 mmol/L [facility] Chloride 105 97 - 110 mmol/L [facility] CO2 18(L) 22 - 32 mmol/L [facility] Anion gap 11 2 - 15 mmol/L [facility] BUN 65(H) 6 - 25 mg/dL [facility] Creatinine 4.85(H) 0.80 - 1.30 mg/dL [facility] Glucose 95 70 - 199 mg/dL [facility] Comment: Interpretive Data Fasting glucose >/= [...] 2022. Calcium 8.9 8.5 - 10.3 mg/dL [facility] Blood 01/27/2025 10:3 2 PM CDT 01/27/2025 10:53 PM CDT Rishi Lainez MD LAB BLOOD ORDERABLES Fin al Result [facility] [place] [address] * (ABNORMAL) Potassium, whole blood (01/27/2025 5:35 AM CDT) Pathologist [facility] Potassium, bld 5.2(H) 3.3 - 4.9 mmol/L Blood 01/27/2025 5:35 AM CDT 01/27/2025 5:44 AM CDT Rishi Lainez MD LAB BLOOD ORDERABLES Fin al Result Performing Organization Address City/[facility] de Phone Number LUCILA SORENSEN [facility] [place] [address] * (ABNORMAL) eGFR (01/27/2025 3:57 AM CDT) eGFR 13(L) >=60 mL/min/1. 73 m2 Comment: [...] ORDERABLES Fin al Result Performing Organization Address City/[facility]/ZIP Co de Phone Number LUCILA SORENSEN [facility] [place] [address] * (ABNORMAL) Differential, auto (01/27/2025 3:57 AM CDT) Neutrophil abs 7.22(H) 1.50 - 6.50 K/cumm Imm gran abs 0.08 0.00 - 0.10 K/cumm [facility] Lymphocyte abs 0.91 0.80 - 3.30 K/cumm [facility] Monocyte abs 1.09(H) 0.20 - 0.80 K/cumm [facility] Eosinophil abs 0.63(H) 0.00 - 0.50 K/cumm [facility] Basophil abs 0.08 0.00 - 0.10 K/cumm [facility] Neutrophil pct 72.1 % [facility] Comment: Interpretive Data Percent cell count reference ranges are not reported, since discordance with absolute values may lead to misinterpretation of CBC data. Current Interpretive Data was last revised on 2018. Imm gran pct 0.8 % [facility] Comment: Interpretive Data Percent cell count reference ranges are not reported, since discordance with absolute values may lead to misinterpretation of CBC data. Current Interpretive Data was last revised on 2018. Lymphocyte pct 9.1 % [facility] Comment: Interpretive Data Percent cell count reference ranges are not reported, since discordance with absolute values may lead to misinterpretation of CBC data. Current Interpretive Data was last revised on 2018. Monocyte pct 10.9 % [facility] Comment: Interpretive Data Percent cell count reference ranges are not reported, since discordance with absolute values may lead to misinterpretation of CBC data. Current Interpretive Data was last revised on 2018. Eosinophil pct 6.3 % [facility] Comment: Interpretive Data Percent cell count reference ranges are not reported, since discordance with absolute values may lead to misinterpretation of CBC data. Current Interpretive Data was last revised on 2018. Basophil pct 0.8 % [facility] Comment: Interpretive Data Percent cell count reference ranges are not reported, since discordance with absolute values may lead to misinterpretation of CBC data. Current Interpretive Data was last revised on 2018. Blood 01/27/2025 3:57 AM CDT 01/27/2025 4:46 AM CDT us Rishi Lainez MD LAB BLOOD ORDERABLES Fin al Result [facility] [place] [address] * (ABNORMAL) CBC with auto differential (01/27/2025 3:57 AM CDT) WBC 10.01(H) 3.80 - 9.90 K/cumm Hgb 9.8(L) 13.0 - 17.5 g/dL [facility] Hct 29.3(L) 38.9 - 50.3 % [facility] Plt 144(L) 150 - 400 K/cumm [facility] MPV 10.8 9.1 - 12.3 fL [facility] RBC 3.09(L) 4.30 - 5.80 M/cumm [facility] MCV 94.8 81.3 - 96.4 fL [facility] MCH 31.7 27.1 - 33.3 pg [facility] MCHC 33.4 32.3 - 35.7 g/dL [facility] RDW CV 15.3(H) 11.1 - 14.9 % [facility] RDW SD 53.5(H) 35.7 - 48.1 fL [facility] NRBC abs 0.00 0.00 - 0.01 K/cumm [facility] Blood 01/27/2025 3:57 AM CDT 01/27/2025 4:46 AM CDT Rishi Lainez MD LAB BLOOD ORDERABLES Fin al Result Performing Organization Address [facility]/ZIP Co de Phone Number [facility] [place] [address] * (ABNORMAL) Phosphorus (01/27/2025 3:57 AM CDT) Pathologist [facility] Phosphorus, pl 4.8(H) 2.3 - 4.5 mg/dL Blood 01/27/2025 3:57 AM CDT 01/27/2025 5:19 AM CDT Rishi Lainez MD LAB BLOOD ORDERABLES Fin al Result Performing Organization Address City/State/[facility] Co de Phone Number [facility] [place] [address] * Magnesium (01/27/2025 3:57 AM CDT) [facility] Magnesium 2.5 1.4 - 2.5 mg/dL Blood 01/27/2025 3:57 AM CDT 01/27/2025 5:19 AM CDT Rishi Lainez MD LAB BLOOD ORDERABLES Fin al Result [facility] [place] [address] * (ABNORMAL) Basic metabolic panel (01/27/2025 3:57 AM CDT) [facility] Sodium 136 135 - 145 mmol/L Potassium, pl 5.4(H) 3.3 - 4.9 mmol/L [facility] Chloride 106 97 - 110 mmol/L [facility] CO2 18(L) 22 - 32 mmol/L [facility] Anion gap 12 2 - 15 mmol/L [facility] BUN 63(H) 6 - 25 mg/dL [facility] Creatinine 4.57(H) 0.80 - 1.30 mg/dL [facility] Glucose 102 70 - 199 mg/dL [facility] Comment: Interpretive Data Fasting glucose >/= [...] 2022. Calcium 9.2 8.5 - 10.3 mg/dL [facility] Blood 01/27/2025 3:57 AM CDT 01/27/2025 5:19 AM CDT us Rishi Lainez MD LAB BLOOD ORDERABLES Fin al Result [facility] [place] [address] * Critical Care (01/26/2025 8:20 AM CDT) [...] plan with the ICU team and other medical/incident response consultant staff, making frequent assessments and decisions [...] plan with the ICU team and other medical/incident response consultant staff, making frequent assessments and decisions [...] * (ABNORMAL) eGFR (01/25/2025 8:49 PM CDT) [facility] eGFR 14(L) >=60 mL/min/1. 73 m2 Comment: [...] MD LAB BLOOD ORDERABLES Fin al Result [facility] [place] [address] * (ABNORMAL) Differential, auto (01/25/2025 8:49 PM CDT) Neutrophil abs 6.62(H) 1.50 - 6.50 K/cumm Imm gran abs 0.06 0.00 - 0.10 K/cumm [facility] Lymphocyte abs 0.81 0.80 - 3.30 K/cumm [facility] Monocyte abs 0.99(H) 0.20 - 0.80 K/cumm [facility] Eosinophil abs 0.48 0.00 - 0.50 K/cumm [facility] Basophil abs 0.07 0.00 - 0.10 K/cumm [facility] Neutrophil pct 73.2 % [facility] Comment: Interpretive Data Percent cell count reference ranges are not reported, since discordance with absolute values may lead to misinterpretation of CBC data. Current Interpretive Data was last revised on 2018. Imm gran pct 0.7 % [facility] Comment: Interpretive Data Percent cell count reference ranges are not reported, since discordance with absolute values may lead to misinterpretation of CBC data. Current Interpretive Data was last revised on 2018. Lymphocyte pct 9.0 % [facility] Comment: Interpretive Data Percent cell count reference ranges are not reported, since discordance with absolute values may lead to misinterpretation of CBC data. Current Interpretive Data was last revised on 2018. Monocyte pct 11.0 % [facility] Comment: Interpretive Data Percent cell count reference ranges are not reported, since discordance with absolute values may lead to misinterpretation of CBC data. Current Interpretive Data was last revised on 2018. Eosinophil pct 5.3 % [facility] Comment: Interpretive Data Percent cell count reference ranges are not reported, since discordance with absolute values may lead to misinterpretation of CBC data. Current Interpretive Data was last revised on 2018. Basophil pct 0.8 % [facility] Comment: Interpretive Data Percent cell count reference ranges are not reported, since discordance with absolute values may lead to misinterpretation of CBC data. Current Interpretive Data was last revised on 2018. Blood 01/25/2025 8:49 PM CDT 01/25/2025 9:05 PM CDT us Rishi Lainez MD LAB BLOOD ORDERABLES Fin al Result [facility] [place] [address] * (ABNORMAL) CBC with auto differential (01/25/2025 8:49 PM CDT) WBC 9.03 3.80 - 9.90 K/cumm Hgb 9.4(L) 13.0 - 17.5 g/dL [facility] Hct 27.8(L) 38.9 - 50.3 % [facility] Plt 125(L) 150 - 400 K/cumm [facility] MPV 10.9 9.1 - 12.3 fL [facility] RBC 2.98(L) 4.30 - 5.80 M/cumm [facility] MCV 93.3 81.3 - 96.4 fL [facility] MCH 31.5 27.1 - 33.3 pg [facility] MCHC 33.8 32.3 - 35.7 g/dL [facility] RDW CV 15.6(H) 11.1 - 14.9 % [facility] RDW SD 54.1(H) 35.7 - 48.1 fL [facility] NRBC abs 0.00 0.00 - 0.01 K/cumm [facility] Blood 01/25/2025 8:49 PM CDT 01/25/2025 9:05 PM CDT Rishi Lainez MD LAB BLOOD ORDERABLES Fin al Result Performing Organization Address City/[facility] Co de Phone Number [facility] [place] [address] * Phosphorus (01/25/2025 8:49 PM CDT) Pathologist [facility] Phosphorus, pl 4.5 2.3 - 4.5 mg/dL Blood 01/25/2025 8:49 PM CDT 01/25/2025 9:05 PM CDT Rishi Lainez MD LAB BLOOD ORDERABLES Fin al Result Performing Organization Address [facility] de Phone Number [facility] [place] [address] * (ABNORMAL) Magnesium (01/25/2025 8:49 PM CDT) Magnesium 2.6(H) 1.4 - 2.5 mg/dL Blood 01/25/2025 8:49 PM CDT 01/25/2025 9:05 PM CDT Rishi Lainez MD LAB BLOOD ORDERABLES Fin al Result Performing Organization Address [facility] de Phone Number [facility] [place] [address] * (ABNORMAL) Basic metabolic panel (01/25/2025 8:49 PM CDT) Sodium 135 135 - 145 mmol/L Potassium, pl 4.8 3.3 - 4.9 mmol/L [facility] Chloride 108 97 - 110 mmol/L [facility] CO2 16(L) 22 - 32 mmol/L [facility] Anion gap 11 2 - 15 mmol/L [facility] BUN 60(H) 6 - 25 mg/dL [facility] Creatinine 4.22(H) 0.80 - 1.30 mg/dL [facility] Glucose 130 70 - 199 mg/dL [facility] Comment: Interpretive Data Fasting glucose >/= [...] 2022. Calcium 8.7 8.5 - 10.3 mg/dL [facility] Blood 01/25/2025 8:49 PM CDT 01/25/2025 9:05 PM CDT us Rishi Lainez MD LAB BLOOD ORDERABLES Fin al Result Performing Organization Address City/State/[facility] Co de Phone Number [facility] [place] [address] * Critical Care (01/25/2025 11:10 AM CDT) [...] plan with the ICU team and other medical/incident response consultant staff, making frequent assessments and decisions [...] plan with the ICU team and other medical/incident response consultant staff, making frequent assessments and decisions [...] of Race in Diagnosing Kidney Disease, JASN 202). The CKD-EPI equation should not be used for patients with unstable renal function and has not been validated in children and those over 70. Current interpretive data was last reviewed 2021. Blood 01/24/2025 8:44 PM CDT 01/24/2025 8:59 PM CDT us Rishi Lainez MD LAB BLOOD ORDERABLES Fin al Result [facility] Department [place] [address] * (ABNORMAL) Differential, auto (01/24/2025 8:44 PM CDT) Neutrophil abs 6.43 1.50 - 6.50 K/cumm Imm gran abs 0.03 0.00 - 0.10 K/cumm [facility] Lymphocyte abs 0.76(L) 0.80 - 3.30 K/cumm [facility] Monocyte abs 1.08(H) 0.20 - 0.80 K/cumm [facility] Eosinophil abs 0.43 0.00 - 0.50 K/cumm [facility] Basophil abs 0.07 0.00 - 0.10 K/cumm [facility] Neutrophil pct 73.1 % [facility] Comment: Interpretive Data Percent cell count reference ranges are not reported, since discordance with absolute values may lead to misinterpretation of CBC data. Current Interpretive Data was last revised on 2018. Imm gran pct 0.3 % [facility] Comment: Interpretive Data Percent cell count reference ranges are not reported, since discordance with absolute values may lead to misinterpretation of CBC data. Current Interpretive Data was last revised on 2018. Lymphocyte pct 8.6 % [facility] Comment: Interpretive Data Percent cell count reference ranges are not reported, since discordance with absolute values may lead to misinterpretation of CBC data. Current Interpretive Data was last revised on 2018. Monocyte pct 12.3 % [facility] Comment: Interpretive Data Percent cell count reference ranges are not reported, since discordance with absolute values may lead to misinterpretation of CBC data. Current Interpretive Data was last revised on 2018. Eosinophil pct 4.9 % [facility] Comment: Interpretive Data Percent cell count reference ranges are not reported, since discordance with absolute values may lead to misinterpretation of CBC data. Current Interpretive Data was last revised on 2018. Basophil pct 0.8 % [facility] Comment: Interpretive Data Percent cell count reference ranges are not reported, since discordance with absolute values may lead to misinterpretation of CBC data. Current Interpretive Data was last revised on 2018. Blood 01/24/2025 8:44 PM CDT 01/24/2025 8:59 PM CDT Rishi Lainez MD LAB BLOOD ORDERABLES Fin al Result Performing Organization Address City/[facility]/ZIP Co de Phone Number [facility] [place] [address] * (ABNORMAL) CBC with auto differential (01/24/2025 8:44 PM CDT) Pathologist [facility] WBC 8.80 3.80 - 9.90 K/cumm Hgb 9.6(L) 13.0 - 17.5 g/dL [facility] Hct 28.9(L) 38.9 - 50.3 % [facility] Plt 102(L) 150 - 400 K/cumm [facility] MPV 10.7 9.1 - 12.3 fL [facility] RBC 3.06(L) 4.30 - 5.80 M/cumm [facility] MCV 94.4 81.3 - 96.4 fL [facility] MCH 31.4 27.1 - 33.3 pg [facility] MCHC 33.2 32.3 - 35.7 g/dL [facility] RDW CV 15.9(H) 11.1 - 14.9 % [facility] RDW SD 55.6(H) 35.7 - 48.1 fL [facility] NRBC abs 0.00 0.00 - 0.01 K/cumm [facility] Blood 01/24/2025 8:44 PM CDT 01/24/2025 8:59 PM CDT Rishi Lainez MD LAB BLOOD ORDERABLES Fin al Result [facility] [place] [address] * Phosphorus (01/24/2025 8:44 PM CDT) Pathologist [facility] Phosphorus, pl 3.8 2.3 - 4.5 mg/dL Blood 01/24/2025 8:44 PM CDT 01/24/2025 8:59 PM CDT Rishi Lainez MD LAB BLOOD ORDERABLES Fin al Result Performing Organization Address City/[facility]/ZIP Co de Phone Number [facility] [place] [address] * Magnesium (01/24/2025 8:44 PM CDT) Pathologist [facility] Magnesium 1.9 1.4 - 2.5 mg/dL Blood 01/24/2025 8:44 PM CDT 01/24/2025 8:59 PM CDT Rishi Lainez MD LAB BLOOD ORDERABLES Fin al Result Performing Organization Address [facility] de Phone Number [facility] [place] [address] * (ABNORMAL) Basic metabolic panel (01/24/2025 8:44 PM CDT) [facility] Sodium 138 135 - 145 mmol/L Potassium, pl 4.9 3.3 - 4.9 mmol/L [facility] Chloride 109 97 - 110 mmol/L [facility] CO2 18(L) 22 - 32 mmol/L [facility] Anion gap 11 2 - 15 mmol/L [facility] BUN 47(H) 6 - 25 mg/dL [facility] Creatinine 4.38(H) 0.80 - 1.30 mg/dL [facility] Glucose 123 70 - 199 mg/dL [facility] Comment: Interpretive Data Fasting glucose >/= [...] 2022. Calcium 8.7 8.5 - 10.3 mg/dL [facility] Blood 01/24/2025 8:44 PM CDT 01/24/2025 8:59 PM CDT us Rishi Lainez MD LAB BLOOD ORDERABLES Fin al Result [facility] [place] [address] * Critical Care (01/24/2025 12:35 PM CDT) [...] plan with the ICU team and other medical/incident response consultant staff, making frequent assessments and decisions [...] * (ABNORMAL) eGFR (01/23/2025 8:19 PM CDT) eGFR 14(L) >=60 mL/min/1. 73 [...] ORDERABLES Fin al Result Performing Organization Address City/State/[facility] Co de Phone Number [facility] [place] [address] * (ABNORMAL) Differential, auto (01/23/2025 8:19 PM CDT) Neutrophil abs 7.12(H) 1.50 - 6.50 K/cumm Imm gran abs 0.06 0.00 - 0.10 K/cumm [facility] Lymphocyte abs 0.63(L) 0.80 - 3.30 K/cumm [facility] Monocyte abs 1.00(H) 0.20 - 0.80 K/cumm [facility] Eosinophil abs 0.38 0.00 - 0.50 K/cumm [facility] Basophil abs 0.07 0.00 - 0.10 K/cumm [facility] Neutrophil pct 76.9 % [facility] Comment: Interpretive Data Percent cell count reference ranges are not reported, since discordance with absolute values may lead to misinterpretation of CBC data. Current Interpretive Data was last revised on 2018. Imm gran pct 0.6 % [facility] Comment: Interpretive Data Percent cell count reference ranges are not reported, since discordance with absolute values may lead to misinterpretation of CBC data. Current Interpretive Data was last revised on 2018. Lymphocyte pct 6.8 % [facility] Comment: Interpretive Data Percent cell count reference ranges are not reported, since discordance with absolute values may lead to misinterpretation of CBC data. Current Interpretive Data was last revised on 2018. Monocyte pct 10.8 % [facility] Comment: Interpretive Data Percent cell count reference ranges are not reported, since discordance with absolute values may lead to misinterpretation of CBC data. Current Interpretive Data was last revised on 2018. Eosinophil pct 4.1 % [facility] Comment: Interpretive Data Percent cell count reference ranges are not reported, since discordance with absolute values may lead to misinterpretation of CBC data. Current Interpretive Data was last revised on 2018. Basophil pct 0.8 % [facility] Comment: Interpretive Data Percent cell count reference ranges are not reported, since discordance with absolute values may lead to misinterpretation of CBC data. Current Interpretive Data was last revised on 2018. Blood 01/23/2025 8:19 PM CDT 01/23/2025 8:31 PM CDT us Rishi Lainez MD LAB BLOOD ORDERABLES Fin al Result [facility] Department [place] [address] * (ABNORMAL) CBC with auto differential (01/23/2025 8:19 PM CDT) WBC 9.26 3.80 - 9.90 K/cumm Hgb 9.8(L) 13.0 - 17.5 g/dL [facility] Hct 29.2(L) 38.9 - 50.3 % [facility] Plt 85(L) 150 - 400 K/cumm [facility] MPV 10.6 9.1 - 12.3 fL [facility] RBC 3.12(L) 4.30 - 5.80 M/cumm [facility] MCV 93.6 81.3 - 96.4 fL [facility] MCH 31.4 27.1 - 33.3 pg [facility] MCHC 33.6 32.3 - 35.7 g/dL [facility] RDW CV 16.2(H) 11.1 - 14.9 % [facility] RDW SD 55.9(H) 35.7 - 48.1 fL [facility] NRBC abs 0.00 0.00 - 0.01 K/cumm [facility] Blood 01/23/2025 8:19 PM CDT 01/23/2025 8:31 PM CDT Rishi Lainez MD LAB BLOOD ORDERABLES Fin al Result Performing Organization Address City/[facility]/ZIP Co de Phone Number [facility] Department of [employer] [place] [address] * Phosphorus (01/23/2025 8:19 PM CDT) [facility] Phosphorus, pl 4.0 2.3 - 4.5 mg/dL Blood 01/23/2025 8:19 PM CDT 01/23/2025 8:32 PM CDT Rishi Lainez MD LAB BLOOD ORDERABLES Fin al Result [facility] [place] [address] * Magnesium (01/23/2025 8:19 PM CDT) [facility] Magnesium 2.0 1.4 - 2.5 mg/dL Blood 01/23/2025 8:19 PM CDT 01/23/2025 8:32 PM CDT Rishi Lainez MD LAB BLOOD ORDERABLES Fin al Result [facility] [place] [address] * (ABNORMAL) Basic metabolic panel (01/23/2025 8:19 PM CDT) [facility] Sodium 141 135 - 145 mmol/L Potassium, pl 4.1 3.3 - 4.9 mmol/L [facility] Chloride 113(H) 97 - 110 mmol/L [facility] CO2 19(L) 22 - 32 mmol/L [facility] Anion gap 9 2 - 15 mmol/L [facility] BUN 49(H) 6 - 25 mg/dL [facility] Creatinine 4.26(H) 0.80 - 1.30 mg/dL [facility] Glucose 121 70 - 199 mg/dL [facility] Comment: Interpretive Data Fasting glucose >/= [...] 2022. Calcium 8.6 8.5 - 10.3 mg/dL [facility] Blood 01/23/2025 8:19 PM CDT 01/23/2025 8:32 PM CDT Rishi Lainez MD LAB BLOOD ORDERABLES Fin al Result Performing Organization Address City/[facility]/ZIP Co de Phone Number [facility] [place] [address] * Critical Care (01/23/2025 10:52 AM CDT) [...] plan with the ICU team and other medical/incident response consultant staff, making frequent assessments and decisions [...] ORDERA BLES Final Result Performing Organization Address [facility]/ZIP Co de Phone Number [facility] [place] [address] * Prepare platelets: 1 Units (01/23/2025 3:56 AM CDT) [facility] Product code [id number] Unit Number [id number] [facility] Product Blood Type OPOS [facility] Dispense Status PRESUMED TRANSFUSED [facility] Blood Venous blood specimen / Unknown 01/23/2025 3:56 AM CDT 01/23/2025 3:59 AM CDT Narrative [facility] - 01/23/2025 8:00 PM CDT Other indication->post-epidural goal >100 Are special requirements needed? (all products are leukoreduced)->No Date required:-[id number] PLT # of Units:-1-Units Reasons:-Other (Specify)} Rishi Lainez MD BLOOD BANK PRODUCT ORDER CHELSI Final Result Performing Organization Address [facility] Co de Phone Number [facility] [place] [address] * (ABNORMAL) CBC without differential (01/23/2025 3:21 AM CDT) [facility] WBC 9.90 3.80 - 9.90 K/cumm Hgb 10.1(L) 13.0 - 17.5 g/dL [facility] Hct 29.8(L) 38.9 - 50.3 % [facility] Plt 78(L) 150 - 400 K/cumm [facility] MPV 10.9 9.1 - 12.3 fL [facility] RBC 3.17(L) 4.30 - 5.80 M/cumm [facility] MCV 94.0 81.3 - 96.4 fL [facility] MCH 31.9 27.1 - 33.3 pg [facility] MCHC 33.9 32.3 - 35.7 g/dL [facility] RDW CV 16.4(H) 11.1 - 14.9 % [facility] RDW SD 56.4(H) 35.7 - 48.1 fL [facility] NRBC abs 0.00 0.00 - 0.01 K/cumm [facility] Blood 01/23/2025 3:21 AM CDT 01/23/2025 3:38 AM CDT Rishi Lainez MD LAB BLOOD ORDERABLES Fin al Result Performing Organization Address [facility] de Phone Number [facility] [place] [address] * Transfuse RBC (01/23/2025 12:38 AM CDT) Blood Rishi Lainez MD BLOOD TRANSFUSION ORDERA BLES Final Result Performing Organization Address [facility] de Phone Number [facility] [place] [address] * Prepare RBC: 1 Units (01/22/2025 11:20 PM CDT) Product code [id number] Unit Number [id number] [facility] Product Blood Type OPOS [facility] Dispense Status PRESUMED TRANSFUSED [facility] Blood 01/22/2025 11:2 0 PM CDT 01/22/2025 11:20 PM CDT Narrative [facility] - 01/23/2025 4:01 PM CDT Other indication->Post-surgical Hgb Goal <10 Are special requirements needed? (All products are leukoreduced and CMV- safe)- >No Date required:-[id number] LRRBC # of [id number] Reasons:-Other (specify)} Rishi Lainez MD BLOOD BANK PRODUCT ORDER CHELSI Final Result Performing Organization Address [facility] de Phone Number [facility] [place] [address] * (ABNORMAL) eGFR (01/22/2025 8:17 PM CDT) Pathologist [facility] eGFR 13(L) >=60 mL/min/1. 73 m2 [...] MD LAB BLOOD ORDERABLES Fin al Result [facility] [place] [address] * (ABNORMAL) Differential, auto (01/22/2025 8:17 PM CDT) Pathologist [facility] Neutrophil abs 8.92(H) 1.50 - 6.50 K/cumm Imm gran abs 0.05 0.00 - 0.10 K/cumm [facility] Lymphocyte abs 0.69(L) 0.80 - 3.30 K/cumm [facility] Monocyte abs 1.08(H) 0.20 - 0.80 K/cumm [facility] Eosinophil abs 0.30 0.00 - 0.50 K/cumm [facility] Basophil abs 0.08 0.00 - 0.10 K/cumm [facility] Neutrophil pct 80.3 % [facility] Comment: Interpretive Data Percent cell count reference ranges are not reported, since discordance with absolute values may lead to misinterpretation of CBC data. Current Interpretive Data was last revised on 2018. Imm gran pct 0.4 % [facility] Comment: Interpretive Data Percent cell count reference ranges are not reported, since discordance with absolute values may lead to misinterpretation of CBC data. Current Interpretive Data was last revised on 2018. Lymphocyte pct 6.2 % [facility] Comment: Interpretive Data Percent cell count reference ranges are not reported, since discordance with absolute values may lead to misinterpretation of CBC data. Current Interpretive Data was last revised on 2018. Monocyte pct 9.7 % [facility] Comment: Interpretive Data Percent cell count reference ranges are not reported, since discordance with absolute values may lead to misinterpretation of CBC data. Current Interpretive Data was last revised on 2018. Eosinophil pct 2.7 % [facility] Comment: Interpretive Data Percent cell count reference ranges are not reported, since discordance with absolute values may lead to misinterpretation of CBC data. Current Interpretive Data was last revised on 2018. Basophil pct 0.7 % [facility] Comment: Interpretive Data Percent cell count reference ranges are not reported, since discordance with absolute values may lead to misinterpretation of CBC data. Current Interpretive Data was last revised on 2018. Blood 01/22/2025 8:17 PM CDT 01/22/2025 8:40 PM CDT us Rishi Lainez MD LAB BLOOD ORDERABLES Fin al Result [facility] Department [place] [address] * (ABNORMAL) CBC with auto differential (01/22/2025 8:17 PM CDT) WBC 11.12(H) 3.80 - 9.90 K/cumm Hgb 9.4(L) 13.0 - 17.5 g/dL [facility] Hct 28.7(L) 38.9 - 50.3 % [facility] Plt 85(L) 150 - 400 K/cumm [facility] MPV 10.6 9.1 - 12.3 fL [facility] RBC 2.95(L) 4.30 - 5.80 M/cumm [facility] MCV 97.3(H) 81.3 - 96.4 fL [facility] MCH 31.9 27.1 - 33.3 pg [facility] MCHC 32.8 32.3 - 35.7 g/dL [facility] RDW CV 15.5(H) 11.1 - 14.9 % [facility] RDW SD 55.7(H) 35.7 - 48.1 fL [facility] NRBC abs 0.00 0.00 - 0.01 K/cumm [facility] Blood 01/22/2025 8:17 PM CDT 01/22/2025 8:40 PM CDT Rishi Lainez MD LAB BLOOD ORDERABLES Fin al Result Performing Organization Address City/[facility] Co de Phone Number [facility] [place] [address] * Phosphorus (01/22/2025 8:17 PM CDT) Pathologist [facility] Phosphorus, pl 3.2 2.3 - 4.5 mg/dL Blood 01/22/2025 8:17 PM CDT 01/22/2025 8:40 PM CDT Rishi Lainez MD LAB BLOOD ORDERABLES Fin al Result [facility] [place] [address] * Magnesium (01/22/2025 8:17 PM CDT) Pathologist [facility] Magnesium 2.1 1.4 - 2.5 mg/dL Blood 01/22/2025 8:17 PM CDT 01/22/2025 8:40 PM CDT Rishi Lainez MD LAB BLOOD ORDERABLES Fin al Result Performing Organization Address City/[facility]/ZIP Co de Phone Number [facility] [place] [address] * (ABNORMAL) Basic metabolic panel (01/22/2025 8:17 PM CDT) Sodium 140 135 - 145 mmol/L Potassium, pl 4.5 3.3 - 4.9 mmol/L [facility] Chloride 112(H) 97 - 110 mmol/L [facility] CO2 18(L) 22 - 32 mmol/L [facility] Anion gap 10 2 - 15 mmol/L [facility] BUN 49(H) 6 - 25 mg/dL [facility] Creatinine 4.45(H) 0.80 - 1.30 mg/dL [facility] Glucose 141 70 - 199 mg/dL [facility] Comment: Interpretive Data Fasting glucose >/= [...] 2022. Calcium 8.7 8.5 - 10.3 mg/dL [facility] Blood 01/22/2025 8:17 PM CDT 01/22/2025 8:40 PM CDT Rishi Lainez MD LAB BLOOD ORDERABLES Fin al Result Performing Organization Address [facility] Co de Phone Number [facility] [place] [address] * Critical Care (01/22/2025 11:41 AM CDT) [...] plan with the ICU team and other medical/incident response consultant staff, making frequent assessments and decisions [...] DE VICE Final Result Performing Organization Address [facility] [place] [address] * POCT glucose (01/22/2025 7:12 AM CDT) Glucose, POC 116 70 - 199 mg/dL Blood 01/22/2025 7:12 AM CDT 01/22/2025 7:12 AM CDT Rishi Lainez MD LAB POCT ORDERABLES - DE VICE Final Result Performing Organization Address [facility] [place] [address] * POCT glucose (01/22/2025 3:33 AM CDT) Glucose, POC 110 70 - 199 mg/dL Blood 01/22/2025 3:33 AM CDT 01/22/2025 3:33 AM CDT Rishi Lainez MD LAB POCT ORDERABLES - DE VICE Final Result Performing Organization Address [facility] [place] [address] * IR Lumbar Puncture, Diagnostic incl Fluoro [...] it. Electronically signed by: Riaz Fenton M.D. us Rishi Lainez MD IMG FLUOROSCOPY PROCEDUR ES [...] * POCT glucose (01/21/2025 11:24 PM CDT) Pathologist [facility] Glucose, POC 139 70 - 199 mg/dL Blood 01/21/2025 11:2 4 PM CDT 01/21/2025 11:24 PM CDT Rishi Lainez MD LAB POCT ORDERABLES - DE VICE Final Result [facility] Department [place] [address] * (ABNORMAL) eGFR (01/21/2025 9:51 PM CDT) Pathologist [facility] eGFR 14(L) >=60 mL/min/1. 73 m2 [...] us Rishi Lainez MD LAB BLOOD ORDERABLES [facility] al Result [facility] [place] [address] * (ABNORMAL) Differential, auto (01/21/2025 9:51 PM CDT) Pathologist [facility] Neutrophil abs 9.20(H) 1.50 - 6.50 K/cumm Imm gran abs 0.05 0.00 - 0.10 K/cumm [facility] Lymphocyte abs 0.89 0.80 - 3.30 K/cumm [facility] Monocyte abs 1.07(H) 0.20 - 0.80 K/cumm [facility] Eosinophil abs 0.04 0.00 - 0.50 K/cumm [facility] Basophil abs 0.05 0.00 - 0.10 K/cumm [facility] Neutrophil pct 81.4 % [facility] Comment: Interpretive Data Percent cell count reference ranges are not reported, since discordance with absolute values may lead to misinterpretation of CBC data. Current Interpretive Data was last revised on 2018. Imm gran pct 0.4 % [facility] Comment: Interpretive Data Percent cell count reference ranges are not reported, since discordance with absolute values may lead to misinterpretation of CBC data. Current Interpretive Data was last revised on 2018. Lymphocyte pct 7.9 % [facility] Comment: Interpretive Data Percent cell count reference ranges are not reported, since discordance with absolute values may lead to misinterpretation of CBC data. Current Interpretive Data was last revised on 2018. Monocyte pct 9.5 % [facility] Comment: Interpretive Data Percent cell count reference ranges are not reported, since discordance with absolute values may lead to misinterpretation of CBC data. Current Interpretive Data was last revised on 2018. Eosinophil pct 0.4 % [facility] Comment: Interpretive Data Percent cell count reference ranges are not reported, since discordance with absolute values may lead to misinterpretation of CBC data. Current Interpretive Data was last revised on 2018. Basophil pct 0.4 % [facility] Comment: Interpretive Data Percent cell count reference ranges are not reported, since discordance with absolute values may lead to misinterpretation of CBC data. Current Interpretive Data was last revised on 2018. Blood 01/21/2025 9:51 PM CDT 01/21/2025 10:09 PM CDT us Rishi Lainez MD LAB BLOOD ORDERABLES Fin al Result [facility] [place] [address] * (ABNORMAL) CBC with auto differential (01/21/2025 9:51 PM CDT) WBC 11.30(H) 3.80 - 9.90 K/cumm Hgb 9.7(L) 13.0 - 17.5 g/dL [facility] Hct 29.2(L) 38.9 - 50.3 % [facility] Plt 101(L) 150 - 400 K/cumm [facility] MPV 10.5 9.1 - 12.3 fL [facility] RBC 3.04(L) 4.30 - 5.80 M/cumm [facility] MCV 96.1 81.3 - 96.4 fL [facility] MCH 31.9 27.1 - 33.3 pg [facility] MCHC 33.2 32.3 - 35.7 g/dL [facility] RDW CV 15.3(H) 11.1 - 14.9 % [facility] RDW SD 54.1(H) 35.7 - 48.1 fL [facility] NRBC abs 0.00 0.00 - 0.01 K/cumm [facility] Blood 01/21/2025 9:51 PM CDT 01/21/2025 10:09 PM CDT Result [facility] Rishi Lainez MD LAB BLOOD ORDERABLES Fin al Result Performing Organization Address [facility] Co de Phone Number [facility] [place] [address] * Phosphorus (01/21/2025 9:51 PM CDT) Phosphorus, pl 2.8 2.3 - 4.5 mg/dL Blood 01/21/2025 9:51 PM CDT 01/21/2025 10:08 PM CDT Rishi Lainez MD LAB BLOOD ORDERABLES Fin al Result [facility] [place] [address] * Magnesium (01/21/2025 9:51 PM CDT) Magnesium 2.1 1.4 - 2.5 mg/dL Blood 01/21/2025 9:51 PM CDT 01/21/2025 10:08 PM CDT Rishi Lainez MD LAB BLOOD ORDERABLES Fin al Result Performing Organization Address City/[facility]/ZIP Co de Phone Number [facility] [place] [address] * (ABNORMAL) Basic metabolic panel (01/21/2025 9:51 PM CDT) Sodium 140 135 - 145 mmol/L Potassium, pl 4.4 3.3 - 4.9 mmol/L [facility] Chloride 113(H) 97 - 110 mmol/L [facility] CO2 17(L) 22 - 32 mmol/L [facility] Anion gap 10 2 - 15 mmol/L [facility] BUN 49(H) 6 - 25 mg/dL [facility] Creatinine 4.29(H) 0.80 - 1.30 mg/dL [facility] Glucose 112 70 - 199 mg/dL [facility] Comment: Interpretive Data Fasting glucose >/= [...] 2022. Calcium 8.8 8.5 - 10.3 mg/dL [facility] Blood 01/21/2025 9:51 PM CDT 01/21/2025 10:08 PM CDT Rishi Lainez MD LAB BLOOD ORDERABLES Fin al Result Performing Organization Address [facility]/ZIP Co de Phone Number [facility] [place] [address] * Critical Care (01/21/2025 9:15 PM CDT) Narrative Zander Morales MD - 01/21/2025 9:15 PM CDZander Benson MD 01/22/2025 5:28 AM Critical Care Performed [...] plan with the ICU team and other medical/incident response consultant staff, making frequent assessments and decisions [...] conditions: us Zander Morales MD IN CLINIC/BEDSIDE KERA CADE Final Result * POCT glucose (01/21/2025 7:04 PM CDT) Glucose, POC 174 70 - 199 mg/dL Blood 01/21/2025 7:04 PM CDT 01/21/2025 7:04 PM CDT us Rishi Lainez MD LAB POCT ORDERABLES - DE VICE Final Result Performing Organization Address City/State/[facility] Co de Phone Number [facility] [place] [address] * CT Head WO Contrast (01/21/2025 5:46 [...] it. Electronically signed by: Johnny Hurley MD Rishi Lainez MD IMG CT PROCEDURES Final [...] plan with the ICU team and other medical/incident response consultant staff, making frequent assessments and decisions [...] documenting in the medical record us Aaron iLn MD IN CLINIC/BEDSIDE ORDER CHELSI Final Result * POCT glucose (01/21/2025 3:20 PM CDT) Glucose, POC 127 70 - 199 mg/dL Blood 01/21/2025 3:20 PM CDT 01/21/2025 3:20 PM CDT us Rishi Lainez MD LAB POCT ORDERABLES - DE VICE Final Result Performing Organization Address [facility] Co de Phone Number [facility] [place] [address] * Transfuse RBC (01/21/2025 2:25 PM CDT) Blood Rishi Lainez MD BLOOD TRANSFUSION ORDERA BLES Final Result Performing Organization Address [facility] Co de Phone Number [facility] [place] [address] * SC ARTL CATHJ/CANNULJ MNTR/TRANSFUSION SPX PRQ (01/21/2025 1:10 PM CDT) Narrative Aaron Lin MD - 01/21/2025 1:10 PM CDT Aaron Lin MD 01/21/2025 1:32 PM Arterial Line Insertion Date/Time: 01/21/2025 1:10 PM Performed by: Josias Baez MD Authorized by: Josias Baez MD Dagmar Protocol: RN Notified of Procedure: yes Informed [...] POCT ORDERABLES - DE VICE Final Result [facility] [place] [address] * SC AN PROCEDURE PLACEHOLDER (01/21/2025 11:42 AM CDT) [...] his torso with a power of 4-/5. us Juana Jules MD ANESTHESIA ORDERABLES Ed ited Result - Final * aPTT (01/21/2025 8:42 AM CDT) aPTT 29 28 - 38 sec Comment: Interpretive Data Heparin therapeutic range: 66.0 - 100.0 seconds. Range based on correlation with therapeutic heparin activity range of 0.3 - 0.7 Units/mL. Current interpretive data was last revised on 2023. Blood 01/21/2025 8:42 AM CDT 01/21/2025 8:49 AM CDT us Rishi Lainez MD LAB BLOOD ORDERABLES [facility] al Result [facility] [place] [address] * Protime-INR (01/21/2025 8:42 AM CDT) PT 12.7 9.7 - 13.0 sec INR 1.17 0.90 - 1.20 [facility] Comment: Interpretive data Oral anticoagulant therapeutic ranges: Venous thromboembolism prophylaxis or treatment: 2.0-3.0 CARDIOLOGY Standard range: 2.0-3.0 High-intensity range: 2.5-3.5 Refer to indication-specific guidelines for appropriate target ranges for prosthetic heart valve replacement. Current interpretive data was last revised on 2019. Blood 01/21/2025 8:42 AM CDT 01/21/2025 8:49 AM CDT Rishi Lainez MD LAB BLOOD ORDERABLES Fin al Result [facility] [place] [address] * Prepare RBC: 1 Units (01/21/2025 7:43 AM CDT) Pathologist [facility] Product code [id number] Unit Number [id number] [facility] Product Blood Type OPOS [facility] Dispense Status PRESUMED TRANSFUSED [facility] Blood 01/21/2025 7:43 AM CDT 01/21/2025 7:43 AM CDT Narrative [facility] - 01/22/2025 12:55 AM CDT Other indication->spinal cord ischemia Are special requirements needed? (All products are leukoreduced and CMV- safe)- >No Date required:-[id number] LRRBC # of [id number] Reasons:-Other (specify)} us Rishi Lainez MD BLOOD BANK PRODUCT ORDER CHELSI Final Result [facility] [place] [address] * (ABNORMAL) eGFR (01/21/2025 4:59 AM CDT) Pathologist [facility] eGFR 14(L) >=60 mL/min/1. 73 m2 [...] ORDERABLES Fin al Result Performing Organization Address City/[facility]/ZIP Co de Phone Number [facility] [place] [address] * (ABNORMAL) CBC without differential (01/21/2025 4:59 AM CDT) WBC 13.69(H) 3.80 - 9.90 K/cumm Hgb 9.2(L) 13.0 - 17.5 g/dL [facility] Hct 28.5(L) 38.9 - 50.3 % [facility] Plt 127(L) 150 - 400 K/cumm [facility] MPV 10.1 9.1 - 12.3 fL [facility] RBC 2.86(L) 4.30 - 5.80 M/cumm [facility] MCV 99.7(H) 81.3 - 96.4 fL [facility] MCH 32.2 27.1 - 33.3 pg [facility] MCHC 32.3 32.3 - 35.7 g/dL [facility] RDW CV 13.9 11.1 - 14.9 % [facility] RDW SD 50.6(H) 35.7 - 48.1 fL [facility] NRBC abs 0.00 0.00 - 0.01 K/cumm [facility] Blood 01/21/2025 4:59 AM CDT 01/21/2025 5:24 AM CDT Rishi Lainez MD LAB BLOOD ORDERABLES Fin al Result Performing Organization Address [facility]/ZIP Co de Phone Number [facility] [place] [address] * (ABNORMAL) Basic metabolic panel (01/21/2025 4:59 AM CDT) Sodium 142 135 - 145 mmol/L Potassium, pl 4.9 3.3 - 4.9 mmol/L [facility] Chloride 112(H) 97 - 110 mmol/L [facility] CO2 17(L) 22 - 32 mmol/L [facility] Anion gap 13 2 - 15 mmol/L [facility] BUN 49(H) 6 - 25 mg/dL [facility] Creatinine 4.25(H) 0.80 - 1.30 mg/dL [facility] Glucose 116 70 - 199 mg/dL [facility] Comment: Interpretive Data Fasting glucose >/= [...] 2022. Calcium 8.7 8.5 - 10.3 mg/dL [facility] Blood 01/21/2025 4:59 AM CDT 01/21/2025 5:25 AM CDT us Rishi Lainez MD LAB BLOOD ORDERABLES Fin al Result [facility] [place] [address] * THORACIC ENDOVASCULAR REPAIR - AORTIC (01/20/2025 12:56 PM CDT) Anatomical Region Laterality Modality X-Ray Angiograph y Narrative 01/21/2025 11:25 AM CDT Please see OpNote for result. Rishi Lainez MD SURGICAL CASE ORDERS Fin al Result * (ABNORMAL) POC Blood Gas and Chemistries, Arterial - (01/20/2025 12:36 PM CDT) [facility] pH, Art POC 7.14(C) 7.35 - 7.45 pCO2, Art POC 51(H) 35 - 45 mmHg [facility] pO2, Art POC 147(H) 83 - 108 mmHg [facility] Na, POC 139 135 - 145 mmol/L [facility] K POC 5.2(H) 3.3 - 4.9 mmol/L [facility] Comment: Interpretive Data Not all point of care methods assess for hemolysis. Confirm with instrument and retest K+ if not consistent with clinical signs and symptoms. Current Interpretive Data was last revised on 2024. Cl, POC 116(H) 97 - 110 mmol/L [facility] Ionized Ca, POC 5.20(H) 4.50 - 5.10 mg/dL [facility] Glucose, POC 104 70 - 199 mg/dL [facility] Lactate, POC 1.2 0.7 - 2.0 mmol/L [facility] SO2 (andrés) arterial 100(H) 90 - 95 % [facility] Base excess, POC -11.3 mmol/L [facility] HCO3, Art POC 16(L) 20 - 30 mmol/L [facility] Hct, POC 29.0(L) 41.4 - 51.6 % [facility] Total Hb, POC 9.8(L) 13.8 - 17.2 g/dL [facility] Blood 01/20/2025 12:3 6 PM CDT 01/20/2025 12:36 PM CDT Rishi Lainez MD LAB POCT ORDERABLES - DE VICE Final Result [facility] Department [place] [address] * POCT Activated clotting time, low range (01/20/2025 12:25 PM CDT) ACT 141 123 - 168 sec POC Performer [id number] [facility] POC Device Number [id number] [facility] Blood 01/20/2025 12:2 5 PM CDT 01/20/2025 12:25 PM CDT us Rishi Lainez MD LAB POCT ORDERABLES - DE VICE Final Result Performing Organization Address City/[facility]/ZIP Co de Phone Number [facility] [place] [address] * (ABNORMAL) POCT Activated clotting time, low range (01/20/2025 12:09 PM CDT) ACT 279(H) 123 - 168 sec POC Performer [id number] [facility] POC Device Number [id number] [facility] Blood 01/20/2025 12:0 9 PM CDT 01/20/2025 12:09 PM CDT us Rishi Lainez MD LAB POCT ORDERABLES - DE VICE Final Result Performing Organization Address [facility] Co de Phone Number [facility] [place] [address] * (ABNORMAL) POCT Activated clotting time, low range (01/20/2025 11:42 AM CDT) ACT 331(H) 123 - 168 sec POC Performer [id number] [facility] POC Device Number [id number] [facility] Blood 01/20/2025 11:4 2 AM CDT 01/20/2025 11:42 AM CDT us Rishi Lainez MD LAB POCT ORDERABLES - DE VICE Final Result Performing Organization Address City/[facility]/ZIP Co de Phone Number [facility] [place] [address] * (ABNORMAL) POCT Activated clotting time, low range (01/20/2025 11:19 AM CDT) ACT 248(H) 123 - 168 sec POC Performer [id number] [facility] POC Device Number [id number] [facility] Blood 01/20/2025 11:1 9 AM CDT 01/20/2025 11:19 AM CDT us Rishi Lainez MD LAB POCT ORDERABLES - DE VICE Final Result Performing Organization Address [facility] Co de Phone Number [facility] [place] [address] * (ABNORMAL) POCT Activated clotting time, low range (01/20/2025 10:55 AM CDT) ACT 292(H) 123 - 168 sec POC Performer [id number] [facility] POC Device Number [id number] [facility] Blood 01/20/2025 10:5 5 AM CDT 01/20/2025 10:55 AM CDT us Rishi Lainez MD LAB POCT ORDERABLES - DE VICE Final Result Performing Organization Address [facility] Co de Phone Number [facility] [address] * (ABNORMAL) POCT Activated clotting time, low range (01/20/2025 10:32 AM CDT) ACT 281(H) 123 - 168 sec POC Performer [id number] P[facility] Device Number [id number] [facility] Blood 01/20/2025 10:3 2 AM CDT 01/20/2025 10:32 AM CDT us Rishi Lainez MD LAB POCT ORDERABLES - DE VICE Final Result Performing Organization Address City/[facility] Co de Phone Number [facility] [place] [address] * SC AN PROCEDURE PLACEHOLDER (01/20/2025 10:05 AM CDT) Kennedy Guevara Odalis - 01/20/2025 10:05 AM CDT Odalis Waterman 01/20/2025 10:05 AM [...] patient tolerated procedure well with no complications us Ashleigh Beverly MD ANESTHESIA ORDERABLES Final Resu lt * SC AN PROCEDURE PLACEHOLDER (01/20/2025 10:04 AM CDT) Odalis Rodgers - 01/20/2025 10:04 AM CDT Odalis Waterman 01/20/2025 10:05 AM Peripheral IV Catheter Patient location: OR Staff: Supervising provider: Ashleigh Beverly MD Placed by: ELECTRONIC IMAGING SYSTEM OPERATOR: Juan Shipman CRNA Preprocedure prep: Prep solution: chlorhexadine PPE: gloves and provider hat/mask PIV line: Laterality: right Site: forearm Catheter size: 16 g Technique: direct visualization and palpatation Procedure details: good blood return and occlusive dressing applied Number of attempts: 1 Assessment: Events: patient tolerated procedure well with no complications us Ashleigh Beverly MD ANESTHESIA ORDERABLES Final Resu lt * SC AN PROCEDURE PLACEHOLDER (01/20/2025 10:03 AM CDT) Odalis Rodgers - 01/20/2025 10:03 AM CDT Odalis Waterman 01/20/2025 10:04 AM Arterial Line Patient location: OR Indication: continuous blood pressure monitoring and blood sampling needed Ultrasound assisted: yes Staff: Supervising provider: Ashleigh Beverly MD Placed by: ELECTRONIC IMAGING SYSTEM OPERATOR: Juan Shipman CRNA Procedure prep: Prep solution: [...] patient tolerated procedure well with no complications us Ashleigh Beverly MD ANESTHESIA ORDERABLES Final Resu lt * SC AN ELECTIVE ENDOTRACHEAL AIRWAY, SC AN PROCEDURE PLACEHOLDER (01/20/2025 10:02 AM CDT) Narrative Odalis Waterman - 01/20/2025 10:02 AM CDT Odalis Waterman 01/20/2025 10:03 AM Airway Patient location: OR [...] with: silk tape Number of attempts: 1 us Ashleigh Beverly MD ANESTHESIA ORDERABLES Final Resu lt * POCT Activated clotting time, low range (01/20/2025 9:43 AM CDT) ACT 137 123 - 168 sec POC Performer [id number] [facility] POC Device Number [id number] [facility] Blood 01/20/2025 9:43 AM CDT 01/20/2025 9:43 AM CDT Rishi Lainez MD LAB POCT ORDERABLES - DE VICE Final Result Performing Organization Address [facility]/[place] [address] * Prepare RBC: 2 Units (01/20/2025 6:59 AM CDT) Product code [id number] [facility] Unit Number [id number] 0-I [facility] Product Blood Type OPOS [facility] Dispense Status RETURNED [facility] Product code [id number] Unit Number [id number] 2-D [facility] Product Blood Type OPOS [facility] Dispense Status RETURNED [facility] Blood 01/20/2025 6:59 AM CDT 01/20/2025 6:58 AM CDT Narrative [facility] - 01/20/2025 1:52 PM CDT Specify Procedure:->thoracic ensovascular repair Are special requirements needed? (All products are leukoreduced and CMV- safe)- >No Date required:-[id number] LRRBC # of [id number] Reasons:-Hold for procedure (specify procedure)} Yolanda Hays NP BLOOD BANK PRODUCT ORDERABLES Fi nal Result Performing Organization Address [facility] [place] [address] * TYPE AND SCREEN 14 DAY (01/11/2025 10:04 AM CDT) ABO Rh O Positive Aminata, indirect Negative [facility] Blood 01/11/2025 10:0 4 AM CDT 01/11/2025 10:47 AM CDT Narrative [facility] - 01/11/2025 12:05 PM CDT Is this test being ordered in advance for a procedure?->Yes Expected date of procedure:->01/20/25 Has the patient been transfused in the past 3 months?->No Yolanda Hays NP LAB BLOOD BANK TEST ORDERABLES F inal Result Performing Organization Address City/[facility] Co de Phone Number [facility] [place] [address] * (ABNORMAL) eGFR (01/11/2025 10:04 AM CDT) Pathologist [facility] eGFR 13(L) >=60 mL/min/1. 73 m2 [...] ORDERABLES Final Resul t Performing Organization Address City/[facility]/ZIP Co de Phone Number [facility] [place] [address] * Differential, auto (01/11/2025 10:04 AM CDT) Pathologist [facility] Neutrophil abs 5.1 1.5 - 6.5 K/cumm Imm gran abs 0.0 0.0 - 0.1 K/cumm [facility] Lymphocyte abs 1.2 0.8 - 3.3 K/cumm [facility] Monocyte abs 0.6 0.2 - 0.8 K/cumm [facility] Eosinophil abs 0.4 0.0 - 0.5 K/cumm [facility] Basophil abs 0.1 0.0 - 0.1 K/cumm [facility] Neutrophil pct 68.7 % [facility] Comment: Interpretive Data Percent cell count reference ranges are not reported, since discordance with absolute values may lead to misinterpretation of CBC data. Current Interpretive Data was last revised on 2018. Imm gran pct 0.5 % [facility] Comment: Interpretive Data Percent cell count reference ranges are not reported, since discordance with absolute values may lead to misinterpretation of CBC data. Current Interpretive Data was last revised on 2018. Lymphocyte pct 16.0 % [facility] Comment: Interpretive Data Percent cell count reference ranges are not reported, since discordance with absolute values may lead to misinterpretation of CBC data. Current Interpretive Data was last revised on 2018. Monocyte pct 7.8 % [facility] Comment: Interpretive Data Percent cell count reference ranges are not reported, since discordance with absolute values may lead to misinterpretation of CBC data. Current Interpretive Data was last revised on 2018. Eosinophil pct 5.8 % [facility] Comment: Interpretive Data Percent cell count reference ranges are not reported, since discordance with absolute values may lead to misinterpretation of CBC data. Current Interpretive Data was last revised on 2018. Basophil pct 1.2 % [facility] Comment: Interpretive Data Percent cell count reference ranges are not reported, since discordance with absolute values may lead to misinterpretation of CBC data. Current Interpretive Data was last revised on 2018. Blood 01/11/2025 10:0 4 AM CDT 01/11/2025 10:28 AM CDT us Yolanda Hays NP LAB BLOOD ORDERABLES Final Resul t [facility] [place] [address] * CPAP aPTT algorithm (01/11/2025 10:04 AM [...] NP LAB BLOOD ORDERABLES Final Resul t [facility] [place] [address] * (ABNORMAL) Urinalysis reflex to microscopic and culture Urine, clean voided (01/11/2025 10:04 AM CDT) Color, ur Straw Yellow Clarity, ur Clear Clear [facility] Specific gravity, ur 1.013 1.003 - 1.030 [facility] pH, urine 6.5 [facility] Comment: Interpretive Data U rine pH is affected by diet, medications, systemic acid-base disturbances, and renal tubular function. pH may affect urinary stone formation. For example, urine pH below 6.0 may help reduce the tendency for calcium phosphate stones and pH greater than 6.0 may reduce the tendency for uric acid stone formation. Source: [facility] Current Interpretive Data was last revised on 2017 Protein, ur ql 1+(A) Negative [facility] Glucose, ur ql 3+(A) Negative [facility] Ketones, ur Negative Negative [facility] Bilirubin, ur Negative Negative [facility] Blood, ur 1+(A) Negative [facility] Urobilinogen, ur <2.0 <2.0 mg/dL [facility] Nitrite, ur Negative Negative [facility] Leukocyte esterase, ur Negative Negative [facility] UA reflex comment Reflex to microscopic UA will be performed. [facility] Urine, clean voided 01/11/2025 10:04 AM CDT 01/11/2025 10:20 AM CDT Yolanda Hays NP LAB MICROBIOLOGY - GENERAL ORDER CHELSI Final Result Performing Organization Address [facility] Co de Phone Number [facility] [place] [address] * (ABNORMAL) CBC with auto differential (01/11/2025 10:04 AM CDT) WBC 7.5 3.8 - 9.9 K/cumm Hgb 10.5(L) 13.0 - 17.5 g/dL [facility] Hct 32.2(L) 38.9 - 50.3 % [facility] Plt 184 150 - 400 K/cumm [facility] MPV 10.1 9.1 - 12.3 fL [facility] RBC 3.23(L) 4.30 - 5.80 M/cumm [facility] MCV 99.7(H) 81.3 - 96.4 fL [facility] MCH 32.5 27.1 - 33.3 pg [facility] MCHC 32.6 32.3 - 35.7 g/dL [facility] RDW CV 13.5 11.1 - 14.9 % [facility] RDW SD 49.7(H) 35.7 - 48.1 fL [facility] NRBC abs 0.00 0.00 - 0.01 K/cumm [facility] Blood 01/11/2025 10:0 4 AM CDT 01/11/2025 10:28 AM CDT Yolanda Hays NP LAB BLOOD ORDERABLES Final Resul t Performing Organization Address City/[facility]/ZIP Co de Phone Number [facility] [place] [address] * (ABNORMAL) Urinalysis, microscopic only (01/11/2025 10:04 AM CDT) WBC, ur 0-5 0 - 5 /HPF RBC, ur 0-2 0 - 2 /HPF [facility] Mucous, ur Present(A) [facility] Culture Reflex Comment Reflex conditions for urine culture (WBC >10) not met. [facility] Urine, clean voided 01/11/2025 10:04 AM CDT 01/11/2025 10:20 AM CDT Yolanda Hays NP LAB URINE ORDERABLES Final Resul t Performing Organization Address [facility] [place] [address] * Protime-INR (01/11/2025 10:04 AM CDT) PT 12.0 9.7 - 13.0 sec INR 1.11 0.90 - 1.20 [facility] Comment: Interpretive data Oral anticoagulant therapeutic [...] ORDERABLES Final Resul t Performing Organization Address [facility] de Phone Number [facility] [place] [address] * (ABNORMAL) Basic metabolic panel (01/11/2025 10:04 AM CDT) Sodium 144 135 - 145 mmol/L Potassium, pl 4.5 3.3 - 4.9 mmol/L [facility] Chloride 111(H) 97 - 110 mmol/L [facility] CO2 21(L) 22 - 32 mmol/L [facility] Anion gap 12 2 - 15 mmol/L [facility] BUN 34(H) 6 - 25 mg/dL [facility] Creatinine 4.51(H) 0.80 - 1.30 mg/dL [facility] Glucose 111 70 - 199 mg/dL [facility] Comment: Interpretive Data Fasting glucose >/= [...] 2022. Calcium 8.9 8.5 - 10.3 mg/dL [facility] Blood 01/11/2025 10:0 4 AM CDT 01/11/2025 10:28 AM CDT Yolanda Hays NP LAB BLOOD ORDERABLES Final Resul t [facility] [place] [address] * CTA Chest Abdomen Pelvis (12/22/2024 10:37 AM FILTER PLANT SUPERVISOR) Anatomical Region Laterality Modality Body N/A Computed Tomogra phy 12/22/2024 1:33 PM FILTER PLANT SUPERVISOR Impressions 12/22/2024 3:53 PM FILTER PLANT SUPERVISOR 1. 62 mm x 68 mm thoracic [...] Gabrielle Milian M.D. Narrative 12/22/2024 3:53 PM FILTER PLANT SUPERVISOR EXAMINATION: CT ANGIOGRAPHY OF THE CHEST, ABDOMEN [...] aneurysm: 27 mm AP by 37 mm djwzd-qb-dxlu Aortic diameter 1 cm proximal to aneurysm: 36 mm AP by 35 mm qzrbj-cg-xsqu Aortic diameter immediately proximal to aneurysm: 38 mm AP by 33 2 mm ororu-xc-zowq Maximum outer aneurysm diameter: 62 mm AP by 68 mm ajvzf-el-xjto Aortic diameter immediately distal to aneurysm: 38 mm AP by 39 mm zziid-zx-ohgb Aortic diameter 1 cm distal to aneurysm: 40 mm AP by 44 mm dvzhx-ya-yuly Aortic diameter 2cm distal to aneurysm: 44 mm AP by 41 mm vxzlt-ao-qigz Right common iliac artery diameter: 28 mm AP by 32 mm ssabw-tt-xzjr Left common iliac artery diameter: 33 mm AP by 35 mm cigct-il-puib Right external iliac artery diameter: 8 mm AP by 12 mm hxcay-wy-qiuo Left external iliac artery diameter: 5 mm AP by 14 mm whdjr-xr-umct Right femoral artery diameter: 7 mm AP by 13 mm isfer-jo-vqpt Left femoral artery diameter: 7 mm AP by 17 mm uzboy-dk-uuul Proximal neck - distance from top of [...] is 36 mm AP x 39 mm ytuil-eq-zjse. This is stable since the prior exam. [...] aneurysm: 27 mm AP by 37 mm xewdi-gs-vrse Aortic diameter 1 cm proximal to aneurysm: 36 mm AP by 35 mm cysde-qt-qybq Aortic diameter immediately proximal to aneurysm: 38 mm AP by 33 2 mm uksgk-is-njdl Maximum outer aneurysm diameter: 62 mm AP by 68 mm roadc-gm-obbx Aortic diameter immediately distal to aneurysm: 38 mm AP by 39 mm tudsz-as-fkid Aortic diameter 1 cm distal to aneurysm: 40 mm AP by 44 mm nzoyc-ri-ksyg Aortic diameter 2cm distal to aneurysm: 44 mm AP by 41 mm jfzzi-ny-hodt Right common iliac artery diameter: 28 mm AP by 32 mm kcvyi-qy-cpbk Left common iliac artery diameter: 33 mm AP by 35 mm qknen-ok-bzdy Right external iliac artery diameter: 8 mm AP by 12 mm grmgf-hj-adpo Left external iliac artery diameter: 5 mm AP by 14 mm uzzbf-ii-eday Right femoral artery diameter: 7 mm AP by 13 mm axssa-gv-lxcd Left femoral artery diameter: 7 mm AP by 17 mm hfrnr-ui-tvnd Proximal neck - distance from top of [...] is 36 mm AP x 39 mm ubrpa-cs-jjbu. This is stable since the prior exam. [...] it. Electronically signed by: Gabrielle Milian M.D. Rishi Lainez MD IMG CT PROCEDURES Final Result * (ABNORMAL) POCT creatinine (12/22/2024 10:07 AM FILTER PLANT SUPERVISOR) Creatinine POC 4.8(H) 0.8 - 1.3 mg/dL Blood 12/22/2024 10:0 7 AM FILTER PLANT SUPERVISOR 12/22/2024 10:07 AM FILTER PLANT SUPERVISOR Rishi Lainez MD LAB POCT ORDERABLES - DE VICE Final Result [facility] [place] [address] from Last 3 Months Insurance MEDICARE IDID MEDICARE IDID AETNA [facility] MANAGED MEDICAID GENERIC RISK OTHER MEDICARE [facility] Address: [address] [address] [place] [address] IDPA Advance Directives For more information, please contact: [phone] Documents on File Type Date Recorded Patient Pressfitter Expl anation ADVANCE DIRECTIVE 02/06/2025 3:23 AM POWER OF BUTCHER-MEDICAL ADVANCE DIRECTIVE 01/25/2025 11:56 AM POWER OF BUTCHER-MEDICAL ADVANCE DIRECTIVE 02/04/2018 12:00 AM * Full [...] File Name Relationship Healthcare Agent Relationship Communication Adreabony Lund Daughter Health Care Agent Agnieszka Oliva Significant Other First Alternat e Health Care Agent Care Teams Cycle Repairer Relationship Specialty Start Date End Date Avery Ramos MD [address] [place] [address] PCP - General Family Practice 06/30/18 Lisandro [place] MD [address] [place] [address] Referring Physician Pulmonary Disease 04/01/19 Melia Amaya MD [address] [place] [address] Radiation Oncologist Radiation Oncology 04/27/19 Jigar Beasley MD [address] [place] [address] Resident Anesthesiology 03/03/24 Aileen Fisher MD [address] [place] [address] Consulting Physician Nephrology 05/14/24 Miscellaneous, Not In File 05/14/24 Clinic, Urology [address] [place] [address] Urology 05/14/24
--- OUTSIDE RECORDS SUMMARY | 2025-02-24 08:51 | XMS_ITS | Encounter Summary ---
Author Organization [facility] Address [address] [place] [address] Phone Care Team Providers Care Dry Cleaning Checker Name Role Phone Aveyr Ramos MD Primary Care Provider [phone] Lisandro [place] MD Unavailable [phone] Melia Amaya MD Unavailable [phone] Jigar Beasley MD Unavailable [phone] Aileen Fisher MD Unavailable Miscellaneous, Not In File Unavailable [facility] Clinic, Urology Unavailable Encounter Details Date Type Department Care Team (Late st Contact Info) Description 02/23/2025 Telephone [facility] Nephrology [address] [facility] [address] 5[address] [place] [address] [place] [address] Teresa Flor Social History Tobacco Use Types Packs/Day Years Used Date Smoking Tobacco: Every Day Cigarettes 1 59.3 Started: 1967 Passive Smoke Exposure: Current Smokeless Tobacco: Never Comments:Working on quitting before surgery (has quit on and off a few times) Alcohol Use Standard Drinks/Week Comments Not Currently 0 (1 standard drink = 0.6 oz pur e alcohol) 1-2 beers a month [facility] Utilities Answer Date Recorded In the [...] often do you attend chur ch or zoroastrianism services? 1 to 4 times per year 01/22/2025 Do you belong to any clubs o r organizations such as congregational groups, unions, fraternal or athletic groups, or [...] place to sleep or slept in a assisted (including now)? No 03/06/2024 Housing Stability Vital Sign Answer Jem e Recorded In the last 12 months, was t here a time when you were not able to pay the mortgage or rent on time? No 01/22/2025 In the past 12 months, how m any times have you moved where you were living? 0 01/22/2025 At any time in the past 12 m [facility], were you homeless or living in a assisted (including now)? No 01/22/2025 Personal Safety Answer Date Recorded Have you ever been in or are you currently in a harmful physical or emotional relationship or is someone making you feel afraid or unsafe? 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 Pt stated that PCP thinks pt should be seen sooner due to elevated Creatinine and Elevated Potassium. Please review labs in chart and advise if pt would need to be seen sooner than 03/11/2025. Pt will go to local Urgent Care as instructed by PCP to help elevate potassium levels sooner than later. Thanks Love documented in this encounter Plan of Treatment Scheduled Procedures Name Priority Associated Diagnoses Date/Ti me REPAIR THORACOABDOMINAL AORT IC ANEURYSM Thoracic aortic aneurysm without rupture, unspecified part BYPASS GRAFT - CAROTID SUBCLAVIAN Thoracic aortic aneurysm without rupture, unspecified part documented as of this encounter Visit Diagnoses Not on filedocumented in this encounter Care Teams Dry Cleaning Checker Relationship Specialty Start Date End Date Avery Ramos MD [address] [place] [address] PCP - General Family Practice 06/30/18 Lisandro [place] MD [address] [place] [address] Referring Physician Pulmonary Disease 04/01/19 Melia Amaya MD [address] [place] [address] Radiation Oncologist Radiation Oncology 04/27/19 Jigar Beasley MD [address] [place] [address] Resident Anesthesiology 03/03/24 Aileen Fisher MD [address] [place] [address] Consulting Physician Nephrology 05/14/24 Miscellaneous, Not In File 05/14/24 Clinic, Urology [address] [place] [address] Urology 05/14/24 documented as of this encounter
[2025-02-24 09:05] LABS: Basophils Absolute Auto 0.1 K/mm3 (0.0-0.1); Basophils Percent Auto 1.4 % (0.2-1.2); Eosinophils Absolute Auto 0.4 K/mm3 (0-0.3); Eosinophils Percent Auto 4.7 % (0-4.4); Hematocrit 31.3 % (42.0-52.0); Hemoglobin 9.6 g/dL (14.0-18.0); Immature Granulocyte Absolute 0.08 K/mm3 (0.00-0.031); Immature Granulocyte Percent A 0.9 % (0-0.5); Lymphocytes Percent Auto 14.1 % (18.3-44.2); Mean Corpuscular HGB Conc 30.7 g/dl (32-36); Mean Corpuscular Hemoglobin 30.8 pg (26-34); Mean Corpuscular Volume 100.3 fl (80-100); Mean Platelet Volume 9.4 fl (7.4-10.4); Monocytes Absolute Auto 0.6 K/mm3 (0.1-0.6); Monocytes Percent Auto 6.7 % (2.6-8.5); Neutrophils Absolute Auto 6.2 K/mm3 (1.3-6.7); Neutrophils Percent Auto 72.2 % (45.5-73.1); Platelet Count Result 170 k/mm3 (150-375); Red Blood Count 3.12 M/mm3 (4.6-6.20); Red Cell Distribution Width 14.6 % (11.5-14.5); White Blood Count 8.5 K/mm3 (4.5-10.0)
[2025-02-24 09:07] VITALS: BP 136/87; PULSE 93; RESP 16; TEMP 36.6; O2SAT 94
--- OUTSIDE RECORDS SUMMARY | 2025-02-24 09:17 | XMS_ITS | Encounter Summary ---
Author Organization [facility] Address [address] [place] [address] Phone Care Team Providers Care Voip Engineer Name Role Phone Lance Govea MD Primary Care Provider [phone] Lita Pan NP Primary Care Provider [phone] Unknown, Notinfile Primary Care Provider Unavail able Avery Ramos MD Primary Care Provider [phone] Unknown, Notinfile Primary Care Provider Unavail able Unknown, Notinfile Primary Care Provider Unavail able Avery Ramos MD Primary Care Provider [phone] Lisandro Durham MD Unavailable [phone] Melia Amaya MD Unavailable [phone] Jigar Beasley MD Unavailable [phone] Mariama Freedman [facility] Unavailable [phone] Aileen Fisher MD Unavailable [phone] Miscellaneous, Not In File Unavailable [facility] Clinic, Urology Unavailable Encounter Details Date Type Department Care Team (Latest Contact Info) Description 01/13/2018 Orders Only [facility] CONVERSION Scanning, Provider Social History Tobacco Use Types Packs/Day Years Used Date Smoking Tobacco: Every Day Sex and Gender Information Value Date Recorded Sex Assigned at Not on file Legal Sex Male 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 Gender Identity Not on file Sexual Orientation [...] on filedocumented in this encounter Care Teams Voip Engineer Relationship Specialty Start Date End Date Lance Govea MD PCP - General 01/13/18 01/21/18 Lita Pan CAR WASH ATTENDANT [address] [place] [address] PCP - General 01/22/18 06/05/18 Unknown, Notinfile PCP - General 06/06/18 06/10/18 Avery Ramos MD [address] [place] [address] PCP - General Family Practice 06/11/18 06/11/18 Unknown, Notinfile PCP - General 06/12/18 06/19/18 Unknown, Notinfile PCP - General 06/20/18 06/29/18 Avery Ramos MD [address] [place] [address] PCP - General Family Practice 06/30/18 Lisandro Durham MD [address] [place] [address] Referring Physician Pulmonary Disease 04/01/19 Melia Amaya MD [address] [place] [address] Radiation Oncologist Radiation Oncology 04/27/19 Jigar Beasley MD [address] [place] [address] Resident Anesthesiology 03/03/24 Mariama Freedman LCSW [address] [facility] Mailstop [phone] [place] [address] [facility] Outpatient Watershed Engineer 03/05/24 04/01/24 Aileen Fisher MD [address] [facility] Mailstop [phone] [place] [address] Consulting Physician Nephrology 05/14/24 Miscellaneous, Not In File 05/14/24 Clinic, Urology [address] [place] [address] Urology 05/14/24 documented as of this encounter
--- OUTSIDE RECORDS SUMMARY | 2025-02-24 09:18 | XMS_ITS | Referral Summary ---
Author Organization [facility] Address [address] [place] [address] Care Team Providers Care Garbage Collector Name Role Phone Avery Ramos MD Primary Care Provider [phone] Lisandro Durham MD Unavailable Melia Amaya MD Unavailable Jigar Beasley MD Unavailable Aileen Fisher MD Unavailable [phone] Miscellaneous, Not In File Unavailable [facility], Urology Unavailable Encounters Date Type Department Care Team Description 02/23/2025 Telephone [facility] Nephrology [address] [facility] 5th [place] [address] [place] [address] Teresa Flor 02/03/2025 Orders Only [facility] Surgery [address] [facility] Floor 1 [place] [address] Rishi Lainez MD Thoracoabdominal aortic aneurysm (TAAA) without rupture, unspecified part (Primary Dx); Aftercare following surgery of the circulatory system 02/03/2025 Orders Only [facility] Nephrology [address] [facility] 5th [place] [address] [place] [address] Pita Jackson MD Acute kidney injury (Primary Dx) 01/20/2025 6:39 AM CDT - 02/02/2025 5:50 PM CDT Hospital Encounter [address] [address] Rishi Lainez MD Thoracoabdominal aortic aneurysm (TAAA) without rupture, unspecified part (Primary Dx); Recurrent falls; Acute blood loss anemia; S/P aortic aneurysm repair; Q fever; Malignant neoplasm of middle lobe of right lung (HCC); Acute kidney injury superimposed on chronic kidney disease; Infection of aortic graft, subsequent encounter Discharge Disposition: Discharge to home, home health skilled care 01/29/2025 1:15 PM CDT Ancillary Procedure [facility] Vascular Lab IP [address] [facility] [address] [place] [address] 01/26/2025 Orders Only [facility] Vascular Surgery [address] [facility] [address] [place] [address] Rishi Lainez MD Aneurysm of descending thoracic aorta without rupture (Primary Dx); Aftercare following surgery of the circulatory system 01/22/2025 Orders Only [facility] Interventional Radiology 1 [place] [address] Evangelista Fajardo RT 01/21/2025 11:41 AM CDT Anesthesia Event [address] [address] Juana Jules MD 01/20/2025 8:30 AM CDT - 01/20/2025 1:55 PM CDT Surgery [facility] Operating Room 1 [place] [address] Rishi Lainez MD THORACIC ENDOVASCULAR REPAIR - TBE device incorporating the left subclavian artery 01/20/2025 8:36 AM CDT Anesthesia Event [facility] Operating Room 1 [place] [address] Ashleigh Beverly MD Deibel, Lori, NP 01/11/2025 8:30 AM CDT Pre-Admission Testing [facility] for Preoperative Assessment and Planning [facility] ([facility]) [address] [place] [id number] Preoperative testing (Primary Dx); Bruising 12/30/2024 2:15 PM CDT Telemedicine [facility] Surgery [address] [facility] 2nd Floor [address] [place] [address] Rishi Lainez MD Aneurysm of descending thoracic aorta without rupture (Primary Dx) 12/22/2024 7:30 AM ROUTE JUMPER Infusion [facility] [address] [place] [address] Advanced Medicine 7th [place] [address] Renal insufficiency (Primary Dx) 12/22/2024 9:50 AM ROUTE JUMPER - 12/22/2024 11:59 PM ROUTE JUMPER Hospital Encounter [facility] ([facility]) [address] [place] [address] Rishi Lainez MD Aneurysm of descending thoracic aorta without rupture; Encounter for pre-operative examination Discharge Disposition: Discharge to home or self care 12/18/2024 Telephone [facility] Surgery [address] [facility] Floor 1 [place] [address] Rishi Lainez MD 12/18/2024 Orders Only [facility] Outpatient Infusion Center [address] [place], [place] [address] [address] [place] [address] Felipe Gray RN 12/07/2024 Telephone [facility] Surgery [address] [facility] Floor 1 [place] [address] Rishi Lainez MD 12/03/2024 Orders Only [facility] Vascular Surgery [address] [facility] Medical Office Building [address] [place] [address] Rishi Lainez MD Renal insufficiency (Primary Dx) 12/02/2024 Orders Only [facility] Surgery [address] [facility] Floor 1 [place] [address] Rishi Lainez MD Aneurysm of descending thoracic aorta without rupture (Primary Dx); Encounter for pre-operative examination 12/02/2024 10:30 AM ROUTE JUMPER Telemedicine [facility] Surgery [address] [place] [address] Rihsi Lainez MD Aneurysm of descending thoracic aorta [...] TEVAR extension via L radial and R BOWLING BALL FINISHER access; Left renal artery stent. Intraoperative course [...] IR embolization at [facility], and transferred to [facility] for further evaluation. He was initially admitted [...] fall precautions. Would benefit from rehab at [place], PT rec IPR/OT rec SNF, pt accepted to [facility] at [place]. Insurance approved and plan nticipate transfer 05/14. [...] clinic follow up for catheter management and long distance billing operator care. 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 Order also placed to repeat Q fever serology. 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 - continue amoxicillin and doxycyline. Assessment & Plan (10/11/2020 1:59 PM ROUTE JUMPER): - Patient doing well on suppressive amoxicillin [...] to endorse abdominal incision pain with dilaudid RADIO TALK SHOW HOST 0.4mg Q10min. However, pt states tolerable. Pain service following. - Scheduled Tylenol -continue senior water resources engineer; if becomes somnolent will decrease dose. Assessment & Plan (06/12/2018 1:52 AM CDT): Continues to endorse 6/10 abdominal incision pain with dilaudid RADIO TALK SHOW HOST 0.4mg Q10min. However, pt states tolerable. Pain service following. Pt refuses epidural. Lidocaine gtt discontinue this am with supertheraputic level. -continue senior water resources engineer; if becomes somnolent will decrease dose. Assessment & Plan (06/11/2018 5:53 PM CDT): Continues to be an issue. Endorsing 6/10 abdominal incision pain with lidocaine gtt at 1.5mcg/kg/min and dilaudid RADIO TALK SHOW HOST 0.4mg Q10min. Pain service following. Pt refuses [...] post-vascular surgery with open abdomen. On Dilaudid RADIO TALK SHOW HOST, dose increased prior day. Continued pain during the day, pain consulted and started on Lido gtt. -Lido level at 0000 -If lido level >7, hold infusion per pain -Continue RADIO TALK SHOW HOST Assessment & Plan (06/10/2018 1:12 PM CDT): Expected post-vascular surgery with open abdomen. On Dilaudid RADIO TALK SHOW HOST, Dose increased to 0.4mg q10 min last night. -Dilaudid RADIO TALK SHOW HOST - Consult pain service, regional block vs epidural vs lido infusion Assessment & Plan (06/10/2018 1:14 AM CDT): Expected post-vascular surgery with open abdomen. Currently sedated -Dilaudid PRN per vascular now -Once extubated will plan for dilaudid RADIO TALK SHOW HOST GERD (gastroesophageal reflux disease) 8 Assessment & [...] (06/06/2018): Added automatically from request for surgery [id number] Assessment & Plan (10/05/2024 1:25 PM ROUTE JUMPER): - Clinically doing well on exam today [...] significant exposures it was decided to treat detention. Plan to continue both amoxicillin and doxycycline [...] concerns Assessment & Plan (10/09/2019 3:05 PM ROUTE JUMPER): Doing well on exam today with no [...] Discussed with patient and the rational for detention antibiotics, risk of recurrent infection, signs/symptoms of [...] pm -D/c NGT -sips and chip OK -squad leader to change wound vac this am Assessment [...] do not clamp longer than 2hrs) -c/s squad leader to change wound vac Assessment & Plan [...] pur e alcohol) 1-2 beers a month [facility] [employer] Answer Date Recorded In the past 12 months has [employer], gas, oil, or water [employer] threatened to shut off services in your [...] often do you attend chur ch or pentecostal services? 1 to 4 times per year 01/22/2025 Do you belong to any clubs o r organizations such as taoist groups, unions, fraternal or athletic groups, or [...] any time in the past 12 [facility], were you homeless or living in a fdc (including now)? No 01/22/2025 Personal Safety Answer Date Recorded Have you ever been in or are you currently in a harmful physical or emotional relationship or is someone making you feel afraid or unsafe? Denies 01/20/2025 Sex and Gender Information Value Date Recorded Sex Assigned at Not on file Legal Sex Male 8:41 AM ROUTE JUMPER Gender Identity Not on file Sexual Orientation [...] unspecified part Medical Devices Implanted Type Area Academic Support Specialist Device Identifier Shelf Expiration Date Model / Serial / Lot [employer] Stent Graft Aortic Covered Tag [id number] Eptfe Nitinol [id number] - [id number] - [id number] Implanted:Qty: 1 on 01/20/2025 by Rishi Lainez MD at [facility] Endoprosthesi s N/A: Descending Thoracic Aorta Wl [employer] [id number] 07/06/2027 [id number] [id number] / [id number] / Wl [employer] Stent Graft Thoracic Side Branch Tag [id number] Eptfe Nitinol [id number] - [id number] - [id number] Implanted:Qty: 1 on 01/20/2025 by Rishi Lainez MD at [facility] Endoprosthesi s N/A: Subclavian Artery Wl [employer] [id number] 07/23/2025 [id number] 06A / [id number] / Vascutek Terumo [id number] Gelsoft Plus 22mm 11mm 45cm Bifurcated Main Leg Bore Graft - [id number] - [id number] Implanted:Qty: 1 on 06/09/2018 by Lance Govea MD at [facility] Graft N/A: Abdomen Vascutek Terumo [id number] 04/19/2022 [id number] / [id number] / [id number] 20220 OnShift 757212-50 Stent System Biomimics 3d Vascular [id number] - S00 - [id number] Implanted:Qty: 1 on 08/08/2021 by Billy Elkins MD at [facility] Stent Left: Femoral Realm 12/30/2022 [id number] 10 / 00 / [id number] Description:SFA Non-clinical testing has demonstrated that [...] (JESUS) of 2 W/kg (Normal Operating Mode) OnShift 335441-64 Stent System Biomimics 3d Vascular [id number] - [id number] Implanted:Qty: 1 on 08/08/2021 by Billy Elkins MD at [facility] Stent Left: Femoral [employer] 11/23/2022 [id number] 12 / / [id number] Description:Non-clinical clint ting has demonstrated that [...] of 2 W/kg (Normal Operating Mode) Wl [employer] Stent Graft Thoracic Conformable Tag [id number] - [id number] - [id number] Implanted:Qty: 1 on 01/20/2025 by Rishi Lainez MD at [facility] Stent N/A: Aorta Wl [employer] [id number] 02/14/2027 [id number] 15 / [id number] / Wl [employer] Stent Graft Endoprosthesis Reduced Profile Straight Heparin Coated Viabahn [id number] - [id number] - [id number] Implanted:Qty: 1 on 01/20/2025 by Rishi Lainez MD at [facility] Stent Left: Renal Wl [employer] [id number] 06/15/2027 [id number] 02A / [id number] / Marr Vascular System Closure Repair Femoral Artery Suture Mediated Perclose Prostyle 36708-44 - [id number] Implanted:Qty: 2 on 01/20/2025 by Rishi Lainez MD at [facility] Vascular Closure Device Right: Femoral Marr [employer] [id number] 10/20/2026 53333-2 3 / / [id number] Description:X2 used same lot number Aaa Graft [...] DEVICE Routine 01/21/2025 3 :20 PM CDT MD ARTL CATHJ/CANNULJ MNTR/TRANSFUSION SPX PRQ Routine 01/21/2025 1:10 PM CDT Thoracoabdominal aortic aneurysm (TAAA) without rupture, unspecified part POCT GLUCOSE DEVICE Routine 01/21/2025 1 2:49 PM CDT MD AN PROCEDURE PLACEHOLDER Routine 01/21/2025 11:42 AM [...] LOW RANGE Routine 01/20/2025 10:32 AM CDT MD AN PROCEDURE PLACEHOLDER Routine 01/20/2025 10:05 AM CDT MD AN PROCEDURE PLACEHOLDER Routine 01/20/2025 10:04 AM CDT MD AN PROCEDURE PLACEHOLDER Routine 01/20/2025 10:03 AM CDT MD AN PROCEDURE PLACEHOLDER Routine 01/20/2025 10:02 AM CDT MD AN ELECTIVE ENDOTRACHEAL AIRWAY Routine 01/20/2025 10:02 [...] Read Routine (OP Routine) 12/22/2024 10:37 AM ROUTE JUMPER Aneurysm of descending thoracic aorta without rupture Encounter for pre-operative examination POCT CREATININE - DEVICE Routine 12/22/2024 10:07 AM ROUTE JUMPER from Last 3 Months Results * Potassium, whole blood (02/01/2025 8:50 PM CDT) Potassium, bld 4.6 3.3 - 4.9 mmol/L Blood 02/01/2025 8:50 PM CDT 02/01/2025 9:00 PM CDT Chevy Bell NP LAB BLOOD ORDERABLES Final Result [facility] [address] [facility] Department [place] [address] * (ABNORMAL) eGFR (02/01/2025 8:50 PM CDT) [...] MD LAB BLOOD ORDERABLES Fin al Result [facility] [address] [facility] Department [place] [address] * (ABNORMAL) Differential, auto (02/01/2025 8:50 PM CDT) Neutrophil abs 7.56(H) 1.50 - 6.50 K/cumm Imm gran abs 0.12(H) 0.00 - 0.10 K/cumm [facility] Lymphocyte abs 0.91 0.80 - 3.30 K/cumm [facility] Monocyte abs 0.86(H) 0.20 - 0.80 K/cumm [facility] Eosinophil abs 0.54(H) 0.00 - 0.50 K/cumm [facility] Basophil abs 0.10 0.00 - 0.10 K/cumm [facility] Neutrophil pct 74.9 % [facility] Comment: Interpretive Data Percent cell count reference ranges are not reported, since discordance with absolute values may lead to misinterpretation of CBC data. Current Interpretive Data was last revised on 2018. Imm gran pct 1.2 % [facility] Comment: Interpretive Data Percent cell count reference ranges are not reported, since discordance with absolute values may lead to misinterpretation of CBC data. Current Interpretive Data was last revised on 2018. Lymphocyte pct 9.0 % [facility] Comment: Interpretive Data Percent cell count reference ranges are not reported, since discordance with absolute values may lead to misinterpretation of CBC data. Current Interpretive Data was last revised on 2018. Monocyte pct 8.5 % [facility] Comment: Interpretive Data Percent cell count reference ranges are not reported, since discordance with absolute values may lead to misinterpretation of CBC data. Current Interpretive Data was last revised on 2018. Eosinophil pct 5.4 % [facility] Comment: Interpretive Data Percent cell count reference ranges are not reported, since discordance with absolute values may lead to misinterpretation of CBC data. Current Interpretive Data was last revised on 2018. Basophil pct 1.0 % [facility] Comment: Interpretive Data Percent cell count reference ranges are not reported, since discordance with absolute values may lead to misinterpretation of CBC data. Current Interpretive Data was last revised on 2018. Blood 02/01/2025 8:50 PM CDT 02/01/2025 9:07 PM CDT us Rishi Lainez MD LAB BLOOD ORDERABLES Fin al Result [facility] [address] [facility] Department [place] [address] * (ABNORMAL) CBC with auto differential (02/01/2025 8:50 PM CDT) WBC 10.09(H) 3.80 - 9.90 K/cumm Hgb 9.2(L) 13.0 - 17.5 g/dL [facility] Hct 28.4(L) 38.9 - 50.3 % [facility] Plt 281 150 - 400 K/cumm [facility] MPV 9.6 9.1 - 12.3 fL [facility] RBC 2.93(L) 4.30 - 5.80 M/cumm [facility] MCV 96.9(H) 81.3 - 96.4 fL [facility] MCH 31.4 27.1 - 33.3 pg [facility] MCHC 32.4 32.3 - 35.7 g/dL [facility] RDW CV 15.1(H) 11.1 - 14.9 % [facility] RDW SD 54.0(H) 35.7 - 48.1 fL [facility] NRBC abs 0.00 0.00 - 0.01 K/cumm [facility] Blood 02/01/2025 8:50 PM CDT 02/01/2025 9:07 PM CDT Rishi Lainez MD LAB BLOOD ORDERABLES Fin al Result Performing Organization Address [facility] Co de Phone Number [facility] [place] [address] * (ABNORMAL) Phosphorus (02/01/2025 8:50 PM CDT) [facility] Phosphorus, pl 5.4(H) 2.3 - 4.5 mg/dL Blood 02/01/2025 8:50 PM CDT 02/01/2025 9:07 PM CDT Rishi Lainez MD LAB BLOOD ORDERABLES Fin al Result Performing Organization Address [facility] de Phone Number [facility] [place] [address] * Magnesium (02/01/2025 8:50 PM CDT) [facility] Magnesium 2.4 1.4 - 2.5 mg/dL Blood 02/01/2025 8:50 PM CDT 02/01/2025 9:07 PM CDT Rishi Lainez MD LAB BLOOD ORDERABLES Fin al Result Performing Organization Address [facility] [place] [address] * (ABNORMAL) Basic metabolic panel (02/01/2025 8:50 PM CDT) [facility] Sodium 135 135 - 145 mmol/L Potassium, pl 4.6 3.3 - 4.9 mmol/L [facility] Chloride 102 97 - 110 mmol/L [facility] CO2 19(L) 22 - 32 mmol/L [facility] Anion gap 14 2 - 15 mmol/L [facility] BUN 57(H) 6 - 25 mg/dL [facility] Creatinine 5.27(H) 0.80 - 1.30 mg/dL [facility] Glucose 129 70 - 199 mg/dL [facility] Comment: Interpretive Data Fasting glucose >/= [...] 2022. Calcium 8.7 8.5 - 10.3 mg/dL [facility] Blood 02/01/2025 8:50 PM CDT 02/01/2025 9:07 PM CDT Rishi Lainez MD LAB BLOOD ORDERABLES Fin al Result [facility] Department [place] [address] * Potassium, whole blood (01/31/2025 10:30 PM CDT) Pathologist [facility] Potassium, bld 4.9 3.3 - 4.9 mmol/L Blood 01/31/2025 10:3 0 PM CDT 01/31/2025 10:46 PM CDT us Chevy Bell NP LAB BLOOD ORDERABLES Final Result [facility] Department [place] [address] * (ABNORMAL) eGFR (01/31/2025 10:30 PM CDT) [...] MD LAB BLOOD ORDERABLES Fin al Result [facility] [address] [facility] Department [place] [address] * (ABNORMAL) Differential, auto (01/31/2025 10:30 PM CDT) Neutrophil abs 6.10 1.50 - 6.50 K/cumm Imm gran abs 0.14(H) 0.00 - 0.10 K/cumm [facility] Lymphocyte abs 1.22 0.80 - 3.30 K/cumm [facility] Monocyte abs 0.83(H) 0.20 - 0.80 K/cumm [facility] Eosinophil abs 0.64(H) 0.00 - 0.50 K/cumm [facility] Basophil abs 0.11(H) 0.00 - 0.10 K/cumm [facility] Neutrophil pct 67.5 % [facility] Comment: Interpretive Data Percent cell count reference ranges are not reported, since discordance with absolute values may lead to misinterpretation of CBC data. Current Interpretive Data was last revised on 2018. Imm gran pct 1.5 % [facility] Comment: Interpretive Data Percent cell count reference ranges are not reported, since discordance with absolute values may lead to misinterpretation of CBC data. Current Interpretive Data was last revised on 2018. Lymphocyte pct 13.5 % [facility] Comment: Interpretive Data Percent cell count reference ranges are not reported, since discordance with absolute values may lead to misinterpretation of CBC data. Current Interpretive Data was last revised on 2018. Monocyte pct 9.2 % [facility] Comment: Interpretive Data Percent cell count reference ranges are not reported, since discordance with absolute values may lead to misinterpretation of CBC data. Current Interpretive Data was last revised on 2018. Eosinophil pct 7.1 % [facility] Comment: Interpretive Data Percent cell count reference ranges are not reported, since discordance with absolute values may lead to misinterpretation of CBC data. Current Interpretive Data was last revised on 2018. Basophil pct 1.2 % [facility] Comment: Interpretive Data Percent cell count reference ranges are not reported, since discordance with absolute values may lead to misinterpretation of CBC data. Current Interpretive Data was last revised on 2018. Blood 01/31/2025 10:3 0 PM CDT 01/31/2025 10:49 PM CDT us Rishi Lainez MD LAB BLOOD ORDERABLES Fin al Result [facility] [address] [facility] Department [place] [address] * (ABNORMAL) CBC with auto differential (01/31/2025 10:30 PM CDT) WBC 9.04 3.80 - 9.90 K/cumm Hgb 9.4(L) 13.0 - 17.5 g/dL [facility] Hct 29.0(L) 38.9 - 50.3 % [facility] Plt 277 150 - 400 K/cumm [facility] MPV 9.9 9.1 - 12.3 fL [facility] RBC 2.98(L) 4.30 - 5.80 M/cumm [facility] MCV 97.3(H) 81.3 - 96.4 fL [facility] MCH 31.5 27.1 - 33.3 pg [facility] MCHC 32.4 32.3 - 35.7 g/dL [facility] RDW CV 15.1(H) 11.1 - 14.9 % [facility] RDW SD 55.0(H) 35.7 - 48.1 fL [facility] NRBC abs 0.00 0.00 - 0.01 K/cumm [facility] Blood 01/31/2025 10:3 0 PM CDT 01/31/2025 10:49 PM CDT Rishi Lainez MD LAB BLOOD ORDERABLES Fin al Result Performing Organization Address [facility] de Phone Number [facility] Department [place] [address] * (ABNORMAL) Phosphorus (01/31/2025 10:30 PM CDT) Phosphorus, pl 5.8(H) 2.3 - 4.5 mg/dL Blood 01/31/2025 10:3 0 PM CDT 01/31/2025 10:49 PM CDT Rishi Lainez MD LAB BLOOD ORDERABLES Fin al Result [facility] [place] [address] * (ABNORMAL) Magnesium (01/31/2025 10:30 PM CDT) Magnesium 2.6(H) 1.4 - 2.5 mg/dL Blood 01/31/2025 10:3 0 PM CDT 01/31/2025 10:49 PM CDT Rishi Lainez MD LAB BLOOD ORDERABLES Fin al Result [facility] Department [place] [address] * (ABNORMAL) Basic metabolic panel (01/31/2025 10:30 PM CDT) Sodium 141 135 - 145 mmol/L Potassium, pl 5.0(H) 3.3 - 4.9 mmol/L [facility] Chloride 108 97 - 110 mmol/L [facility] CO2 18(L) 22 - 32 mmol/L [facility] Anion gap 15 2 - 15 mmol/L [facility] BUN 57(H) 6 - 25 mg/dL [facility] Creatinine 5.22(H) 0.80 - 1.30 mg/dL [facility] Glucose 114 70 - 199 mg/dL [facility] Comment: Interpretive Data Fasting glucose >/= [...] 2022. Calcium 9.1 8.5 - 10.3 mg/dL [facility] Blood 01/31/2025 10:3 0 PM CDT 01/31/2025 10:49 PM CDT Rishi Lainez MD LAB BLOOD ORDERABLES Fin al Result Performing Organization Address [facility] Co de Phone Number [facility]uer[facility] Department [place] [address] * Potassium, whole blood (01/30/2025 8:30 PM CDT) Potassium, bld 4.6 3.3 - 4.9 mmol/L Blood 01/30/2025 8:30 PM CDT 01/30/2025 8:53 PM CDT us Chevy Bell NP LAB BLOOD ORDERABLES Final Result Performing Organization Address [facility] Co de Phone Number [facility] [place] [address] * (ABNORMAL) eGFR (01/30/2025 8:30 PM CDT) [...] ORDERABLES Fin al Result Performing Organization Address City/[facility]/ZIP Co de Phone Number [facility] Department [place] [address] * (ABNORMAL) Differential, auto (01/30/2025 8:30 PM CDT) Neutrophil abs 5.94 1.50 - 6.50 K/cumm Imm gran abs 0.09 0.00 - 0.10 K/cumm [facility] Lymphocyte abs 0.85 0.80 - 3.30 K/cumm [facility] Monocyte abs 0.92(H) 0.20 - 0.80 K/cumm [facility] Eosinophil abs 0.59(H) 0.00 - 0.50 K/cumm [facility] Basophil abs 0.10 0.00 - 0.10 K/cumm [facility] Neutrophil pct 70.0 % [facility] Comment: Interpretive Data Percent cell count reference ranges are not reported, since discordance with absolute values may lead to misinterpretation of CBC data. Current Interpretive Data was last revised on 2018. Imm gran pct 1.1 % [facility] Comment: Interpretive Data Percent cell count reference ranges are not reported, since discordance with absolute values may lead to misinterpretation of CBC data. Current Interpretive Data was last revised on 2018. Lymphocyte pct 10.0 % [facility] Comment: Interpretive Data Percent cell count reference ranges are not reported, since discordance with absolute values may lead to misinterpretation of CBC data. Current Interpretive Data was last revised on 2018. Monocyte pct 10.8 % [facility] Comment: Interpretive Data Percent cell count reference ranges are not reported, since discordance with absolute values may lead to misinterpretation of CBC data. Current Interpretive Data was last revised on 2018. Eosinophil pct 6.9 % [facility] Comment: Interpretive Data Percent cell count reference ranges are not reported, since discordance with absolute values may lead to misinterpretation of CBC data. Current Interpretive Data was last revised on 2018. Basophil pct 1.2 % [facility] Comment: Interpretive Data Percent cell count reference ranges are not reported, since discordance with absolute values may lead to misinterpretation of CBC data. Current Interpretive Data was last revised on 2018. Blood 01/30/2025 8:30 PM CDT 01/30/2025 8:58 PM CDT Rishi Lainez MD LAB BLOOD ORDERABLES Fin al Result [facility] Department [place] [address] * (ABNORMAL) CBC with auto differential (01/30/2025 8:30 PM CDT) Pathologist [facility] WBC 8.49 3.80 - 9.90 K/cumm Hgb 9.2(L) 13.0 - 17.5 g/dL [facility] Hct 28.5(L) 38.9 - 50.3 % [facility] Plt 220 150 - 400 K/cumm [facility] MPV 9.8 9.1 - 12.3 fL [facility] RBC 2.89(L) 4.30 - 5.80 M/cumm [facility] MCV 98.6(H) 81.3 - 96.4 fL [facility] MCH 31.8 27.1 - 33.3 pg [facility] MCHC 32.3 32.3 - 35.7 g/dL [facility] RDW CV 14.9 11.1 - 14.9 % [facility] RDW SD 54.5(H) 35.7 - 48.1 fL [facility] NRBC abs 0.00 0.00 - 0.01 K/cumm [facility] Blood 01/30/2025 8:30 PM CDT 01/30/2025 8:58 PM CDT Rishi Lainez MD LAB BLOOD ORDERABLES Fin al Result Performing Organization Address [facility]/ZIP Co de Phone Number [facility] Department [place] [address] * (ABNORMAL) Phosphorus (01/30/2025 8:30 PM CDT) Pathologist [facility] Phosphorus, pl 5.6(H) 2.3 - 4.5 mg/dL Blood 01/30/2025 8:30 PM CDT 01/30/2025 8:58 PM CDT Rishi Lainez MD LAB BLOOD ORDERABLES Fin al Result Performing Organization Address City/[facility]/ZIP Co de Phone Number [facility] Department [place] [address] * Magnesium (01/30/2025 8:30 PM CDT) Pathologist [facility] Magnesium 2.5 1.4 - 2.5 mg/dL Blood 01/30/2025 8:30 PM CDT 01/30/2025 8:58 PM CDT Rishi Lainez MD LAB BLOOD ORDERABLES Fin al Result Performing Organization Address [facility] de Phone Number [facility] Department [place] [address] * (ABNORMAL) Basic metabolic panel (01/30/2025 8:30 PM CDT) [facility] Sodium 142 135 - 145 mmol/L Potassium, pl 4.9 3.3 - 4.9 mmol/L [facility] Chloride 111(H) 97 - 110 mmol/L [facility] CO2 19(L) 22 - 32 mmol/L [facility] Anion gap 12 2 - 15 mmol/L [facility] BUN 62(H) 6 - 25 mg/dL [facility] Creatinine 5.18(H) 0.80 - 1.30 mg/dL [facility] Glucose 132 70 - 199 mg/dL [facility] Comment: Interpretive Data Fasting glucose >/= [...] 2022. Calcium 8.6 8.5 - 10.3 mg/dL [facility] Blood 01/30/2025 8:30 PM CDT 01/30/2025 8:58 PM CDT Rishi Lainez MD LAB BLOOD ORDERABLES Fin al Result Performing Organization Address [facility] Co de Phone Number [facility] Marguerite [facility] Department [place] [address] * (ABNORMAL) Urinalysis reflex to microscopic and culture Urine (01/30/2025 12:11 PM CDT) Color, ur Straw Yellow Clarity, ur Clear Clear [facility] Specific gravity, ur 1.015 1.003 - 1.030 [facility] pH, urine 6.5 [facility] Comment: Interpretive Data U rine pH is affected by diet, medications, systemic acid-base disturbances, and renal tubular function. pH may affect urinary stone formation. For example, urine pH below 6.0 may help reduce the tendency for calcium phosphate stones and pH greater than 6.0 may reduce the tendency for uric acid stone formation. Source: [facility] Current Interpretive Data was last revised on 2017 Protein, ur ql 2+(A) Negative [facility] Glucose, ur ql 1+(A) Negative [facility] Ketones, ur Negative Negative [facility] Bilirubin, ur Negative Negative [facility] Blood, ur 1+(A) Negative [facility] Urobilinogen, ur <2.0 <2.0 mg/dL [facility] Nitrite, ur Negative Negative [facility] Leukocyte esterase, ur 2+(A) Negative [facility] UA reflex comment Reflex to microscopic UA will be performed. [facility] Urine 01/30/2025 12:1 1 PM CDT 01/30/2025 1:18 PM CDT Rishi Lainez MD LAB MICROBIOLOGY - GENER AL ORDERABLES Final Result Performing Organization Address [facility] Co de Phone Number [facility] Department [place] [address] * (ABNORMAL) Urinalysis, microscopic only (01/30/2025 12:11 PM CDT) WBC, ur >50(A) 0 - 5 /HPF RBC, ur 0-2 0 - 2 /HPF [facility] Bacteria, ur Trace(A) [facility] Yeast, ur 4+(A) [facility] Mucous, ur Present(A) [facility] Hyaline casts, ur 1-5 0 - 10 /LPF [facility] Culture Reflex Comment Reflex to urine culture will be performed. [facility] Urine 01/30/2025 12:1 1 PM CDT 01/30/2025 1:18 PM CDT Rishi Lainez MD LAB URINE ORDERABLES Fin al Result Performing Organization Address [facility] Co de Phone Number [facility] Department [place] [address] * (ABNORMAL) Urine culture Urine (01/30/2025 12:11 PM CDT) Report Final Report: Greater than or equal to 100,000 colonies/mL of Vishal glabrata (.) Organism VISHAL GLABRATA [facility] Urine 01/30/2025 12:1 1 PM CDT 01/30/2025 2:37 PM CDT Narrative [facility] - 02/01/2025 6:15 AM CDT Urine culture reflexed based upon urinalysis results. Testing performed by [facility] Microbiology Laboratory ([phone]) Rishi Lainez MD LAB MICROBIOLOGY - GENER AL ORDERABLES Final Result Performing Organization Address [facility]/ZIP Co de Phone Number [facility] [place] [address] * US Renal Limited W Complete Renal [...] agrees with it. Electronically signed by: Bernice Gacria M.D. Narrative 01/30/2025 12:45 PM CDT EXAMINATION: [...] by: Bernice Garcia M.D. Rishi Lainez MD [facility] PROCEDURES Final Result * (ABNORMAL) Potassium, whole blood (01/29/2025 10:33 PM CDT) Pathologist [facility] Potassium, bld 5.0(H) 3.3 - 4.9 mmol/L Blood 01/29/2025 10:3 3 PM CDT 01/29/2025 10:46 PM CDT Chevy Bell NP LAB BLOOD ORDERABLES Final Result [facility] Department [place] [address] * (ABNORMAL) eGFR (01/29/2025 10:33 PM CDT) [...] MD LAB BLOOD ORDERABLES Fin al Result [facility] Department [place] [address] * (ABNORMAL) Differential, auto (01/29/2025 10:33 PM [...] [facility] Neutrophil pct 66.6 % [facility] Comment: Interpretive Data Percent cell count reference ranges are not reported, since discordance with absolute values may lead to misinterpretation of CBC data. Current Interpretive Data was last revised on 2018. Imm gran pct 1.3 % [facility] Comment: Interpretive Data Percent cell count reference ranges are not reported, since discordance with absolute values may lead to misinterpretation of CBC data. Current Interpretive Data was last revised on 2018. Lymphocyte pct 12.7 % [facility] Comment: Interpretive Data Percent cell count [...] revised on 2018. Eosinophil pct 7.4 % [facility] Comment: Interpretive Data Percent cell count reference ranges are not reported, since discordance with absolute values may lead to misinterpretation of CBC data. Current Interpretive Data was last revised on 2018. Basophil pct 1.3 % [facility] Comment: Interpretive Data Percent cell count reference ranges are not reported, since discordance with absolute values may lead to misinterpretation of CBC data. Current Interpretive Data was last revised on 2018. Blood 01/29/2025 10:3 3 PM CDT 01/29/2025 10:48 PM CDT Rishi Lainez MD LAB BLOOD ORDERABLES Fin al Result [facility] [place] [address] * C4 complement (01/29/2025 10:33 PM CDT) [facility] Complement C4 29.7 10.0 - 40.0 mg/dL Blood 01/29/2025 10:3 3 PM CDT 01/29/2025 10:48 PM CDT Chevy Bell NP LAB BLOOD ORDERABLES Final Result [facility] Department [place] [address] * (ABNORMAL) CBC with auto differential (01/29/2025 10:33 PM CDT) Pathologist [facility] WBC 9.09 3.80 - 9.90 K/cumm Hgb 9.7(L) 13.0 - 17.5 g/dL [facility] Hct 29.9(L) 38.9 - 50.3 % [facility] Plt 229 150 - 400 K/cumm [facility] MPV 10.0 9.1 - 12.3 fL [facility] RBC 3.10(L) 4.30 - 5.80 M/cumm [facility] MCV 96.5(H) 81.3 - 96.4 fL [facility] MCH 31.3 27.1 - 33.3 pg [facility] MCHC 32.4 32.3 - 35.7 g/dL [facility] RDW CV 15.1(H) 11.1 - 14.9 % [facility] RDW SD 52.6(H) 35.7 - 48.1 fL [facility] NRBC abs 0.00 0.00 - 0.01 K/cumm [facility] Blood 01/29/2025 10:3 3 PM CDT 01/29/2025 10:48 PM CDT Rishi Lainez MD LAB BLOOD ORDERABLES Fin al Result Performing Organization Address City/[facility]/ZIP Co de Phone Number [facility] Department [place] [address] * C3 complement (01/29/2025 10:33 PM CDT) [facility] Complement C3 168.0 90.0 - 180.0 mg/dL Blood 01/29/2025 10:3 3 PM CDT 01/29/2025 10:48 PM CDT Chevy Bell NP LAB BLOOD ORDERABLES Final Result [facility] Department [place] [address] * (ABNORMAL) Phosphorus (01/29/2025 10:33 PM CDT) Phosphorus, pl 5.5(H) 2.3 - 4.5 mg/dL Blood 01/29/2025 10:3 3 PM CDT 01/29/2025 10:48 PM CDT Rishi Lainez MD LAB BLOOD ORDERABLES Fin al Result [facility] [place] [address] * (ABNORMAL) Magnesium (01/29/2025 10:33 PM CDT) Pathologist [facility] Magnesium 2.6(H) 1.4 - 2.5 mg/dL Blood 01/29/2025 10:3 3 PM CDT 01/29/2025 10:48 PM CDT Rishi Lainez MD LAB BLOOD ORDERABLES Fin al Result Performing Organization Address [facility] de Phone Number [facility] Department [place] [address] * (ABNORMAL) Basic metabolic panel (01/29/2025 10:33 PM CDT) Pathologist [facility] Sodium 138 135 - 145 mmol/L Potassium, pl 5.2(H) 3.3 - 4.9 mmol/L [facility] Chloride 106 97 - 110 mmol/L [facility] CO2 19(L) 22 - 32 mmol/L [facility] Anion gap 13 2 - 15 mmol/L [facility] BUN 68(H) 6 - 25 mg/dL [facility] Creatinine 5.18(H) 0.80 - 1.30 mg/dL [facility] Glucose 107 70 - 199 mg/dL [facility] Comment: Interpretive Data Fasting glucose >/= [...] Calcium 8.8 8.5 - 10.3 mg/dL [facility] Blood 01/29/2025 10:3 3 PM CDT 01/29/2025 10:48 PM CDT us Rishi Lainez MD LAB BLOOD ORDERABLES Fin al Result [facility] [place] [address] * US Vein Mapping Fistula Access, Bilateral (01/29/2025 3:07 PM CDT) Anatomical Region Laterality Modality Vascular Bilateral Ultrasound 01/29/2025 2:17 PM CDT Narrative 01/30/2025 10:37 AM CDT [facility] - Department of Vascular Surgery, Vascular Laboratory [address] [place] [id number] Upper Extremity Vein Mapping Report Patient Name: AVERY VICK WILLIAM : 1955 (69y 10m) Study Date: 01/29/2025 2:17:51 PM Gender: M Lacing String Cutter: LORELEI Location: [id number] [facility] Provider: CHEVY BELL Quality: Adequate Order Provider: [...] Value Units Left Value Units FINDINGS: Performing Lacing String Cutter: Agnieszka Rivera RVT. Bilateral: Venous Doppler signals [...] Procedure Note Josias Salas MD - 01/30/2025 [facility] - Department of Vascular Surgery,Vascular Laboratory [address] [place] [address] Upper Extremity Vein Mapping Report Patient Name: AVERY VICK WILLIAM : 1955 (69y 10m) Study Date: 01/29/2025 2:17:51 PM Gender: M Lacing String Cutter: LORELEI Location: [id number] Ref Provider: CHEVY BELL Quality: Adequate Order [...] Value Units Left Value Units FINDINGS: Performing Lacing String Cutter: Agnieszka Rivera RVT. Bilateral: Venous Doppler signals [...] above. Electronically Signed By: Josias Salas MD [facility] 01/30/2025 10:14:12 AM CDT Chevy Bell NP IMG US PROCEDURES Final Res ult * Urea nitrogen, urine, random (01/29/2025 11:07 AM CDT) Urea nitrogen, ur 369 mg/dL Comment: Interpretive Data No reference range established. Current interpretive data was last revised 2019. Urine 01/29/2025 11:0 7 AM CDT 01/29/2025 11:19 AM CDT Chevy Bell NP LAB URINE ORDERABLES Final Result [facility] Department of Laboratories [place], [place] [id number] * (ABNORMAL) Protein / creatinine ratio, urine, random (01/29/2025 11:07 AM CDT) Protein, ur, quant 57.4 mg/dL Comment: Interpretive Data No reference range established. Current interpretive data was last revised 2019. Creatinine Ur 44.2 mg/dL [facility] Comment: Interpretive Data No reference range established. Current interpretive data was last revised 2019. Protein/creatinin e ratio 1,298.6(H ) 0.0 - 180.0 mg/g CR [facility] Urine 01/29/2025 11:0 7 AM CDT 01/29/2025 11:19 AM CDT Chevy Bell NP LAB URINE ORDERABLES Final Result Performing Organization Address [facility] de Phone Number [facility] Department [place] [address] * Sodium, urine, random (01/29/2025 11:07 AM CDT) Sodium, ur 86 mmol/L Comment: Interpretive Data No reference range established. Current interpretive data was last revised 2019. Urine 01/29/2025 11:0 7 AM CDT 01/29/2025 11:19 AM CDT Chevy Bell NP LAB URINE ORDERABLES Final Result Performing Organization Address City/[facility] Co de Phone Number [facility] [place] [address] * Creatinine, urine, random (01/29/2025 11:07 AM CDT) Creatinine Ur 44.2 mg/dL Comment: Interpretive Data No reference range established. Current interpretive data was last revised 2019. Urine 01/29/2025 11:0 7 AM CDT 01/29/2025 11:19 AM CDT Chevy Bell NP LAB URINE ORDERABLES Final Result Performing Organization Address City/[facility]/ZIP Co de Phone Number [facility] Department [place] [address] * (ABNORMAL) Potassium, whole blood (01/29/2025 10:12 AM CDT) Potassium, bld 5.1(H) 3.3 - 4.9 mmol/L Blood 01/29/2025 10:1 2 AM CDT 01/29/2025 10:22 AM CDT Rishi Lainez MD LAB BLOOD ORDERABLES Fin al Result Performing Organization Address [facility] Co de Phone Number [facility] [place] [address] * US Kidney Complete (01/29/2025 9:20 AM [...] by: Gabrielle Milian M.D. us Chevy Bell RECORD KEEPER IMG US PROCEDURES Final Res ult * (ABNORMAL) Potassium, whole blood (01/28/2025 8:49 PM CDT) Potassium, bld 5.1(H) 3.3 - 4.9 mmol/L Blood 01/28/2025 8:49 PM CDT 01/28/2025 8:59 PM CDT Rishi Lainez MD LAB BLOOD ORDERABLES Fin al Result [facility] [place] [address] * (ABNORMAL) eGFR (01/28/2025 8:49 PM CDT) [...] ORDERABLES Fin al Result Performing Organization Address [facility] Co de Phone Number [facility] [place] [address] * (ABNORMAL) Differential, auto (01/28/2025 8:49 PM CDT) Pathologist [facility] Neutrophil abs 6.76(H) 1.50 - 6.50 K/cumm Imm gran abs 0.10 0.00 - 0.10 K/cumm [facility] Lymphocyte abs 1.15 0.80 - 3.30 K/cumm [facility] Monocyte abs 1.02(H) 0.20 - 0.80 K/cumm [facility] Eosinophil abs 0.62(H) 0.00 - 0.50 K/cumm [facility] Basophil abs 0.09 0.00 - 0.10 K/cumm [facility] Neutrophil pct 69.4 % [facility] Comment: Interpretive Data Percent cell count reference ranges are not reported, since discordance with absolute values may lead to misinterpretation of CBC data. Current Interpretive Data was last revised on 2018. Imm gran pct 1.0 % [facility] Comment: Interpretive Data Percent cell count reference ranges are not reported, since discordance with absolute values may lead to misinterpretation of CBC data. Current Interpretive Data was last revised on 2018. Lymphocyte pct 11.8 % [facility] Comment: Interpretive Data Percent cell count reference ranges are not reported, since discordance with absolute values may lead to misinterpretation of CBC data. Current Interpretive Data was last revised on 2018. Monocyte pct 10.5 % [facility] Comment: Interpretive Data Percent cell count reference ranges are not reported, since discordance with absolute values may lead to misinterpretation of CBC data. Current Interpretive Data was last revised on 2018. Eosinophil pct 6.4 % [facility] Comment: Interpretive Data Percent cell count reference ranges are not reported, since discordance with absolute values may lead to misinterpretation of CBC data. Current Interpretive Data was last revised on 2018. Basophil pct 0.9 % [facility] Comment: Interpretive Data Percent cell count reference ranges are not reported, since discordance with absolute values may lead to misinterpretation of CBC data. Current Interpretive Data was last revised on 2018. Blood 01/28/2025 8:49 PM CDT 01/28/2025 9:05 PM CDT us Rishi Lainez MD LAB BLOOD ORDERABLES Fin al Result [facility] [place] [address] * (ABNORMAL) CBC with auto differential (01/28/2025 8:49 PM CDT) WBC 9.74 3.80 - 9.90 K/cumm Hgb 9.3(L) 13.0 - 17.5 g/dL [facility] Hct 28.4(L) 38.9 - 50.3 % [facility] Plt 181 150 - 400 K/cumm [facility] MPV 10.1 9.1 - 12.3 fL [facility] RBC 2.96(L) 4.30 - 5.80 M/cumm [facility] MCV 95.9 81.3 - 96.4 fL [facility] MCH 31.4 27.1 - 33.3 pg [facility] MCHC 32.7 32.3 - 35.7 g/dL [facility] RDW CV 15.2(H) 11.1 - 14.9 % [facility] RDW SD 53.8(H) 35.7 - 48.1 fL [facility] NRBC abs 0.00 0.00 - 0.01 K/cumm [facility] Blood 01/28/2025 8:49 PM CDT 01/28/2025 9:05 PM CDT Rishi Lainez MD LAB BLOOD ORDERABLES Fin al Result [facility] [place] [address] * (ABNORMAL) Phosphorus (01/28/2025 8:49 PM CDT) [facility] Phosphorus, pl 5.2(H) 2.3 - 4.5 mg/dL Blood 01/28/2025 8:49 PM CDT 01/28/2025 9:05 PM CDT Rishi Lainez MD LAB BLOOD ORDERABLES Fin al Result [facility] [place] [address] * (ABNORMAL) Magnesium (01/28/2025 8:49 PM CDT) Magnesium 2.7(H) 1.4 - 2.5 mg/dL Blood 01/28/2025 8:49 PM CDT 01/28/2025 9:05 PM CDT Rishi Lainez MD LAB BLOOD ORDERABLES Fin al Result Performing Organization Address City/[facility]/ZIP Co de Phone Number [facility] Department [place] [address] * (ABNORMAL) Basic metabolic panel (01/28/2025 8:49 PM CDT) Pathologist [facility] Sodium 139 135 - 145 mmol/L Potassium, pl 5.4(H) 3.3 - 4.9 mmol/L [facility] Chloride 108 97 - 110 mmol/L [facility] CO2 18(L) 22 - 32 mmol/L [facility] Anion gap 13 2 - 15 mmol/L [facility] BUN 69(H) 6 - 25 mg/dL [facility] Creatinine 4.94(H) 0.80 - 1.30 mg/dL [facility] Glucose 103 70 - 199 mg/dL [facility] Comment: Interpretive Data Fasting glucose >/= [...] 2022. Calcium 8.7 8.5 - 10.3 mg/dL [facility] Blood 01/28/2025 8:49 PM CDT 01/28/2025 9:05 PM CDT Rishi Lainez MD LAB BLOOD ORDERABLES Fin al Result Performing Organization Address [facility]/ZIP Co de Phone Number [facility] [place] [address] * (ABNORMAL) eGFR (01/28/2025 2:54 PM CDT) [...] BLOOD ORDERABLES Final Result Performing Organization Address [facility] Co de Phone Number [facility] [place] [address] * (ABNORMAL) Basic metabolic panel (01/28/2025 2:54 PM CDT) Pathologist [facility] Sodium 138 135 - 145 mmol/L Potassium, pl 5.3(H) 3.3 - 4.9 mmol/L [facility] Chloride 105 97 - 110 mmol/L [facility] CO2 19(L) 22 - 32 mmol/L [facility] Anion gap 14 2 - 15 mmol/L [facility] BUN 67(H) 6 - 25 mg/dL [facility] Creatinine 4.91(H) 0.80 - 1.30 mg/dL [facility] Glucose 105 70 - 199 mg/dL [facility] Comment: Interpretive Data Fasting glucose >/= [...] 2022. Calcium 8.8 8.5 - 10.3 mg/dL [facility] Blood 01/28/2025 2:54 PM CDT 01/28/2025 3:13 PM CDT us Chevy Bell NP LAB BLOOD ORDERABLES Final Result Performing Organization Address City/[facility]/ZIP Co de Phone Number [facility] Department [place] [address] * (ABNORMAL) Potassium, whole blood (01/28/2025 5:09 AM CDT) [facility] Potassium, bld 5.1(H) 3.3 - 4.9 mmol/L Blood 01/28/2025 5:09 AM CDT 01/28/2025 5:19 AM CDT us Rishi Lainez MD LAB BLOOD ORDERABLES Fin al Result [facility] Department [place] [address] * ECG 12 lead (01/28/2025 12:21 AM CDT) Pathologist [facility] Ventricular Rate EKG/Min 74 BPM [facility] Atrial Rate 74 BPM [facility] MD-Interval (MSEC) 192 ms [facility] QRS-Interval (MSEC) 106 ms [facility] QT-Interval (MSEC) 378 ms [facility] QTc 419 ms [facility] P [place] 42 degrees [facility] R [place] -53 degrees [facility] T [place] 50 degrees [facility] Diagnosis Normal sinus rhythm Left anterior fascicular block Abnormal ECG When compared with ECG of 01-JUN-2024 10:25, No significant change was found Confirmed by Vinny Jolly MD ([id number]) on 01/29/2025 8:41:01 AM [facility] 01/28/2025 12:2 1 AM CDT 01/29/2025 8:41 AM CDT Rishi Lainez MD ECG ORDERABLES Final Re sult Performing Organization Address City/[facility]/ZIP Co de Phone Number [facility] * (ABNORMAL) Potassium, whole blood (01/28/2025 12:08 AM CDT) Pathologist [facility] Potassium, bld 5.2(H) 3.3 - 4.9 mmol/L Blood 01/28/2025 12:0 8 AM CDT 01/28/2025 12:22 AM CDT Rishi Lainez MD LAB BLOOD ORDERABLES Fin al Result [facility] Department [place] [address] * (ABNORMAL) eGFR (01/27/2025 10:32 PM CDT) [...] MD LAB BLOOD ORDERABLES Fin al Result [facility] [place] [address] * (ABNORMAL) Differential, auto (01/27/2025 10:32 PM CDT) Neutrophil abs 6.24 1.50 - 6.50 K/cumm Imm gran abs 0.06 0.00 - 0.10 K/cumm [facility] Lymphocyte abs 1.13 0.80 - 3.30 K/cumm [facility] Monocyte abs 1.04(H) 0.20 - 0.80 K/cumm [facility] Eosinophil abs 0.52(H) 0.00 - 0.50 K/cumm [facility] Basophil abs 0.07 0.00 - 0.10 K/cumm [facility] Neutrophil pct 68.8 % [facility] Comment: Interpretive Data Percent cell count reference ranges are not reported, since discordance with absolute values may lead to misinterpretation of CBC data. Current Interpretive Data was last revised on 2018. Imm gran pct 0.7 % [facility] Comment: Interpretive Data Percent cell count reference ranges are not reported, since discordance with absolute values may lead to misinterpretation of CBC data. Current Interpretive Data was last revised on 2018. Lymphocyte pct 12.5 % [facility] Comment: Interpretive Data Percent cell count reference ranges are not reported, since discordance with absolute values may lead to misinterpretation of CBC data. Current Interpretive Data was last revised on 2018. Monocyte pct 11.5 % [facility] Comment: Interpretive Data Percent cell count reference ranges are not reported, since discordance with absolute values may lead to misinterpretation of CBC data. Current Interpretive Data was last revised on 2018. Eosinophil pct 5.7 % [facility] Comment: Interpretive Data Percent cell count reference ranges are not reported, since discordance with absolute values may lead to misinterpretation of CBC data. Current Interpretive Data was last revised on 2018. Basophil pct 0.8 % [facility] Comment: Interpretive Data Percent cell count reference ranges are not reported, since discordance with absolute values may lead to misinterpretation of CBC data. Current Interpretive Data was last revised on 2018. Blood 01/27/2025 10:3 2 PM CDT 01/27/2025 10:55 PM CDT Rishi Lainez MD LAB BLOOD ORDERABLES Fin al Result [facility] Department [place] [address] * (ABNORMAL) CBC with auto differential (01/27/2025 10:32 PM CDT) WBC 9.06 3.80 - 9.90 K/cumm Hgb 9.3(L) 13.0 - 17.5 g/dL [facility] Hct 29.5(L) 38.9 - 50.3 % [facility] Plt 165 150 - 400 K/cumm [facility] MPV 10.5 9.1 - 12.3 fL [facility] RBC 3.13(L) 4.30 - 5.80 M/cumm [facility] MCV 94.2 81.3 - 96.4 fL [facility] MCH 29.7 27.1 - 33.3 pg [facility] MCHC 31.5(L) 32.3 - 35.7 g/dL [facility] RDW CV 15.2(H) 11.1 - 14.9 % [facility] RDW SD 52.9(H) 35.7 - 48.1 fL [facility] NRBC abs 0.00 0.00 - 0.01 K/cumm [facility] Blood 01/27/2025 10:3 2 PM CDT 01/27/2025 10:55 PM CDT Rishi Lainez MD LAB BLOOD ORDERABLES Fin al Result Performing Organization Address City/[facility] Co de Phone Number [facility] [place] [address] * (ABNORMAL) Phosphorus (01/27/2025 10:32 PM CDT) Phosphorus, pl 5.6(H) 2.3 - 4.5 mg/dL Blood 01/27/2025 10:3 2 PM CDT 01/27/2025 10:53 PM CDT Rishi Lainez MD LAB BLOOD ORDERABLES Fin al Result Performing Organization Address [facility] de Phone Number [facility] Department [place] [address] * (ABNORMAL) Magnesium (01/27/2025 10:32 PM CDT) Magnesium 2.6(H) 1.4 - 2.5 mg/dL Blood 01/27/2025 10:3 2 PM CDT 01/27/2025 10:53 PM CDT Rishi Lainez MD LAB BLOOD ORDERABLES Fin al Result Performing Organization Address [facility] de Phone Number [facility] [place] [address] * (ABNORMAL) Basic metabolic panel (01/27/2025 10:32 PM CDT) Sodium 134(L) 135 - 145 mmol/L Potassium, pl 5.5(H) 3.3 - 4.9 mmol/L [facility] Chloride 105 97 - 110 mmol/L [facility] CO2 18(L) 22 - 32 mmol/L [facility] Anion gap 11 2 - 15 mmol/L [facility] BUN 65(H) 6 - 25 mg/dL [facility] Creatinine 4.85(H) 0.80 - 1.30 mg/dL [facility] Glucose 95 70 - 199 mg/dL [facility] Comment: Interpretive Data Fasting glucose >/= [...] 2022. Calcium 8.9 8.5 - 10.3 mg/dL [facility] Blood 01/27/2025 10:3 2 PM CDT 01/27/2025 10:53 PM CDT us Rishi Lainez MD LAB BLOOD ORDERABLES Fin al Result Performing Organization Address City/[facility]/ZIP Co de Phone Number [facility] Department [place] [address] * (ABNORMAL) Potassium, whole blood (01/27/2025 5:35 AM CDT) Potassium, bld 5.2(H) 3.3 - 4.9 mmol/L Blood 01/27/2025 5:35 AM CDT 01/27/2025 5:44 AM CDT Rishi Lainez MD LAB BLOOD ORDERABLES Fin al [facility] [place] [address] * (ABNORMAL) eGFR (01/27/2025 3:57 AM CDT) [...] ORDERABLES Fin al Result Performing Organization Address [facility] Co de Phone Number [facility] [place] [address] * (ABNORMAL) Differential, auto (01/27/2025 3:57 AM CDT) Neutrophil abs 7.22(H) 1.50 - 6.50 K/cumm Imm gran abs 0.08 0.00 - 0.10 K/cumm [facility] Lymphocyte abs 0.91 0.80 - 3.30 K/cumm [facility] Monocyte abs 1.09(H) 0.20 - 0.80 K/cumm [facility] Eosinophil abs 0.63(H) 0.00 - 0.50 K/cumm [facility] Basophil abs 0.08 0.00 - 0.10 K/cumm [facility] Neutrophil pct 72.1 % [facility] Comment: Interpretive Data Percent cell count reference ranges are not reported, since discordance with absolute values may lead to misinterpretation of CBC data. Current Interpretive Data was last revised on 2018. Imm gran pct 0.8 % [facility] Comment: Interpretive Data Percent cell count reference ranges are not reported, since discordance with absolute values may lead to misinterpretation of CBC data. Current Interpretive Data was last revised on 2018. Lymphocyte pct 9.1 % [facility] Comment: Interpretive Data Percent cell count reference ranges are not reported, since discordance with absolute values may lead to misinterpretation of CBC data. Current Interpretive Data was last revised on 2018. Monocyte pct 10.9 % [facility] Comment: Interpretive Data Percent cell count reference ranges are not reported, since discordance with absolute values may lead to misinterpretation of CBC data. Current Interpretive Data was last revised on 2018. Eosinophil pct 6.3 % [facility] Comment: Interpretive Data Percent cell count reference ranges are not reported, since discordance with absolute values may lead to misinterpretation of CBC data. Current Interpretive Data was last revised on 2018. Basophil pct 0.8 % [facility] Comment: Interpretive Data Percent cell count reference ranges are not reported, since discordance with absolute values may lead to misinterpretation of CBC data. Current Interpretive Data was last revised on 2018. Blood 01/27/2025 3:57 AM CDT 01/27/2025 4:46 AM CDT us Rishi Lainez MD LAB BLOOD ORDERABLES Fin al Result [facility] [place] [address] * (ABNORMAL) CBC with auto differential (01/27/2025 3:57 AM CDT) WBC 10.01(H) 3.80 - 9.90 K/cumm Hgb 9.8(L) 13.0 - 17.5 g/dL [facility] Hct 29.3(L) 38.9 - 50.3 % [facility] Plt 144(L) 150 - 400 K/cumm [facility] MPV 10.8 9.1 - 12.3 fL [facility] RBC 3.09(L) 4.30 - 5.80 M/cumm [facility] MCV 94.8 81.3 - 96.4 fL [facility] MCH 31.7 27.1 - 33.3 pg [facility] MCHC 33.4 32.3 - 35.7 g/dL [facility] RDW CV 15.3(H) 11.1 - 14.9 % [facility] RDW SD 53.5(H) 35.7 - 48.1 fL [facility] NRBC abs 0.00 0.00 - 0.01 K/cumm [facility] Blood 01/27/2025 3:57 AM CDT 01/27/2025 4:46 AM CDT Rishi Lainez MD LAB BLOOD ORDERABLES Fin al Result [facility] [place] [address] * (ABNORMAL) Phosphorus (01/27/2025 3:57 AM CDT) [facility] Phosphorus, pl 4.8(H) 2.3 - 4.5 mg/dL Blood 01/27/2025 3:57 AM CDT 01/27/2025 5:19 AM CDT Rishi Lainez MD LAB BLOOD ORDERABLES Fin al Result Performing Organization Address City/[facility]/ZIP Co de Phone Number [facility] [place] [address] * Magnesium (01/27/2025 3:57 AM CDT) Magnesium 2.5 1.4 - 2.5 mg/dL Blood 01/27/2025 3:57 AM CDT 01/27/2025 5:19 AM CDT Rishi Lainez MD LAB BLOOD ORDERABLES Fin al Result Performing Organization Address City/[facility]/ZIP Co de Phone Number [facility] Department [place] [address] * (ABNORMAL) Basic metabolic panel (01/27/2025 3:57 AM CDT) Pathologist [facility] Sodium 136 135 - 145 mmol/L Potassium, pl 5.4(H) 3.3 - 4.9 mmol/L [facility] Chloride 106 97 - 110 mmol/L [facility] CO2 18(L) 22 - 32 mmol/L [facility] Anion gap 12 2 - 15 mmol/L [facility] BUN 63(H) 6 - 25 mg/dL [facility] Creatinine 4.57(H) 0.80 - 1.30 mg/dL [facility] Glucose 102 70 - 199 mg/dL [facility] Comment: Interpretive Data Fasting glucose >/= [...] 2022. Calcium 9.2 8.5 - 10.3 mg/dL [facility] Blood 01/27/2025 3:57 AM CDT 01/27/2025 5:19 AM CDT Rishi Lainez MD LAB BLOOD ORDERABLES Fin al Result Performing Organization Address [facility]/ZIP Co de Phone Number [facility] Department [place] [address] * Critical Care (01/26/2025 8:20 AM CDT) [...] plan with the ICU team and other medical/homemaking rehabilitation consultant staff, making frequent assessments and decisions [...] plan with the ICU team and other medical/homemaking rehabilitation consultant staff, making frequent assessments and decisions [...] MD LAB BLOOD ORDERABLES Fin al Result [facility] Department [place] [address] * (ABNORMAL) Differential, auto (01/25/2025 8:49 PM CDT) Neutrophil abs 6.62(H) 1.50 - 6.50 K/cumm Imm gran abs 0.06 0.00 - 0.10 K/cumm [facility] Lymphocyte abs 0.81 0.80 - 3.30 K/cumm [facility] Monocyte abs 0.99(H) 0.20 - 0.80 K/cumm [facility] Eosinophil abs 0.48 0.00 - 0.50 K/cumm [facility] Basophil abs 0.07 0.00 - 0.10 K/cumm [facility] Neutrophil pct 73.2 % [facility] Comment: Interpretive Data Percent cell count reference ranges are not reported, since discordance with absolute values may lead to misinterpretation of CBC data. Current Interpretive Data was last revised on 2018. Imm gran pct 0.7 % [facility] Comment: Interpretive Data Percent cell count reference ranges are not reported, since discordance with absolute values may lead to misinterpretation of CBC data. Current Interpretive Data was last revised on 2018. Lymphocyte pct 9.0 % [facility] Comment: Interpretive Data Percent cell count reference ranges are not reported, since discordance with absolute values may lead to misinterpretation of CBC data. Current Interpretive Data was last revised on 2018. Monocyte pct 11.0 % [facility] Comment: Interpretive Data Percent cell count reference ranges are not reported, since discordance with absolute values may lead to misinterpretation of CBC data. Current Interpretive Data was last revised on 2018. Eosinophil pct 5.3 % [facility] Comment: Interpretive Data Percent cell count reference ranges are not reported, since discordance with absolute values may lead to misinterpretation of CBC data. Current Interpretive Data was last revised on 2018. Basophil pct 0.8 % [facility] Comment: Interpretive Data Percent cell count reference ranges are not reported, since discordance with absolute values may lead to misinterpretation of CBC data. Current Interpretive Data was last revised on 2018. Blood 01/25/2025 8:49 PM CDT 01/25/2025 9:05 PM CDT us Rishi Lainez MD LAB BLOOD ORDERABLES Fin al Result [facility] Department [place] [address] * (ABNORMAL) CBC with auto differential (01/25/2025 8:49 PM CDT) WBC 9.03 3.80 - 9.90 K/cumm Hgb 9.4(L) 13.0 - 17.5 g/dL [facility] Hct 27.8(L) 38.9 - 50.3 % [facility] Plt 125(L) 150 - 400 K/cumm [facility] MPV 10.9 9.1 - 12.3 fL [facility] RBC 2.98(L) 4.30 - 5.80 M/cumm [facility] MCV 93.3 81.3 - 96.4 fL [facility] MCH 31.5 27.1 - 33.3 pg [facility] MCHC 33.8 32.3 - 35.7 g/dL [facility] RDW CV 15.6(H) 11.1 - 14.9 % [facility] RDW SD 54.1(H) 35.7 - 48.1 fL [facility] NRBC abs 0.00 0.00 - 0.01 K/cumm [facility] Blood 01/25/2025 8:49 PM CDT 01/25/2025 9:05 PM CDT Rishi Lainez MD LAB BLOOD ORDERABLES Fin al Result Performing Organization Address [facility] de Phone Number [facility] [place] [address] * Phosphorus (01/25/2025 8:49 PM CDT) [facility] Phosphorus, pl 4.5 2.3 - 4.5 mg/dL Blood 01/25/2025 8:49 PM CDT 01/25/2025 9:05 PM CDT Rishi Lainez MD LAB BLOOD ORDERABLES Fin al Result Performing Organization Address [facility] de Phone Number [facility] Department [place] [address] * (ABNORMAL) Magnesium (01/25/2025 8:49 PM CDT) [facility] Magnesium 2.6(H) 1.4 - 2.5 mg/dL Blood 01/25/2025 8:49 PM CDT 01/25/2025 9:05 PM CDT Rishi Lainez MD LAB BLOOD ORDERABLES Fin al Result Performing Organization Address [facility] de Phone Number [facility] [place] [address] * (ABNORMAL) Basic metabolic panel (01/25/2025 8:49 PM CDT) [facility] Sodium 135 135 - 145 mmol/L Potassium, pl 4.8 3.3 - 4.9 mmol/L [facility] Chloride 108 97 - 110 mmol/L [facility] CO2 16(L) 22 - 32 mmol/L [facility] Anion gap 11 2 - 15 mmol/L [facility] BUN 60(H) 6 - 25 mg/dL [facility] Creatinine 4.22(H) 0.80 - 1.30 mg/dL [facility] Glucose 130 70 - 199 mg/dL [facility] Comment: Interpretive Data Fasting glucose >/= [...] 2022. Calcium 8.7 8.5 - 10.3 mg/dL [facility] Blood 01/25/2025 8:49 PM CDT 01/25/2025 9:05 PM CDT us Rishi Lainez MD LAB BLOOD ORDERABLES Fin al Result [facility] Department [place] [address] * Critical Care (01/25/2025 11:10 AM CDT) [...] plan with the ICU team and other medical/homemaking rehabilitation consultant staff, making frequent assessments and decisions [...] plan with the ICU team and other medical/homemaking rehabilitation consultant staff, making frequent assessments and decisions [...] LAB BLOOD ORDERABLES Fin al Result [facility] Department of Laboratories [place] [id number] * (ABNORMAL) Differential, auto (01/24/2025 8:44 PM CDT) Neutrophil abs 6.43 1.50 - 6.50 K/cumm Imm gran abs 0.03 0.00 - 0.10 K/cumm [facility] Lymphocyte abs 0.76(L) 0.80 - 3.30 K/cumm [facility] Monocyte abs 1.08(H) 0.20 - 0.80 K/cumm [facility] Eosinophil abs 0.43 0.00 - 0.50 K/cumm [facility] Basophil abs 0.07 0.00 - 0.10 K/cumm [facility] Neutrophil pct 73.1 % [facility] Comment: Interpretive Data Percent cell count reference ranges are not reported, since discordance with absolute values may lead to misinterpretation of CBC data. Current Interpretive Data was last revised on 2018. Imm gran pct 0.3 % [facility] Comment: Interpretive Data Percent cell count reference ranges are not reported, since discordance with absolute values may lead to misinterpretation of CBC data. Current Interpretive Data was last revised on 2018. Lymphocyte pct 8.6 % [facility] Comment: Interpretive Data Percent cell count reference ranges are not reported, since discordance with absolute values may lead to misinterpretation of CBC data. Current Interpretive Data was last revised on 2018. Monocyte pct 12.3 % [facility] Comment: Interpretive Data Percent cell count reference ranges are not reported, since discordance with absolute values may lead to misinterpretation of CBC data. Current Interpretive Data was last revised on 2018. Eosinophil pct 4.9 % [facility] Comment: Interpretive Data Percent cell count reference ranges are not reported, since discordance with absolute values may lead to misinterpretation of CBC data. Current Interpretive Data was last revised on 2018. Basophil pct 0.8 % [facility] Comment: Interpretive Data Percent cell count reference ranges are not reported, since discordance with absolute values may lead to misinterpretation of CBC data. Current Interpretive Data was last revised on 2018. Blood 01/24/2025 8:44 PM CDT 01/24/2025 8:59 PM CDT us Rishi Lainez MD LAB BLOOD ORDERABLES Fin al Result [facility] Department [place] [address] * (ABNORMAL) CBC with auto differential (01/24/2025 8:44 PM CDT) [facility] WBC 8.80 3.80 - 9.90 K/cumm Hgb 9.6(L) 13.0 - 17.5 g/dL [facility] Hct 28.9(L) 38.9 - 50.3 % [facility] Plt 102(L) 150 - 400 K/cumm [facility] MPV 10.7 9.1 - 12.3 fL [facility] RBC 3.06(L) 4.30 - 5.80 M/cumm [facility] MCV 94.4 81.3 - 96.4 fL [facility] MCH 31.4 27.1 - 33.3 pg [facility] MCHC 33.2 32.3 - 35.7 g/dL [facility] RDW CV 15.9(H) 11.1 - 14.9 % [facility] RDW SD 55.6(H) 35.7 - 48.1 fL [facility] NRBC abs 0.00 0.00 - 0.01 K/cumm [facility] Blood 01/24/2025 8:44 PM CDT 01/24/2025 8:59 PM CDT us Rishi Lainez MD LAB BLOOD ORDERABLES Fin al Result [facility] Department [place] [address] * Phosphorus (01/24/2025 8:44 PM CDT) [facility] Phosphorus, pl 3.8 2.3 - 4.5 mg/dL Blood 01/24/2025 8:44 PM CDT 01/24/2025 8:59 PM CDT Rishi Lainez MD LAB BLOOD ORDERABLES Fin al Result Performing Organization Address City/[facility]/ZIP Co de Phone Number [facility] Department [place] [address] * Magnesium (01/24/2025 8:44 PM CDT) Pathologist [facility] Magnesium 1.9 1.4 - 2.5 mg/dL Blood 01/24/2025 8:44 PM CDT 01/24/2025 8:59 PM CDT Rishi Lainez MD LAB BLOOD ORDERABLES Fin al Result Performing Organization Address [facility] Co de Phone Number [facility] Department [place] [address] * (ABNORMAL) Basic metabolic panel (01/24/2025 8:44 PM CDT) Pathologist [facility] Sodium 138 135 - 145 mmol/L Potassium, pl 4.9 3.3 - 4.9 mmol/L [facility] Chloride 109 97 - 110 mmol/L [facility] CO2 18(L) 22 - 32 mmol/L [facility] Anion gap 11 2 - 15 mmol/L [facility] BUN 47(H) 6 - 25 mg/dL [facility] Creatinine 4.38(H) 0.80 - 1.30 mg/dL [facility] Glucose 123 70 - 199 mg/dL [facility] Comment: Interpretive Data Fasting glucose >/= [...] 2022. Calcium 8.7 8.5 - 10.3 mg/dL [facility] Blood 01/24/2025 8:44 PM CDT 01/24/2025 8:59 PM CDT us Rishi Lainez MD LAB BLOOD ORDERABLES Fin al Result [facility] Department [place] [address] * Critical Care (01/24/2025 12:35 PM CDT) [...] plan with the ICU team and other medical/homemaking rehabilitation consultant staff, making frequent assessments and decisions [...] us Rishi Lainez MD LAB BLOOD ORDERABLES [facility] al Result [facility] Department [place] [address] * (ABNORMAL) Differential, auto (01/23/2025 8:19 PM CDT) Pathologist [facility] Neutrophil abs 7.12(H) 1.50 - 6.50 K/cumm Imm gran abs 0.06 0.00 - 0.10 K/cumm [facility] Lymphocyte abs 0.63(L) 0.80 - 3.30 K/cumm [facility] Monocyte abs 1.00(H) 0.20 - 0.80 K/cumm [facility] Eosinophil abs 0.38 0.00 - 0.50 K/cumm [facility] Basophil abs 0.07 0.00 - 0.10 K/cumm [facility] Neutrophil pct 76.9 % [facility] Comment: Interpretive Data Percent cell count reference ranges are not reported, since discordance with absolute values may lead to misinterpretation of CBC data. Current Interpretive Data was last revised on 2018. Imm gran pct 0.6 % [facility] Comment: Interpretive Data Percent cell count reference ranges are not reported, since discordance with absolute values may lead to misinterpretation of CBC data. Current Interpretive Data was last revised on 2018. Lymphocyte pct 6.8 % [facility] Comment: Interpretive Data Percent cell count reference ranges are not reported, since discordance with absolute values may lead to misinterpretation of CBC data. Current Interpretive Data was last revised on 2018. Monocyte pct 10.8 % [facility] Comment: Interpretive Data Percent cell count reference ranges are not reported, since discordance with absolute values may lead to misinterpretation of CBC data. Current Interpretive Data was last revised on 2018. Eosinophil pct 4.1 % [facility] Comment: Interpretive Data Percent cell count reference ranges are not reported, since discordance with absolute values may lead to misinterpretation of CBC data. Current Interpretive Data was last revised on 2018. Basophil pct 0.8 % [facility] Comment: Interpretive Data Percent cell count reference ranges are not reported, since discordance with absolute values may lead to misinterpretation of CBC data. Current Interpretive Data was last revised on 2018. Blood 01/23/2025 8:19 PM CDT 01/23/2025 8:31 PM CDT us Rishi Lainez MD LAB BLOOD ORDERABLES Fin al Result [facility] Department [place] [address] * (ABNORMAL) CBC with auto differential (01/23/2025 8:19 PM CDT) WBC 9.26 3.80 - 9.90 K/cumm Hgb 9.8(L) 13.0 - 17.5 g/dL [facility] Hct 29.2(L) 38.9 - 50.3 % [facility] Plt 85(L) 150 - 400 K/cumm [facility] MPV 10.6 9.1 - 12.3 fL [facility] RBC 3.12(L) 4.30 - 5.80 M/cumm [facility] MCV 93.6 81.3 - 96.4 fL [facility] MCH 31.4 27.1 - 33.3 pg [facility] MCHC 33.6 32.3 - 35.7 g/dL [facility] RDW CV 16.2(H) 11.1 - 14.9 % [facility] RDW SD 55.9(H) 35.7 - 48.1 fL [facility] NRBC abs 0.00 0.00 - 0.01 K/cumm [facility] Blood 01/23/2025 8:19 PM CDT 01/23/2025 8:31 PM CDT Rishi Lainez MD LAB BLOOD ORDERABLES Fin al Result [facility] [place] [address] * Phosphorus (01/23/2025 8:19 PM CDT) Phosphorus, pl 4.0 2.3 - 4.5 mg/dL Blood 01/23/2025 8:19 PM CDT 01/23/2025 8:32 PM CDT Rishi Lainez MD LAB BLOOD ORDERABLES Fin al Result [facility] [place] [address] * Magnesium (01/23/2025 8:19 PM CDT) Magnesium 2.0 1.4 - 2.5 mg/dL Blood 01/23/2025 8:19 PM CDT 01/23/2025 8:32 PM CDT Rishi Lainez MD LAB BLOOD ORDERABLES Fin al Result Performing Organization Address City/[facility]/ZIP Co de Phone Number [facility] Department [place] [address] * (ABNORMAL) Basic metabolic panel (01/23/2025 8:19 PM CDT) [facility] Sodium 141 135 - 145 mmol/L Potassium, pl 4.1 3.3 - 4.9 mmol/L [facility] Chloride 113(H) 97 - 110 mmol/L [facility] CO2 19(L) 22 - 32 mmol/L [facility] Anion gap 9 2 - 15 mmol/L [facility] BUN 49(H) 6 - 25 mg/dL [facility] Creatinine 4.26(H) 0.80 - 1.30 mg/dL [facility] Glucose 121 70 - 199 mg/dL [facility] Comment: Interpretive Data Fasting glucose >/= [...] 2022. Calcium 8.6 8.5 - 10.3 mg/dL [facility] Blood 01/23/2025 8:19 PM CDT 01/23/2025 8:32 PM CDT Rishi Lainez MD LAB BLOOD ORDERABLES Fin al Result Performing Organization Address [facility]/ZIP Co de Phone Number [facility] Department [place] [address] * Critical Care (01/23/2025 10:52 AM CDT) [...] plan with the ICU team and other medical/homemaking rehabilitation consultant staff, making frequent assessments and decisions [...] MD BLOOD TRANSFUSION ORDERA BLES Final Result [facility] Department [place] [address] * Prepare platelets: 1 Units (01/23/2025 3:56 AM CDT) [facility] Product code [id number] Unit Number [id number] [facility] Product Blood Type OPOS [facility] Dispense Status PRESUMED TRANSFUSED [facility] Blood Venous blood specimen / Unknown 01/23/2025 3:56 AM CDT 01/23/2025 3:59 AM CDT Narrative [facility] - 01/23/2025 8:00 PM CDT Other indication->post-epidural goal >100 Are special requirements needed? (all products are leukoreduced)->No Date required:-[id number] PLT # of Units:-1-Units Reasons:-Other (Specify)} Rishi Lainez MD BLOOD BANK PRODUCT ORDER CHELSI Final Result [facility] Department [place] [address] * (ABNORMAL) CBC without differential (01/23/2025 3:21 AM CDT) [facility] WBC 9.90 3.80 - 9.90 K/cumm Hgb 10.1(L) 13.0 - 17.5 g/dL [facility] Hct 29.8(L) 38.9 - 50.3 % [facility] Plt 78(L) 150 - 400 K/cumm [facility] MPV 10.9 9.1 - 12.3 fL [facility] RBC 3.17(L) 4.30 - 5.80 M/cumm [facility] MCV 94.0 81.3 - 96.4 fL [facility] MCH 31.9 27.1 - 33.3 pg [facility] MCHC 33.9 32.3 - 35.7 g/dL [facility] RDW CV 16.4(H) 11.1 - 14.9 % [facility] RDW SD 56.4(H) 35.7 - 48.1 fL [facility] NRBC abs 0.00 0.00 - 0.01 K/cumm [facility] Blood 01/23/2025 3:21 AM CDT 01/23/2025 3:38 AM CDT Rishi Lainez MD LAB BLOOD ORDERABLES Fin al Result Performing Organization Address [facility] Co de Phone Number [facility] [place] [address] * Transfuse RBC (01/23/2025 12:38 AM CDT) Blood Rishi Lainez MD BLOOD TRANSFUSION ORDERA BLES Final Result Performing Organization Address [facility] [place] [address] * Prepare RBC: 1 Units (01/22/2025 11:20 PM CDT) Product code [id number] Unit Number [id number]- [id number] [facility] Product Blood Type OPOS [facility] Dispense Status PRESUMED TRANSFUSED [facility] Blood 01/22/2025 11:2 0 PM CDT 01/22/2025 11:20 PM CDT Narrative [facility] - 01/23/2025 4:01 PM CDT Other indication->Post-surgical Hgb Goal <10 Are special requirements needed? (All products are leukoreduced and CMV- safe)- >No Date required:-20250122 LRRBC # of Gelwo-[id number] Reasons:-Other (specify)} Rishi Lainez MD BLOOD BANK PRODUCT ORDER CHELSI Final Result Performing Organization Address [facility] Co de Phone Number [facility] [place] [address] * (ABNORMAL) eGFR (01/22/2025 8:17 PM CDT) [facility] eGFR 13(L) >=60 mL/min/1. 73 m2 [...] MD LAB BLOOD ORDERABLES Fin al Result [facility] Department [place] [address] * (ABNORMAL) Differential, auto (01/22/2025 8:17 PM CDT) [facility] Neutrophil abs 8.92(H) 1.50 - 6.50 K/cumm Imm gran abs 0.05 0.00 - 0.10 K/cumm [facility] Lymphocyte abs 0.69(L) 0.80 - 3.30 K/cumm [facility] Monocyte abs 1.08(H) 0.20 - 0.80 K/cumm [facility] Eosinophil abs 0.30 0.00 - 0.50 K/cumm [facility] Basophil abs 0.08 0.00 - 0.10 K/cumm [facility] Neutrophil pct 80.3 % [facility] Comment: Interpretive Data Percent cell count reference ranges are not reported, since discordance with absolute values may lead to misinterpretation of CBC data. Current Interpretive Data was last revised on 2018. Imm gran pct 0.4 % [facility] Comment: Interpretive Data Percent cell count reference ranges are not reported, since discordance with absolute values may lead to misinterpretation of CBC data. Current Interpretive Data was last revised on 2018. Lymphocyte pct 6.2 % [facility] Comment: Interpretive Data Percent cell count reference ranges are not reported, since discordance with absolute values may lead to misinterpretation of CBC data. Current Interpretive Data was last revised on 2018. Monocyte pct 9.7 % [facility] Comment: Interpretive Data Percent cell count reference ranges are not reported, since discordance with absolute values may lead to misinterpretation of CBC data. Current Interpretive Data was last revised on 2018. Eosinophil pct 2.7 % [facility] Comment: Interpretive Data Percent cell count reference ranges are not reported, since discordance with absolute values may lead to misinterpretation of CBC data. Current Interpretive Data was last revised on 2018. Basophil pct 0.7 % [facility] Comment: Interpretive Data Percent cell count reference ranges are not reported, since discordance with absolute values may lead to misinterpretation of CBC data. Current Interpretive Data was last revised on 2018. Blood 01/22/2025 8:17 PM CDT 01/22/2025 8:40 PM CDT us Rishi Lainez MD LAB BLOOD ORDERABLES Fin al Result [facility] Department of Laboratories [place], [place] [id number] * (ABNORMAL) CBC with auto differential (01/22/2025 8:17 PM CDT) WBC 11.12(H) 3.80 - 9.90 K/cumm Hgb 9.4(L) 13.0 - 17.5 g/dL [facility] Hct 28.7(L) 38.9 - 50.3 % [facility] Plt 85(L) 150 - 400 K/cumm [facility] MPV 10.6 9.1 - 12.3 fL [facility] RBC 2.95(L) 4.30 - 5.80 M/cumm [facility] MCV 97.3(H) 81.3 - 96.4 fL [facility] MCH 31.9 27.1 - 33.3 pg [facility] MCHC 32.8 32.3 - 35.7 g/dL [facility] RDW CV 15.5(H) 11.1 - 14.9 % [facility] RDW SD 55.7(H) 35.7 - 48.1 fL [facility] NRBC abs 0.00 0.00 - 0.01 K/cumm [facility] Blood 01/22/2025 8:17 PM CDT 01/22/2025 8:40 PM CDT Rishi Lainez MD LAB BLOOD ORDERABLES Fin al Result [facility] [place] [address] * Phosphorus (01/22/2025 8:17 PM CDT) [facility] Phosphorus, pl 3.2 2.3 - 4.5 mg/dL Blood 01/22/2025 8:17 PM CDT 01/22/2025 8:40 PM CDT Rishi Lainez MD LAB BLOOD ORDERABLES Fin al Result [facility] [place] [address] * Magnesium (01/22/2025 8:17 PM CDT) [facility] Magnesium 2.1 1.4 - 2.5 mg/dL Blood 01/22/2025 8:17 PM CDT 01/22/2025 8:40 PM CDT Rishi Lainez MD LAB BLOOD ORDERABLES Fin al Result Performing Organization Address City/[facility]/ZIP Co de Phone Number [facility] Department [place] [address] * (ABNORMAL) Basic metabolic panel (01/22/2025 8:17 PM CDT) Sodium 140 135 - 145 mmol/L Potassium, pl 4.5 3.3 - 4.9 mmol/L [facility] Chloride 112(H) 97 - 110 mmol/L [facility] CO2 18(L) 22 - 32 mmol/L [facility] Anion gap 10 2 - 15 mmol/L [facility] BUN 49(H) 6 - 25 mg/dL [facility] Creatinine 4.45(H) 0.80 - 1.30 mg/dL [facility] Glucose 141 70 - 199 mg/dL [facility] Comment: Interpretive Data Fasting glucose >/= [...] 2022. Calcium 8.7 8.5 - 10.3 mg/dL [facility] Blood 01/22/2025 8:17 PM CDT 01/22/2025 8:40 PM CDT Rishi Lainez MD LAB BLOOD ORDERABLES Fin al Result Performing Organization Address [facility]/ZIP Co de Phone Number [facility] Department [place] [address] * Critical Care (01/22/2025 11:41 AM CDT) [...] plan with the ICU team and other medical/homemaking rehabilitation consultant staff, making frequent assessments and decisions [...] POCT ORDERABLES - DE VICE Final Result [facility] [place] [address] * POCT glucose (01/22/2025 7:12 AM CDT) Glucose, POC 116 70 - 199 mg/dL Blood 01/22/2025 7:12 AM CDT 01/22/2025 7:12 AM CDT Rishi Lainez MD LAB POCT ORDERABLES - DE VICE Final Result Performing Organization Address [facility] [place] [address] * POCT glucose (01/22/2025 3:33 AM CDT) Glucose, POC 110 70 - 199 mg/dL Blood 01/22/2025 3:33 AM CDT 01/22/2025 3:33 AM CDT Rishi Lainez MD LAB POCT ORDERABLES - DE VICE Final Result Performing Organization Address [facility] [place] [address] * IR Lumbar Puncture, Diagnostic incl Fluoro [...] * POCT glucose (01/21/2025 11:24 PM CDT) [facility] Glucose, POC 139 70 - 199 mg/dL Blood 01/21/2025 11:2 4 PM CDT 01/21/2025 11:24 PM CDT Rishi Lainez MD LAB POCT ORDERABLES - DE VICE Final Result [facility] Department [place] [address] * (ABNORMAL) eGFR (01/21/2025 9:51 PM CDT) [facility] eGFR 14(L) >=60 mL/min/1. 73 m2 [...] MD LAB BLOOD ORDERABLES Fin al Result [facility] Department [place] [address] * (ABNORMAL) Differential, auto (01/21/2025 9:51 PM CDT) Neutrophil abs 9.20(H) 1.50 - 6.50 K/cumm Imm gran abs 0.05 0.00 - 0.10 K/cumm [facility] Lymphocyte abs 0.89 0.80 - 3.30 K/cumm [facility] Monocyte abs 1.07(H) 0.20 - 0.80 K/cumm [facility] Eosinophil abs 0.04 0.00 - 0.50 K/cumm [facility] Basophil abs 0.05 0.00 - 0.10 K/cumm [facility] Neutrophil pct 81.4 % [facility] Comment: Interpretive Data Percent cell count reference ranges are not reported, since discordance with absolute values may lead to misinterpretation of CBC data. Current Interpretive Data was last revised on 2018. Imm gran pct 0.4 % [facility] Comment: Interpretive Data Percent cell count reference ranges are not reported, since discordance with absolute values may lead to misinterpretation of CBC data. Current Interpretive Data was last revised on 2018. Lymphocyte pct 7.9 % [facility] Comment: Interpretive Data Percent cell count reference ranges are not reported, since discordance with absolute values may lead to misinterpretation of CBC data. Current Interpretive Data was last revised on 2018. Monocyte pct 9.5 % [facility] Comment: Interpretive Data Percent cell count reference ranges are not reported, since discordance with absolute values may lead to misinterpretation of CBC data. Current Interpretive Data was last revised on 2018. Eosinophil pct 0.4 % [facility] Comment: Interpretive Data Percent cell count reference ranges are not reported, since discordance with absolute values may lead to misinterpretation of CBC data. Current Interpretive Data was last revised on 2018. Basophil pct 0.4 % [facility] Comment: Interpretive Data Percent cell count reference ranges are not reported, since discordance with absolute values may lead to misinterpretation of CBC data. Current Interpretive Data was last revised on 2018. Blood 01/21/2025 9:51 PM CDT 01/21/2025 10:09 PM CDT us Risih Lainez MD LAB BLOOD ORDERABLES Fin al Result [facility] Department [place] [address] * (ABNORMAL) CBC with auto differential (01/21/2025 9:51 PM CDT) WBC 11.30(H) 3.80 - 9.90 K/cumm Hgb 9.7(L) 13.0 - 17.5 g/dL [facility] Hct 29.2(L) 38.9 - 50.3 % [facility] Plt 101(L) 150 - 400 K/cumm [facility] MPV 10.5 9.1 - 12.3 fL [facility] RBC 3.04(L) 4.30 - 5.80 M/cumm [facility] MCV 96.1 81.3 - 96.4 fL [facility] MCH 31.9 27.1 - 33.3 pg [facility] MCHC 33.2 32.3 - 35.7 g/dL [facility] RDW CV 15.3(H) 11.1 - 14.9 % [facility] RDW SD 54.1(H) 35.7 - 48.1 fL [facility] NRBC abs 0.00 0.00 - 0.01 K/cumm [facility] Blood 01/21/2025 9:51 PM CDT 01/21/2025 10:09 PM CDT Rishi Lainez MD LAB BLOOD ORDERABLES Fin al Result Performing Organization Address [facility] de Phone Number [facility] [place] [address] * Phosphorus (01/21/2025 9:51 PM CDT) Phosphorus, pl 2.8 2.3 - 4.5 mg/dL Blood 01/21/2025 9:51 PM CDT 01/21/2025 10:08 PM CDT Rishi Lainez MD LAB BLOOD ORDERABLES Fin al Result Performing Organization Address [facility] de Phone Number [facility] Department [place] [address] * Magnesium (01/21/2025 9:51 PM CDT) Magnesium 2.1 1.4 - 2.5 mg/dL Blood 01/21/2025 9:51 PM CDT 01/21/2025 10:08 PM CDT Rishi Lainez MD LAB BLOOD ORDERABLES Fin al Result Performing Organization Address [facility] de Phone Number [facility] Department [place] [address] * (ABNORMAL) Basic metabolic panel (01/21/2025 9:51 PM CDT) Sodium 140 135 - 145 mmol/L Potassium, pl 4.4 3.3 - 4.9 mmol/L [facility] Chloride 113(H) 97 - 110 mmol/L [facility] CO2 17(L) 22 - 32 mmol/L [facility] Anion gap 10 2 - 15 mmol/L [facility] BUN 49(H) 6 - 25 mg/dL [facility] Creatinine 4.29(H) 0.80 - 1.30 mg/dL [facility] Glucose 112 70 - 199 mg/dL [facility] Comment: Interpretive Data Fasting glucose >/= [...] 2022. Calcium 8.8 8.5 - 10.3 mg/dL [facility] Blood 01/21/2025 9:51 PM CDT 01/21/2025 10:08 PM CDT us Rishi Lainez MD LAB BLOOD ORDERABLES Fin al Result [facility] Department [place] [address] * Critical Care (01/21/2025 9:15 PM CDT) [...] plan with the ICU team and other medical/homemaking rehabilitation consultant staff, making frequent assessments and decisions [...] DE VICE Final Result [facility] [place] [address] * CT Head WO Contrast (01/21/2025 5:46 PM CDT) Anatomical Region Laterality Modality Head and Neck N/A Computed Tomogra phy 01/21/2025 6:22 PM CDT Impressions 01/21/2025 7:12 PM CDT 1. No acute intracranial hemorrhage. 2. 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 The results were discussed with Rishi Lainez MD by Dr. rIaj Jimenez on 01/21/2025 at 6:20 PM. Dictated [...] plan with the ICU team and other medical/homemaking rehabilitation consultant staff, making frequent assessments and decisions [...] DE VICE Final Result Performing Organization Address [facility] Phone Number [facility] Department [place] [address] * Transfuse RBC (01/21/2025 2:25 PM CDT) Blood Rishi Lainez MD BLOOD TRANSFUSION ORDERA BLES Final Result Performing Organization Address [facility] Co ar Phone Number [facility] Department [place] [address] * MD ARTL CATHJ/CANNULJ MNTR/TRANSFUSION SPX PRQ (01/21/2025 1:10 PM CDT) Narrative Aaron Lin MD - 01/21/2025 1:10 PM CDT Aaron Lin MD 01/21/2025 1:32 PM Arterial Line Insertion Date/Time: 01/21/2025 1:10 PM Performed by: Josias Baez MD Authorized by: Josias Baez MD [place] Protocol: RN Notified of Procedure: yes Informed [...] POCT ORDERABLES - DE VICE Final Result [facility] Department [place] [address] * MD AN PROCEDURE PLACEHOLDER (01/21/2025 11:42 AM CDT) [...] ORDERABLES Fin al Result Performing Organization Address [facility] de Phone Number [facility] Department [place] [address] * Protime-INR (01/21/2025 8:42 AM CDT) PT 12.7 9.7 - 13.0 sec INR 1.17 0.90 - 1.20 [facility] Comment: Interpretive data Oral anticoagulant therapeutic ranges: Venous thromboembolism prophylaxis or treatment: 2.0-3.0 CARDIOLOGY Standard range: 2.0-3.0 High-intensity range: 2.5-3.5 Refer to indication-specific guidelines for appropriate target ranges for prosthetic heart valve replacement. Current interpretive data was last revised on 2019. Blood 01/21/2025 8:42 AM CDT 01/21/2025 8:49 AM CDT Rishi Lainez MD LAB BLOOD ORDERABLES Fin al Result Performing Organization Address City/[facility]/ZIP Co de Phone Number [facility] Department [place] [address] * Prepare RBC: 1 Units (01/21/2025 7:43 AM CDT) Product code [id number] Unit Number [id number]- T [facility] Product Blood Type OPOS [facility] Dispense Status PRESUMED TRANSFUSED [facility] Blood 01/21/2025 7:43 AM CDT 01/21/2025 7:43 AM CDT Narrative [facility] - 01/22/2025 12:55 AM CDT Other indication->spinal cord ischemia Are special requirements needed? (All products are leukoreduced and CMV- safe)- >No Date required:-20250121 LRRBC # of Aquwn-4-Yzxil Reasons:-Other (specify)} Rishi Lainez MD BLOOD BANK PRODUCT ORDER CHELSI Final Result Performing Organization Address [facility] de Phone Number [facility] Department [place] [address] * (ABNORMAL) eGFR (01/21/2025 4:59 AM CDT) [...] ORDERABLES Fin al Result Performing Organization Address [facility] Co de Phone Number [facility] [place] [address] * (ABNORMAL) CBC without differential (01/21/2025 4:59 AM CDT) Pathologist [facility] WBC 13.69(H) 3.80 - 9.90 K/cumm Hgb 9.2(L) 13.0 - 17.5 g/dL [facility] Hct 28.5(L) 38.9 - 50.3 % [facility] Plt 127(L) 150 - 400 K/cumm [facility] MPV 10.1 9.1 - 12.3 fL [facility] RBC 2.86(L) 4.30 - 5.80 M/cumm [facility] MCV 99.7(H) 81.3 - 96.4 fL [facility] MCH 32.2 27.1 - 33.3 pg [facility] MCHC 32.3 32.3 - 35.7 g/dL [facility] RDW CV 13.9 11.1 - 14.9 % [facility] RDW SD 50.6(H) 35.7 - 48.1 fL [facility] NRBC abs 0.00 0.00 - 0.01 K/cumm [facility] Blood 01/21/2025 4:59 AM CDT 01/21/2025 5:24 AM CDT Rishi Lainez MD LAB BLOOD ORDERABLES Fin al Result Performing Organization Address [facility] Co de Phone Number [facility] [place] [address] * (ABNORMAL) Basic metabolic panel (01/21/2025 4:59 AM CDT) Sodium 142 135 - 145 mmol/L Potassium, pl 4.9 3.3 - 4.9 mmol/L [facility] Chloride 112(H) 97 - 110 mmol/L [facility] CO2 17(L) 22 - 32 mmol/L [facility] Anion gap 13 2 - 15 mmol/L [facility] BUN 49(H) 6 - 25 mg/dL [facility] Creatinine 4.25(H) 0.80 - 1.30 mg/dL [facility] Glucose 116 70 - 199 mg/dL [facility] Comment: Interpretive Data Fasting glucose >/= [...] 2022. Calcium 8.7 8.5 - 10.3 mg/dL [facility] Blood 01/21/2025 4:59 AM CDT 01/21/2025 5:25 AM CDT Rishi Lainez MD LAB BLOOD ORDERABLES Fin al Result [facility] Department [place] [address] * THORACIC ENDOVASCULAR REPAIR - AORTIC (01/20/2025 [...] Art POC 51(H) 35 - 45 mmHg [facility] pO2, Art POC 147(H) 83 - 108 mmHg [facility] Na, POC 139 135 - 145 mmol/L [facility] K POC 5.2(H) 3.3 - 4.9 mmol/L [facility] Comment: Interpretive Data Not all point of care methods assess for hemolysis. Confirm with instrument and retest K+ if not consistent with clinical signs and symptoms. Current Interpretive Data was last revised on 2024. Cl, POC 116(H) 97 - 110 mmol/L [facility] Ionized Ca, POC 5.20(H) 4.50 - 5.10 mg/dL [facility] Glucose, POC 104 70 - 199 mg/dL [facility] Lactate, POC 1.2 0.7 - 2.0 mmol/L [facility] SO2 (andrés) arterial 100(H) 90 - 95 % [facility] Base excess, POC -11.3 mmol/L [facility] HCO3, Art POC 16(L) 20 - 30 mmol/L [facility] Hct, POC 29.0(L) 41.4 - 51.6 % [facility] Total Hb, POC 9.8(L) 13.8 - 17.2 g/dL [facility] Blood 01/20/2025 12:3 6 PM CDT 01/20/2025 12:36 PM CDT us Rishi Lainez MD LAB POCT ORDERABLES - DE VICE Final Result [facility] Department [place] [address] * POCT Activated clotting time, low range (01/20/2025 12:25 PM CDT) ACT 141 123 - 168 sec POC Performer [id number] [facility] POC Device Number [id number] [facility] Blood 01/20/2025 12:2 5 PM CDT 01/20/2025 12:25 PM CDT us Rishi Lainez MD LAB POCT ORDERABLES - DE VICE Final Result Performing Organization Address [facility] Phone Number [facility] [place] [address] * (ABNORMAL) POCT Activated clotting time, low range (01/20/2025 12:09 PM CDT) ACT 279(H) 123 - 168 sec POC Performer [id number] [facility] POC Device Number [id number] [facility] Blood 01/20/2025 12:0 9 PM CDT 01/20/2025 12:09 PM CDT us Rishi Lainez MD LAB POCT ORDERABLES - DE VICE Final Result Performing Organization Address [facility] Phone Number [facility] [place] [address] * (ABNORMAL) POCT Activated clotting time, low range (01/20/2025 11:42 AM CDT) ACT 331(H) 123 - 168 sec POC Performer [id number] [facility] POC Device Number [id number] [facility] Blood 01/20/2025 11:4 2 AM CDT 01/20/2025 11:42 AM CDT us Rishi Lainez MD LAB POCT ORDERABLES - DE VICE Final Result Performing Organization Address [facility] [place] [address] * (ABNORMAL) POCT Activated clotting time, low range (01/20/2025 11:19 AM CDT) ACT 248(H) 123 - 168 sec POC Performer [id number] [facility] POC Device Number [id number] [facility] Blood 01/20/2025 11:1 9 AM CDT 01/20/2025 11:19 AM CDT us Rishi Lainez MD LAB POCT ORDERABLES - DE VICE Final Result Performing Organization Address City/[facility]/ZIP Co de Phone Number [facility] [place] [address] * (ABNORMAL) POCT Activated clotting time, low range (01/20/2025 10:55 AM CDT) ACT 292(H) 123 - 168 sec POC Performer [id number] [facility] POC Device Number [id number] [facility] Blood 01/20/2025 10:5 5 AM CDT 01/20/2025 10:55 AM CDT us Rishi Lainez MD LAB POCT ORDERABLES - DE VICE Final Result Performing Organization Address [facility]/[place] [address] * (ABNORMAL) POCT Activated clotting time, low range (01/20/2025 10:32 AM CDT) ACT 281(H) 123 - 168 sec POC Performer [id number] [facility] POC Device Number [id number] [facility] Blood 01/20/2025 10:3 2 AM CDT 01/20/2025 10:32 AM CDT us Rishi Lainez MD LAB POCT ORDERABLES - DE VICE Final Result Performing Organization Address City/[facility]/ZIP Co de Phone Number [facility] [place] [address] * MD AN PROCEDURE PLACEHOLDER (01/20/2025 10:05 AM CDT) [...] MD ANESTHESIA ORDERABLES Final Resu lt * MD AN PROCEDURE PLACEHOLDER (01/20/2025 10:04 AM CDT) Kennedy Salojohn Odalis - 01/20/2025 10:04 AM CDT Odalis Waterman 01/20/2025 10:05 AM Peripheral IV Catheter Patient location: OR Staff: Supervising provider: Ashleigh Beverly MD Placed by: SOUP PERSON: Juan Shipman CRNA Preprocedure prep: Prep solution: chlorhexadine PPE: gloves and provider hat/mask PIV line: Laterality: right Site: forearm Catheter size: 16 g Technique: direct visualization and palpatation Procedure details: good blood return and occlusive dressing applied Number of attempts: 1 Assessment: Events: patient tolerated procedure well with no complications Ashleigh Beverly MD ANESTHESIA ORDERABLES Final Resu lt * MD AN PROCEDURE PLACEHOLDER (01/20/2025 10:03 AM CDT) Kennedy Guevara Odalis - 01/20/2025 10:03 AM CDT Odalis Waterman 01/20/2025 10:04 AM Arterial Line Patient location: OR Indication: continuous blood pressure monitoring and blood sampling needed Ultrasound assisted: yes Staff: Supervising provider: Ashleigh Beverly MD Placed by: SOUP PERSON: Juan Shipman CRNA Procedure prep: Prep solution: [...] MD ANESTHESIA ORDERABLES Final Resu lt * MD AN ELECTIVE ENDOTRACHEAL AIRWAY, MD AN PROCEDURE PLACEHOLDER (01/20/2025 10:02 AM CDT) [...] 137 123 - 168 sec POC Performer [id number] [facility] POC Device Number [id number] [facility] Blood 01/20/2025 9:43 AM CDT 01/20/2025 9:43 AM CDT Rishi Lainez MD LAB POCT ORDERABLES - DE VICE Final Result [facility] [place] [address] * Prepare RBC: 2 Units (01/20/2025 6:59 AM CDT) Product code [id number] [facility] Unit Number [id number] 0-I [facility] Product Blood Type OPOS [facility] Dispense Status RETURNED [facility] Product code [id number] Unit Number [id number] 2-D [facility] Product Blood Type OPOS [facility] Dispense Status RETURNED [facility] Blood 01/20/2025 6:59 AM CDT 01/20/2025 6:58 AM CDT Narrative [facility] - 01/20/2025 1:52 PM CDT Specify Procedure:->thoracic ensovascular repair Are special requirements needed? (All products are leukoreduced and CMV- safe)- >No Date required:-[id number] LRRBC # of [id number] Reasons:-Hold for procedure (specify procedure)} us Yolanda Hays NP BLOOD BANK PRODUCT ORDERABLES Fi nal Result Performing Organization Address [facility] Co de Phone Number [facility] Department [place] [address] * TYPE AND SCREEN 14 DAY (01/11/2025 10:04 AM CDT) ABO Rh O Positive Aminata, indirect Negative [facility] Blood 01/11/2025 10:0 4 AM CDT 01/11/2025 10:47 AM CDT N[facility]ative [facility] - 01/11/2025 12:05 PM CDT Is this test being ordered in advance for a procedure?->Yes Expected date of procedure:->01/20/25 Has the patient been transfused in the past 3 months?->No Yolanda Hays NP LAB BLOOD BANK TEST ORDERABLES F inal Result Performing Organization Address City/[facility]/ZIP Co de Phone Number [facility] [place] [address] * (ABNORMAL) eGFR (01/11/2025 10:04 AM CDT) [...] ORDERABLES Final Resul t [facility] [place] [address] * Differential, auto (01/11/2025 10:04 AM CDT) Pathologist [facility] Neutrophil abs 5.1 1.5 - 6.5 K/cumm Imm gran abs 0.0 0.0 - 0.1 K/cumm [facility] Lymphocyte abs 1.2 0.8 - 3.3 K/cumm [facility] Monocyte abs 0.6 0.2 - 0.8 K/cumm [facility] Eosinophil abs 0.4 0.0 - 0.5 K/cumm [facility] Basophil abs 0.1 0.0 - 0.1 K/cumm [facility] Neutrophil pct 68.7 % [facility] Comment: Interpretive Data Percent cell count reference ranges are not reported, since discordance with absolute values may lead to misinterpretation of CBC data. Current Interpretive Data was last revised on 2018. Imm gran pct 0.5 % [facility] Comment: Interpretive Data Percent cell count reference ranges are not reported, since discordance with absolute values may lead to misinterpretation of CBC data. Current Interpretive Data was last revised on 2018. Lymphocyte pct 16.0 % [facility] Comment: Interpretive Data Percent cell count reference ranges are not reported, since discordance with absolute values may lead to misinterpretation of CBC data. Current Interpretive Data was last revised on 2018. Monocyte pct 7.8 % [facility] Comment: Interpretive Data Percent cell count reference ranges are not reported, since discordance with absolute values may lead to misinterpretation of CBC data. Current Interpretive Data was last revised on 2018. Eosinophil pct 5.8 % [facility] Comment: Interpretive Data Percent cell count reference ranges are not reported, since discordance with absolute values may lead to misinterpretation of CBC data. Current Interpretive Data was last revised on 2018. Basophil pct 1.2 % [facility] Comment: Interpretive Data Percent cell count reference ranges are not reported, since discordance with absolute values may lead to misinterpretation of CBC data. Current Interpretive Data was last revised on 2018. Blood 01/11/2025 10:0 4 AM CDT 01/11/2025 10:28 AM CDT us Yolanda Hays NP LAB BLOOD ORDERABLES Final Resul t [facility] [place] [address] * CPAP aPTT algorithm (01/11/2025 10:04 AM [...] ORDERABLES Final Resul t Performing Organization Address City/[facility] Co de Phone Number [facility] Department [place] [address] * (ABNORMAL) Urinalysis reflex to microscopic and culture Urine, clean voided (01/11/2025 10:04 AM CDT) Color, ur Straw Yellow Clarity, ur Clear Clear [facility] Specific gravity, ur 1.013 1.003 - 1.030 [facility] pH, urine 6.5 [facility] Comment: Interpretive Data U rine pH is affected by diet, medications, systemic acid-base disturbances, and renal tubular function. pH may affect urinary stone formation. For example, urine pH below 6.0 may help reduce the tendency for calcium phosphate stones and pH greater than 6.0 may reduce the tendency for uric acid stone formation. Source: [facility] Current Interpretive Data was last revised on 2017 Protein, ur ql 1+(A) Negative [facility] Glucose, ur ql 3+(A) Negative [facility] Ketones, ur Negative Negative [facility] Bilirubin, ur Negative Negative [facility] Blood, ur 1+(A) Negative [facility] Urobilinogen, ur <2.0 <2.0 mg/dL [facility] Nitrite, ur Negative Negative [facility] Leukocyte esterase, ur Negative Negative [facility] UA reflex comment Reflex to microscopic UA will be performed. [facility] Urine, clean voided 01/11/2025 10:04 AM CDT 01/11/2025 10:20 AM CDT Yolanda Hays NP LAB MICROBIOLOGY - GENERAL ORDER CHELSI Final Result Performing Organization Address [facility] de Phone Number [facility] Department [place] [address] * (ABNORMAL) CBC with auto differential (01/11/2025 10:04 AM CDT) Pathologist [facility] WBC 7.5 3.8 - 9.9 K/cumm Hgb 10.5(L) 13.0 - 17.5 g/dL [facility] Hct 32.2(L) 38.9 - 50.3 % [facility] Plt 184 150 - 400 K/cumm [facility] MPV 10.1 9.1 - 12.3 fL [facility] RBC 3.23(L) 4.30 - 5.80 M/cumm [facility] MCV 99.7(H) 81.3 - 96.4 fL [facility] MCH 32.5 27.1 - 33.3 pg [facility] MCHC 32.6 32.3 - 35.7 g/dL [facility] RDW CV 13.5 11.1 - 14.9 % [facility] RDW SD 49.7(H) 35.7 - 48.1 fL [facility] NRBC abs 0.00 0.00 - 0.01 K/cumm [facility] Blood 01/11/2025 10:0 4 AM CDT 01/11/2025 10:28 AM CDT Yolanda Hays NP LAB BLOOD ORDERABLES Final Resul t Performing Organization Address [facility] Co de Phone Number [facility] Department [place] [address] * (ABNORMAL) Urinalysis, microscopic only (01/11/2025 10:04 AM CDT) Pathologist [facility] WBC, ur 0-5 0 - 5 /HPF RBC, ur 0-2 0 - 2 /HPF [facility] Mucous, ur Present(A) [facility] Culture Reflex Comment Reflex conditions for urine culture (WBC >10) not met. [facility] Urine, clean voided 01/11/2025 10:04 AM CDT 01/11/2025 10:20 AM CDT Yolanda Hays NP LAB URINE ORDERABLES Final Resul t Performing Organization Address [facility] de Phone Number [facility] Department [place] [address] * Protime-INR (01/11/2025 10:04 AM CDT) Pathologist [facility] PT 12.0 9.7 - 13.0 sec INR 1.11 0.90 - 1.20 [facility] Comment: Interpretive data Oral anticoagulant therapeutic [...] ORDERABLES Final Resul t Performing Organization Address [facility] de Phone Number [facility] [place] [address] * (ABNORMAL) Basic metabolic panel (01/11/2025 10:04 AM CDT) Pathologist [facility] Sodium 144 135 - 145 mmol/L Potassium, pl 4.5 3.3 - 4.9 mmol/L [facility] Chloride 111(H) 97 - 110 mmol/L [facility] CO2 21(L) 22 - 32 mmol/L [facility] Anion gap 12 2 - 15 mmol/L [facility] BUN 34(H) 6 - 25 mg/dL [facility] Creatinine 4.51(H) 0.80 - 1.30 mg/dL [facility] Glucose 111 70 - 199 mg/dL [facility] Comment: Interpretive Data Fasting glucose >/= [...] Calcium 8.9 8.5 - 10.3 mg/dL [facility] Blood 01/11/2025 10:0 4 AM CDT 01/11/2025 10:28 AM CDT us Yolanda Hays NP LAB BLOOD ORDERABLES Final Resul t [facility] [place] [address] * CTA Chest Abdomen Pelvis (12/22/2024 10:37 AM ROUTE JUMPER) Anatomical Region Laterality Modality Body N/A Computed Tomogra phy 12/22/2024 1:33 PM R[address]TE JUMPER Impressions 12/22/2024 3:53 PM ROUTE JUMPER 1. 62 mm x 68 mm thoracic [...] Gabrielle Milian M.D. Narrative 12/22/2024 3:53 PM R[address] JUMPER EXAMINATION: CT ANGIOGRAPHY OF THE CHEST, ABDOMEN [...] aneurysm: 27 mm AP by 37 mm tvafe-gp-kpsc Aortic diameter 1 cm proximal to aneurysm: 36 mm AP by 35 mm nhufq-bs-lyja Aortic diameter immediately proximal to aneurysm: 38 mm AP by 33 2 mm iiwlz-em-skof Maximum outer aneurysm diameter: 62 mm AP by 68 mm jjgzt-bx-aabw Aortic diameter immediately distal to aneurysm: 38 mm AP by 39 mm dqedi-al-nxqf Aortic diameter 1 cm distal to aneurysm: 40 mm AP by 44 mm iyccg-dl-mjpv Aortic diameter 2cm distal to aneurysm: 44 mm AP by 41 mm pybqz-sl-uwgi Right common iliac artery diameter: 28 mm AP by 32 mm mndgs-ch-kuqc Left common iliac artery diameter: 33 mm AP by 35 mm ikskr-ww-sqtx Right external iliac artery diameter: 8 mm AP by 12 mm eurlj-fz-wbmz Left external iliac artery diameter: 5 mm AP by 14 mm ghpnu-mf-bwdc Right femoral artery diameter: 7 mm AP by 13 mm lupfp-wi-xmer Left femoral artery diameter: 7 mm AP by 17 mm ovqex-mh-jbmq Proximal neck - distance from top of [...] is 36 mm AP x 39 mm xzfws-rx-rtuw. This is stable since the prior exam. [...] aneurysm: 27 mm AP by 37 mm pcgqj-tw-oxex Aortic diameter 1 cm proximal to aneurysm: 36 mm AP by 35 mm iksph-io-jjnw Aortic diameter immediately proximal to aneurysm: 38 mm AP by 33 2 mm zudwa-pp-ldzs Maximum outer aneurysm diameter: 62 mm AP by 68 mm ouqmg-wk-tyzz Aortic diameter immediately distal to aneurysm: 38 mm AP by 39 mm ydqqz-gh-txvl Aortic diameter 1 cm distal to aneurysm: 40 mm AP by 44 mm vzpgs-wr-oxbx Aortic diameter 2cm distal to aneurysm: 44 mm AP by 41 mm dkpsb-sx-pmae Right common iliac artery diameter: 28 mm AP by 32 mm ylpfv-tp-zpfa Left common iliac artery diameter: 33 mm AP by 35 mm zeybt-oe-hgbp Right external iliac artery diameter: 8 mm AP by 12 mm efgul-nq-pcxd Left external iliac artery diameter: 5 mm AP by 14 mm vzhme-hz-flej Right femoral artery diameter: 7 mm AP by 13 mm ynwks-dn-ifky Left femoral artery diameter: 7 mm AP by 17 mm wyfxq-hi-blco Proximal neck - distance from top of [...] is 36 mm AP x 39 mm eoryn-oi-hfah. This is stable since the prior exam. [...] * (ABNORMAL) POCT creatinine (12/22/2024 10:07 AM ROUTE JUMPER) Creatinine POC 4.8(H) 0.8 - 1.3 mg/dL Blood 12/22/2024 10:0 7 AM ROUTE JUMPER 12/22/2024 10:07 [address] JUMPER Rishi Lainez MD LAB POCT ORDERABLES - DE VICE Final Result [facility] [place] [address] from Last 3 Months Insurance MEDICARE [facility] Address: [address] [address] [place] [address] [place] MEDICARE [place] [employer] [facility] [place] MEDICAID GENERIC RISK OTHER MEDICARE [facility] Address: [address] [address] [place] [address] [employer] Advance Directives For more information, please contact: [phone] Documents on File Type Date Recorded Patient Senior Major Gifts Officer Expl anation ADVANCE DIRECTIVE 02/06/2025 3:23 AM POWER OF SCOURING MACHINE TENDER-MEDICAL ADVANCE DIRECTIVE 01/25/2025 11:56 AM POWER OF SCOURING MACHINE TENDER-MEDICAL ADVANCE DIRECTIVE 02/04/2018 12:00 AM * Full [...] Alternat e Health Care Agent Care Teams Garbage Collector Relationship Specialty Start Date End Date Avery Ramos MD [address] [place] [address] PCP - General Family Practice 06/30/18 Lisandro Durham MD [address] [place] [address] Referring Physician Pulmonary Disease 04/01/19 Melia Amaya MD [address] [place] [address] Radiation Oncologist Radiation Oncology 04/27/19 Jigar Beasley MD [address] [place] [address] Resident Anesthesiology 03/03/24 Aileen Fisher MD [address] [place] [address] Consulting Physician Nephrology 05/14/24 Miscellaneous, Not In File 05/14/24 Clinic, Urology [address] [place] [address] Urology 05/14/24
--- OUTSIDE RECORDS SUMMARY | 2025-02-24 09:18 | XMS_ITS ---
Author Organization [facility] Address Formerly [facility], later [facility] [place] [address] Care Team Providers Care Transportation Solutions Manager Name Role Phone Avery Ramos MD Primary Care Provider [phone] Lisandro Durham MD Unavailable [phone] Melia Amaya MD Unavailable [phone] Jigar Beasley MD Unavailable [phone] Aileen Fisher MD Unavailable [phone] Miscellaneous, Not In File Unavailable [facility]ava [facility], Urology Unavailable Active Problems Patient Care Coordination [...] TEVAR extension via L radial and R EXTRACTIVE METALLURGIST access; Left renal artery stent. Intraoperative course [...] IR embolization at [facility], and transferred to [facility] for further evaluation. He was initially [...] fall precautions. Would benefit from rehab [facility], PT rec IPR/OT rec SNF, pt accepted to [facility]. Insurance approved and plan nticipate transfer 05/14. [...] clinic follow up for catheter management and rn long term care care. 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 Order also placed to repeat Q fever serology. 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 - continue amoxicillin and doxycyline. Assessment & Plan (10/11/2020 1:59 PM ASSISTANT CONTROLLER): - Patient doing well on suppressive amoxicillin [...] to endorse abdominal incision pain with dilaudid PATIENT CARE TECHNICIAN 0.4mg Q10min. However, pt states tolerable. Pain service following. 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 Assessment & Plan (06/12/2018 1:52 AM CDT): Continues to endorse 6/10 abdominal incision pain with dilaudid PATIENT CARE TECHNICIAN 0.4mg Q10min. However, pt states tolerable. Pain service following. Pt refuses epidural. Lidocaine gtt discontinue this am with supertheraputic level. 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 Assessment & Plan (06/11/2018 5:53 PM CDT): Continues to be an issue. Endorsing 6/10 abdominal incision pain with lidocaine gtt at 1.5mcg/kg/min and dilaudid PATIENT CARE TECHNICIAN 0.4mg Q10min. Pain service following. Pt refuses [...] post-vascular surgery with open abdomen. On Dilaudid PATIENT CARE TECHNICIAN, dose increased prior day. Continued pain during the day, pain consulted and started on Lido gtt. -Lido level at 0000 -If lido level >7, hold infusion per pain -Continue PATIENT CARE TECHNICIAN Assessment & Plan (06/10/2018 1:12 PM CDT): Expected post-vascular surgery with open abdomen. On Dilaudid PATIENT CARE TECHNICIAN, Dose increased to 0.4mg q10 min last night. -Dilaudid PATIENT CARE TECHNICIAN - Consult pain service, regional block vs epidural vs lido infusion Assessment & Plan (06/10/2018 1:14 AM CDT): Expected post-vascular surgery with open abdomen. Currently sedated -Dilaudid PRN per vascular now -Once extubated will plan for dilaudid PATIENT CARE TECHNICIAN GERD (gastroesophageal reflux disease) 8 Assessment & [...] orthostatics 05/13 with resolution, discussed with IGNACIO Hartamnn. F/u with PCP for OP management. Assessment [...] (06/06/2018): Added automatically from request for surgery [id number] Assessment & Plan (10/05/2024 1:25 PM ASSISTANT CONTROLLER): - Clinically doing well on exam today [...] significant exposures it was decided to treat rn long term care. Plan to continue both amoxicillin and doxycycline [...] concerns Assessment & Plan (10/09/2019 3:05 PM ASSISTANT CONTROLLER): Doing well on exam today with no [...] Discussed with patient and the rational for rn long term care antibiotics, risk of recurrent infection, signs/symptoms of [...] pm -D/c NGT -sips and chip OK -galley hand to change wound vac this am Assessment [...] do not clamp longer than 2hrs) -c/s galley hand to change wound vac Assessment & Plan [...] from the original note were not included. [place] [id number] This Survivorship Care Plan is a cancer [...] Information: Primary Care Physician Avery Ramos MD [phone] Surgeon No care steam box operator to display Radiation Oncologist Melia Amaya MD [phone] Medical Oncologist No care steam box operator to display Other Providers Treatment Summary Cancer [...] 3-5, then yearly. All providers Monitor for custodial cardiac toxicity. Avery Ramos Monitor for rn long term care toxicity Cardiac - congestive heart failure (CHF), [...] Help learning to eat healthier, call the warehouse unloader at: [facility] for [facility] . Have an active lifestyle, strive [...] man. Resources you may be interested in: [facility] [place] [facility] [place] [facility] http://www.[facility]/ [facility] [address] [facility] Advanced Medicine [phone]. Computer access, educational material, counseling services (FREE) Cancer Resources: www.cancer.net [place] Disabilities Act: The U.S. Department of Justice provides information about the Americans with Disabilities Act (ADA). Toll free number http://www.ada.gov/ Occupational Therapy at [facility]. Improve memory and thinking following chemotherapy. Improve your performance at home, work and in the community. or Toll free www.ot.[facility]/patients A service of [employer], a non-profit organization providing free, professional support - includingcounseling, support group, financial assistance, educational workshops and publications -to anyone coping with lung cancer. http://www.lungcancer.org/ We are a partnership of lung cancer survivors, advocates, researchers, healthcare professionals and[place] leaders. And we are united in the belief that every person with lung cancer deserves a cure. http://www.freetobreathe.org/ Lung Cancer Connection is committed to organizing and funding community outreach programs aimed at those affected by lung cancer in the [place] area. http://www.lungcancerconnectioninc.org Cancer and Careers empowers and educates people with cancer to thrive in their workplace by providing expert advice, interactive tools and educational events. http://www.cancerandcareers.org/en/qplytxr-fsa-ytyx [employer] Cancer: https://survivorship.cancer.gov/ an online tool for cancer survivors andcaregivers created by the [place] Cancer Society and the National Cancer [place]. It provides: Information on dealing with side [...]
--- OUTSIDE RECORDS SUMMARY | 2025-02-24 09:19 | XMS_ITS | Clinical Summary ---
Author Organization [facility] Address Formerly [facility] [place] [address] Care Team Providers Care Service Station Attendant Name Role Phone Avery Ramos MD Primary Care Provider [phone] Lisandro Durham MD Unavailable [phone] Melia Amaya MD Unavailable [phone] Jigar Beasley MD Unavailable [phone] Aileen Fisher MD Unavailable [phone] Miscellaneous, Not In File Unavailable [facility], Urology Unavailable Allergies Active Allergy [...] TEVAR extension via L radial and R IT NETWORK ARCHITECT access; Left renal artery stent. Intraoperative course [...] embolization at [facility], and transferred to [facility] for further evaluation. He was [...] fall precautions. Would benefit from rehab [place], PT rec IPR/OT rec SNF, pt accepted to [facility] [place]. Insurance approved and plan nticipate transfer 05/14. [...] clinic follow up for catheter management and assisted care. 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 Order also placed to repeat Q fever serology. 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 - continue amoxicillin and doxycyline. Assessment & Plan (10/11/2020 1:59 PM CONSTRUCTION ESTIMATOR): - Patient doing well on suppressive amoxicillin [...] to endorse abdominal incision pain with dilaudid ACCOUNTS PAYABLE LEAD 0.4mg Q10min. However, pt states tolerable. Pain service following. 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 Assessment & Plan (06/12/2018 1:52 AM CDT): Continues to endorse 6/10 abdominal incision pain with dilaudid ACCOUNTS PAYABLE LEAD 0.4mg Q10min. However, pt states tolerable. Pain service following. Pt refuses epidural. Lidocaine gtt discontinue this am with supertheraputic level. -continue wood dowel machine operator; if becomes somnolent will decrease dose. Assessment & Plan (06/11/2018 5:53 PM CDT): Continues to be an issue. Endorsing 6/10 abdominal incision pain with lidocaine gtt at 1.5mcg/kg/min and dilaudid ACCOUNTS PAYABLE LEAD 0.4mg Q10min. Pain service following. Pt refuses [...] post-vascular surgery with open abdomen. On Dilaudid ACCOUNTS PAYABLE LEAD, dose increased prior day. Continued pain during the day, pain consulted and started on Lido gtt. -Lido level at 0000 -If lido level >7, hold infusion per pain -Continue ACCOUNTS PAYABLE LEAD Assessment & Plan (06/10/2018 1:12 PM CDT): Expected post-vascular surgery with open abdomen. On Dilaudid ACCOUNTS PAYABLE LEAD, Dose increased to 0.4mg q10 min last night. -Dilaudid ACCOUNTS PAYABLE LEAD - Consult pain service, regional block vs epidural vs lido infusion Assessment & Plan (06/10/2018 1:14 AM CDT): Expected post-vascular surgery with open abdomen. Currently sedated -Dilaudid PRN per vascular now -Once extubated will plan for dilaudid ACCOUNTS PAYABLE LEAD GERD (gastroesophageal reflux disease) 8 Assessment & [...] (06/06/2018): Added automatically from request for surgery [id number] Assessment & Plan (10/05/2024 1:25 PM CONSTRUCTION ESTIMATOR): - Clinically doing well on exam today [...] significant exposures it was decided to treat intermediate card tender. Plan to continue both amoxicillin and doxycycline [...] concerns Assessment & Plan (10/09/2019 3:05 PM CONSTRUCTION ESTIMATOR): Doing well on exam today with no [...] Discussed with patient and the rational for intermediate card tender antibiotics, risk of recurrent infection, signs/symptoms of [...] pm -D/c NGT -sips and chip OK -tin tie machine operator automatic to change wound vac this am Assessment [...] do not clamp longer than 2hrs) -c/s tin tie machine operator automatic to change wound vac Assessment & Plan [...] Type Department Care Team Description 02/23/2025 Telephone [facility] Nephrology [address] [facility] 5th [place] [address] [place] [address] Teresa Flor 02/03/2025 Orders Only [facility] Surgery [address] [facility] Floor 1 [place] [address] Rishi Lainez MD Thoracoabdominal aortic aneurysm (TAAA) without rupture, unspecified part (Primary Dx); Aftercare following surgery of the circulatory system 02/03/2025 Orders Only [facility] Nephrology [address] [facility] 5th [place] [address] [place] [address] Pita Jackson MD Acute kidney injury (Primary Dx) 01/29/2025 1:15 PM CDT Ancillary Procedure [facility] Vascular Lab IP [address] [facility] [address] [place] [address] 01/26/2025 Orders Only [facility] Vascular Surgery [address] [facility] Medical Office Building [address] [place] [address] Rishi Lainez MD Aneurysm of descending thoracic aorta without rupture (Primary Dx); Aftercare following surgery of the circulatory system 01/22/2025 Orders Only [facility] Neuro Interventional Radiology 1 [place] [address] Evangelista Fajardo RT 01/21/2025 11:41 AM CDT Anesthesia Event [address] [address] Juana Jules MD 01/20/2025 8:36 AM CDT Anesthesia Event [facility] Operating Room 1 [place] [address] Ashleigh Beverly MD Deibel, Lori, NP 01/20/2025 8:30 AM CDT - 01/20/2025 1:55 PM CDT Surgery [facility] Operating Room 1 [place] [address] Rishi Lainez MD THORACIC ENDOVASCULAR REPAIR - TBE device incorporating the left subclavian artery 01/20/2025 6:39 AM CDT - 02/02/2025 5:50 PM CDT Hospital [address] [address] Rishi Lainez MD Thoracoabdominal aortic aneurysm (TAAA) without rupture, unspecified part (Primary Dx); Recurrent falls; Acute blood loss anemia; S/P aortic aneurysm repair; Q fever; Malignant neoplasm of middle lobe of right lung (HCC); Acute kidney injury superimposed on chronic kidney disease; Infection of aortic graft, subsequent encounter Discharge Disposition: Discharge to home, home health skilled care 01/11/2025 8:30 AM CDT Pre-Admission Testing [facility] Center for Preoperative Assessment and Planning [facility] [address] [place] [address] Preoperative testing (Primary Dx); Bruising 12/30/2024 2:15 PM CDT Telemedicine [facility] Surgery [address] [facility] 2nd Floor [address] [place] [address] Rishi Lainez MD Aneurysm of descending thoracic aorta without rupture (Primary Dx) 12/22/2024 9:50 AM CONSTRUCTION ESTIMATOR - 12/22/2024 11:59 PM CONSTRUCTION ESTIMATOR Hospital Encounter [facility] Radiology [facility] ([facility]) [address] [place] [address] Rishi Lainez MD Aneurysm of descending thoracic aorta without rupture; Encounter for pre-operative examination Discharge Disposition: Discharge to home or self care 12/22/2024 7:30 AM CONSTRUCTION ESTIMATOR Infusion [facility] Special[facility]fusion Center [address] [facility] Advanced [facility] 7th [place] [address] Renal insufficiency (Primary Dx) 12/18/2024 Telephone [facility] Surgery [address] [facility] Floor 1 [place] [address] Rishi Lainez MD 12/18/2024 Orders Only [facility] Outpatient Infusion Center [address] [place] [address] Felipe Gray RN 12/07/2024 Telephone [facility] Surgery [address] [facility] Floor 1 [place] [address] Rishi Lainez MD 12/03/2024 Orders Only [facility] Vascular Surgery [address] [facility] Medical Office Building 3 [address] [place] [address] Rishi Lainez MD Renal insufficiency (Primary Dx) 12/02/2024 10:30 AM CONSTRUCTION ESTIMATOR Telemedicine [facility] Surgery [address] [facility] 2nd Floor [address] [place] [address] Rishi Lainez MD Aneurysm of descending thoracic aorta without rupture (Primary Dx) 12/02/2024 Orders Only [facility] Surgery [address] [facility] Floor 1 [place] [address] Rishi Lainez MD Aneurysm of descending thoracic [...] alcohol) 1-2 beers a month [facility] Utilities Answer Date Recorded In the past 12 months has [employer], [employer], oil, or water hiogi threatened to shut off services in your [...] week 01/22/2025 How often do you attend [facility] or jainism services? 1 to 4 times per year 01/22/2025 Do you belong to any clubs o r organizations such as temple groups, unions, fraternal or athletic groups, or [...] place to sleep or slept in a residential (including now)? No 03/06/2024 Housing Stability Vital Sign Answer Jem e Recorded In the last 12 months, was t here a time when you were not able to pay the mortgage or rent on time? No 01/22/2025 In the past 12 months, how m any times have you moved where you were living? 0 01/22/2025 At any time in the past [address] [facility], were you homeless or living in a residential (including now)? No 01/22/2025 Personal Safety Answer Date Recorded Have you ever been in or are you currently in a harmful physical or emotional relationship or is someone making you feel afraid or unsafe? 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 Device Identifier Shelf Expiration Date Model / Serial / Lot [employer]l [employer] Stent Graft Aortic Covered Tag [id number] Eptfe Nitinol [id number] - [id number] - [id number] Implanted:Qty: 1 on 01/20/2025 by Rishi Lainez MD at [facility] Endoprosthesi s N/A: Descending Thoracic Aorta Wl [employer] [id number] 07/06/2027 [id number] / [id number] / Wl [employer] Stent Graft Thoracic Side Branch Tag [id number] Eptfe Nitinol [id number] - [id number] - [id number] Implanted:Qty: 1 on 01/20/2025 by Rishi Lainez MD at [facility] Endoprosthesi s N/A: Subclavian Artery Wl [employer] [id number] 07/23/2025 [id number] [id number] / [id number] / Vascutek Terumo [id number] Gelsoft Plus 22mm 11mm 45cm Bifurcated Main Leg Bore Graft - [id number] - [id number] Implanted:Qty: 1 on 06/09/2018 by Lance Govea MD at [facility] Graft N/A: Abdomen [employer] [id number] 04/19/2022 [id number] / [id number] / [id number] 2-0220 [employer] [id number] Stent System Biomimics 3d Vascular [id number] - [id number] - [id number] Implanted:Qty: 1 on 08/08/2021 by Billy Elkins MD at [facility] Stent Left: Femoral [email or web address] 12/30/2022 [id number] 10 / 00 / [id number] Description:SFA Non-clinical testing has demonstrated that [...] (JESUS) of 2 W/kg (Normal Operating Mode) [employer] [id number] Stent System Biomimics 3d Vascular [id number] - [id number] Implanted:Qty: 1 on 08/08/2021 by Billy Elkins MD at [facility] Stent Left: Femoral [employer] 11/23/2022 [id number] / / [id number] Description:Non-clinical clint ting has demonstrated that [...] of 2 W/kg (Normal Operating Mode) Wl [employer] Stent Graft Thoracic Conformable Tag [id number] - [id number] - [id number] Implanted:Qty: 1 on 01/20/2025 by Rishi Lainez MD at [facility] Stent N/A: Aorta Wl [employer] [id number] 02/14/2027 [id number] / [id number] / Wl [employer] Stent Graft Endoprosthesis Reduced Profile Straight Heparin Coated Viabahn [id number] - [id number] - [id number] Implanted:Qty: 1 on 01/20/2025 by Rishi Lainez MD at [facility] Stent Left: Renal Wl [employer] [id number] 06/15/2027 [id number] / [id number] / Marr Vascular System Closure Repair Femoral Artery Suture Mediated Perclose Prostyle 02661-70 - [id number] Implanted:Qty: 2 on 01/20/2025 by Rishi Lainez MD at [facility] Vascular Closure Device Right: Femoral [employer] [id number] 10/20/2026 15378-9 3 / / [id number] Description:X2 used same lot number Aaa Graft [...] DEVICE Routine 01/21/2025 3 :20 PM CDT TX ARTL CATHJ/CANNULJ MNTR/TRANSFUSION SPX PRQ Routine 01/21/2025 1:10 PM CDT Thoracoabdominal aortic aneurysm (TAAA) without rupture, unspecified part POCT GLUCOSE DEVICE Routine 01/21/2025 1 2:49 PM CDT TX AN PROCEDURE PLACEHOLDER Routine 01/21/2025 11:42 AM [...] LOW RANGE Routine 01/20/2025 10:32 AM CDT TX AN PROCEDURE PLACEHOLDER Routine 01/20/2025 10:05 AM CDT TX AN PROCEDURE PLACEHOLDER Routine 01/20/2025 10:04 AM CDT TX AN PROCEDURE PLACEHOLDER Routine 01/20/2025 10:03 AM CDT TX AN PROCEDURE PLACEHOLDER Routine 01/20/2025 10:02 AM CDT TX AN ELECTIVE ENDOTRACHEAL AIRWAY Routine 01/20/2025 10:02 [...] Read Routine (OP Routine) 12/22/2024 10:37 AM CONSTRUCTION ESTIMATOR Aneurysm of descending thoracic aorta without rupture Encounter for pre-operative examination POCT CREATININE - DEVICE Routine 12/22/2024 10:07 AM CONSTRUCTION ESTIMATOR from Last 3 Months Results * Potassium, whole blood (02/01/2025 8:50 PM CDT) Potassium, bld 4.6 3.3 - 4.9 mmol/L Blood 02/01/2025 8:50 PM CDT 02/01/2025 9:00 PM CDT us Chevy Bell NP LAB BLOOD ORDERABLES Final Result [facility] [address] [facility] Department of Laboratories [place], [place] [id number] * (ABNORMAL) eGFR (02/01/2025 8:50 PM CDT) [...] MD LAB BLOOD ORDERABLES Fin al Result [facility] [address] [facility] Department [place] [address] * (ABNORMAL) Differential, auto (02/01/2025 8:50 PM CDT) Neutrophil abs 7.56(H) 1.50 - 6.50 K/cumm Imm gran abs 0.12(H) 0.00 - 0.10 K/cumm [facility] Lymphocyte abs 0.91 0.80 - 3.30 [facility] Monocyte abs 0.86(H) 0.20 - 0.80 K/cumm [facility] Eosinophil abs 0.54(H) 0.00 - 0.50 K/cumm [facility] Basophil abs 0.10 0.00 - 0.10 K/cumm [facility] Neutrophil pct 74.9 % [facility] Comment: Interpretive Data Percent cell count reference ranges are not reported, since discordance with absolute values may lead to misinterpretation of CBC data. Current Interpretive Data was last revised on 2018. Imm gran pct 1.2 % [facility] Comment: Interpretive Data Percent cell count reference ranges are not reported, since discordance with absolute values may lead to misinterpretation of CBC data. Current Interpretive Data was last revised on 2018. Lymphocyte pct 9.0 % [facility] Comment: Interpretive Data Percent cell count reference ranges are not reported, since discordance with absolute values may lead to misinterpretation of CBC data. Current Interpretive Data was last revised on 2018. Monocyte pct 8.5 % [facility] Comment: Interpretive Data Percent cell count reference ranges are not reported, since discordance with absolute values may lead to misinterpretation of CBC data. Current Interpretive Data was last revised on 2018. Eosinophil pct 5.4 % [facility] Comment: Interpretive Data Percent cell count reference ranges are not reported, since discordance with absolute values may lead to misinterpretation of CBC data. Current Interpretive Data was last revised on 2018. Basophil pct 1.0 % [facility] Comment: Interpretive Data Percent cell count reference ranges are not reported, since discordance with absolute values may lead to misinterpretation of CBC data. Current Interpretive Data was last revised on 2018. Blood 02/01/2025 8:50 PM CDT 02/01/2025 9:07 PM CDT us Rishi Lainez MD LAB BLOOD ORDERABLES Fin al Result [facility] [address] [facility] Department [place] [address] * (ABNORMAL) CBC with auto differential (02/01/2025 8:50 PM CDT) WBC 10.09(H) 3.80 - 9.90 K/cumm Hgb 9.2(L) 13.0 - 17.5 g/dL [facility] Hct 28.4(L) 38.9 - 50.3 % [facility] Plt 281 150 - 400 K/cumm [facility] MPV 9.6 9.1 - 12.3 fL [facility] RBC 2.93(L) 4.30 - 5.80 M/cumm [facility] MCV 96.9(H) 81.3 - 96.4 fL [facility] MCH 31.4 27.1 - 33.3 pg [facility] MCHC 32.4 32.3 - 35.7 g/dL [facility] RDW CV 15.1(H) 11.1 - 14.9 % [facility] RDW SD 54.0(H) 35.7 - 48.1 fL [facility] NRBC abs 0.00 0.00 - 0.01 K/cumm [facility] Blood 02/01/2025 8:50 PM CDT 02/01/2025 9:07 PM CDT Rishi Lainez MD LAB BLOOD ORDERABLES Fin al Result Performing Organization Address [facility] Co de Phone Number [facility] (app) [place] [address] * (ABNORMAL) Phosphorus (02/01/2025 8:50 PM CDT) Pathologist [facility] Phosphorus, pl 5.4(H) 2.3 - 4.5 mg/dL Blood 02/01/2025 8:50 PM CDT 02/01/2025 9:07 PM CDT Rishi Lainez MD LAB BLOOD ORDERABLES Fin al Result Performing Organization Address [facility] de Phone Number [facility] (app) [place] [address] * Magnesium (02/01/2025 8:50 PM CDT) [facility] Magnesium 2.4 1.4 - 2.5 mg/dL Blood 02/01/2025 8:50 PM CDT 02/01/2025 9:07 PM CDT Rishi Lainez MD LAB BLOOD ORDERABLES Fin al Result Performing Organization Address [facility] [place] [address] * (ABNORMAL) Basic metabolic panel (02/01/2025 8:50 PM CDT) Pathologist [facility] Sodium 135 135 - 145 mmol/L Potassium, pl 4.6 3.3 - 4.9 mmol/L [facility] Chloride 102 97 - 110 mmol/L [facility] CO2 19(L) 22 - 32 mmol/L [facility] Anion gap 14 2 - 15 mmol/L [facility] BUN 57(H) 6 - 25 mg/dL [facility] Creatinine 5.27(H) 0.80 - 1.30 mg/dL [facility] Glucose 129 70 - 199 mg/dL [facility] Comment: Interpretive Data Fasting glucose >/= 126 [...] 2022. Calcium 8.7 8.5 - 10.3 mg/dL [facility] Blood 02/01/2025 8:50 PM CDT 02/01/2025 9:07 PM CDT Rishi Lainez MD LAB BLOOD ORDERABLES Fin al Result [facility] (app) [place] [address] * Potassium, whole blood (01/31/2025 10:30 PM CDT) [facility] Potassium, bld 4.9 3.3 - 4.9 mmol/L Blood 01/31/2025 10:3 0 PM CDT 01/31/2025 10:46 PM CDT Chevy Bell NP LAB BLOOD ORDERABLES Final Result [facility] Department [place] [address] * (ABNORMAL) eGFR (01/31/2025 10:30 PM CDT) [facility] eGFR 11(L) >=60 mL/min/1. 73 m2 Comment: [...] us Rishi Lainez MD LAB BLOOD ORDERABLES [facility] al Result [facility] [address] [facility] Department [place] [address] * (ABNORMAL) Differential, auto (01/31/2025 10:30 PM CDT) [facility] Neutrophil abs 6.10 1.50 - 6.50 K/cumm Imm gran abs 0.14(H) 0.00 - 0.10 K/cumm [facility] Lymphocyte abs 1.22 0.80 - 3.30 K/cumm [facility] Monocyte abs 0.83(H) 0.20 - 0.80 K/cumm [facility] Eosinophil abs 0.64(H) 0.00 - 0.50 K/cumm [facility] Basophil abs 0.11(H) 0.00 - 0.10 K/cumm [facility] Neutrophil pct 67.5 % [facility] Comment: Interpretive Data Percent cell count reference ranges are not reported, since discordance with absolute values may lead to misinterpretation of CBC data. Current Interpretive Data was last revised on 2018. Imm gran pct 1.5 % [facility] Comment: Interpretive Data Percent cell count reference ranges are not reported, since discordance with absolute values may lead to misinterpretation of CBC data. Current Interpretive Data was last revised on 2018. Lymphocyte pct 13.5 % [facility] Comment: Interpretive Data Percent cell count reference ranges are not reported, since discordance with absolute values may lead to misinterpretation of CBC data. Current Interpretive Data was last revised on 2018. Monocyte pct 9.2 % [facility] Comment: Interpretive Data Percent cell count reference ranges are not reported, since discordance with absolute values may lead to misinterpretation of CBC data. Current Interpretive Data was last revised on 2018. Eosinophil pct 7.1 % [facility] Comment: Interpretive Data Percent cell count reference ranges are not reported, since discordance with absolute values may lead to misinterpretation of CBC data. Current Interpretive Data was last revised on 2018. Basophil pct 1.2 % [facility] Comment: Interpretive Data Percent cell count reference ranges are not reported, since discordance with absolute values may lead to misinterpretation of CBC data. Current Interpretive Data was last revised on 2018. Blood 01/31/2025 10:3 0 PM CDT 01/31/2025 10:49 PM CDT us Rishi Lainez MD LAB BLOOD ORDERABLES Fin al Result [facility] Department [place] [address] * (ABNORMAL) CBC with auto differential (01/31/2025 10:30 PM CDT) WBC 9.04 3.80 - 9.90 K/cumm Hgb 9.4(L) 13.0 - 17.5 g/dL [facility] Hct 29.0(L) 38.9 - 50.3 % [facility] Plt 277 150 - 400 K/cumm [facility] MPV 9.9 9.1 - 12.3 fL [facility] RBC 2.98(L) 4.30 - 5.80 M/cumm [facility] MCV 97.3(H) 81.3 - 96.4 fL [facility] MCH 31.5 27.1 - 33.3 pg [facility] MCHC 32.4 32.3 - 35.7 g/dL [facility] RDW CV 15.1(H) 11.1 - 14.9 % [facility] RDW SD 55.0(H) 35.7 - 48.1 fL [facility] NRBC abs 0.00 0.00 - 0.01 K/cumm [facility] Blood 01/31/2025 10:3 0 PM CDT 01/31/2025 10:49 PM CDT Rishi Lainez MD LAB BLOOD ORDERABLES Fin al Result Performing Organization Address City/[facility]/ZIP Co de Phone Number [facility] Department [place] [address] * (ABNORMAL) Phosphorus (01/31/2025 10:30 PM CDT) Pathologist [facility] Phosphorus, pl 5.8(H) 2.3 - 4.5 mg/dL Blood 01/31/2025 10:3 0 PM CDT 01/31/2025 10:49 PM CDT Rishi Lainez MD LAB BLOOD ORDERABLES Fin al Result [facility] (app) [place] [address] * (ABNORMAL) Magnesium (01/31/2025 10:30 PM CDT) Magnesium 2.6(H) 1.4 - 2.5 mg/dL Blood 01/31/2025 10:3 0 PM CDT 01/31/2025 10:49 PM CDT Rishi Lainez MD LAB BLOOD ORDERABLES Fin al Result Performing Organization Address City/[facility]/ZIP Co de Phone Number [facility] Department [place] [address] * (ABNORMAL) Basic metabolic panel (01/31/2025 10:30 PM CDT) [facility] Sodium 141 135 - 145 mmol/L Potassium, pl 5.0(H) 3.3 - 4.9 mmol/L [facility] Chloride 108 97 - 110 mmol/L [facility] CO2 18(L) 22 - 32 mmol/L [facility] Anion gap 15 2 - 15 mmol/L [facility] BUN 57(H) 6 - 25 mg/dL [facility] Creatinine 5.22(H) 0.80 - 1.30 mg/dL [facility] Glucose 114 70 - 199 mg/dL [facility] Comment: Interpretive Data Fasting glucose >/= 126 [...] 2022. Calcium 9.1 8.5 - 10.3 mg/dL [facility] Blood 01/31/2025 10:3 0 PM CDT 01/31/2025 10:49 PM CDT Rishi Lainez MD LAB BLOOD ORDERABLES Fin al Result Performing Organization Address [facility]/ZIP Co de Phone Number [facility] Department [place] [address] * Potassium, whole blood (01/30/2025 8:30 PM CDT) Potassium, bld 4.6 3.3 - 4.9 mmol/L Blood 01/30/2025 8:30 PM CDT 01/30/2025 8:53 PM CDT us Chevy Bell NP LAB BLOOD ORDERABLES Final Result Performing Organization Address [facility]/ZIP Co de Phone Number [facility] of [facility] (app) [place] [address] * (ABNORMAL) eGFR (01/30/2025 8:30 PM CDT) [...] Organization Address City/[facility]/ZIP Co de Phone Number [facility] Department [place] [address] * (ABNORMAL) Differential, auto (01/30/2025 8:30 PM CDT) Neutrophil abs 5.94 1.50 - 6.50 K/cumm Imm gran abs 0.09 0.00 - 0.10 K/cumm [facility] Lymphocyte abs 0.85 0.80 - 3.30 K/cumm [facility] Monocyte abs 0.92(H) 0.20 - 0.80 K/cumm [facility] Eosinophil abs 0.59(H) 0.00 - 0.50 K/cumm [facility] Basophil abs 0.10 0.00 - 0.10 [facility] Neutrophil pct 70.0 % [facility] Comment: Interpretive Data Percent cell count reference ranges are not reported, since discordance with absolute values may lead to misinterpretation of CBC data. Current Interpretive Data was last revised on 2018. Imm gran pct 1.1 % [facility] Comment: Interpretive Data Percent cell count reference ranges are not reported, since discordance with absolute values may lead to misinterpretation of CBC data. Current Interpretive Data was last revised on 2018. Lymphocyte pct 10.0 % [facility] Comment: Interpretive Data Percent cell count reference ranges are not reported, since discordance with absolute values may lead to misinterpretation of CBC data. Current Interpretive Data was last revised on 2018. Monocyte pct 10.8 % [facility] Comment: Interpretive Data Percent cell count reference ranges are not reported, since discordance with absolute values may lead to misinterpretation of CBC data. Current Interpretive Data was last revised on 2018. Eosinophil pct 6.9 % [facility] Comment: Interpretive Data Percent cell count reference ranges are not reported, since discordance with absolute values may lead to misinterpretation of CBC data. Current Interpretive Data was last revised on 2018. Basophil pct 1.2 % [facility] Comment: Interpretive Data Percent cell count reference ranges are not reported, since discordance with absolute values may lead to misinterpretation of CBC data. Current Interpretive Data was last revised on 2018. Blood 01/30/2025 8:30 PM CDT 01/30/2025 8:58 PM CDT Rishi Lainez MD LAB BLOOD ORDERABLES Fin al Result Performing Organization Address [facility] de Phone Number [facility] Department [place] [address] * (ABNORMAL) CBC with auto differential (01/30/2025 8:30 PM CDT) Pathologist [facility] WBC 8.49 3.80 - 9.90 K/cumm Hgb 9.2(L) 13.0 - 17.5 g/dL [facility] Hct 28.5(L) 38.9 - 50.3 % [facility] Plt 220 150 - 400 K/cumm [facility] MPV 9.8 9.1 - 12.3 fL [facility] RBC 2.89(L) 4.30 - 5.80 M/cumm [facility] MCV 98.6(H) 81.3 - 96.4 fL [facility] MCH 31.8 27.1 - 33.3 pg [facility] MCHC 32.3 32.3 - 35.7 g/dL [facility] RDW CV 14.9 11.1 - 14.9 % [facility] RDW SD 54.5(H) 35.7 - 48.1 fL [facility] NRBC abs 0.00 0.00 - 0.01 K/cumm [facility] Blood 01/30/2025 8:30 PM CDT 01/30/2025 8:58 PM CDT Rishi Lainez MD LAB BLOOD ORDERABLES Fin al Result Performing Organization Address [facility]/ZIP Co de Phone Number [facility] (app) [place], [place] [id number] * (ABNORMAL) Phosphorus (01/30/2025 8:30 PM CDT) Phosphorus, pl 5.6(H) 2.3 - 4.5 mg/dL Blood 01/30/2025 8:30 PM CDT 01/30/2025 8:58 PM CDT Rishi Lainez MD LAB BLOOD ORDERABLES Fin al Result Performing Organization Address City/[facility] Co de Phone Number [facility] [place] [address] * Magnesium (01/30/2025 8:30 PM CDT) [facility] Magnesium 2.5 1.4 - 2.5 mg/dL Blood 01/30/2025 8:30 PM CDT 01/30/2025 8:58 PM CDT Rishi Lainez MD LAB BLOOD ORDERABLES Fin al Result Performing Organization Address [facility] de Phone Number [facility] Department [place] [address] * (ABNORMAL) Basic metabolic panel (01/30/2025 8:30 PM CDT) [facility] Sodium 142 135 - 145 mmol/L Potassium, pl 4.9 3.3 - 4.9 mmol/L [facility] Chloride 111(H) 97 - 110 mmol/L [facility] CO2 19(L) 22 - 32 mmol/L [facility] Anion gap 12 2 - 15 mmol/L [facility] BUN 62(H) 6 - 25 mg/dL [facility] Creatinine 5.18(H) 0.80 - 1.30 mg/dL [facility] Glucose 132 70 - 199 mg/dL [facility] Comment: Interpretive Data Fasting glucose >/= 126 [...] 2022. Calcium 8.6 8.5 - 10.3 mg/dL [facility] Blood 01/30/2025 8:30 PM CDT 01/30/2025 8:58 PM CDT Rishi Lainez MD LAB BLOOD ORDERABLES Fin al Result Performing Organization Address City/[facility]/ZIP Co de Phone Number [facility] [place] [address] * (ABNORMAL) Urinalysis reflex to microscopic and culture Urine (01/30/2025 12:11 PM CDT) Color, ur Straw Yellow Clarity, ur Clear Clear [facility] Specific gravity, ur 1.015 1.003 - 1.030 [facility] pH, urine 6.5 [facility] Comment: Interpretive Data U rine pH is affected by diet, medications, systemic acid-base disturbances, and renal tubular function. pH may affect urinary stone formation. For example, urine pH below 6.0 may help reduce the tendency for calcium phosphate stones and pH greater than 6.0 may reduce the tendency for uric acid stone formation. Source: [facility] Current Interpretive Data was last revised on 2017 Protein, ur ql 2+(A) Negative [facility] Glucose, ur ql 1+(A) Negative [facility] Ketones, ur Negative Negative [facility] Bilirubin, ur Negative Negative [facility] Blood, ur 1+(A) Negative [facility] Urobilinogen, ur <2.0 <2.0 mg/dL [facility] Nitrite, ur Negative Negative [facility] Leukocyte esterase, ur 2+(A) Negative [facility] UA reflex comment Reflex to microscopic UA will be performed. [facility] Urine 01/30/2025 12:1 1 PM CDT 01/30/2025 1:18 PM CDT Rishi Lainez MD LAB MICROBIOLOGY - GENER AL ORDERABLES Final Result Performing Organization Address [facility] Co de Phone Number [facility] [place] [address] * (ABNORMAL) Urinalysis, microscopic only (01/30/2025 12:11 PM CDT) WBC, ur >50(A) 0 - 5 /HPF RBC, ur 0-2 0 - 2 /HPF [facility] Bacteria, ur Trace(A) [facility] Yeast, ur 4+(A) [facility] Mucous, ur Present(A) [facility] Hyaline casts, ur 1-5 0 - 10 /LPF [facility] Culture Reflex Comment Reflex to urine culture will be performed. [facility] Urine 01/30/2025 12:1 1 PM CDT 01/30/2025 1:18 PM CDT Rishi Lainez MD LAB URINE ORDERABLES Fin al Result Performing Organization Address [facility] Co de Phone Number [facility] Department [place] [address] * (ABNORMAL) Urine culture Urine (01/30/2025 12:11 PM CDT) Report Final Report: Greater than or equal to 100,000 colonies/mL of Vishal glabrata (.) Organism VISHAL GLABRATA [facility] Urine 01/30/2025 12:1 1 PM CDT 01/30/2025 2:37 PM CDT Narrative [facility] - 02/01/2025 6:15 AM CDT Urine culture reflexed based upon urinalysis results. Testing performed by [facility] ([phone]) Rishi Lainez MD LAB MICROBIOLOGY - GENER AL ORDERABLES Final Result Performing Organization Address City/[facility]/ZIP Co de Phone Number [facility] [place] [address] * US Renal Limited W Complete Renal [...] Potassium, whole blood (01/29/2025 10:33 PM CDT) [facility] Potassium, bld 5.0(H) 3.3 - 4.9 mmol/L Blood 01/29/2025 10:3 3 PM CDT 01/29/2025 10:46 PM CDT us Chevy Bell NP LAB BLOOD ORDERABLES Final Result [facility] Department [place] [address] * (ABNORMAL) eGFR (01/29/2025 10:33 PM CDT) [facility] eGFR 11(L) >=60 mL/min/1. 73 m2 Comment: [...] MD LAB BLOOD ORDERABLES Fin al Result [facility] Department [place] [address] * (ABNORMAL) Differential, auto (01/29/2025 10:33 PM CDT) Neutrophil abs 6.06 1.50 - 6.50 K/cumm Imm gran abs 0.12(H) 0.00 - 0.10 K/cumm [facility] Lymphocyte abs 1.15 0.80 - 3.30 K/cumm [facility] Monocyte abs 0.97(H) 0.20 - 0.80 K/cumm [facility] Eosinophil abs 0.67(H) 0.00 - 0.50 K/cumm [facility] Basophil abs 0.12(H) 0.00 - 0.10 K/cumm [facility] Neutrophil pct 66.6 % [facility] Comment: Interpretive Data Percent cell count reference ranges are not reported, since discordance with absolute values may lead to misinterpretation of CBC data. Current Interpretive Data was last revised on 2018. Imm gran pct 1.3 % [facility] Comment: Interpretive Data Percent cell count reference ranges are not reported, since discordance with absolute values may lead to misinterpretation of CBC data. Current Interpretive Data was last revised on 2018. Lymphocyte pct 12.7 % [facility] Comment: Interpretive Data Percent cell count reference ranges are not reported, since discordance with absolute values may lead to misinterpretation of CBC data. Current Interpretive Data was last revised on 2018. Monocyte pct 10.7 % [facility] Comment: Interpretive Data Percent cell [...] 2018. Basophil pct 1.3 % [facility] Comment: Interpretive Data Percent cell count reference ranges are not reported, since discordance with absolute values may lead to misinterpretation of CBC data. Current Interpretive Data was last revised on 2018. Blood 01/29/2025 10:3 3 PM CDT 01/29/2025 10:48 PM CDT Rishi Lainez MD LAB BLOOD ORDERABLES Fin al Result Performing Organization Address City/[facility]/ZIP Co de Phone Number [facility] of [facility] (app) [place] [address] * C4 complement (01/29/2025 10:33 PM CDT) Complement C4 29.7 10.0 - 40.0 mg/dL Blood 01/29/2025 10:3 3 PM CDT 01/29/2025 10:48 PM CDT Chevy Bell NP LAB BLOOD ORDERABLES Final Result [facility] Department [place] [address] * (ABNORMAL) CBC with auto differential (01/29/2025 10:33 PM CDT) WBC 9.09 3.80 - 9.90 K/cumm Hgb 9.7(L) 13.0 - 17.5 g/dL [facility] Hct 29.9(L) 38.9 - 50.3 % [facility] Plt 229 150 - 400 K/cumm [facility] MPV 10.0 9.1 - 12.3 fL [facility] RBC 3.10(L) 4.30 - 5.80 M/cumm [facility] MCV 96.5(H) 81.3 - 96.4 fL [facility] MCH 31.3 27.1 - 33.3 pg [facility] MCHC 32.4 32.3 - 35.7 g/dL [facility] RDW CV 15.1(H) 11.1 - 14.9 % [facility] RDW SD 52.6(H) 35.7 - 48.1 fL [facility] NRBC abs 0.00 0.00 - 0.01 K/cumm [facility] Blood 01/29/2025 10:3 3 PM CDT 01/29/2025 10:48 PM CDT Rishi Lainez MD LAB BLOOD ORDERABLES Fin al Result Performing Organization Address City/[facility] Co de Phone Number [facility] Department [place] [address] * C3 complement (01/29/2025 10:33 PM CDT) [facility] Complement C3 168.0 90.0 - 180.0 mg/dL Blood 01/29/2025 10:3 3 PM CDT 01/29/2025 10:48 PM CDT Chevy Bell NP LAB BLOOD ORDERABLES Final Result [facility] [place] [address] * (ABNORMAL) Phosphorus (01/29/2025 10:33 PM CDT) Phosphorus, pl 5.5(H) 2.3 - 4.5 mg/dL Blood 01/29/2025 10:3 3 PM CDT 01/29/2025 10:48 PM CDT Rishi Lainez MD LAB BLOOD ORDERABLES Fin al Result Performing Organization Address City/[facility]/ZIP Co de Phone Number [facility] Department [place] [address] * (ABNORMAL) Magnesium (01/29/2025 10:33 PM CDT) [facility] Magnesium 2.6(H) 1.4 - 2.5 mg/dL Blood 01/29/2025 10:3 3 PM CDT 01/29/2025 10:48 PM CDT Rishi Lainez MD LAB BLOOD ORDERABLES Fin al Result Performing Organization Address [facility] de Phone Number [facility] Department [place] [address] * (ABNORMAL) Basic metabolic panel (01/29/2025 10:33 PM CDT) Pathologist [facility] Sodium 138 135 - 145 mmol/L Potassium, pl 5.2(H) 3.3 - 4.9 mmol/L [facility] Chloride 106 97 - 110 mmol/L [facility] CO2 19(L) 22 - 32 mmol/L [facility] Anion gap 13 2 - 15 mmol/L [facility] BUN 68(H) 6 - 25 mg/dL [facility] Creatinine 5.18(H) 0.80 - 1.30 mg/dL [facility] Glucose 107 70 - 199 mg/dL [facility] Comment: Interpretive Data Fasting glucose >/= 126 [...] 8.8 8.5 - 10.3 mg/dL [facility] Blood 01/29/2025 10:3 3 PM CDT 01/29/2025 10:48 PM CDT us Rishi Lainez MD LAB BLOOD ORDERABLES Fin al Result [facility] [place] [address] * US Vein Mapping Fistula Access, Bilateral (01/29/2025 3:07 PM CDT) Anatomical Region Laterality Modality Vascular Bilateral Ultrasound 01/29/2025 2:17 PM CDT Narrative 01/30/2025 10:37 AM CDT [facility] - Department of Vascular Surgery, Vascular Laboratory [address] [place] [id number] Upper Extremity Vein Mapping Report Patient Name: AVERY VICK WILLIAM : 1955 (69y 10m) Study Date: 01/29/2025 2:17:51 PM Gender: M Dough Raiser: LORELEI Location: [id number] Ref Provider: CHEVY BELL Quality: Adequate Order [...] Value Units Left Value Units FINDINGS: Performing Dough Raiser: Agnieszka Rivera RVT. Bilateral: Venous Doppler signals [...] Procedure Note Josias Salas MD - 01/30/2025 [facility] - Department of Vascular Surgery,Vascular Laboratory [address] [place] [address] Upper Extremity Vein Mapping Report Patient Name: AVERY VICK WILLIAM : 1955 (69y 10m) Study Date: 01/29/2025 2:17:51 PM Gender: M Dough Raiser: LORELEI Location: [id number] Ref Provider: CHEVY BELL Quality: Adequate Order [...] Value Units Left Value Units FINDINGS: Performing Dough Raiser: Agnieszka Rivera RVT. Bilateral: Venous Doppler signals [...] above. Electronically Signed By: Josias Salas MD [facility] 01/30/2025 10:14:12 AM CDT Chevy Bell NP IMG US PROCEDURES Final Res ult * Urea nitrogen, urine, random (01/29/2025 11:07 AM CDT) Urea nitrogen, ur 369 mg/dL Comment: Interpretive Data No reference range established. Current interpretive data was last revised 2019. Urine 01/29/2025 11:0 7 AM CDT 01/29/2025 11:19 AM CDT Chevy Bell NP LAB URINE ORDERABLES Final Result [facility] Department [place] [address] * (ABNORMAL) Protein / creatinine ratio, urine, random (01/29/2025 11:07 AM CDT) Protein, ur, quant 57.4 mg/dL Comment: Interpretive Data No reference range established. Current interpretive data was last revised 2019. Creatinine Ur 44.2 mg/dL [facility] Comment: Interpretive Data No reference range established. Current interpretive data was last revised 2019. Protein/creatinin e ratio 1,298.6(H ) 0.0 - 180.0 mg/g CR [facility] Urine 01/29/2025 11:0 7 AM CDT 01/29/2025 11:19 AM CDT Chevy Bell NP LAB URINE ORDERABLES Final Result Performing Organization Address City/[facility]/ZIP Co de Phone Number [facility] Department [place] [address] * Sodium, urine, random (01/29/2025 11:07 AM CDT) Sodium, ur 86 mmol/L Comment: Interpretive Data No reference range established. Current interpretive data was last revised 2019. Urine 01/29/2025 11:0 7 AM CDT 01/29/2025 11:19 AM CDT Chevy Bell NP LAB URINE ORDERABLES Final Result Performing Organization Address City/State/[facility] Co de Phone Number [facility] [place] [address] * Creatinine, urine, random (01/29/2025 11:07 AM CDT) Creatinine Ur 44.2 mg/dL Comment: Interpretive Data No reference range established. Current interpretive data was last revised 2019. Urine 01/29/2025 11:0 7 AM CDT 01/29/2025 11:19 AM CDT Chevy Bell NP LAB URINE ORDERABLES Final Result Performing Organization Address [facility] Co de Phone Number [facility] Department [place] [address] * (ABNORMAL) Potassium, whole blood (01/29/2025 10:12 AM CDT) Potassium, bld 5.1(H) 3.3 - 4.9 mmol/L Blood 01/29/2025 10:1 2 AM CDT 01/29/2025 10:22 AM CDT Rishi Lainez MD LAB BLOOD ORDERABLES Fin al Result Performing Organization Address [facility] de Phone Number [facility] Department [place] [address] * US Kidney Complete (01/29/2025 9:20 AM [...] Organization Address City/[facility] de Phone Number [facility] [place] [address] * (ABNORMAL) eGFR (01/28/2025 8:49 PM CDT) [...] Organization Address City/[facility]/ZIP Co de Phone Number [facility] [place] [address] * (ABNORMAL) Differential, auto (01/28/2025 8:49 PM CDT) Neutrophil abs 6.76(H) 1.50 - 6.50 K/cumm Imm gran abs 0.10 0.00 - 0.10 K/cumm [facility] Lymphocyte abs 1.15 0.80 - 3.30 K/cumm [facility] Monocyte abs 1.02(H) 0.20 - 0.80 K/cumm [facility] Eosinophil abs 0.62(H) 0.00 - 0.50 K/cumm [facility] Basophil abs 0.09 0.00 - 0.10 K/cumm [facility] Neutrophil pct 69.4 % [facility] Comment: Interpretive Data Percent cell count reference ranges are not reported, since discordance with absolute values may lead to misinterpretation of CBC data. Current Interpretive Data was last revised on 2018. Imm gran pct 1.0 % [facility] Comment: Interpretive Data Percent cell count reference ranges are not reported, since discordance with absolute values may lead to misinterpretation of CBC data. Current Interpretive Data was last revised on 2018. Lymphocyte pct 11.8 % [facility] Comment: Interpretive Data Percent cell count reference ranges are not reported, since discordance with absolute values may lead to misinterpretation of CBC data. Current Interpretive Data was last revised on 2018. Monocyte pct 10.5 % [facility] Comment: Interpretive Data Percent cell count reference ranges are not reported, since discordance with absolute values may lead to misinterpretation of CBC data. Current Interpretive Data was last revised on 2018. Eosinophil pct 6.4 % [facility] Comment: Interpretive Data Percent cell count reference ranges are not reported, since discordance with absolute values may lead to misinterpretation of CBC data. Current Interpretive Data was last revised on 2018. Basophil pct 0.9 % [facility] Comment: Interpretive Data Percent cell count reference ranges are not reported, since discordance with absolute values may lead to misinterpretation of CBC data. Current Interpretive Data was last revised on 2018. Blood 01/28/2025 8:49 PM CDT 01/28/2025 9:05 PM CDT us Rishi Lainez MD LAB BLOOD ORDERABLES Fin al Result [facility] [place] [address] * (ABNORMAL) CBC with auto differential (01/28/2025 8:49 PM CDT) [facility] WBC 9.74 3.80 - 9.90 K/cumm Hgb 9.3(L) 13.0 - 17.5 g/dL [facility] Hct 28.4(L) 38.9 - 50.3 % [facility] Plt 181 150 - 400 K/cumm [facility] MPV 10.1 9.1 - 12.3 fL [facility] RBC 2.96(L) 4.30 - 5.80 M/cumm [facility] MCV 95.9 81.3 - 96.4 fL [facility] MCH 31.4 27.1 - 33.3 pg [facility] MCHC 32.7 32.3 - 35.7 g/dL [facility] RDW CV 15.2(H) 11.1 - 14.9 % [facility] RDW SD 53.8(H) 35.7 - 48.1 fL [facility] NRBC abs 0.00 0.00 - 0.01 K/cumm [facility] Blood 01/28/2025 8:49 PM CDT 01/28/2025 9:05 PM CDT Rishi Lainez MD LAB BLOOD ORDERABLES Fin al Result Performing Organization Address [facility] de Phone Number [facility] Department [place] [address] * (ABNORMAL) Phosphorus (01/28/2025 8:49 PM CDT) [facility] Phosphorus, pl 5.2(H) 2.3 - 4.5 mg/dL Blood 01/28/2025 8:49 PM CDT 01/28/2025 9:05 PM CDT Rishi Lainez MD LAB BLOOD ORDERABLES Fin al Result Performing Organization Address City/[facility] Co de Phone Number [facility] Department [place] [address] * (ABNORMAL) Magnesium (01/28/2025 8:49 PM CDT) Magnesium 2.7(H) 1.4 - 2.5 mg/dL Blood 01/28/2025 8:49 PM CDT 01/28/2025 9:05 PM CDT Rishi Lainez MD LAB BLOOD ORDERABLES Fin al Result [facility] [place] [address] * (ABNORMAL) Basic metabolic panel (01/28/2025 8:49 PM CDT) Pathologist [facility] Sodium 139 135 - 145 mmol/L Potassium, pl 5.4(H) 3.3 - 4.9 mmol/L [facility] Chloride 108 97 - 110 mmol/L [facility] CO2 18(L) 22 - 32 mmol/L [facility] Anion gap 13 2 - 15 mmol/L [facility] BUN 69(H) 6 - 25 mg/dL [facility] Creatinine 4.94(H) 0.80 - 1.30 mg/dL [facility] Glucose 103 70 - 199 mg/dL [facility] Comment: Interpretive Data Fasting glucose >/= 126 [...] 2022. Calcium 8.7 8.5 - 10.3 mg/dL [facility] Blood 01/28/2025 8:49 PM CDT 01/28/2025 9:05 PM CDT us Rishi Lainez MD LAB BLOOD ORDERABLES Fin al Result Performing Organization Address City/[facility] Co de Phone [facility] [place] [address] * (ABNORMAL) eGFR (01/28/2025 2:54 PM CDT) [...] Organization Address City[facility] [facility]/ZIP Co de Phone Number [facility] Department [place] [address] * (ABNORMAL) Basic metabolic panel (01/28/2025 2:54 PM CDT) Sodium 138 135 - 145 mmol/L Potassium, pl 5.3(H) 3.3 - 4.9 mmol/L [facility] Chloride 105 97 - 110 mmol/L [facility] CO2 19(L) 22 - 32 mmol/L [facility] Anion gap 14 2 - 15 mmol/L [facility] BUN 67(H) 6 - 25 mg/dL [facility] Creatinine 4.91(H) 0.80 - 1.30 mg/dL [facility] Glucose 105 70 - 199 mg/dL [facility] Comment: Interpretive Data Fasting glucose >/= 126 [...] 2022. Calcium 8.8 8.5 - 10.3 mg/dL [facility] Blood 01/28/2025 2:54 PM CDT 01/28/2025 3:13 PM CDT us Chevy Bell NP LAB BLOOD ORDERABLES Final Result [facility] Department [place] [address] * (ABNORMAL) Potassium, whole blood (01/28/2025 5:09 AM CDT) Pathologist [facility] Potassium, bld 5.1(H) 3.3 - 4.9 mmol/L Blood 01/28/2025 5:09 AM CDT 01/28/2025 5:19 AM CDT us Rishi Lainez MD LAB BLOOD ORDERABLES Fin al Result [facility] [place] [address] * ECG 12 lead (01/28/2025 12:21 AM CDT) [facility] Ventricular Rate EKG/Min 74 BPM [facility] Atrial Rate 74 BPM [facility] TX-Interval (MSEC) 192 ms [facility] QRS-Interval (MSEC) 106 ms [facility] QT-Interval (MSEC) 378 ms [facility] QTc 419 ms [facility] P Gentry 42 degrees [facility] R Gentry -53 degrees [facility] T Gentry 50 degrees [facility] Diagnosis Normal sinus rhythm Left anterior fascicular block Abnormal ECG When compared with ECG of 01-JUN-2024 10:25, No significant change was found Confirmed by Vinny Jolly MD ([id number]) on 01/29/2025 8:41:01 AM [facility] 01/28/2025 12:2 1 AM CDT 01/29/2025 8:41 AM CDT Rishi Lainez MD ECG ORDERABLES Final Re sult Performing Organization Address City/[facility]/ZIP Co de Phone Number [facility] * (ABNORMAL) Potassium, whole blood (01/28/2025 12:08 AM CDT) [facility] Potassium, bld 5.2(H) 3.3 - 4.9 mmol/L Blood 01/28/2025 12:0 8 AM CDT 01/28/2025 12:22 AM CDT Rishi Lainez MD LAB BLOOD ORDERABLES Fin al Result [facility] [place] [address] * (ABNORMAL) eGFR (01/27/2025 10:32 PM CDT) [facility] eGFR 12(L) >=60 mL/min/1. 73 m2 Comment: [...] MD LAB BLOOD ORDERABLES Fin al Result [facility] Department [place] [address] * (ABNORMAL) Differential, auto (01/27/2025 10:32 PM CDT) Pathologist [facility] Neutrophil abs 6.24 1.50 - 6.50 K/cumm Imm gran abs 0.06 0.00 - 0.10 K/cumm [facility] Lymphocyte abs 1.13 0.80 - 3.30 K/cumm [facility] Monocyte abs 1.04(H) 0.20 - 0.80 K/cumm [facility] Eosinophil abs 0.52(H) 0.00 - 0.50 K/cumm [facility] Basophil abs 0.07 0.00 - 0.10 K/cumm [facility] Neutrophil pct 68.8 % [facility] Comment: Interpretive Data Percent cell count reference ranges are not reported, since discordance with absolute values may lead to misinterpretation of CBC data. Current Interpretive Data was last revised on 2018. Imm gran pct 0.7 % [facility] Comment: Interpretive Data Percent cell count reference ranges are not reported, since discordance with absolute values may lead to misinterpretation of CBC data. Current Interpretive Data was last revised on 2018. Lymphocyte pct 12.5 % [facility] Comment: Interpretive Data Percent cell count reference ranges are not reported, since discordance with absolute values may lead to misinterpretation of CBC data. Current Interpretive Data was last revised on 2018. Monocyte pct 11.5 % [facility] Comment: Interpretive Data Percent cell count reference ranges are not reported, since discordance with absolute values may lead to misinterpretation of CBC data. Current Interpretive Data was last revised on 2018. Eosinophil pct 5.7 % [facility] Comment: Interpretive Data Percent cell count reference ranges are not reported, since discordance with absolute values may lead to misinterpretation of CBC data. Current Interpretive Data was last revised on 2018. Basophil pct 0.8 % [facility] Comment: Interpretive Data Percent cell count reference ranges are not reported, since discordance with absolute values may lead to misinterpretation of CBC data. Current Interpretive Data was last revised on 2018. Blood 01/27/2025 10:3 2 PM CDT 01/27/2025 10:55 PM CDT us Rishi Lainez MD LAB BLOOD ORDERABLES Fin al Result [facility] Department [place] [address] * (ABNORMAL) CBC with auto differential (01/27/2025 10:32 PM CDT) WBC 9.06 3.80 - 9.90 K/cumm Hgb 9.3(L) 13.0 - 17.5 g/dL [facility] Hct 29.5(L) 38.9 - 50.3 % [facility] Plt 165 150 - 400 K/cumm [facility] MPV 10.5 9.1 - 12.3 fL [facility] RBC 3.13(L) 4.30 - 5.80 M/cumm [facility] MCV 94.2 81.3 - 96.4 fL [facility] MCH 29.7 27.1 - 33.3 pg [facility] MCHC 31.5(L) 32.3 - 35.7 g/dL [facility] RDW CV 15.2(H) 11.1 - 14.9 % [facility] RDW SD 52.9(H) 35.7 - 48.1 fL [facility] NRBC abs 0.00 0.00 - 0.01 K/cumm [facility] Blood 01/27/2025 10:3 2 PM CDT 01/27/2025 10:55 PM CDT Rishi Lainez MD LAB BLOOD ORDERABLES Fin al Result Performing Organization Address City/[facility] Co de Phone Number [facility] (app) [place] [address] * (ABNORMAL) Phosphorus (01/27/2025 10:32 PM CDT) Phosphorus, pl 5.6(H) 2.3 - 4.5 mg/dL Blood 01/27/2025 10:3 2 PM CDT 01/27/2025 10:53 PM CDT Result [facility] Rishi Lainez MD LAB BLOOD ORDERABLES Fin al Result Performing Organization Address [facility] Co de Phone Number [facility] (app) [place] [address] * (ABNORMAL) Magnesium (01/27/2025 10:32 PM CDT) Magnesium 2.6(H) 1.4 - 2.5 mg/dL Blood 01/27/2025 10:3 2 PM CDT 01/27/2025 10:53 PM CDT Rishi Lainez MD LAB BLOOD ORDERABLES Fin al Result Performing Organization Address City/[facility] Co de Phone Number [facility] (app) [place] [address] * (ABNORMAL) Basic metabolic panel (01/27/2025 10:32 PM CDT) Pathologist [facility] Sodium 134(L) 135 - 145 mmol/L Potassium, pl 5.5(H) 3.3 - 4.9 mmol/L [facility] Chloride 105 97 - 110 mmol/L [facility] CO2 18(L) 22 - 32 mmol/L [facility] Anion gap 11 2 - 15 mmol/L [facility] BUN 65(H) 6 - 25 mg/dL [facility] Creatinine 4.85(H) 0.80 - 1.30 mg/dL [facility] Glucose 95 70 - 199 mg/dL [facility] Comment: Interpretive Data Fasting glucose >/= 126 [...] 2022. Calcium 8.9 8.5 - 10.3 mg/dL [facility] Blood 01/27/2025 10:3 2 PM CDT 01/27/2025 10:53 PM CDT Rishi Lainez MD LAB BLOOD ORDERABLES Fin al Result [facility] Department [place] [address] * (ABNORMAL) Potassium, whole blood (01/27/2025 5:35 AM CDT) Pathologist [facility] Potassium, bld 5.2(H) 3.3 - 4.9 mmol/L Blood 01/27/2025 5:35 AM CDT 01/27/2025 5:44 AM CDT Rishi Lainez MD LAB BLOOD ORDERABLES Fin al Result Performing Organization Address City/[facility] de Phone Number [facility] Department [place] [address] * (ABNORMAL) eGFR (01/27/2025 3:57 AM CDT) [...] Organization Address City/[facility]/ZIP Co de Phone Number [facility]UCIL[facility] SORENSEN [facility] Department [place] [address] * (ABNORMAL) Differential, auto (01/27/2025 3:57 AM CDT) Neutrophil abs 7.22(H) 1.50 - 6.50 K/cumm Imm gran abs 0.08 0.00 - 0.10 K/cumm [facility] Lymphocyte abs 0.91 0.80 - 3.30 K/cumm [facility] Monocyte abs 1.09(H) 0.20 - 0.80 K/cumm [facility] Eosinophil abs 0.63(H) 0.00 - 0.50 K/cumm [facility] Basophil abs 0.08 0.00 - 0.10 K/cumm [facility] Neutrophil pct 72.1 % [facility] Comment: Interpretive Data Percent cell count reference ranges are not reported, since discordance with absolute values may lead to misinterpretation of CBC data. Current Interpretive Data was last revised on 2018. Imm gran pct 0.8 % [facility] Comment: Interpretive Data Percent cell count reference ranges are not reported, since discordance with absolute values may lead to misinterpretation of CBC data. Current Interpretive Data was last revised on 2018. Lymphocyte pct 9.1 % [facility] Comment: Interpretive Data Percent cell count reference ranges are not reported, since discordance with absolute values may lead to misinterpretation of CBC data. Current Interpretive Data was last revised on 2018. Monocyte pct 10.9 % [facility] Comment: Interpretive Data Percent cell count reference ranges are not reported, since discordance with absolute values may lead to misinterpretation of CBC data. Current Interpretive Data was last revised on 2018. Eosinophil pct 6.3 % [facility] Comment: Interpretive Data Percent cell count reference ranges are not reported, since discordance with absolute values may lead to misinterpretation of CBC data. Current Interpretive Data was last revised on 2018. Basophil pct 0.8 % [facility] Comment: Interpretive Data Percent cell count reference ranges are not reported, since discordance with absolute values may lead to misinterpretation of CBC data. Current Interpretive Data was last revised on 2018. Blood 01/27/2025 3:57 AM CDT 01/27/2025 4:46 AM CDT us Rishi Lainez MD LAB BLOOD ORDERABLES Fin al Result [facility] Department [place] [address] * (ABNORMAL) CBC with auto differential (01/27/2025 3:57 AM CDT) WBC 10.01(H) 3.80 - 9.90 K/cumm Hgb 9.8(L) 13.0 - 17.5 g/dL [facility] Hct 29.3(L) 38.9 - 50.3 % [facility] Plt 144(L) 150 - 400 K/cumm [facility] MPV 10.8 9.1 - 12.3 fL [facility] RBC 3.09(L) 4.30 - 5.80 M/cumm [facility] MCV 94.8 81.3 - 96.4 fL [facility] MCH 31.7 27.1 - 33.3 pg [facility] MCHC 33.4 32.3 - 35.7 g/dL [facility] RDW CV 15.3(H) 11.1 - 14.9 % [facility] RDW SD 53.5(H) 35.7 - 48.1 fL [facility] NRBC abs 0.00 0.00 - 0.01 K/cumm [facility] Blood 01/27/2025 3:57 AM CDT 01/27/2025 4:46 AM CDT Rishi Lainez MD LAB BLOOD ORDERABLES Fin al Result Performing Organization Address [facility]/ZIP Co de Phone Number [facility] Department [place] [address] * (ABNORMAL) Phosphorus (01/27/2025 3:57 AM CDT) Pathologist [facility] Phosphorus, pl 4.8(H) 2.3 - 4.5 mg/dL Blood 01/27/2025 3:57 AM CDT 01/27/2025 5:19 AM CDT Rishi Lainez MD LAB BLOOD ORDERABLES Fin al Result Performing Organization Address City/State/[facility] Co de Phone Number [facility] Department [place] [address] * Magnesium (01/27/2025 3:57 AM CDT) [facility] Magnesium 2.5 1.4 - 2.5 mg/dL Blood 01/27/2025 3:57 AM CDT 01/27/2025 5:19 AM CDT Rishi Lainez MD LAB BLOOD ORDERABLES Fin al Result [facility] Department [place] [address] * (ABNORMAL) Basic metabolic panel (01/27/2025 3:57 AM CDT) [facility] Sodium 136 135 - 145 mmol/L Potassium, pl 5.4(H) 3.3 - 4.9 mmol/L [facility] Chloride 106 97 - 110 mmol/L [facility] CO2 18(L) 22 - 32 mmol/L [facility] Anion gap 12 2 - 15 mmol/L [facility] BUN 63(H) 6 - 25 mg/dL [facility] Creatinine 4.57(H) 0.80 - 1.30 mg/dL [facility] Glucose 102 70 - 199 mg/dL [facility] Comment: Interpretive Data Fasting glucose >/= 126 [...] 2022. Calcium 9.2 8.5 - 10.3 mg/dL [facility] Blood 01/27/2025 3:57 AM CDT 01/27/2025 5:19 AM CDT us Rishi Lainez MD LAB BLOOD ORDERABLES Fin al Result [facility] Department [place] [address] * Critical Care (01/26/2025 8:20 AM CDT) [...] plan with the ICU team and other medical/pre owned sales consultant staff, making frequent assessments and decisions [...] plan with the ICU team and other medical/pre owned sales consultant staff, making frequent assessments and decisions [...] * (ABNORMAL) eGFR (01/25/2025 8:49 PM CDT) [facility] eGFR 14(L) >=60 mL/min/1. 73 m2 [...] MD LAB BLOOD ORDERABLES Fin al Result [facility] Department [place] [address] * (ABNORMAL) Differential, auto (01/25/2025 8:49 PM CDT) Neutrophil abs 6.62(H) 1.50 - 6.50 K/cumm Imm gran abs 0.06 0.00 - 0.10 K/cumm [facility] Lymphocyte abs 0.81 0.80 - 3.30 K/cumm [facility] Monocyte abs 0.99(H) 0.20 - 0.80 K/cumm [facility] Eosinophil abs 0.48 0.00 - 0.50 K/cumm [facility] Basophil abs 0.07 0.00 - 0.10 K/cumm [facility] Neutrophil pct 73.2 % [facility] Comment: Interpretive Data Percent cell count reference ranges are not reported, since discordance with absolute values may lead to misinterpretation of CBC data. Current Interpretive Data was last revised on 2018. Imm gran pct 0.7 % [facility] Comment: Interpretive Data Percent cell count reference ranges are not reported, since discordance with absolute values may lead to misinterpretation of CBC data. Current Interpretive Data was last revised on 2018. Lymphocyte pct 9.0 % [facility] Comment: Interpretive Data Percent cell count reference ranges are not reported, since discordance with absolute values may lead to misinterpretation of CBC data. Current Interpretive Data was last revised on 2018. Monocyte pct 11.0 % [facility] Comment: Interpretive Data Percent cell count reference ranges are not reported, since discordance with absolute values may lead to misinterpretation of CBC data. Current Interpretive Data was last revised on 2018. Eosinophil pct 5.3 % [facility] Comment: Interpretive Data Percent cell count reference ranges are not reported, since discordance with absolute values may lead to misinterpretation of CBC data. Current Interpretive Data was last revised on 2018. Basophil pct 0.8 % [facility] Comment: Interpretive Data Percent cell count reference ranges are not reported, since discordance with absolute values may lead to misinterpretation of CBC data. Current Interpretive Data was last revised on 2018. Blood 01/25/2025 8:49 PM CDT 01/25/2025 9:05 PM CDT us Rishi Lainez MD LAB BLOOD ORDERABLES Fin al Result [facility] Department [place] [address] * (ABNORMAL) CBC with auto differential (01/25/2025 8:49 PM CDT) WBC 9.03 3.80 - 9.90 K/cumm Hgb 9.4(L) 13.0 - 17.5 g/dL [facility] Hct 27.8(L) 38.9 - 50.3 % [facility] Plt 125(L) 150 - 400 K/cumm [facility] MPV 10.9 9.1 - 12.3 fL [facility] RBC 2.98(L) 4.30 - 5.80 M/cumm [facility] MCV 93.3 81.3 - 96.4 fL [facility] MCH 31.5 27.1 - 33.3 pg [facility] MCHC 33.8 32.3 - 35.7 g/dL [facility] RDW CV 15.6(H) 11.1 - 14.9 % [facility] RDW SD 54.1(H) 35.7 - 48.1 fL [facility] NRBC abs 0.00 0.00 - 0.01 K/cumm [facility] Blood 01/25/2025 8:49 PM CDT 01/25/2025 9:05 PM CDT Rishi Lainez MD LAB BLOOD ORDERABLES Fin al Result Performing Organization Address City/[facility] Co de Phone Number [facility] ([facility]) [place] [address] * Phosphorus (01/25/2025 8:49 PM CDT) Pathologist [facility] Phosphorus, pl 4.5 2.3 - 4.5 mg/dL Blood 01/25/2025 8:49 PM CDT 01/25/2025 9:05 PM CDT Rishi Lainez MD LAB BLOOD ORDERABLES Fin al Result Performing Organization Address [facility] de Phone Number [facility] (app) [place] [address] * (ABNORMAL) Magnesium (01/25/2025 8:49 PM CDT) Magnesium 2.6(H) 1.4 - 2.5 mg/dL Blood 01/25/2025 8:49 PM CDT 01/25/2025 9:05 PM CDT Rishi Lainez MD LAB BLOOD ORDERABLES Fin al Result Performing Organization Address [facility] de Phone Number [facility] (app) [place] [address] * (ABNORMAL) Basic metabolic panel (01/25/2025 8:49 PM CDT) Sodium 135 135 - 145 mmol/L Potassium, pl 4.8 3.3 - 4.9 mmol/L [facility] Chloride 108 97 - 110 mmol/L [facility] CO2 16(L) 22 - 32 mmol/L [facility] Anion gap 11 2 - 15 mmol/L [facility] BUN 60(H) 6 - 25 mg/dL [facility] Creatinine 4.22(H) 0.80 - 1.30 mg/dL [facility] Glucose 130 70 - 199 mg/dL [facility] Comment: Interpretive Data Fasting glucose >/= 126 [...] 2022. Calcium 8.7 8.5 - 10.3 mg/dL [facility] Blood 01/25/2025 8:49 PM CDT 01/25/2025 9:05 PM CDT us Rishi Lainez MD LAB BLOOD ORDERABLES Fin al Result Performing Organization Address City/State/[facility] Co de Phone Number [facility] Department [place] [address] * Critical Care (01/25/2025 11:10 AM CDT) [...] plan with the ICU team and other medical/pre owned sales consultant staff, making frequent assessments and decisions [...] plan with the ICU team and other medical/pre owned sales consultant staff, making frequent assessments and decisions [...] ORDERABLES Fin al Result [facility] [place] [address] * (ABNORMAL) Differential, auto (01/24/2025 8:44 PM CDT) Neutrophil abs 6.43 1.50 - 6.50 K/cumm Imm gran abs 0.03 0.00 - 0.10 K/cumm [facility] Lymphocyte abs 0.76(L) 0.80 - 3.30 K/cumm [facility] Monocyte abs 1.08(H) 0.20 - 0.80 K/cumm [facility] Eosinophil abs 0.43 0.00 - 0.50 K/cumm [facility] Basophil abs 0.07 0.00 - 0.10 K/cumm [facility] Neutrophil pct 73.1 % [facility] Comment: Interpretive Data Percent cell count reference ranges are not reported, since discordance with absolute values may lead to misinterpretation of CBC data. Current Interpretive Data was last revised on 2018. Imm gran pct 0.3 % [facility] Comment: Interpretive Data Percent cell count reference ranges are not reported, since discordance with absolute values may lead to misinterpretation of CBC data. Current Interpretive Data was last revised on 2018. Lymphocyte pct 8.6 % [facility] Comment: Interpretive Data Percent cell count reference ranges are not reported, since discordance with absolute values may lead to misinterpretation of CBC data. Current Interpretive Data was last revised on 2018. Monocyte pct 12.3 % [facility] Comment: Interpretive Data Percent cell count reference ranges are not reported, since discordance with absolute values may lead to misinterpretation of CBC data. Current Interpretive Data was last revised on 2018. Eosinophil pct 4.9 % [facility] Comment: Interpretive Data Percent cell count reference ranges are not reported, since discordance with absolute values may lead to misinterpretation of CBC data. Current Interpretive Data was last revised on 2018. Basophil pct 0.8 % [facility] Comment: Interpretive Data Percent cell count reference ranges are not reported, since discordance with absolute values may lead to misinterpretation of CBC data. Current Interpretive Data was last revised on 2018. Blood 01/24/2025 8:44 PM CDT 01/24/2025 8:59 PM CDT Rishi Lainez MD LAB BLOOD ORDERABLES Fin al Result Performing Organization Address City/[facility]/ZIP Co de Phone Number [facility] Department [place] [address] * (ABNORMAL) CBC with auto differential (01/24/2025 8:44 PM CDT) Pathologist [facility] WBC 8.80 3.80 - 9.90 K/cumm Hgb 9.6(L) 13.0 - 17.5 g/dL [facility] Hct 28.9(L) 38.9 - 50.3 % [facility] Plt 102(L) 150 - 400 K/cumm [facility] MPV 10.7 9.1 - 12.3 fL [facility] RBC 3.06(L) 4.30 - 5.80 M/cumm [facility] MCV 94.4 81.3 - 96.4 fL [facility] MCH 31.4 27.1 - 33.3 pg [facility] MCHC 33.2 32.3 - 35.7 g/dL [facility] RDW CV 15.9(H) 11.1 - 14.9 % [facility] RDW SD 55.6(H) 35.7 - 48.1 fL [facility] NRBC abs 0.00 0.00 - 0.01 K/cumm [facility] Blood 01/24/2025 8:44 PM CDT 01/24/2025 8:59 PM CDT Rishi Lainez MD LAB BLOOD ORDERABLES Fin al Result [facility] [place] [address] * Phosphorus (01/24/2025 8:44 PM CDT) Pathologist [facility] Phosphorus, pl 3.8 2.3 - 4.5 mg/dL Blood 01/24/2025 8:44 PM CDT 01/24/2025 8:59 PM CDT Rishi Lainez MD LAB BLOOD ORDERABLES Fin al Result Performing Organization Address City/[facility]/ZIP Co de Phone Number [facility] Department [place] [address] * Magnesium (01/24/2025 8:44 PM CDT) Pathologist [facility] Magnesium 1.9 1.4 - 2.5 mg/dL Blood 01/24/2025 8:44 PM CDT 01/24/2025 8:59 PM CDT Rishi Lainez MD LAB BLOOD ORDERABLES Fin al Result Performing Organization Address [facility] de Phone Number [facility] [place] [address] * (ABNORMAL) Basic metabolic panel (01/24/2025 8:44 PM CDT) [facility] Sodium 138 135 - 145 mmol/L Potassium, pl 4.9 3.3 - 4.9 mmol/L [facility] Chloride 109 97 - 110 mmol/L [facility] CO2 18(L) 22 - 32 mmol/L [facility] Anion gap 11 2 - 15 mmol/L [facility] BUN 47(H) 6 - 25 mg/dL [facility] Creatinine 4.38(H) 0.80 - 1.30 mg/dL [facility] Glucose 123 70 - 199 mg/dL [facility] Comment: Interpretive Data Fasting glucose >/= 126 [...] 2022. Calcium 8.7 8.5 - 10.3 mg/dL [facility] Blood 01/24/2025 8:44 PM CDT 01/24/2025 8:59 PM CDT us Rishi Lainez MD LAB BLOOD ORDERABLES Fin al Result [facility] [place] [address] * Critical Care (01/24/2025 12:35 PM CDT) [...] plan with the ICU team and other medical/pre owned sales consultant staff, making frequent assessments and decisions [...] ORDERABLES Fin al Result Performing Organization Address City/State/[facility] Co de Phone Number [facility] [place] [address] * (ABNORMAL) Differential, auto (01/23/2025 8:19 PM CDT) Neutrophil abs 7.12(H) 1.50 - 6.50 K/cumm Imm gran abs 0.06 0.00 - 0.10 K/cumm [facility] Lymphocyte abs 0.63(L) 0.80 - 3.30 K/cumm [facility] Monocyte abs 1.00(H) 0.20 - 0.80 K/cumm [facility] Eosinophil abs 0.38 0.00 - 0.50 K/cumm [facility] Basophil abs 0.07 0.00 - 0.10 K/cumm [facility] Neutrophil pct 76.9 % [facility] Comment: Interpretive Data Percent cell count reference ranges are not reported, since discordance with absolute values may lead to misinterpretation of CBC data. Current Interpretive Data was last revised on 2018. Imm gran pct 0.6 % [facility] Comment: Interpretive Data Percent cell count reference ranges are not reported, since discordance with absolute values may lead to misinterpretation of CBC data. Current Interpretive Data was last revised on 2018. Lymphocyte pct 6.8 % [facility] Comment: Interpretive Data Percent cell count reference ranges are not reported, since discordance with absolute values may lead to misinterpretation of CBC data. Current Interpretive Data was last revised on 2018. Monocyte pct 10.8 % [facility] Comment: Interpretive Data Percent cell count reference ranges are not reported, since discordance with absolute values may lead to misinterpretation of CBC data. Current Interpretive Data was last revised on 2018. Eosinophil pct 4.1 % [facility] Comment: Interpretive Data Percent cell count reference ranges are not reported, since discordance with absolute values may lead to misinterpretation of CBC data. Current Interpretive Data was last revised on 2018. Basophil pct 0.8 % [facility] Comment: Interpretive Data Percent cell count reference ranges are not reported, since discordance with absolute values may lead to misinterpretation of CBC data. Current Interpretive Data was last revised on 2018. Blood 01/23/2025 8:19 PM CDT 01/23/2025 8:31 PM CDT us Rishi Lainez MD LAB BLOOD ORDERABLES Fin al Result [facility] [place] [address] * (ABNORMAL) CBC with auto differential (01/23/2025 8:19 PM CDT) WBC 9.26 3.80 - 9.90 K/cumm Hgb 9.8(L) 13.0 - 17.5 g/dL [facility] Hct 29.2(L) 38.9 - 50.3 % [facility] Plt 85(L) 150 - 400 K/cumm [facility] MPV 10.6 9.1 - 12.3 fL [facility] RBC 3.12(L) 4.30 - 5.80 M/cumm [facility] MCV 93.6 81.3 - 96.4 fL [facility] MCH 31.4 27.1 - 33.3 pg [facility] MCHC 33.6 32.3 - 35.7 g/dL [facility] RDW CV 16.2(H) 11.1 - 14.9 % [facility] RDW SD 55.9(H) 35.7 - 48.1 fL [facility] NRBC abs 0.00 0.00 - 0.01 K/cumm [facility] Blood 01/23/2025 8:19 PM CDT 01/23/2025 8:31 PM CDT Rishi Lainez MD LAB BLOOD ORDERABLES Fin al Result Performing Organization Address City/[facility]/ZIP Co de Phone Number [facility] Department of [facility] (app) [place] [address] * Phosphorus (01/23/2025 8:19 PM CDT) [facility] Phosphorus, pl 4.0 2.3 - 4.5 mg/dL Blood 01/23/2025 8:19 PM CDT 01/23/2025 8:32 PM CDT Rishi Lainez MD LAB BLOOD ORDERABLES Fin al Result [facility] of [facility] (app) [place] [address] * Magnesium (01/23/2025 8:19 PM CDT) [facility] Magnesium 2.0 1.4 - 2.5 mg/dL Blood 01/23/2025 8:19 PM CDT 01/23/2025 8:32 PM CDT Rishi Lainez MD LAB BLOOD ORDERABLES Fin al Result [facility] [place] [address] * (ABNORMAL) Basic metabolic panel (01/23/2025 8:19 PM CDT) [facility] Sodium 141 135 - 145 mmol/L Potassium, pl 4.1 3.3 - 4.9 mmol/L [facility] Chloride 113(H) 97 - 110 mmol/L [facility] CO2 19(L) 22 - 32 mmol/L [facility] Anion gap 9 2 - 15 mmol/L [facility] BUN 49(H) 6 - 25 mg/dL [facility] Creatinine 4.26(H) 0.80 - 1.30 mg/dL [facility] Glucose 121 70 - 199 mg/dL [facility] Comment: Interpretive Data Fasting glucose >/= 126 [...] 2022. Calcium 8.6 8.5 - 10.3 mg/dL [facility] Blood 01/23/2025 8:19 PM CDT 01/23/2025 8:32 PM CDT Rishi Lianez MD LAB BLOOD ORDERABLES Fin al Result Performing Organization Address City/[facility]/ZIP Co de Phone Number [facility] [place] [address] * Critical Care (01/23/2025 10:52 AM CDT) [...] plan with the ICU team and other medical/pre owned sales consultant staff, making frequent assessments and decisions [...] ORDERA BLES Final Result Performing Organization Address [facility]/ZIP Co de Phone Number [facility] (app) [place] [address] * Prepare platelets: 1 Units (01/23/2025 3:56 AM CDT) [facility] Product code [id number] Unit Number [id number] [facility] Product Blood Type OPOS [facility] Dispense Status PRESUMED TRANSFUSED [facility] Blood Venous blood specimen / Unknown 01/23/2025 3:56 AM CDT 01/23/2025 3:59 AM CDT Narrative [facility] - 01/23/2025 8:00 PM CDT Other indication->post-epidural goal >100 Are special requirements needed? (all products are leukoreduced)->No Date required:-[id number] PLT # of Units:-1-Units Reasons:-Other (Specify)} Rishi Lainez MD BLOOD BANK PRODUCT ORDER CHELSI Final Result Performing Organization Address [facility] Co de Phone Number [facility] [place] [address] * (ABNORMAL) CBC without differential (01/23/2025 3:21 AM CDT) [facility] WBC 9.90 3.80 - 9.90 K/cumm Hgb 10.1(L) 13.0 - 17.5 g/dL [facility] Hct 29.8(L) 38.9 - 50.3 % [facility] Plt 78(L) 150 - 400 K/cumm [facility] MPV 10.9 9.1 - 12.3 fL [facility] RBC 3.17(L) 4.30 - 5.80 M/cumm [facility] MCV 94.0 81.3 - 96.4 fL [facility] MCH 31.9 27.1 - 33.3 pg [facility] MCHC 33.9 32.3 - 35.7 g/dL [facility] RDW CV 16.4(H) 11.1 - 14.9 % [facility] RDW SD 56.4(H) 35.7 - 48.1 fL [facility] NRBC abs 0.00 0.00 - 0.01 K/cumm [facility] Blood 01/23/2025 3:21 AM CDT 01/23/2025 3:38 AM CDT Rishi Lainez MD LAB BLOOD ORDERABLES Fin al Result Performing Organization Address [facility] de Phone Number [facility] Department [place] [address] * Transfuse RBC (01/23/2025 12:38 AM CDT) Blood Rishi Lainez MD BLOOD TRANSFUSION ORDERA BLES Final Result Performing Organization Address [facility] de Phone Number [facility] Department [place] [address] * Prepare RBC: 1 Units (01/22/2025 11:20 PM CDT) Product code [id number] Unit Number [id number] [facility] Product Blood Type OPOS [facility] Dispense Status PRESUMED TRANSFUSED [facility] Blood 01/22/2025 11:2 0 PM CDT 01/22/2025 11:20 PM CDT Narrative [facility] - 01/23/2025 4:01 PM CDT Other indication->Post-surgical Hgb Goal <10 Are special requirements needed? (All products are leukoreduced and CMV- safe)- >No Date required:-[id number] LRRBC # of [id number] Reasons:-Other (specify)} Rishi Lainez MD BLOOD BANK PRODUCT ORDER CHELSI Final Result Performing Organization Address [facility] de Phone Number [facility] Department [place] [address] * (ABNORMAL) eGFR (01/22/2025 8:17 PM CDT) Pathologist [facility] eGFR 13(L) >=60 mL/min/1. 73 m2 Comment: [...] MD LAB BLOOD ORDERABLES Fin al Result [facility] Department [place] [address] * (ABNORMAL) Differential, auto (01/22/2025 8:17 PM CDT) Pathologist [facility] Neutrophil abs 8.92(H) 1.50 - 6.50 K/cumm Imm gran abs 0.05 0.00 - 0.10 K/cumm [facility] Lymphocyte abs 0.69(L) 0.80 - 3.30 K/cumm [facility] Monocyte abs 1.08(H) 0.20 - 0.80 K/cumm [facility] Eosinophil abs 0.30 0.00 - 0.50 K/cumm [facility] Basophil abs 0.08 0.00 - 0.10 K/cumm [facility] Neutrophil pct 80.3 % [facility] Comment: Interpretive Data Percent cell count reference ranges are not reported, since discordance with absolute values may lead to misinterpretation of CBC data. Current Interpretive Data was last revised on 2018. Imm gran pct 0.4 % [facility] Comment: Interpretive Data Percent cell count reference ranges are not reported, since discordance with absolute values may lead to misinterpretation of CBC data. Current Interpretive Data was last revised on 2018. Lymphocyte pct 6.2 % [facility] Comment: Interpretive Data Percent cell count reference ranges are not reported, since discordance with absolute values may lead to misinterpretation of CBC data. Current Interpretive Data was last revised on 2018. Monocyte pct 9.7 % [facility] Comment: Interpretive Data Percent cell count reference ranges are not reported, since discordance with absolute values may lead to misinterpretation of CBC data. Current Interpretive Data was last revised on 2018. Eosinophil pct 2.7 % [facility] Comment: Interpretive Data Percent cell count reference ranges are not reported, since discordance with absolute values may lead to misinterpretation of CBC data. Current Interpretive Data was last revised on 2018. Basophil pct 0.7 % [facility] Comment: Interpretive Data Percent cell count reference ranges are not reported, since discordance with absolute values may lead to misinterpretation of CBC data. Current Interpretive Data was last revised on 2018. Blood 01/22/2025 8:17 PM CDT 01/22/2025 8:40 PM CDT us Rishi Lainez MD LAB BLOOD ORDERABLES Fin al Result [facility] [place] [address] * (ABNORMAL) CBC with auto differential (01/22/2025 8:17 PM CDT) WBC 11.12(H) 3.80 - 9.90 K/cumm Hgb 9.4(L) 13.0 - 17.5 g/dL [facility] Hct 28.7(L) 38.9 - 50.3 % [facility] Plt 85(L) 150 - 400 K/cumm [facility] MPV 10.6 9.1 - 12.3 fL [facility] RBC 2.95(L) 4.30 - 5.80 M/cumm [facility] MCV 97.3(H) 81.3 - 96.4 fL [facility] MCH 31.9 27.1 - 33.3 pg [facility] MCHC 32.8 32.3 - 35.7 g/dL [facility] RDW CV 15.5(H) 11.1 - 14.9 % [facility] RDW SD 55.7(H) 35.7 - 48.1 fL [facility] NRBC abs 0.00 0.00 - 0.01 K/cumm [facility] Blood 01/22/2025 8:17 PM CDT 01/22/2025 8:40 PM CDT Rishi Lainez MD LAB BLOOD ORDERABLES Fin al Result Performing Organization Address City/[facility] Co de Phone Number [facility] Department [place] [address] * Phosphorus (01/22/2025 8:17 PM CDT) Pathologist [facility] Phosphorus, pl 3.2 2.3 - 4.5 mg/dL Blood 01/22/2025 8:17 PM CDT 01/22/2025 8:40 PM CDT Rishi Lainez MD LAB BLOOD ORDERABLES Fin al Result [facility] [place] [address] * Magnesium (01/22/2025 8:17 PM CDT) Pathologist [facility] Magnesium 2.1 1.4 - 2.5 mg/dL Blood 01/22/2025 8:17 PM CDT 01/22/2025 8:40 PM CDT Rishi Lainez MD LAB BLOOD ORDERABLES Fin al Result Performing Organization Address City/[facility]/ZIP Co de Phone Number [facility] Department [place] [address] * (ABNORMAL) Basic metabolic panel (01/22/2025 8:17 PM CDT) Sodium 140 135 - 145 mmol/L Potassium, pl 4.5 3.3 - 4.9 mmol/L [facility] Chloride 112(H) 97 - 110 mmol/L [facility] CO2 18(L) 22 - 32 mmol/L [facility] Anion gap 10 2 - 15 mmol/L [facility] BUN 49(H) 6 - 25 mg/dL [facility] Creatinine 4.45(H) 0.80 - 1.30 mg/dL [facility] Glucose 141 70 - 199 mg/dL [facility] Comment: Interpretive Data Fasting glucose >/= 126 [...] 2022. Calcium 8.7 8.5 - 10.3 mg/dL [facility] Blood 01/22/2025 8:17 PM CDT 01/22/2025 8:40 PM CDT Rishi Lainez MD LAB BLOOD ORDERABLES Fin al Result Performing Organization Address [facility] Co de Phone Number [facility] Department [place] [address] * Critical Care (01/22/2025 11:41 AM CDT) [...] plan with the ICU team and other medical/pre owned sales consultant staff, making frequent assessments and decisions [...] DE VICE Final Result Performing Organization Address [facility] [place] [address] * POCT glucose (01/22/2025 7:12 AM CDT) Glucose, POC 116 70 - 199 mg/dL Blood 01/22/2025 7:12 AM CDT 01/22/2025 7:12 AM CDT Rishi Lainez MD LAB POCT ORDERABLES - DE VICE Final Result Performing Organization Address [facility] [place] [address] * POCT glucose (01/22/2025 3:33 AM CDT) Glucose, POC 110 70 - 199 mg/dL Blood 01/22/2025 3:33 AM CDT 01/22/2025 3:33 AM CDT Rishi Lainez MD LAB POCT ORDERABLES - DE VICE Final Result Performing Organization Address [facility] [place] [address] * IR Lumbar Puncture, Diagnostic incl Fluoro [...] POCT glucose (01/21/2025 11:24 PM CDT) Pathologist [facility] Glucose, POC 139 70 - 199 mg/dL Blood 01/21/2025 11:2 4 PM CDT 01/21/2025 11:24 PM CDT Rishi Lainez MD LAB POCT ORDERABLES - DE VICE Final Result [facility] [place] [address] * (ABNORMAL) eGFR (01/21/2025 9:51 PM CDT) Pathologist [facility] eGFR 14(L) >=60 mL/min/1. 73 m2 Comment: [...] us Rishi Lainez MD LAB BLOOD ORDERABLES [facility] al Result [facility] Department [place] [address] * (ABNORMAL) Differential, auto (01/21/2025 9:51 PM CDT) Pathologist [facility] Neutrophil abs 9.20(H) 1.50 - 6.50 K/cumm Imm gran abs 0.05 0.00 - 0.10 K/cumm [facility] Lymphocyte abs 0.89 0.80 - 3.30 K/cumm [facility] Monocyte abs 1.07(H) 0.20 - 0.80 K/cumm [facility] Eosinophil abs 0.04 0.00 - 0.50 K/cumm [facility] Basophil abs 0.05 0.00 - 0.10 K/cumm [facility] Neutrophil pct 81.4 % [facility] Comment: Interpretive Data Percent cell count reference ranges are not reported, since discordance with absolute values may lead to misinterpretation of CBC data. Current Interpretive Data was last revised on 2018. Imm gran pct 0.4 % [facility] Comment: Interpretive Data Percent cell count reference ranges are not reported, since discordance with absolute values may lead to misinterpretation of CBC data. Current Interpretive Data was last revised on 2018. Lymphocyte pct 7.9 % [facility] Comment: Interpretive Data Percent cell count reference ranges are not reported, since discordance with absolute values may lead to misinterpretation of CBC data. Current Interpretive Data was last revised on 2018. Monocyte pct 9.5 % [facility] Comment: Interpretive Data Percent cell count reference ranges are not reported, since discordance with absolute values may lead to misinterpretation of CBC data. Current Interpretive Data was last revised on 2018. Eosinophil pct 0.4 % [facility] Comment: Interpretive Data Percent cell count reference ranges are not reported, since discordance with absolute values may lead to misinterpretation of CBC data. Current Interpretive Data was last revised on 2018. Basophil pct 0.4 % [facility] Comment: Interpretive Data Percent cell count reference ranges are not reported, since discordance with absolute values may lead to misinterpretation of CBC data. Current Interpretive Data was last revised on 2018. Blood 01/21/2025 9:51 PM CDT 01/21/2025 10:09 PM CDT us Rishi Lainez MD LAB BLOOD ORDERABLES Fin al Result [facility] Department [place] [address] * (ABNORMAL) CBC with auto differential (01/21/2025 9:51 PM CDT) WBC 11.30(H) 3.80 - 9.90 K/cumm Hgb 9.7(L) 13.0 - 17.5 g/dL [facility] Hct 29.2(L) 38.9 - 50.3 % [facility] Plt 101(L) 150 - 400 K/cumm [facility] MPV 10.5 9.1 - 12.3 fL [facility] RBC 3.04(L) 4.30 - 5.80 M/cumm [facility] MCV 96.1 81.3 - 96.4 fL [facility] MCH 31.9 27.1 - 33.3 pg [facility] MCHC 33.2 32.3 - 35.7 g/dL [facility] RDW CV 15.3(H) 11.1 - 14.9 % [facility] RDW SD 54.1(H) 35.7 - 48.1 fL [facility] NRBC abs 0.00 0.00 - 0.01 K/cumm [facility] Blood 01/21/2025 9:51 PM CDT 01/21/2025 10:09 PM CDT Result [facility] Rishi Lainez MD LAB BLOOD ORDERABLES Fin al Result Performing Organization Address [facility] Co de Phone Number [facility] Department [place] [address] * Phosphorus (01/21/2025 9:51 PM CDT) Phosphorus, pl 2.8 2.3 - 4.5 mg/dL Blood 01/21/2025 9:51 PM CDT 01/21/2025 10:08 PM CDT Rishi Lainez MD LAB BLOOD ORDERABLES Fin al Result [facility] [place] [address] * Magnesium (01/21/2025 9:51 PM CDT) Magnesium 2.1 1.4 - 2.5 mg/dL Blood 01/21/2025 9:51 PM CDT 01/21/2025 10:08 PM CDT Rishi Lainez MD LAB BLOOD ORDERABLES Fin al Result Performing Organization Address City/[facility]/ZIP Co de Phone Number [facility] Department [place] [address] * (ABNORMAL) Basic metabolic panel (01/21/2025 9:51 PM CDT) Sodium 140 135 - 145 mmol/L Potassium, pl 4.4 3.3 - 4.9 mmol/L [facility] Chloride 113(H) 97 - 110 mmol/L [facility] CO2 17(L) 22 - 32 mmol/L [facility] Anion gap 10 2 - 15 mmol/L [facility] BUN 49(H) 6 - 25 mg/dL [facility] Creatinine 4.29(H) 0.80 - 1.30 mg/dL [facility] Glucose 112 70 - 199 mg/dL [facility] Comment: Interpretive Data Fasting glucose >/= 126 [...] 2022. Calcium 8.8 8.5 - 10.3 mg/dL [facility] Blood 01/21/2025 9:51 PM CDT 01/21/2025 10:08 PM CDT Rishi Lainez MD LAB BLOOD ORDERABLES Fin al Result Performing Organization Address [facility]/ZIP Co de Phone Number [facility] Department [place] [address] * Critical Care (01/21/2025 9:15 PM CDT) Narrative Zander Morales MD - 01/21/2025 9:15 PM CDZander Benson MD 01/22/2025 5:28 AM Critical Care Performed by: Zander Morales MD Authorized by: Zander Moralse MD CRITICAL CARE: Team: SICU RED Shift: [...] plan with the ICU team and other medical/pre owned sales consultant staff, making frequent assessments and decisions [...] DE VICE Final Result Performing Organization Address City/State/[facility] Co de Phone Number [facility] [place] [address] * CT Head WO Contrast (01/21/2025 5:46 [...] plan with the ICU team and other medical/pre owned sales consultant staff, making frequent assessments and decisions [...] DE VICE Final Result Performing Organization Address [facility] Co de Phone Number [facility] Department [place] [address] * Transfuse RBC (01/21/2025 2:25 PM CDT) Blood Rishi Lainez MD BLOOD TRANSFUSION ORDERA BLES Final Result Performing Organization Address [facility] Co de Phone Number [facility] Department [place] [address] * [place] ARTL CATHJ/CANNULJ MNTR/TRANSFUSION SPX PRQ (01/21/2025 1:10 PM CDT) Narrative Aaron Lin MD - 01/21/2025 1:10 PM CDT Aaron Lin MD 01/21/2025 1:32 PM Arterial Line Insertion Date/Time: 01/21/2025 1:10 PM Performed by: Josias Baez MD Authorized by: Josias Baez MD Yeso Protocol: RN Notified of Procedure: yes Informed [...] POCT ORDERABLES - DE VICE Final Result [facility] Department [place] [address] * TX AN PROCEDURE PLACEHOLDER (01/21/2025 11:42 AM CDT) [...] us Rishi Lainez MD LAB BLOOD ORDERABLES [facility] al Result [facility] [place] [address] * Protime-INR (01/21/2025 8:42 AM CDT) PT 12.7 9.7 - 13.0 sec INR 1.17 0.90 - 1.20 [facility] Comment: Interpretive data Oral anticoagulant therapeutic ranges: Venous thromboembolism prophylaxis or treatment: 2.0-3.0 CARDIOLOGY Standard range: 2.0-3.0 High-intensity range: 2.5-3.5 Refer to indication-specific guidelines for appropriate target ranges for prosthetic heart valve replacement. Current interpretive data was last revised on 2019. Blood 01/21/2025 8:42 AM CDT 01/21/2025 8:49 AM CDT Rishi Lainez MD LAB BLOOD ORDERABLES Fin al Result [facility] Department [place] [address] * Prepare RBC: 1 Units (01/21/2025 7:43 AM CDT) Pathologist [facility] Product code [id number] Unit Number [id number] [facility] Product Blood Type OPOS [facility] Dispense Status PRESUMED TRANSFUSED [facility] Blood 01/21/2025 7:43 AM CDT 01/21/2025 7:43 AM CDT Narrative [facility] - 01/22/2025 12:55 AM CDT Other indication->spinal cord ischemia Are special requirements needed? (All products are leukoreduced and CMV- safe)- >No Date required:-[id number] LRRBC # of [id number] Reasons:-Other (specify)} us Rishi Lainez MD BLOOD BANK PRODUCT ORDER CHELSI Final Result [facility] Department [place] [address] * (ABNORMAL) eGFR (01/21/2025 4:59 AM CDT) Pathologist [facility] eGFR 14(L) >=60 mL/min/1. 73 m2 Comment: [...] Organization Address City/[facility]/ZIP Co de Phone Number [facility] Department [place] [address] * (ABNORMAL) CBC without differential (01/21/2025 4:59 AM CDT) WBC 13.69(H) 3.80 - 9.90 K/cumm Hgb 9.2(L) 13.0 - 17.5 g/dL [facility] Hct 28.5(L) 38.9 - 50.3 % [facility] Plt 127(L) 150 - 400 K/cumm [facility] MPV 10.1 9.1 - 12.3 fL [facility] RBC 2.86(L) 4.30 - 5.80 M/cumm [facility] MCV 99.7(H) 81.3 - 96.4 fL [facility] MCH 32.2 27.1 - 33.3 pg [facility] MCHC 32.3 32.3 - 35.7 g/dL [facility] RDW CV 13.9 11.1 - 14.9 % [facility] RDW SD 50.6(H) 35.7 - 48.1 fL [facility] NRBC abs 0.00 0.00 - 0.01 K/cumm [facility] Blood 01/21/2025 4:59 AM CDT 01/21/2025 5:24 AM CDT Rishi Lainez MD LAB BLOOD ORDERABLES Fin al Result Performing Organization Address [facility]/ZIP Co de Phone Number [facility] Department [place] [address] * (ABNORMAL) Basic metabolic panel (01/21/2025 4:59 AM CDT) Sodium 142 135 - 145 mmol/L Potassium, pl 4.9 3.3 - 4.9 mmol/L [facility] Chloride 112(H) 97 - 110 mmol/L [facility] CO2 17(L) 22 - 32 mmol/L [facility] Anion gap 13 2 - 15 mmol/L [facility] BUN 49(H) 6 - 25 mg/dL [facility] Creatinine 4.25(H) 0.80 - 1.30 mg/dL [facility] Glucose 116 70 - 199 mg/dL [facility] Comment: Interpretive Data Fasting glucose >/= 126 [...] 2022. Calcium 8.7 8.5 - 10.3 mg/dL [facility] Blood 01/21/2025 4:59 AM CDT 01/21/2025 5:25 AM CDT us Rishi Lainez MD LAB BLOOD ORDERABLES Fin al Result [facility] Department [place] [address] * THORACIC ENDOVASCULAR REPAIR - AORTIC (01/20/2025 12:56 PM CDT) Anatomical Region Laterality Modality X-Ray Angiograph y Narrative 01/21/2025 11:25 AM CDT Please see OpNote for result. Rishi Lainez MD SURGICAL CASE ORDERS Fin al Result * (ABNORMAL) POC Blood Gas and Chemistries, Arterial - (01/20/2025 12:36 PM CDT) [facility] pH, Art POC 7.14(C) 7.35 - 7.45 [...] 116(H) 97 - 110 mmol/L [facility] Ionized Ca, POC 5.20(H) 4.50 - 5.10 mg/dL [facility] Glucose, POC 104 70 - 199 mg/dL [facility] Lactate, POC 1.2 0.7 - 2.0 mmol/L [facility] SO2 (andrés) arterial 100(H) 90 - 95 % [facility] Base excess, POC -11.3 mmol/L [facility] HCO3, Art POC 16(L) 20 - 30 mmol/L [facility] Hct, POC 29.0(L) 41.4 - 51.6 % [facility] Total Hb, POC 9.8(L) 13.8 - 17.2 g/dL [facility] Blood 01/20/2025 12:3 6 PM CDT 01/20/2025 12:36 PM CDT Rishi Lainez MD LAB POCT ORDERABLES - DE VICE Final Result [facility] [place] [address] * POCT Activated clotting time, low range (01/20/2025 12:25 PM CDT) ACT 141 123 - 168 sec POC Performer [id number] [facility] POC Device Number [id number] [facility] Blood 01/20/2025 12:2 5 PM CDT 01/20/2025 12:25 PM CDT us Rishi Lainez MD LAB POCT ORDERABLES - DE VICE Final Result Performing Organization Address City/[facility]/ZIP Co de Phone Number [facility] (app) [place] [address] * (ABNORMAL) POCT Activated clotting time, low range (01/20/2025 12:09 PM CDT) ACT 279(H) 123 - 168 sec POC Performer [id number] [facility] POC Device Number [id number] [facility] Blood 01/20/2025 12:0 9 PM CDT 01/20/2025 12:09 PM CDT us Rishi Lainez MD LAB POCT ORDERABLES - DE VICE Final Result Performing Organization Address [facility] Co de Phone Number [facility] (app) [place] [address] * (ABNORMAL) POCT Activated clotting time, low range (01/20/2025 11:42 AM CDT) ACT 331(H) 123 - 168 sec POC Performer [id number] [facility] POC Device Number [id number] [facility] Blood 01/20/2025 11:4 2 AM CDT 01/20/2025 11:42 AM CDT us Rishi Lainez MD LAB POCT ORDERABLES - DE VICE Final Result Performing Organization Address City/[facility]/ZIP Co de Phone Number [facility] (app) [place] [address] * (ABNORMAL) POCT Activated clotting time, low range (01/20/2025 11:19 AM CDT) ACT 248(H) 123 - 168 sec POC Performer [id number] [facility] POC Device Number [id number] [facility] Blood 01/20/2025 11:1 9 AM CDT 01/20/2025 11:19 AM CDT us Rishi Lainez MD LAB POCT ORDERABLES - DE VICE Final Result Performing Organization Address [facility] Co de Phone Number [facility] [place] [address] * (ABNORMAL) POCT Activated clotting time, low range (01/20/2025 10:55 AM CDT) ACT 292(H) 123 - 168 sec POC Performer [id number] [facility] POC Device Number [id number] [facility] Blood 01/20/2025 10:5 5 AM CDT 01/20/2025 10:55 AM CDT us Rishi Lainez MD LAB POCT ORDERABLES - DE VICE Final Result Performing Organization Address [facility] Co de Phone Number [facility] (app) [place] [address] * (ABNORMAL) POCT Activated clotting time, low range (01/20/2025 10:32 AM CDT) ACT 281(H) 123 - 168 sec POC [facility]former [id number] POC Device Number [id number] [facility] Blood 01/20/2025 10:3 2 AM CDT 01/20/2025 10:32 AM CDT us Rishi Lainez MD LAB POCT ORDERABLES - DE VICE Final Result Performing Organization Address City/[facility] Co de Phone Number [facility] Department [place] [address] * [place] AN PROCEDURE PLACEHOLDER (01/20/2025 10:05 AM CDT) [...] MD ANESTHESIA ORDERABLES Final Resu lt * TX AN PROCEDURE PLACEHOLDER (01/20/2025 10:04 AM CDT) Odalis Rodgers - 01/20/2025 10:04 AM CDT Odalis Waterman 01/20/2025 10:05 AM Peripheral IV Catheter Patient location: OR Staff: Supervising provider: Ashleigh Beverly MD Placed by: DATA CENTER CONSULTANT: Juan Shipman CRNA Preprocedure prep: Prep solution: chlorhexadine PPE: gloves and provider hat/mask PIV line: Laterality: right Site: forearm Catheter size: 16 g Technique: direct visualization and palpatation Procedure details: good blood return and occlusive dressing applied Number of attempts: 1 Assessment: Events: patient tolerated procedure well with no complications us Ashleigh Beverly MD ANESTHESIA ORDERABLES Final Resu lt * TX AN PROCEDURE PLACEHOLDER (01/20/2025 10:03 AM CDT) Odalis Rodgers - 01/20/2025 10:03 AM CDT Odalis Waterman 01/20/2025 10:04 AM Arterial Line Patient location: OR Indication: continuous blood pressure monitoring and blood sampling needed Ultrasound assisted: yes Staff: Supervising provider: Ashleigh Beverly MD Placed by: DATA CENTER CONSULTANT: Juan Shipman CRNA Procedure prep: Prep solution: [...] MD ANESTHESIA ORDERABLES Final Resu lt * TX AN ELECTIVE ENDOTRACHEAL AIRWAY, [place] AN PROCEDURE PLACEHOLDER (01/20/2025 10:02 AM CDT) [...] 137 123 - 168 sec POC Performer [id number] [facility] POC Device Number [id number] [facility] Blood 01/20/2025 9:43 AM CDT 01/20/2025 9:43 AM CDT Rishi Lainez MD LAB POCT ORDERABLES - DE VICE Final Result Performing Organization Address [facility]/[place] [address] * Prepare RBC: 2 Units (01/20/2025 6:59 AM CDT) Product code [id number] [facility] Unit Number [id number] 0-I [facility] Product Blood Type OPOS [facility] Dispense Status RETURNED [facility] Product code [id number] Unit Number [id number] 2-D [facility] Product Blood Type OPOS [facility] Dispense Status RETURNED [facility] Blood 01/20/2025 6:59 AM CDT 01/20/2025 6:58 AM CDT Narrative [facility] - 01/20/2025 1:52 PM CDT Specify Procedure:->thoracic ensovascular repair Are special requirements needed? (All products are leukoreduced and CMV- safe)- >No Date required:-[id number] LRRBC # of [id number] Reasons:-Hold for procedure (specify procedure)} Yolanda Hays NP BLOOD BANK PRODUCT ORDERABLES Fi nal Result Performing Organization Address [facility] [place] [address] * TYPE AND SCREEN 14 DAY (01/11/2025 10:04 AM CDT) ABO Rh O Positive Aminata, indirect Negative [facility] Blood 01/11/2025 10:0 4 AM CDT 01/11/2025 10:47 AM CDT Narrative [facility] - 01/11/2025 12:05 PM CDT Is this test being ordered in advance for a procedure?->Yes Expected date of procedure:->01/20/25 Has the patient been transfused in the past 3 months?->No Yolanda Hays NP LAB BLOOD BANK TEST ORDERABLES F inal Result Performing Organization Address City/[facility] Co de Phone Number [facility] [place] [address] * (ABNORMAL) eGFR (01/11/2025 10:04 AM CDT) Pathologist [facility] eGFR 13(L) >=60 mL/min/1. 73 m2 Comment: [...] Organization Address City/[facility]/ZIP Co de Phone Number [facility] Department [place] [address] * Differential, auto (01/11/2025 10:04 AM CDT) Pathologist [facility] Neutrophil abs 5.1 1.5 - 6.5 K/cumm Imm gran abs 0.0 0.0 - 0.1 K/cumm [facility] Lymphocyte abs 1.2 0.8 - 3.3 K/cumm [facility] Monocyte abs 0.6 0.2 - 0.8 K/cumm [facility] Eosinophil abs 0.4 0.0 - 0.5 K/cumm [facility] Basophil abs 0.1 0.0 - 0.1 K/cumm [facility] Neutrophil pct 68.7 % [facility] Comment: Interpretive Data Percent cell count reference ranges are not reported, since discordance with absolute values may lead to misinterpretation of CBC data. Current Interpretive Data was last revised on 2018. Imm gran pct 0.5 % [facility] Comment: Interpretive Data Percent cell count reference ranges are not reported, since discordance with absolute values may lead to misinterpretation of CBC data. Current Interpretive Data was last revised on 2018. Lymphocyte pct 16.0 % [facility] Comment: Interpretive Data Percent cell count reference ranges are not reported, since discordance with absolute values may lead to misinterpretation of CBC data. Current Interpretive Data was last revised on 2018. Monocyte pct 7.8 % [facility] Comment: Interpretive Data Percent cell count reference ranges are not reported, since discordance with absolute values may lead to misinterpretation of CBC data. Current Interpretive Data was last revised on 2018. Eosinophil pct 5.8 % [facility] Comment: Interpretive Data Percent cell count reference ranges are not reported, since discordance with absolute values may lead to misinterpretation of CBC data. Current Interpretive Data was last revised on 2018. Basophil pct 1.2 % [facility] Comment: Interpretive Data Percent cell count reference ranges are not reported, since discordance with absolute values may lead to misinterpretation of CBC data. Current Interpretive Data was last revised on 2018. Blood 01/11/2025 10:0 4 AM CDT 01/11/2025 10:28 AM CDT us Yolanda Hays NP LAB BLOOD ORDERABLES Final Resul t [facility] [place] [address] * CPAP aPTT algorithm (01/11/2025 10:04 AM [...] NP LAB BLOOD ORDERABLES Final Resul t [facility] [place] [address] * (ABNORMAL) Urinalysis reflex to microscopic and culture Urine, clean voided (01/11/2025 10:04 AM CDT) Color, ur Straw Yellow Clarity, ur Clear Clear [facility] Specific gravity, ur 1.013 1.003 - 1.030 [facility] pH, urine 6.5 [facility] Comment: Interpretive Data U rine pH is affected by diet, medications, systemic acid-base disturbances, and renal tubular function. pH may affect urinary stone formation. For example, urine pH below 6.0 may help reduce the tendency for calcium phosphate stones and pH greater than 6.0 may reduce the tendency for uric acid stone formation. Source: [facility] Current Interpretive Data was last revised on 2017 Protein, ur ql 1+(A) Negative [facility] Glucose, ur ql 3+(A) Negative [facility] Ketones, ur Negative Negative [facility] Bilirubin, ur Negative Negative [facility] Blood, ur 1+(A) Negative [facility] Urobilinogen, ur <2.0 <2.0 mg/dL [facility] Nitrite, ur Negative Negative [facility] Leukocyte esterase, ur Negative Negative [facility] UA reflex comment Reflex to microscopic UA will be performed. [facility] Urine, clean voided 01/11/2025 10:04 AM CDT 01/11/2025 10:20 AM CDT Yolanda Hays NP LAB MICROBIOLOGY - GENERAL ORDER CHELSI Final Result Performing Organization Address [facility] Co de Phone Number [facility] [place] [address] * (ABNORMAL) CBC with auto differential (01/11/2025 10:04 AM CDT) WBC 7.5 3.8 - 9.9 K/cumm Hgb 10.5(L) 13.0 - 17.5 g/dL [facility] Hct 32.2(L) 38.9 - 50.3 % [facility] Plt 184 150 - 400 K/cumm [facility] MPV 10.1 9.1 - 12.3 fL [facility] RBC 3.23(L) 4.30 - 5.80 M/cumm [facility] MCV 99.7(H) 81.3 - 96.4 fL [facility] MCH 32.5 27.1 - 33.3 pg [facility] MCHC 32.6 32.3 - 35.7 g/dL [facility] RDW CV 13.5 11.1 - 14.9 % [facility] RDW SD 49.7(H) 35.7 - 48.1 fL [facility] NRBC abs 0.00 0.00 - 0.01 K/cumm [facility] Blood 01/11/2025 10:0 4 AM CDT 01/11/2025 10:28 AM CDT Yolanda Hays NP LAB BLOOD ORDERABLES Final Resul t Performing Organization Address City/[facility]/ZIP Co de Phone Number [facility] (app) [place] [address] * (ABNORMAL) Urinalysis, microscopic only (01/11/2025 10:04 AM CDT) WBC, ur 0-5 0 - 5 /HPF RBC, ur 0-2 0 - 2 /HPF [facility] Mucous, ur Present(A) [facility] Culture Reflex Comment Reflex conditions for urine culture (WBC >10) not met. [facility] Urine, clean voided 01/11/2025 10:04 AM CDT 01/11/2025 10:20 AM CDT Yolanda Hays NP LAB URINE ORDERABLES Final Resul t Performing Organization Address [facility] [place] [address] * Protime-INR (01/11/2025 10:04 AM CDT) PT 12.0 9.7 - 13.0 sec INR 1.11 0.90 - 1.20 [facility] Comment: Interpretive data Oral anticoagulant therapeutic ranges: [...] ORDERABLES Final Resul t Performing Organization Address [facility] de Phone Number [facility] [place] [address] * (ABNORMAL) Basic metabolic panel (01/11/2025 10:04 AM CDT) Sodium 144 135 - 145 mmol/L Potassium, pl 4.5 3.3 - 4.9 mmol/L [facility] Chloride 111(H) 97 - 110 mmol/L [facility] CO2 21(L) 22 - 32 mmol/L [facility] Anion gap 12 2 - 15 mmol/L [facility] BUN 34(H) 6 - 25 mg/dL [facility] Creatinine 4.51(H) 0.80 - 1.30 mg/dL [facility] Glucose 111 70 - 199 mg/dL [facility] Comment: Interpretive Data Fasting glucose >/= 126 [...] 2022. Calcium 8.9 8.5 - 10.3 mg/dL [facility] Blood 01/11/2025 10:0 4 AM CDT 01/11/2025 10:28 AM CDT Yolanda Hays NP LAB BLOOD ORDERABLES Final Resul t [facility] [place] [address] * CTA Chest Abdomen Pelvis (12/22/2024 10:37 AM CONSTRUCTION ESTIMATOR) Anatomical Region Laterality Modality Body N/A Computed Tomogra phy 12/22/2024 1:33 PM CONSTRUCTION ESTIMATOR Impressions 12/22/2024 3:53 PM CONSTRUCTION ESTIMATOR 1. 62 mm x 68 mm thoracic [...] Gabrielle Milian M.D. Narrative 12/22/2024 3:53 PM CONSTRUCTION ESTIMATOR EXAMINATION: CT ANGIOGRAPHY OF THE CHEST, ABDOMEN [...] aneurysm: 27 mm AP by 37 mm zpngi-vi-tafa Aortic diameter 1 cm proximal to aneurysm: 36 mm AP by 35 mm qsuml-nx-vdmf Aortic diameter immediately proximal to aneurysm: 38 mm AP by 33 2 mm jzpos-te-dnbh Maximum outer aneurysm diameter: 62 mm AP by 68 mm hwucb-ye-afvc Aortic diameter immediately distal to aneurysm: 38 mm AP by 39 mm zrwie-ax-binf Aortic diameter 1 cm distal to aneurysm: 40 mm AP by 44 mm rksnr-uk-aozb Aortic diameter 2cm distal to aneurysm: 44 mm AP by 41 mm tmnyl-bp-vxgy Right common iliac artery diameter: 28 mm AP by 32 mm fxnyv-dx-zqio Left common iliac artery diameter: 33 mm AP by 35 mm ricih-at-rhnz Right external iliac artery diameter: 8 mm AP by 12 mm cqgsa-mf-ekgb Left external iliac artery diameter: 5 mm AP by 14 mm tsjwj-gy-dpok Right femoral artery diameter: 7 mm AP by 13 mm pymwd-ca-dlbv Left femoral artery diameter: 7 mm AP by 17 mm zflcw-kx-cbgs Proximal neck - distance from top of [...] is 36 mm AP x 39 mm poigx-xe-fhgm. This is stable since the prior exam. [...] aneurysm: 27 mm AP by 37 mm ptcuj-qv-xavy Aortic diameter 1 cm proximal to aneurysm: 36 mm AP by 35 mm unkls-da-arbv Aortic diameter immediately proximal to aneurysm: 38 mm AP by 33 2 mm hqtrw-et-imxw Maximum outer aneurysm diameter: 62 mm AP by 68 mm dlndz-iw-qwgt Aortic diameter immediately distal to aneurysm: 38 mm AP by 39 mm gaaix-gv-oaxk Aortic diameter 1 cm distal to aneurysm: 40 mm AP by 44 mm pyiym-vz-tagl Aortic diameter 2cm distal to aneurysm: 44 mm AP by 41 mm tpjle-tl-owyy Right common iliac artery diameter: 28 mm AP by 32 mm fimax-db-jvuv Left common iliac artery diameter: 33 mm AP by 35 mm dulyj-ee-lbut Right external iliac artery diameter: 8 mm AP by 12 mm rbjxw-ry-xwzl Left external iliac artery diameter: 5 mm AP by 14 mm zmjsz-bl-rste Right femoral artery diameter: 7 mm AP by 13 mm ubrsp-jp-dzyz Left femoral artery diameter: 7 mm AP by 17 mm oxjte-kb-ojrn Proximal neck - distance from top of [...] is 36 mm AP x 39 mm tbcmy-kg-kshp. This is stable since the prior exam. [...] * (ABNORMAL) POCT creatinine (12/22/2024 10:07 AM CONSTRUCTION ESTIMATOR) Creatinine POC 4.8(H) 0.8 - 1.3 mg/dL Blood 12/22/2024 10:0 7 AM CONSTRUCTION ESTIMATOR 12/22/2024 10:07 AM CONSTRUCTION ESTIMATOR Rishi Lainez MD LAB POCT ORDERABLES - DE VICE Final Result [facility] [place] [address] from Last 3 Months Insurance MEDICARE IDPR MEDICARE IDPR [employer]ETNA [facility] MANAGED MEDICAID GENERIC RISK OTHER MEDICARE [facility] Address: [address] [address] [place] [address] IDPA Advance Directives For more information, please contact: [phone] Documents on File Type Date Recorded Patient Hand Profiler Expl anation ADVANCE DIRECTIVE 02/06/2025 3:23 AM POWER OF REGULATOR OPERATOR-MEDICAL ADVANCE DIRECTIVE 01/25/2025 11:56 AM POWER OF REGULATOR OPERATOR-MEDICAL ADVANCE DIRECTIVE 02/04/2018 12:00 AM * Full [...] Alternat e Health Care Agent Care Teams Service Station Attendant Relationship Specialty Start Date End Date Avery Ramos MD [address] [place] [address] PCP - General Family Practice 06/30/18 Lisandro Durham MD [address] [place] [address] Referring Physician Pulmonary Disease 04/01/19 Melia Amaya MD [address] [place] [address] Radiation Oncologist Radiation Oncology 04/27/19 Jigar Beasley MD [address] [place] [address] Resident Anesthesiology 03/03/24 Aileen Fisher MD [address] [place] [address] Consulting Physician Nephrology 05/14/24 Miscellaneous, Not In File 05/14/24 Clinic, Urology [address] [place] [address] Urology 05/14/24
--- OUTSIDE RECORDS SUMMARY | 2025-02-24 09:19 | XMS_ITS | Encounter Summary ---
Author Organization [facility] Address [address] [place] [address] Phone Care Team Providers Care Vacuum Forming Machine Operator Name Role Phone Avery Ramos MD Primary Care Provider [phone] Lisandro Durham MD Unavailable [phone] Melia Amaya MD Unavailable [phone] Jigar Beasley MD Unavailable [phone] Aileen Fisher MD Unavailable [phone] Miscellaneous, Not In File Unavailable Unava [facility] Clinic, Urology Unavailable Encounter Details Date Type Department Care Team (Late st Contact Info) Description 02/23/2025 Telephone [facility] Nephrology [address] [facility] Medicine 5th [place] [address] [place] [address] Teresa Flor Social History Tobacco Use Types Packs/Day Years Used Date Smoking Tobacco: Every Day Cigarettes 1 59.3 Started: 1967 Passive Smoke Exposure: Current Smokeless Tobacco: Never Comments:Working on quitting before surgery (has quit on and off a few times) Alcohol Use Standard Drinks/Week Comments Not Currently 0 (1 standard drink = 0.6 oz pur e alcohol) 1-2 beers a month [facility] Utilities Answer Date Recorded In [...] often do you attend chur ch or worship services? 1 to 4 times per year 01/22/2025 Do you belong to any clubs o r organizations such as baptism groups, unions, fraternal or athletic groups, or [...] place to sleep or slept in a correction (including now)? No 03/06/2024 Housing Stability Vital Sign Answer Jem e Recorded In the last 12 months, was t here a time when you were not able to pay the mortgage or rent on time? No 01/22/2025 In the past 12 months, how m any times have you moved where you were living? 0 01/22/2025 At any time in the past 12 m [facility], were you homeless or living in a correction (including now)? No 01/22/2025 Personal Safety Answer Date Recorded Have you ever been in or are you currently in a harmful physical or emotional relationship or is someone making you feel afraid or unsafe? 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 Gender Identity Not on file Sexual Orientation [...] on filedocumented in this encounter Care Teams Vacuum Forming Machine Operator Relationship Specialty Start Date End Date Avery Ramos MD [address] [place] [address] PCP - General Family Practice 06/30/18 Lisandro Durham MD [address] [place] [address] Referring Physician Pulmonary Disease 04/01/19 Melia Amaya MD [address] [place] [address] Radiation Oncologist Radiation Oncology 04/27/19 Jigar Beasley MD [address] [place] [address] Resident Anesthesiology 03/03/24 Aileen Fisher MD [address] [place] [address] Consulting Physician Nephrology 05/14/24 Miscellaneous, Not In File 05/14/24 Clinic, Urology [address] [place] [address] Urology 05/14/24 documented as of this encounter
--- OUTSIDE RECORDS SUMMARY | 2025-02-24 09:19 | XMS_ITS | Encounter Summary ---
Author Organization [facility] Address [address] [place] [address] Care Team Providers Care Refueling Rampman Name Role Phone Avery Ramos MD Primary Care Provider [phone] Encounter Details Date Type Department Care Team (Late st Contact Info) Description 03/11/2024 Therapy Plan [facility] Day [facility] [address] [facility] [place], [place] [id number] Avery Ramos MD [address] [place] [address] Social History Tobacco Use Types Packs/Day Years [...] Primary documented in this encounter Care Teams Refueling Rampman Relationship Specialty Start Date End Date Avery Ramos MD [address] [place] [address] PCP - General FAMILY PRACTICE 02/25/23 documented as of this encounter
--- OUTSIDE RECORDS SUMMARY | 2025-02-24 09:19 | XMS_ITS | Clinical Summary ---
Author Organization [facility] Address [address] [place] [address] Phone Care Team Providers Care Fur Grader Name Role Phone Avery Ramos MD Primary Care Provider [phone] Allergies Active Allergy Reactions Criticality Noted Date [...] season) 06/21/202403/2021 Medical Devices Implanted Type Area Tennis Professional Device Identifier Shelf Expiration Date Model / Serial / Lot Coil Emb Pod Packing 5cm [id number]/30/20 24 Implanted:Qty: 1 on 04/30/2024 by Jhoan Silver MD [employer] 10/27/2031 [id number] / / [id number] Insurance MEDICARE PART A AND B [place]ICAID [id number] Advance Directives For more information, please contact: [phone] Documents on File Type Date Recorded Patient Caser In Expl anation Advance Directive POA 05/01/2024 11:07 AM Advance Directive POA * Full Code (Latest Code Status on File) Date Activated Date Inactivated Comments 04/29/2024 7:58 PM 05/07/2024 2:46 AM Care Teams Fur Grader Relationship Specialty Start Date End Date Avery Ramos MD [address] [place] [address] PCP - General Family Practice 04/29/24
--- OUTSIDE RECORDS SUMMARY | 2025-02-24 09:19 | XMS_ITS | Encounter Summary ---
Author Organization [facility] Address [address] [facility] [address] [place] [address] Phone Care Team Providers Care Rn Post Partum Name Role Phone Avery Ramos MD Primary Care Provider [phone] Lisandro Durham MD Unavailable [phone] Melia Amaya MD Unavailable [phone] Jigar Beasley MD Unavailable [phone] Aileen Fisher MD Unavailable [phone] Miscellaneous, Not In File Unavailable [facility], Urology Unavailable Encounter Details Date Type [...] pur e alcohol) 1-2 beers a month [facility] Utilities Answer Date Recorded In the past 12 months has th e electric, gas, oil, or water [employer] threatened to shut off services in your [...] often do you attend chur ch or restoration services? Never 05/08/2024 Do you belong to any clubs o r organizations such as rastafarian groups, unions, fraternal or athletic groups, or [...] place to sleep or slept in a half-way (including now)? No 03/06/2024 Housing Stability Vital Sign Answer Jem e Recorded In the last 12 months, was t here a time when you were not able to pay the mortgage or rent on time? No 05/08/2024 In the past 12 months, how m any times have you moved where you were living? 0 05/08/2024 At any time in the past 12 m [facility], were you homeless or living in a half-way (including now)? No 05/08/2024 Personal Safety Answer Date Recorded Have you ever been in or are you currently in a harmful physical or emotional relationship or is someone making you feel afraid or unsafe? 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 Gender Identity Not on file Sexual [...] on filedocumented in this encounter Care Teams Rn Post Partum Relationship Specialty Start Date End Date Avery Ramos MD [address] [place] [address] PCP - General Family Practice 06/30/18 Lisandro Durham MD [address] [place] [address] Referring Physician Pulmonary Disease 04/01/19 Melia Amaya MD [address] [place] [address] Radiation Oncologist Radiation Oncology 04/27/19 Jigar Beasley MD [address] [place] [address] Resident Anesthesiology 03/03/24 Aileen Fisher MD [address] [place] [address] Consulting Physician Nephrology 05/14/24 Miscellaneous, Not In File 05/14/24 Clinic, Urology [address] [place] [address] Urology 05/14/24 documented as of this encounter
--- OUTSIDE RECORDS SUMMARY | 2025-02-24 09:19 | XMS_ITS | Encounter Summary ---
Author Organization [facility] Address [address] [place] [address] Care Team Providers Care Seaming Inspector Name Role Phone Avery Ramos MD Primary Care Provider [phone] Reason for Visit * Reason Onset Date [...] (Late st Contact Info) Description 04/30/2024 Telephone [facility] Admitting [address] [place] [address] Allie Mehta MD [address] [facility] [address] [place] [address] Possible kidney mass, hematoma - [...] on filedocumented in this encounter Care Teams Seaming Inspector Relationship Specialty Start Date End Date Avery Ramos MD [address] [place] [address] PCP - General Family Practice 04/29/24 documented as of this encounter
--- OUTSIDE RECORDS SUMMARY | 2025-02-24 09:19 | XMS_ITS | Encounter Summary ---
Author Organization [facility] Address [address] [place] [address] Care Team Providers Care Support Services Tech Name Role Phone Avery Ramos MD Primary Care Provider [phone] Lisandro Durham MD Unavailable [phone] Melia Amaya MD Unavailable [phone] Jigar Beasley MD Unavailable [phone] Aileen Fisher MD Unavailable [phone] Miscellaneous, Not In File Unavailable [facility], Urology Unavailable Encounter Details Date Type Department Care Team (Late st Contact Info) Description 05/20/2024 Telephone [facility] Radiology [address] [place] [address] Juli Chris RN Social History Tobacco Use Types Packs/Day Years Used Date Smoking Tobacco: Every Day Cigarettes 0.1 56.7 Started: 1966; Last attempted to quit: 06/17/2021 Passive Smoke Exposure: Current Smokeless Tobacco: Never Comments:pt states quit toda y 07/24/2021 Alcohol Use Standard Drinks/Week Comments Not Currently 0 (1 standard drink = 0.6 oz pur e alcohol) 1-2 beers a month [facility] Utilities Answer Date Recorded In the [...] often do you attend chur ch or buddhist services? Never 05/08/2024 Do you belong to any clubs o r organizations such as mandaeism groups, unions, fraternal or athletic groups, or [...] any time in the past 12 m [facility], were you homeless or living in a fdc (including now)? No 05/08/2024 Personal Safety Answer Date Recorded Have you ever been in or are you currently in a harmful physical or emotional relationship or is someone making you feel afraid or unsafe? 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 Gender Identity Not on file Sexual Orientation [...] on filedocumented in this encounter Care Teams Support Services Tech Relationship Specialty Start Date End Date Avery Ramos MD [address] [place] [address] PCP - General Family Practice 06/30/18 Lisandro uDrham MD [address] [facility] [address] [place] [address] Referring Physician Pulmonary Disease 04/01/19 Melia Amaya MD [address] [place] [address] Radiation Oncologist Radiation Oncology 04/27/19 Jigar Beasley MD [address] [place] [address] Resident Anesthesiology 03/03/24 Aileen Fisher MD [address] [place], [place] [id number] Consulting Physician Nephrology 05/14/24 Miscellaneous, Not In File 05/14/24 Clinic, Urology [address] [place] [address] Urology 05/14/24 documented as of this encounter
--- OUTSIDE RECORDS SUMMARY | 2025-02-24 09:19 | XMS_ITS | Clinical Summary ---
Author Organization [facility] Address [address] [place] [address] Care Team Providers Care Instructor Physical Education Name Role Phone Avery Ramos MD Primary Care Provider [phone] Allergies Active Allergy Reactions Criticality Noted Date Comments Sulfa Antibiotics Nausea and Vomiting 4 Medications umeclidinium-vilant lisa (ANORO ELLIPTA) 62.5-25 MCG/INH inhaler Inhale 1 puff into the lungs. 8 Active ANORO ELLIPTA 62.5-25 MCG/INH inhalerIndications: COPD (chronic obstructive pulmonary disease) ([facility]) INHALE 1 PUFF BY MOUTH DAILY 60 [...] - 02/19/2025 11:59 PM CDT Hospital Encounter [facility] [address] [address] Avery Ramos MD Discharge Disposition: Home or Self Care (Routine Discharge) 02/19/2025 Orders Only [facility] [address] [place] [address] Avery Ramos MD 02/19/2025 Travel from Last [...] and albuminuria creatinine ratio less than 30* ([facility]) CT CHEST+ABD+PEL WO CON STAT 04/29/2024 11:40 AM CDT from Last 3 Months or Most Recently Relevant to Health Maintenance Results * (ABNORMAL) BASIC METABOLIC PANEL (02/19/2025 4:10 PM CDT) GLUCOSE 129(H) 70 - 99 MG/DL 02/19/2025 5:09 PM CDT [facility] BUN 70(H) 7 - 18 MG/DL 02/19/2025 5:09 PM CDT [facility] CREATININE S/P/B 5.91(HH) 0.50 - 1.20 MG/DL 02/19/2025 5:09 PM CDT [facility] Comment: CRITICAL VALUE CALLED RESULT READ BACK AND VERIFIED TRIED CALLING DR MADERA OFFICE @ [phone] A FEW TIMES NO ANSWER, NO OTHER NUMBER FOUND TO CALL SODIUM S/P/B 136 136 - 145 MMOL/L 02/19/2025 5:09 PM CDT [facility] POTASSIUM S/P/B 5.7(H) 3.5 - 5.1 MMOL/L 02/19/2025 5:09 PM CDT [facility] CHLORIDE S/P/B 103 100 - 108 MMOL/L 02/19/2025 5:09 PM CDT [facility] CO2 19.8(L) 21.0 - 32.0 MMOL/L 02/19/2025 5:09 PM CDT [facility] CALCIUM S/P/B 9.3 8.5 - 10.1 MG/DL 02/19/2025 5:09 PM CDT [facility] ANION GAP 13.2 5.0 - 15.0 MMOL/L 02/19/2025 5:09 PM CDT [facility] BUN CREATININE RATIO 11.8 6 - 26 02/19/2025 5:09 PM T [facility] GFR ESTIMATE 10(L) >90 ML/MIN/1. 73 M2 02/19/2025 5:09 PM CDT [facility] Comment: NOTE: eGFR is not calculated for patients <18 years of age. This is an estimated GFR calculation using the new CKD EPI creatinine equation without race and so does not require a correction factor for race. This estimated GFR should not be used for calculating drug doses. 02/19/2025 4:10 PM CDT Avery Ramos MD LABORATORY Final Result [facility] [address] [place] [address], [place] from Last 3 Months Insurance MEDICARE MEDICAID MEDICAID MEDICARE Advance Directives Documents on File Type Date Recorded Patient Assistant Manager Pt Expl anation Advance Directives and Living Will 07/23/2017 12:00 AM ADVANCED DIRECTIVES Care Teams Instructor Physical Education Relationship Specialty Start Date End Date Avery Ramos MD [address] [place] [address] PCP - General FAMILY PRACTICE 02/25/23
--- OUTSIDE RECORDS SUMMARY | 2025-02-24 09:19 | XMS_ITS ---
Author Organization [facility] Address [address] [place] [address] Phone Care Team Providers Care Gate Clerk Name Role Phone Avery Ramos MD Primary Care Provider [phone] Active Problems Problem Noted Date Diagnosed Date [...]
[2025-02-24 09:24] LABS: Alanine Aminotransferase 25 U/L (6-50); Alkaline Phosphatase 145 U/L (38-126); Anion Gap 14 mmol/L (4-12); Aspartate Amino Transferase 21 U/L (17-59); Bilirubin,Total 0.6 mg/dL (0.2-1.3); Blood Urea Nitrogen 58 mg/dL (9-20); Calcium 9.4 mg/dL (8.4-10.2); Carbon Dioxide 17 mmol/L (22-30); Chloride 109 mmol/L (98-107); Estimated CRCL calculation 12 ml/min; Estimated Glomerular Filt Rate 10; Glucose 121 mg/dL (65-110); Magnesium 1.9 mg/dL (1.6-2.3); Potassium 5.2 mmol/L (3.4-5.0); Sodium 140 mmol/L (137-145)
--- NOTE | 2025-02-24 09:27 | ED_ITS ---
HPI - Recheck/Abnormal Lab/Rx General Chief Complaint: Recheck/Abnormal Lab/Rx Stated Complaint: high potassium Time Seen by Provider: 02/24/25 08:43 History of Present Illness HPI narrative: 69-year-old male with a past medical history including significant vascular history status post infrarenal abdominal aortic aneurysm status post repair, thoracic aortic aneurysm repair on January 20 of this year at [facility]. Patient has a history of CKD stage 4, previously had 1 episode dialysis a year ago after AAA repair, history of lung cancer and kidney cancer status post nephrectomy in IR embolization. Patient presents to the emergency department for abnormal labs. He had outpatient labs done yesterday by his primary doctor that showed elevated potassium of 5.9 and worsening kidney function with elevated BUN and creatinine. Patient presents to [place] emergency department. He has not any acute distress, denies any chest pain, shortness a breath, nausea, vomiting abdominal pain, fever, chills. Presently not any dialysis, does not have any dialysis access. Was told that previously he was supposed to be on dialysis but this was never arranged over a year ago and he has been doing fine since. Still making urine without decreased output according to him. Patient has no symptoms at this time. Related Data Allergies Allergy/AdvReac Type Severity Reaction Status Date / Time Sulfa (Sulfonamide Allergy Mild Nausea and Verified 02/28/24 16:48 Antibiotics) Vomiting Review of Systems 2 Review of Systems: As reviewed above in HPI [facility] Past Medical History Medical History Chronic kidney disease COPD (chronic obstructive pulmonary disease) Abdominal aortic aneurysm Thoracic aortic aneurysm Kidney malignancy Lung cancer Surgical History Surgical History History of abdominal aortic aneurysm repair History of partial nephrectomy Exam 2 Narrative: GENERAL: [Well-appearing, well-nourished, and in no acute distress.] HEAD: [Normocephalic, atraumatic.] EYES: [PERRLA and EOMI.] ENT: Nares clear, no rhinorrhea or epistaxis. Mucous membranes moist. NECK: Supple. CHEST: [Clear to auscultation. No respiratory distress.] HEART: [Regular rate and rhythm]. No murmur heard. [Normal peripheral pulses.] ABDOMEN: [Soft, nondistended], [nontender], [No rigidity or guarding] EXTREMITIES: Normal range of motion. [No edema.] SKIN: Warm, dry, no rash. NEURO: [No focal deficits]. Alert and oriented [x3.] PSYCH: [Normal mood and affect.] Course Vital Signs Vital signs: Vital Signs Temperature 36.6 C 02/24/25 09:07 Pulse Rate 93 02/24/25 09:07 Respiratory Rate 16 02/24/25 09:07 Blood Pressure 136/87 02/24/25 09:07 Pulse Oximetry 94 02/24/25 09:07 Oxygen Delivery Room Air 02/24/25 09:07 Temperature 36.6 C 02/24/25 09:07 Pulse Rate 93 02/24/25 09:07 Respiratory Rate 16 02/24/25 09:07 Blood Pressure 136/87 02/24/25 09:07 Pulse Oximetry 94 02/24/25 09:07 Oxygen Delivery Room Air 02/24/25 09:07 MDM - Recheck/Abnormal Lab/Rx MDM Narrative Medical decision making narrative: 69-year-old male with significant past medical history including multiple vascular repairs including a ruptured AAA that was repaired and stented as well as a thoracic aortic aneurysm repair done just over 1 month ago at [facility]. Patient also has a history of CKD stage 4, lung cancer, kidney cancer status post nephrectomy in IR embolization. Patient presents with abnormal outside labs. He had elevated BUN and creatinine and elevated potassium of 5.9. Worse than his baseline levels and he was sent to the emergency department for evaluation. Patient has no symptoms at this time and has normal vital signs and unremarkable physical examination. He is saturating well on room air, not any distress, no chest pain, abdominal pain, back pain. No fever, chills. Suspicion presently is that he is having worsening kidney function from his recent hospital visits and surgical repair of his aorta but low suspicion for acute aortic emergency at this juncture given normal vital signs and unremarkable examination. Patient has no pain or symptoms at this time. Will reobtain laboratory studies including a CBC, CMP, EKG, magnesium level. Should patient require dialysis or emergent lowering of his potassium patient will likely need transfer back to his tertiary care facility given his care team and nephrology team are at [facility] combined with his recent invasive vascular surgery at their facility. Patient's laboratory studies are reassuring here without any leukocytosis or significant anemia. Normal platelet count. His electrolytes are largely unremarkable he has a potassium 5.2 which is better than his reported 5.9 on my chart. BUN and creatinine are also improved compared to the my chart values at bedside from labs drawn recently. Glucose normal. Normal LFTs. EKG shows no signs of hyperkalemic T-waves, no signs of ectopy or QTC prolongation. No ST segment changes. Patient remains asymptomatic during my re-evaluations. I discussed the case with patient's personal cross country and track and field coach Dr. Adan and we went over patient's clinical exam, laboratory values and findings. We did a medication reconciliation and there is no needed changes to his regimen at this time. No recommendations to initiate treatment such as Lokelma unless K>5.5 and no other needed meds to lower his level at this time. Patient will have repeat labs drawn and ordered by his cross country and track and field coach for next week an outpatient visit on a short- term basis. I relayed this information to the patient and the at bedside and they were comfortable with the plan. Patient is stable for discharge home at this time given no acute urgent or emergent concerns or treatment plan needing initiation or changes at this time with good established follow up. Patient and family given return precautions and signs and symptoms to watch out for. Medical Records Attestation: I reviewed the patient's medical records. Lab Data Attestation: I reviewed the patient's lab results. 02/24/25 08:57 02/24/25 08:57 Labs: Lab Results 02/24/25 Range/Units 08:57 WBC 8.5 (4.5-10.0) K/mm3 RBC 3.12 L (4.6-6.20) M/mm3 Hgb 9.6 L (14.0-18.0) g/dL Hct 31.3 L (42.0-52.0) % MCV 100.3 H (80-100) fl MCH 30.8 (26-34) pg MCHC 30.7 L (32-36) g/dl RDW 14.6 H (11.5-14.5) % Plt Count 170 (150-375) k/mm3 MPV 9.4 (7.4-10.4) fl Immature Gran % (Auto) 0.9 H (0-0.5) % Neut % (Auto) 72.2 (45.5-73.1) % Lymph % (Auto) 14.1 L (18.3-44.2) % Otero % (Auto) 6.7 (2.6-8.5) % Eos % (Auto) 4.7 H (0-4.4) % Baso % (Auto) 1.4 H (0.2-1.2) % Lymph # (Auto) 1.20 (0.9-3.2) K/mm3 Otero # (Auto) 0.6 (0.1-0.6) K/mm3 Eos # (Auto) 0.4 H (0-0.3) K/mm3 Baso # (Auto) 0.1 (0.0-0.1) K/mm3 Abs Immat Gran (auto) 0.08 H (0.00-0.031) K/mm3 Absolute Neuts (auto) 6.2 (1.3-6.7) K/mm3 Absolute Nucleated RBC 0.000 (0.0-0.012) K/mm3 Nucleated RBC % 0.0 (0.0-0.2) % Sodium 140 (137-145) mmol/L Potassium 5.2 H (3.4-5.0) mmol/L Chloride 109 H (98-107) mmol/L Carbon Dioxide 17 L (22-30) mmol/L Anion Gap 14 H (4-12) mmol/L BUN 58 H D (9-20) mg/dL Creatinine 5.41 H (0.7-1.3) mg/dL Estim Creat Clear Calc 12 ml/min Estimated GFR 10 L (59 - ) Glucose 121 H (65-110) mg/dL Calcium 9.4 (8.4-10.2) mg/dL Magnesium 1.9 (1.6-2.3) mg/dL Total Bilirubin 0.6 (0.2-1.3) mg/dL AST 21 (17-59) U/L ALT 25 (6-50) U/L Alkaline Phosphatase 145 H (38-126) U/L Total Protein 7.0 (6.3-8.2) g/dL Albumin 4.0 (3.5-5.1) g/dL ECG Data EKG #1: Attestation: I personally reviewed and interpreted this ECG as follows: ECG completion date: 02/24/25 ECG completion time: 08:51 Prior ECG tracings: not available for review Interpretation: Sinus rhythm, QTC of 401, QRS 121, LA interval 169. Rate of 92 beats per minute. No ST segment elevations, depressions or inversions. No hyperkalemic T-waves. No previous EKG for comparison. Overall final interpretation of normal sinus rhythm. Discharge Plan Discharge Clinical Impression: Chronic kidney disease (CKD), At high risk for hyperkalemia, History of thoracic aortic aneurysm repair Patient Disposition: Home Condition: Stable Instructions: Antibiotic Form, Dialysis Nutrition Plan (DC), Hyperkalemia (ED) Additional Instructions: Your potassium here is 5.2, we spoke to Dr. Adan your cross country and track and field coach who had no acute concerns at this time. We went over her medications and there are no changes needed at this time and we do not need to start any drugs to lower your potassium levels further. Your cross country and track and field coach will order laboratory studies and set up an outpatient follow-up next week. Return with any emergent concerns. Return with any developing or concerning symptoms. Patient Language: Yoruba Follow-up/Referrals: UNKNOWN,DOCTOR [Primary Care Provider] - Time of Disposition: 10:09
[2025-02-24 09:30] VITALS: PULSE 80; RESP 22
[2025-02-24 09:46] VITALS: BP 123/77; PULSE 81; RESP 20; TEMP 36.6; O2SAT 96
[2025-02-24 10:00] VITALS: BP 124/74; PULSE 81; RESP 20; TEMP 36.4; O2SAT 100
== END 2025-02-24 10:40 | disposition home or self-care (01) ==
PROVIDERS: Emergency Provider Student in an Organized Health Care Education/Training Program
DX: E87.5 Hyperkalemia (principal); N18.4 Chronic kidney disease, stage 4 (severe); Z95.820 Peripheral vascular angioplasty status with implants and grafts; J44.9 Chronic obstructive pulmonary disease, unspecified; Z85.118 Personal history of other malignant neoplasm of bronchus and lung; Z85.528 Personal history of other malignant neoplasm of kidney; Z90.5 Acquired absence of kidney; I45.9 Conduction disorder, unspecified
CPT/HCPCS: 36415; 80053; 83735; 85025; 93005; 99283